=== PATIENT | male | born 1985 | race African-American/Black ===

== ENCOUNTER 2024-10-15 13:48 | Inpatient (IN) | payer SELFPAY ==
--- NOTE | ~2024-10-15 | XR_ITS ---
Clinical Indication: Pneumonia PA and lateral views of the chest: Comparison: 10/15/2024 Findings: Bibasilar airspace disease improved from prior exam. There is linear scarring or atelectasi s left midlung. Cardiomediastinal silhouette is stable. Bones and soft tissues are unremarkable. Impression: Improvement in bibasilar airspace disease. Linear scarring or atelectasis left midlung. Stable cardiomegaly. Reviewed, dictated and finalized at location . ICAL APPLICATION MANAGER Impression: Improvement in bibasilar airspace disease. Linear scarring or atelectasis left midlung. Stable cardiomegaly.
--- NOTE | ~2024-10-15 | CT_ITS ---
CTA chest PE protocol Ordering provider: Fawad Mendez MD History: 39 years Male with . Shortness of breath, elevated troponin . Comparison: None. Technique: CT angiogram chest was performed following timed intravenous injection of contrast. Thin s lice axial images and reformatted coronal images were obtained. Three dimensional reformatted images of the chest were also obtained using a [employer] workstation. . Automated exposure control and iterati ve reconstruction technique were employed. The dose-length product was 321.69 mGy-cm. 100 mL Omnipaqu e 350 was given IV. Findings: PULMONARY ARTERIES: No pulmonary embolus. VISUALIZED THORACIC INLET: Normal. MEDIASTINUM: Aorta/coronary arteries: The thoracic aorta is normal. Heart/other: The heart is moderately enlarged. Lymph nodes: No mediastinal or hilar adenopathy. LUNGS: Focal density in the right lower lobe area measuring 2.1 cm which may be focal pneumonia or a nodule. Follow-up CT is advised in 3 months. Atelectatic changes seen in the left lung base laterally atelec tatic changes in the middle lobe is. Bilateral moderate pleural effusion more on the right side with adjacent atelectasis. No pneumothorax. VISUALIZED UPPER ABDOMEN: the visualized upper abdomen is normal. MUSCULOSKELETAL: Soft tissues: The superficial soft tissues are normal. Bones: Normal spine.. IMPRESSION: 1. No pulmonary embolism. 2. Bilateral pleural effusion larger on the right side with adjacent atelectasis. 3. Density in the right lower lobe laterally which may be focal pneumonia or nodules. 3 months follo w-up CT is advised. Reviewed, dictated and finalized at location A. EDITOR IMPRESSION: 1. No pulmonary embolism. 2. Bilateral pleural effusion larger on the right side with adjacent atelectas is. 3. Density in the right lower lobe laterally which may be focal pneumonia or n odules. 3 months follow-up CT is advised.
--- NOTE | ~2024-10-15 | XR_ITS ---
XR chest 1V Ordering provider: Gray Lockett PA-C History: 39 years Male with . dyspnea, cough x one month . Comparison: None. FINDINGS: MEDIASTINUM: The cardiac silhouette is slightly enlarged. LUNGS: No pneumothorax. Bibasilar opacification more on the left side with possible minimal effusion. OTHER: No free air under the diaphragm. IMPRESSION: Bibasilar pneumonia. Reviewed, dictated and finalized at location A. [employer] IMPRESSION: Bibasilar pneumonia.
[2024-10-15 13:52] VITALS: BP 159/120; PULSE 113; RESP 21; TEMP 36.2; O2SAT 98
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
--- NOTE | 2024-10-15 16:27 | ECG_ITS ---
Test Date: 2024-10-15 21:27:19 Measurements Intervals [place] Rate: 103 P: 51 OR: 164 QRS: 84 QRSD: 93 T: 66 QT: 338 QTc: 444 Interpretive Statements SINUS TACHYCARDIA LEFT ATRIAL ENLARGEMENT [-0.15mV P-WAVE IN V1/V2] LOW QRS VOLTAGE IN EXTREMITY LEADS [QRS DEFLECTION < 0.5 mV IN LIMB LEADS] NONSPECIFIC T-WAVE ABNORMALITY ABNORMAL ECG Electronically Signed On 10-16-2024 08:28:55 GLUE REEL OPERATOR by Dom Lomeli M.D.
[2024-10-15 20:05] LABS: Basophils Percent Auto 0.5 % (0.2-1.2); Eosinophils Percent Auto 0.5 % (0-4.4); Hematocrit 46.3 % (42.0-52.0); Hemoglobin 15.5 g/dL (14.0-18.0); Immature Granulocyte Absolute 0.01 K/mm3 (0.00-0.031); Immature Granulocyte Percent A 0.2 % (0-0.5); Lymphocytes Absolute Auto 1.85 K/mm3 (0.9-3.2); Lymphocytes Percent Auto 32.1 % (18.3-44.2); Mean Corpuscular HGB Conc 33.5 g/dl (32-36); Mean Corpuscular Hemoglobin 26.7 pg (26-34); Mean Corpuscular Volume 79.8 fl (80-100); Mean Platelet Volume 11.2 fl (7.4-10.4); Monocytes Absolute Auto 0.6 K/mm3 (0.1-0.6); Monocytes Percent Auto 9.7 % (2.6-8.5); Neutrophils Absolute Auto 3.3 K/mm3 (1.3-6.7); Platelet Count Result 184 k/mm3 (150-375); Red Cell Distribution Width 13.5 % (11.5-14.5); White Blood Count 5.8 K/mm3 (4.5-10.0)
[2024-10-15 20:16] LABS: Alanine Aminotransferase 29 U/L (6-50); Albumin Level 3.6 g/dL (3.5-5.1); Alkaline Phosphatase 63 U/L (38-126); Anion Gap 4 mmol/L (4-12); Aspartate Amino Transferase 26 U/L (17-59); Bilirubin,Total 0.7 mg/dL (0.2-1.3); Blood Urea Nitrogen 14 mg/dL (9-20); Calcium 8.8 mg/dL (8.4-10.2); Carbon Dioxide 24 mmol/L (22-30); Chloride 101 mmol/L (98-107); Estimated CRCL calculation 78 ml/min; Estimated Glomerular Filt Rate > 60; Glucose 410 mg/dL (65-110); Potassium 4.2 mmol/L (3.4-5.0); Sodium 129 mmol/L (137-145)
[2024-10-15 20:17] LABS: Lactic Acid Reflex 1.6 mmol/L (0.7-2.0)
[2024-10-15 20:28] LABS: NT Pro B Type Natriuretic Pept 4500 pg/mL (19.9-100); Troponin I 0.116 ng/mL (0.000-0.034)
[2024-10-15 20:30] LABS: Strep Group A RT-PCR NOT DETECTED (Negative)
[2024-10-15 20:41] LABS: Influenza A QL RT-PCR Negative (Negative); Influenza B QL RT-PCR Negative (Negative); RSV RNA, RT-PCR Negative (Negative); SARS-CoV-2 RNA PCR Negative (Negative)
--- NOTE | 2024-10-15 21:19 | PC.NURSE ---
this patient placed in room 3 at this time. Patient has been here for 7 hours with no EKG completed.
[2024-10-15] MEDS: FUROSEMIDE INJ 40 MG/4 ML VIAL IV PUSH (21:35)
[2024-10-15] MEDS: ASPIRIN 81 MG CHEWABLE TABLET 324 MG PO (21:35)
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
[2024-10-16] VITALS (15 sets, daily range): BP systolic 89–126; BP diastolic 65–92; PULSE 78–102; RESP 14–20; TEMP 36.6–37.2; O2SAT 99–100; BMI 29.4; BMI 29.9
--- NOTE | 2024-10-16 | ECHO_ITS ---
Patient Info Name: Michael Frank Age: 39 years : 1985 Gender: Male Ht: 67 in Wt: 191 lbs BSA: 2.05 m2 HR: 101 bpm BP: 114 / 92 mmHg Heart Rhythm: Sinus Rhythm Technical Quality: Good Exam Date: 10/16/2024 8:48 AM Exam Location: Echo Lab Patient Status: Inpatient Admit Date: 10/15/2024 Staff Ordering Physician: Shashi Mueller MD Hat Copyist: Mei Hirsch RDCS Attending Provider: Shashi Mueller MD Referring Physician: Ami BOWEN; Exam Type: CA echo doppler color flow Study Info Complete two-dimensional, color flow and Doppler transthoracic echocardiogram is performed. Summary 1. Complete two-dimensional, color flow and Doppler transthoracic echocardiogram is performed. 2. Left ventricular systolic function is severely reduced, estimated at 15-20%. 3. Left ventricular chamber dimension is moderately enlarged. 4. There is no increased left ventricular wall thickness. 5. The left ventricular diastolic function is abnormal. 6. Right ventricular chamber dimension is mildly enlarged. 7. Right ventricular systolic function is reduced. 8. Cannot rule out a left ventricular thrombus with the images obtained. 9. Left atrial chamber dimension is severely enlarged. 10. There is mild aortic valve regurgitation. 11. There is mild to moderate mitral valve regurgitation. 12. There is mild tricuspid valve regurgitation. 13. Mild pulmonary hypertension, estimated pulmonary arterial systolic pressure is 36 mmHg. 14. There is mild pulmonic regurgitation. 15. There is small pericardial effusion. Left Ventricle Left ventricular chamber dimension is moderately enlarged. Left ventricular systolic function is severely reduced, estimated at 15-20%. There is no increased left ventricular wall thickness. The left ventricular diastolic function is abnormal. Cannot rule out a left ventricular thrombus with the images obtained. Right Ventricle Right ventricular chamber dimension is mildly enlarged. Right ventricular systolic function is reduced. Left Atria Left atrial chamber dimension is severely enlarged. Right Atria Right atrial chamber dimension is normal. Atrial Septum Intact interatrial septum visualized by color flow imaging. Aortic Valve The aortic valve is trileaflet. There is mild aortic valve sclerosis. There is no aortic valve stenosis. There is mild aortic valve regurgitation. Pulmonic Valve The pulmonic valve is normal. There is no pulmonic valve stenosis. There is mild pulmonic regurgitation. Mitral Valve The mitral valve has normal leaflets. There is no mitral valve stenosis. There is mild to moderate mitral valve regurgitation. Tricuspid Valve The tricuspid valve leaflets are normal. There is no significant tricuspid valve stenosis. There is mild tricuspid valve regurgitation. Mild pulmonary hypertension, estimated pulmonary arterial systolic pressure is 36 mmHg. Pericardium/Pleural The pericardium appears normal. There is small pericardial effusion. Inferior Vena Cava Dilated inferior vena cava with <50% collapse upon inspiration consistent with elevated right atrial pressure, 15 mmHg. Aorta The aortic root size at the sinus of Valsalva is normal. Left Ventricular Outflow Tract Name Value Normal LVOT 2D LVOT Diameter 2.2 cm LVOT Doppler LVOT Peak Gradient 2 mmHg LVOT Mean Gradient 1 mmHg LVOT VTI 11 cm LVOT VTI/AV VTI Ratio 0.8 LVOT Stroke Volume 43 ml LVOT CO 3.7 l/min LVOT CI 1.8 l/min/m2 Pulmonic Valve Name Value Normal PV Doppler PV Peak Gradient 2 mmHg PV Regurgitation Doppler FL Peak End Diastolic Velocity 181 cm/s Mitral Valve Name Value Normal MV Doppler MV Peak Gradient 3 mmHg MV Mean Gradient 1 mmHg MV Decel Walsh 534 cm/s2 MV PHT 35 ms MV Area (PHT) 6.2 cm2 4.0-5.0 MV Area (Cont Eq VTI) 3.6 cm2 MV Regurgitation Doppler MR Peak Gradient 60 mmHg MV Diastolic Function MV E Peak Velocity 65 cm/s MV A Peak Velocity 30 cm/s MV E/A 2.2 MV Decel Time 122 ms MV Annular TDI MV E/e' (Septal) 9.1 <=8.0 MV E/e' (Lateral) 8.8 <=8.0 MV E/e' (Average) 8.9 Tricuspid Valve Name Value Normal TV Regurgitation Doppler TR Peak Velocity 231 cm/s TR Peak Gradient 21 mmHg Estimated PAP/RSVP RA Pressure 15 mmHg <=5 PA Systolic Pressure 36 mmHg <36 RV Systolic Pressure 36 mmHg <36 Aortic Valve Name Value Normal AV Doppler AV Peak Velocity 91 cm/s AV Peak Gradient 3 mmHg AV Mean Gradient 2 mmHg AV VTI 14 cm AV Area (Cont Eq VTI) 3.0 cm2 >=3.0 AV Area (Cont Eq Derick) 3.1 cm2 AV Regurgitation 2D LVOT Area 3.8 cm2 Ventricles Name Value Normal LV Dimensions 2D/MM IVS Diastolic Thickness (2D) 0.8 cm 0.6-1.0 LVID Diastole (2D) 5.9 cm 4.2-5.8 LVIW Diastolic Thickness (2D) 0.9 cm 0.6-1.0 LVID Systole (2D) 5.8 cm 2.5-4.0 LVOT Diameter 2.2 cm LV Mass (2D Cubed) 204.27 g 88.00-224.00 LV Mass Index (2D Cubed) 100 g/m2 49-115 Relative Wall Thickness (2D) 0.31 LV Fractional Shortening/Ejection Fraction 2D/MM LV Fractional Shortening (2D) 2 % 25-43 LV EF (2D Teicholz) 4 % 52-72 LV Diastolic Volume (4C MOD) 238 ml LV EF (4C MOD) 19 % LV Diastolic Length (4C) 9.2 cm LV Systolic Length (4C) 8.8 cm LV Stroke Volume (4C MOD) 45 ml Atria Name Value Normal LA Dimensions LA Volume (4C A-L) 136 ml RA Dimensions RA Area (4C) 21.4 cm2 <=18.0 Report Signatures
[2024-10-16] MEDS: AZITHROMYCIN 500 MG/NS 250 ML 500 MG/250 ML BAG 250 MG IVPB ×2 (00:15→22:18)
--- NOTE | 2024-10-16 01:50 | PC.NURSE ---
RN called report at this time on patient.
--- NOTE | 2024-10-16 02:27 | ADMGEN ---
This patient, Michael Frakn, was admitted to IMU Room 206-01. Patient/family oriented to hospital policies and general routines including ID bracelet, bed and alarms, visiting hours, pain management, procedures, bathroom and other care routines, personal items, smoking policy, room service/diet, and visiting hours. Information on how to activate the Rapid Response Team has been discussed. Patient/Family are encouraged to report perceived risks to care and to ask questions if they do not understand what they are told or what they should do.
[2024-10-16] MEDS: INSULIN HUMAN REGULAR (*BKC) 100 UNITS/ML 8 UNITS SUB-Q (02:48)
[2024-10-16 04:17] LABS: Phosphorus 4.8 mg/dL (2.5-4.5)
[2024-10-16 04:22] LABS: Glucose Point of Care 484 mg/dl (65-105)
[2024-10-16 04:28] LABS: Hemoglobin A1C 12.7 % (<5.7)
--- NOTE | 2024-10-16 04:52 | PC.NURSE ---
The patient's meds could not be reconciled due to the patient being unable to recall what he is taking and dosage. notified and she acknowledged the information and informed this RN that pharmacy would be calling to confirm meds and that she would be putting in a request for medical records from his recent admission at [facility].
[2024-10-16] MEDS: carvediloL 12.5 MG TABLET PO ×2 (06:19→20:30)
[2024-10-16 08:22] LABS: Glucose Point of Care 397 mg/dl (65-105)
[2024-10-16] MEDS: INSULIN ASPART (*BKC) 100 UNITS/ML SUB-Q ×3 (08:53→18:09)
[2024-10-16] MEDS: FUROSEMIDE INJ 40 MG/4 ML VIAL IV PUSH ×2 (08:54→20:31)
[2024-10-16 12:08] LABS: Glucose Point of Care 321 mg/dl (65-105)
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
[2024-10-16 17:54] LABS: Glucose Point of Care 341 mg/dl (65-105)
[2024-10-16 20:29] LABS: Glucose Point of Care 311 mg/dl (65-105)
[2024-10-16] MEDS: SACUBITRIL/VALSARTAN 12-13 MG TABLET 1 TAB PO (20:31)
[2024-10-17] VITALS (14 sets, daily range): BP systolic 88–133; BP diastolic 64–101; PULSE 74–103; RESP 15–22; TEMP 36.5–36.8; O2SAT 99–100
[2024-10-17 08:46] LABS: Glucose Point of Care 393 mg/dl (65-105)
[2024-10-17] MEDS: SPIRONOLACTONE 25 MG TABLET PO (09:12)
[2024-10-17] MEDS: FOLIC ACID 1 MG TABLET PO (09:12)
[2024-10-17] MEDS: THIAMINE HCL 100 MG TABLET PO (09:12)
[2024-10-17] MEDS: SACUBITRIL/VALSARTAN 12-13 MG TABLET 1 TAB PO ×2 (09:12→21:17)
[2024-10-17] MEDS: carvediloL 12.5 MG TABLET PO ×2 (09:12→21:16)
[2024-10-17] MEDS: FUROSEMIDE INJ 40 MG/4 ML VIAL IV PUSH (09:13)
[2024-10-17] MEDS: INSULIN ASPART (*BKC) 100 UNITS/ML SUB-Q ×2 (09:18→17:54)
--- NOTE | 2024-10-17 11:28 | P.CONCA_ITS ---
Assessment and Plan Assessment and plan (1) Cardiomyopathy: Code(s): I42.9 - Cardiomyopathy, unspecified Status: Acute Assessment and Plan: Severe cardiomyopathy with ejection fraction down to 15 20%. Will order a limited echo with definity to assess for LV thrombus. He was noncompliant with his medical regimen upon discharge. He also continues to drink alcohol, at least a 6 pack per day. At [facility], Stress test showed a fixed defect. In my opinion, he still should have a definitive evaluation of his coronary anatomy via catheterization at some point. I also talked about a LifeVest and left social work talk to him but given lack of insurance, this may be difficult. Hopefully can get him on Medicaid. Regarding medications, continue carvedilol 12.5 mg p.o. b.i.d.. Will reduce his furosemide down to 40 mg IV daily and transition to oral furosemide tomorrow. Agree with Entresto and spironolactone but will need close assessment renal function upon discharge and will need patient assistance to get Entresto. Additionally, given his cardiomyopathy and diabetes and heart failure, Jardiance or Farxiga would also be advisable. Low-salt diet. Stopping use of alcohol as also discussed and advised. (2) Noncompliance: Code(s): Z91.199 - Patient's noncompliance with other medical treatment and regimen due to unspecified reason Status: Acute Assessment and Plan: Encourage compliance (3) Hypertension associated with diabetes: Code(s): E11.59 - Type 2 diabetes mellitus with other circulatory complications; I15.2 - Hypertension secondary to endocrine disorders Status: Acute Assessment and Plan: BP meds as above (4) Acute on chronic systolic heart failure: Code(s): I50.23 - Acute on chronic systolic (congestive) heart failure Status: Acute Assessment and Plan: Diuresing and initiating CHF regimen as above. Check a basic metabolic panel in the a.m. (5) EtOH dependence: Code(s): F10.20 - Alcohol dependence, uncomplicated Status: Acute Assessment and Plan: Ongoing and advised to stop History of Present Illness History of Present Illness Consult date/time: 10/17/24 11:28 Requesting physician: Chris Vleasquez MD Consult reason: congestive heart failure Reason For Visit: Acute exacerbation CHF pneumonia Narrative: Date of service 10/17/2024: Reason for consultation: Acute on chronic systolic congestive heart failure Requesting provider: Dr. Velasquez History: 39-year-old male who was recently at [facility] with a new diagnosis of CHF with reduced ejection fraction. Ejection fraction was found to be 25-30%. He did undergo diuresis but had a bump in creatinine and diuretics were held. Was started on Entresto and other meds. He was discharged home. Stress testing performed at [facility] showed a fixed defect so cardiac catheterization was not performed. There was a discussion about a LifeVest but he has no insurance and life vest was not ordered. He came back to this hospital because of coughing when lying down as well as some chest pain with coughing. Short of breath with lying down and was waking up at night gasping for air. He also has been having worsening edema. No syncope or presyncope. He was not taking his medications several days prior to admission. Also he drinks at least 6 beers per day and had continued to drink alcohol upon discharge and returning to home. Review of Systems 2 Review of Systems: All systems reviewed & are unremarkable except as noted in HPI and below Constitutional: Constitutional: Denies body ache(s) Eyes: Eyes: Denies blurry vision ENT: Denies epistaxis Cardiovascular: Cardiovascular: Denies chest pain Respiratory: Respiratory: Reports dyspnea Gastrointestinal: Gastrointestinal: Denies abdominal pain Musculoskeletal: Musculoskeletal: Denies back pain Integumentary/Breasts: Skin/Breast: Denies rash Neurologic: Denies confusion Psychiatric: Psychiatric: Denies anxiety Endocrine: Endocrine: Denies excessive sweating Hematologic/Lymphatic: Hematologic/Lymphatic: Denies easy bleeding Allergic/Immunologic: Allergic/Immunologic: Denies lip swelling PMFSH Past Medical History Medical History (Updated 10/17/24 @ 11:34 by Dom Lomeli MD) Noncompliance Cardiomyopathy Hypertension associated with diabetes EtOH dependence Family History Family History (Updated 10/16/24 @ 02:29 by Serg Nayak RN) Mother Hypertension Father Hypertension Social History Social History Smoking status: Never smoker Alcohol intake: current Drinks per week: 6 Substance use: never Substance use type: does not use Do You Feel Safe in your Home?: Yes Lack of Transportation: No Lack of Food: Never True Current Housing: I Have Housing Concerned About Future Housing: No Difficulty Paying Gas/Electric Bills: No Difficulty Paying for Meds: No Currently Unemployed: No Education: High School Diploma/GED Difficulty w/ Childcare or Family Care: No Spiritual care concerns: No Meds Home Medications and Allergies Allergies Allergy/AdvReac Type Severity Reaction Status Date / Time No Known Allergies Allergy Verified 10/15/24 21:27 Vital Signs Vital Signs - 24 hr 10/16/24 12:00 10/16/24 12:00 10/16/24 14:00 Temperature 36.6 C Pulse Rate 90 92 89 Respiratory Rate 14 Blood Pressure 112/74 Pulse Oximetry 100 Oxygen Delivery 10/16/24 16:00 10/16/24 16:00 10/16/24 18:00 Temperature 37.2 C Pulse Rate 92 93 94 Respiratory Rate 20 Blood Pressure 116/72 Pulse Oximetry 99 Oxygen Delivery 10/16/24 20:00 10/16/24 20:00 10/16/24 20:00 Temperature 36.6 C Pulse Rate 94 93 Respiratory Rate 18 18 Blood Pressure 123/89 123/89 Pulse Oximetry 100 100 Oxygen Delivery Room Air 10/16/24 20:00 10/16/24 20:30 10/16/24 22:00 Temperature Pulse Rate 93 78 84 Respiratory Rate Blood Pressure Pulse Oximetry Oxygen Delivery 10/16/24 23:55 10/17/24 00:00 10/17/24 00:00 Temperature 36.8 C Pulse Rate 89 88 Respiratory Rate 16 16 Blood Pressure 89/65 L 89/65 L Pulse Oximetry 99 99 Oxygen Delivery Room Air 10/17/24 00:00 10/17/24 01:47 10/17/24 04:00 Temperature 36.6 C Pulse Rate 88 74 103 H Respiratory Rate 15 Blood Pressure 133/101 H Pulse Oximetry 99 Oxygen Delivery 10/17/24 04:00 10/17/24 04:00 10/17/24 04:00 Temperature Pulse Rate 102 H 102 H Respiratory Rate 15 Blood Pressure 133/101 H Pulse Oximetry 99 Oxygen Delivery Room Air 10/17/24 06:00 10/17/24 07:53 10/17/24 08:00 Temperature 36.8 C Pulse Rate 100 101 H 103 H Respiratory Rate 16 Blood Pressure 132/95 H Pulse Oximetry 100 Oxygen Delivery 10/17/24 10:00 Temperature Pulse Rate 101 H Respiratory Rate Blood Pressure Pulse Oximetry Oxygen Delivery Exam 2 Narrative: Awake alert oriented appears stated age Const: General: comfortable and no acute distress HENMT: Face/Nose/Sinus: Normal nares present Mouth: Yes moist mucous membranes Eyes: General: appearance normal, both eyes and all related structures S clera: sclerae normal Neck: Neck: supple and no JVD Chest: Other: No reproducible chest wall pain to palpation Resp: Effort & Inspection: normal respiratory effort Auscultation: clear to auscultation bilaterally Cardio: Rate: regular rate Rhythm: regular rhythm GI: Inspection: non-distended GI Palp: Yes Soft to palpation Skin: General skin exam: normal color Neuro: Motor exam (neuro): 5/5 motor strength present throughout Sensory Exam: normal sensation Extrem: Other: Mild lower extremity edema Psych: Mental Status: mental status grossly normal Results Labs and Meds 10/15/24 19:40 10/15/24 19:40 Lab results: Intake and Output 10/16/24 10/17/24 10/17/24 23:59 07:59 15:59 Intake Total 840 600 500 Output Total 1000 525 Balance -160 75 500 Intake: IV 300 Azithromycin 500 mg/Ns 250 ml 250 500 mg In 250 ml @ 250 mls/hr IVPB Q24H KLEIN Rx#:[id number] 1 GM/NS 50 ML 1 gm 50 In 50 ml @ 100 mls/hr IVPB Q24H KELIN Rx#:[id number] Oral 540 600 500 Output: Urine 1000 525 Other: # Unmeasured Voids 3 Patient Weight 10/17/24 23:59 Weight 86.9 kg echocardiogram personally reviewed and independently interpreted 2. Left ventricular systolic function is severely reduced, estimated at 15-20%. 3. Left ventricular chamber dimension is moderately enlarged. 4. There is no increased left ventricular wall thickness. 5. The left ventricular diastolic function is abnormal. 6. Right ventricular chamber dimension is mildly enlarged. 7. Right ventricular systolic function is reduced. 8. Cannot rule out a left ventricular thrombus with the images obtained. 9. Left atrial chamber dimension is severely enlarged. 10. There is mild aortic valve regurgitation. 11. There is mild to moderate mitral valve regurgitation. 12. There is mild tricuspid valve regurgitation. 13. Mild pulmonary hypertension, estimated pulmonary arterial systolic pressure is 36 mmHg. 14. There is mild pulmonic regurgitation. 15. There is small pericardial effusion.
[2024-10-17 11:57] LABS: Glucose Point of Care > 500 mg/dl (65-105)
[2024-10-17] MEDS: INSULIN ASPART (*BKC) 100 UNITS/ML 10 UNITS SUB-Q (13:00)
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
[2024-10-17] MEDS: ACETAMINOPHEN 500 MG TABLET 1000 MG PO (14:53)
[2024-10-17 18:08] LABS: Glucose Point of Care 167 mg/dl (65-105)
[2024-10-17 19:45] LABS: Glucose Point of Care 144 mg/dl (65-105)
[2024-10-17] MEDS: guaiFENesin 12 HR 600 MG TABCR PO (21:17)
[2024-10-17 21:47] LABS: Glucose Point of Care 130 mg/dl (65-105)
[2024-10-17] MEDS: INSULIN GLARGINE (*BKC) 100 UNITS/ML 10 UNITS SUB-Q (22:02)
[2024-10-17] MEDS: AZITHROMYCIN 500 MG/NS 250 ML 500 MG/250 ML BAG 250 MG IVPB (22:31)
[2024-10-18] VITALS (9 sets, daily range): BP systolic 92–119; BP diastolic 62–84; PULSE 90–100; RESP 16–22; TEMP 36.1–36.4; O2SAT 96–99; BMI 29.9
--- NOTE | 2024-10-18 00:04 | PC.NURSE ---
report called to Margo MONTALVO and sbar faxed for transfer to room 321
[2024-10-18 07:26] LABS: Anion Gap 2 mmol/L (4-12); Blood Urea Nitrogen 18 mg/dL (9-20); Calcium 8.4 mg/dL (8.4-10.2); Carbon Dioxide 28 mmol/L (22-30); Chloride 102 mmol/L (98-107); Estimated CRCL calculation 77 ml/min; Estimated Glomerular Filt Rate > 60; Glucose 137 mg/dL (65-110); Potassium 4.3 mmol/L (3.4-5.0); Sodium 132 mmol/L (137-145)
[2024-10-18 08:20] LABS: Glucose Point of Care 152 mg/dl (65-105)
[2024-10-18 08:21] LABS: Basophils Absolute Auto 0.1 K/mm3 (0.0-0.1); Basophils Percent Auto 0.9 % (0.2-1.2); Eosinophils Absolute Auto 0.1 K/mm3 (0-0.3); Eosinophils Percent Auto 1.6 % (0-4.4); Hematocrit 49.2 % (42.0-52.0); Hemoglobin 16.2 g/dL (14.0-18.0); Immature Granulocyte Absolute 0.01 K/mm3 (0.00-0.031); Immature Granulocyte Percent A 0.2 % (0-0.5); Lymphocytes Absolute Auto 2.26 K/mm3 (0.9-3.2); Lymphocytes Percent Auto 40.1 % (18.3-44.2); Mean Corpuscular HGB Conc 32.9 g/dl (32-36); Mean Corpuscular Hemoglobin 26.7 pg (26-34); Mean Corpuscular Volume 81.1 fl (80-100); Mean Platelet Volume 11.5 fl (7.4-10.4); Monocytes Absolute Auto 0.5 K/mm3 (0.1-0.6); Neutrophils Absolute Auto 2.7 K/mm3 (1.3-6.7); Neutrophils Percent Auto 48.2 % (45.5-73.1); Platelet Count Result 192 k/mm3 (150-375); Red Blood Count 6.07 M/mm3 (4.6-6.20); Red Cell Distribution Width 13.6 % (11.5-14.5); White Blood Count 5.6 K/mm3 (4.5-10.0)
--- NOTE | 2024-10-18 08:39 | P.PNCA_ITS ---
Progress Note: A&P Assessment and Plan (1) Cardiomyopathy: Code(s): I42.9 - Cardiomyopathy, unspecified Status: Acute Assessment and Plan: Severe cardiomyopathy with ejection fraction down to 15 20%. Echocardiogram performed to assess for LV thrombus, LV thrombus cannot be ruled out. Therefore, we will start him on systemic anticoagulation with Xarelto. He was noncompliant with his medical regimen upon discharge. He also continues to drink alcohol, at least a 6 pack per day. At [facility], Stress test showed a fixed defect. In my opinion, he still should have a definitive evaluation of his coronary anatomy via catheterization at some point. I also talked about a LifeVest and left social work talk to him but given lack of insurance, this may be difficult. Hopefully can get him on Medicaid. Applying for patient assistance for Life Vest. Regarding medications, continue carvedilol 12.5 mg p.o. b.i.d.. Transition to oral furosemide today. Agree with Entresto and spironolactone but will need close assessment renal function upon discharge and will need patient assistance to get Entresto. Additionally, given his cardiomyopathy and diabetes and heart failure, Jardiance or Farxiga would also be advisable. Low-salt diet. Stopping use of alcohol as also discussed and advised. He is on a good guideline directed medical therapy regimen for cardiomyopathy. At this point, does not appear to be in decompensated heart failure. LifeVest has been ordered. 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 Cardiology will sign off. Please call with any questions. (2) Noncompliance: Code(s): Z91.199 - Patient's noncompliance with other medical treatment and regimen due to unspecified reason Status: Acute Assessment and Plan: Encourage compliance (3) Hypertension associated with diabetes: Code(s): E11.59 - Type 2 diabetes mellitus with other circulatory complications; I15.2 - Hypertension secondary to endocrine disorders Status: Acute Assessment and Plan: BP meds as above (4) Acute on chronic systolic heart failure: Code(s): I50.23 - Acute on chronic systolic (congestive) heart failure Status: Acute Assessment and Plan: Diuresing and initiating CHF regimen as above. BMP stable this morning. (5) EtOH dependence: Code(s): F10.20 - Alcohol dependence, uncomplicated Status: Acute Assessment and Plan: Ongoing and advised to stop Subjective Date/time seen: 10/18/24 08:39 Interval history: Cardiology follow up visit Feels well today and does not have any complaints aside from being tired and wanting to take a nap. Denies chest pain, shortness of breath, palpitations, swelling. Review of Systems Review of Systems: All systems reviewed & are unremarkable except as noted in HPI and below Constitutional: Constitutional: Denies body ache(s) and Denies excessive sweating Eyes: Eyes: Denies blurry vision ENT: Denies lip swelling and Denies epistaxis Cardiovascular: Cardiovascular: Denies chest pain and Reports dyspnea Respiratory: Respiratory: Reports dyspnea Gastrointestinal: Gastrointestinal: Denies abdominal pain Musculoskeletal: Musculoskeletal: Denies back pain Integumentary/Breasts: Skin/Breast: Denies rash Neurologic: Denies confusion Psychiatric: Psychiatric: Denies anxiety and Denies confusion Endocrine: Endocrine: Denies excessive sweating Hematologic/Lymphatic: Hematologic/Lymphatic: Denies easy bleeding Allergic/Immunologic: Allergic/Immunologic: Denies lip swelling Exam Narrative: Awake alert oriented appears stated age Const: General: comfortable and no acute distress; No confusion Orientation/consciousness: No confusion HENMT: Face/Nose/Sinus: Normal nares present Mouth: Yes moist mucous membranes Eyes: General: appearance normal, both eyes and all related structures Sclera: sclerae normal Neck: Neck: supple and no JVD Chest: Other: No reproducible chest wall pain to palpation Resp: Effort & Inspection: normal respiratory effort Auscultation: clear to auscultation bilaterally Cardio: Rate: regular rate Rhythm: regular rhythm GI: Inspection: non-distended Skin: General skin exam: normal color Neuro: General: No confusion Motor exam (neuro): 5/5 motor strength present throughout Sensory Exam: normal sensation Extrem: Other: no edema Psych: Mental Status: mental status grossly normal Objective Data Vital Signs Vital Signs: Vital Signs - 24 hr 10/17/24 10:00 10/17/24 12:00 10/17/24 12:13 Temperature 36.8 C Pulse Rate 101 H 95 96 Pulse Rate [Bilateral Pedal (Dorsalis Pedis) Palpation] Respiratory Rate 20 Blood Pressure 117/73 Pulse Oximetry 100 10/17/24 16:00 10/17/24 16:00 10/17/24 20:00 Temperature 36.7 C Pulse Rate 95 94 86 Pulse Rate [Bilateral Pedal (Dorsalis Pedis) Palpation] Respiratory Rate 20 Blood Pressure 110/78 Pulse Oximetry 99 10/17/24 21:16 10/17/24 23:15 10/17/24 23:38 Temperature 36.5 C Pulse Rate 88 91 Pulse Rate [Bilateral Pedal (Dorsalis Pedis) Palpation] Respiratory Rate 22 H Blood Pressure 88/64 L Pulse Oximetry 100 10/18/24 00:00 10/18/24 00:00 10/18/24 04:00 Temperature Pulse Rate 92 90 Pulse Rate [Bilateral Pedal (Dorsalis Pedis) Palpation] 92 Respiratory Rate Blood Pressure Pulse Oximetry 10/18/24 06:00 Temperature 36.1 C L Pulse Rate 90 Pulse Rate [Bilateral Pedal (Dorsalis Pedis) Palpation] Respiratory Rate 18 Blood Pressure 119/84 Pulse Oximetry 98 Intake/Output Intake/Output: Intake & Output 10/15/24 10/16/24 10/17/24 10/18/24 23:59 23:59 23:59 23:59 Intake Total 2120 2650 300 Output Total 1600 2275 Balance 520 375 300 Meds/Results Medications: Active Medications Generic Name Dose Route Start Last Admin Trade Name Freq PRN Reason Stop Dose Admin Acetaminophen 1,000 mg 10/16/24 03:14 10/17/24 14:53 Acetaminophen 500 Mg Tablet PO 1,000 mg Q6H PRN Administration Mild Pain (1-3) or Fever Al Hydrox/Mg Hydrox/Simethicone 30 ml 10/16/24 03:13 Mag Hydrox/Al Hydrox/Simeth 30 Ml Udc PO Q6H PRN Indigestion Albuterol 2.5 mg 10/16/24 03:15 Albuterol Sulfate Neb 2.5 Mg/3 Ml Inh INHALATION Q6HRT PRN Shortness Of Breath Benzonatate 100 mg 10/17/24 14:00 10/17/24 17:58 Benzonatate 100 Mg Capsule PO Not Given TID KELIN Carvedilol 12.5 mg 10/16/24 09:00 10/17/24 21:16 Carvedilol 12.5 Mg Tablet PO 12.5 mg Q12HR KELIN Administration Dextrose 12.5 gm 10/17/24 13:50 Dextrose 50% 25 Gm/50 Ml Syringe IV PUSH PRN PRN Hypoglycemia Protocol Enoxaparin Sodium 40 mg 12/30/24 09:00 Enoxaparin 40 Mg/0.4 Ml Syringe SUB-Q DAILY KELIN Folic Acid 1 mg 10/17/24 09:00 10/17/24 09:12 Folic Acid 1 Mg Tablet PO 1 mg DAILY KELIN Administration Furosemide 40 mg 10/18/24 09:00 Furosemide Inj 40 Mg/4 Ml Vial IV PUSH DAILY KELIN Glucagon 1 mg 10/17/24 13:50 Glucagon For Inj 1 Mg Vial IM PRN PRN Hypoglycemia Protocol Glucose 15 gm 10/17/24 13:50 Glucose Oral Gel 15 Gm Of Glucse In 37.5 Gm Tube PO PRN PRN Hypoglycemia Protocol Guaifenesin 600 mg 10/17/24 14:00 10/17/24 21:17 Guaifenesin 12 Hr 600 Mg Tabcr PO 600 mg Q12HR KELIN Administration Guaifenesin/Dextromethorphan 5 ml 10/17/24 13:51 Guaifenesin/Dextromethorphan 10 Ml Udc PO Q4H PRN Cough Ceftriaxone Sodium 1 gm in 50 mls @ 100 mls/hr 10/16/24 22:00 10/17/24 22:04 Rocephin 1 Gm/Ns 50 Ml IVPB 100 mls/hr Q24H KELIN Administration Azithromycin 500 mg in 250 mls @ 250 mls/hr 10/16/24 23:00 10/17/24 22:31 Zithromax IVPB 250 mls/hr Q24H KELIN Administration Dextrose 1,000 mls @ 100 mls/hr 10/17/24 13:50 Dextrose 5% 1,000 Ml IVPB PRN PRN Hypoglycemia Protocol Insulin Aspart 4 units 10/16/24 08:00 10/17/24 17:54 Insulin Aspart (*Bkc) 100 Units/Ml 0.05 units/kg (4 units) 4 units SUB-Q Administration TIDWM KELIN Insulin Glargine 10 units 10/17/24 21:00 10/17/24 22:02 Insulin Glargine (*Bkc) 100 Units/Ml SUB-Q 10 units HS KELIN Administration Ondansetron HCl 4 mg 10/16/24 03:13 Ondansetron Inj 4 Mg/2 Ml Vial IV PUSH Q6H PRN Nausea And Vomiting Perflutren Lipid Microsphere 0 ml 10/16/24 03:17 Perflutren Lipid Microspheres 1.5 Ml Vial Diluted To 10 Ml Total Volume IV PUSH 10/19/24 03:18 ONCE PRN adequate visualization Protocol Perflutren Lipid Microsphere 0 ml 10/17/24 11:41 Perflutren Lipid Microspheres 1.5 Ml Vial Diluted To 10 Ml Total Volume IV P USH 10/20/24 11:41 ONCE PRN adequate visualization Protocol Polyethylene Glycol 17 gm 10/16/24 03:13 Polyethylene Glycol 3350 17 Gm Powd.Pack PO QAM PRN Constipation Sacubitril/Valsartan 1 tab 10/16/24 21:00 10/17/24 21:17 Sacubitril/Valsartan 12-13 Mg Tablet PO 1 tab Q12HR KELIN Administration Spironolactone 25 mg 10/17/24 09:00 10/17/24 09:12 Spironolactone 25 Mg Tablet PO 25 mg QAM KELIN Administration Thiamine HCl 100 mg 10/17/24 09:00 10/17/24 09:12 Thiamine Hcl 100 Mg Tablet PO 100 mg QAM KELIN Administration Radiology Results: ITS Impressions Chest X-Ray 10/15/24 17:04 IMPRESSION: Bibasilar pneumonia. Chest CTA 10/15/24 22:03 IMPRESSION: 1. No pulmonary embolism. 2. Bilateral pleural effusion larger on the right side with adjacent atelectasis. 3. Density in the right lower lobe laterally which may be focal pneumonia or nodules. 3 months follow-up CT is advised. Labs Labs: Laboratory Results - last 24 hr 10/17/24 10/17/24 10/17/24 07:33 11:54 16:24 WBC RBC Hgb Hct MCV MCH MCHC RDW Plt Count MPV Immature Gran % (Auto) Neut % (Auto) Lymph % (Auto) [place] % (Auto) Eos % (Auto) Baso % (Auto) Lymph # (Auto) [place] # (Auto) Eos # (Auto) Baso # (Auto) Abs Immat Gran (auto) Absolute Neuts (auto) Absolute Nucleated RBC Nucleated RBC % Sodium Potassium Chloride Carbon Dioxide Anion Gap BUN Creatinine Estim Creat Clear Calc Estimated GFR Glucose POC Capillary Glucose 393 H > 500 H* 167 H Calcium 10/17/24 10/17/24 10/18/24 19:41 21:45 06:40 WBC 5.6 RBC 6.07 Hgb 16.2 Hct 49.2 MCV 81.1 MCH 26.7 MCHC 32.9 RDW 13.6 Plt Count 192 MPV 11.5 H Immature Gran % (Auto) 0.2 Neut % (Auto) 48.2 Lymph % (Auto) 40.1 [place] % (Auto) 9.0 H Eos % (Auto) 1.6 Baso % (Auto) 0.9 Lymph # (Auto) 2.26 [place] # (Auto) 0.5 Eos # (Auto) 0.1 Baso # (Auto) 0.1 Abs Immat Gran (auto) 0.01 Absolute Neuts (auto) 2.7 Absolute Nucleated RBC 0.000 Nucleated RBC % 0.0 Sodium 132 L Potassium 4.3 Chloride 102 Carbon Dioxide 28 Anion Gap 2 L BUN 18 Creatinine 1.20 Estim Creat Clear Calc 77 Estimated GFR > 60 Glucose 137 H POC Capillary Glucose 144 H 130 H Calcium 8.4 10/18/24 08:03 WBC RBC Hgb Hct MCV MCH MCHC RDW Plt Count MPV Immature Gran % (Auto) Neut % (Auto) Lymph % (Auto) [place] % (Auto) Eos % (Auto) Baso % (Auto) Lymph # (Auto) [place] # (Auto) Eos # (Auto) Baso # (Auto) Abs Immat Gran (auto) Absolute Neuts (auto) Absolute Nucleated RBC Nucleated RBC % Sodium Potassium Chloride Carbon Dioxide Anion Gap BUN Creatinine Estim Creat Clear Calc Estimated GFR Glucose POC Capillary Glucose 152 H Calcium
[2024-10-18] MEDS: THIAMINE HCL 100 MG TABLET PO (09:11)
[2024-10-18] MEDS: FOLIC ACID 1 MG TABLET PO (09:11)
[2024-10-18] MEDS: carvediloL 12.5 MG TABLET PO ×2 (09:11→21:12)
[2024-10-18] MEDS: BENZONATATE 100 MG CAPSULE PO ×3 (09:11→16:22)
[2024-10-18] MEDS: FUROSEMIDE INJ 40 MG/4 ML VIAL IV PUSH (09:11)
[2024-10-18] MEDS: SPIRONOLACTONE 25 MG TABLET PO (09:11)
[2024-10-18] MEDS: INSULIN ASPART (*BKC) 100 UNITS/ML SUB-Q ×4 (09:11→21:11)
[2024-10-18] MEDS: guaiFENesin 12 HR 600 MG TABCR PO ×2 (09:11→21:12)
[2024-10-18] MEDS: ENOXAPARIN 40 MG/0.4 ML SYRINGE SUB-Q (09:14)
[2024-10-18] MEDS: SACUBITRIL/VALSARTAN 12-13 MG TABLET 1 TAB PO ×2 (09:14→21:12)
[2024-10-18 11:39] LABS: Glucose Point of Care 223 mg/dl (65-105)
--- NOTE | 2024-10-18 14:58 | P.PNIM_ITS ---
Progress Note: A&P Assessment and Plan (1) Acute on chronic systolic heart failure: Code(s): I50.23 - Acute on chronic systolic (congestive) heart failure Status: Acute Assessment and Plan: 10/18/24: * Newly diagnosed with echocardiogram showing EF of 15-20%. * Cardiology has signed off as of today with the following recommendations. * Limited echo is unable to rule out left ventricular thrombus. * Patient started on anticoagulation with Xarelto secondary to being unable to rule out left ventricular thrombus. * Reviewed stress test from [facility] shows a fixed defect, however it is recommended per cardiology that he have outpatient follow-up and heart catheterization in the future * Care coordination working with lindsey to help provide patient with life vest * Continue carvedilol 12.5 mg by mouth twice daily * Continue oral furosemide at 40 mg daily and will need at discharge. * Initiate Entresto * Initiate Jardiance or Farxiga. * Low-salt diet * Recommended alcohol cessation * Continue telemetry * Patient will likely be able to discharge once life vest is set up. (2) Hypertension: Code(s): I10 - Essential (primary) hypertension Status: Acute Assessment and Plan: 10/18/24: * New diagnosis for patient * See above plans in problem 1. * Patient will need close follow-up. (3) Diabetes mellitus: Code(s): E11.9 - Type 2 diabetes mellitus without complications Status: Acute Assessment and Plan: 10/18/24: * New diagnosis for patient. * A1c is 12.7 * Patient was evaluated by community liaison * Hypoglycemic protocol is in place * Changing insulin from 4 units with meals to sliding scale moderately dosed. * Continue Lantus * Diabetic diet/heart healthy diet * Patient will also discharged home on Jardiance or Farxiga. * Fasting glucose today is 137. Will continue at current Lantus dose of 10 units. * Will need close follow-up as outpatient. (4) Pneumonia: Code(s): J18.9 - Pneumonia, unspecified organism Status: Acute Assessment and Plan: 10/18/24: * Continue current antibiotics of Rocephin and azithromycin. * Check x-ray in a.m. to assess resolution versus worsening versus stability * Is not meeting sepsis criteria * Continue to monitor and trend labs and vital signs. (5) EtOH dependence: Code(s): F10.20 - Alcohol dependence, uncomplicated Status: Chronic Assessment and Plan: 10/18/24: * Chronic in nature * CIWA scores of zero to very low. * Continue CIWA while here as he is a daily drinker. * Counseled pt on the importance of alcohol cessation * Daily thiamine and folic acid. (6) Noncompliance: Code(s): Z91.199 - Patient's noncompliance with other medical treatment and regimen due to unspecified reason Status: Acute Assessment and Plan: 10/18/24: * Historical noncompliance present. Patient counseled heavily for the need for compliance and given situation. Time Spent With Patient Time with patient: 25 - 35 minutes Subjective Date/time seen: 10/18/24 0900 Interval history: This patient was examined this morning at the bedside after being admitted to the hospital with bilateral lower extremity edema as well as shortness of breath cough past week. In ER patient was found have a bilateral pneumonia and bilateral pleural effusion. Echocardiogram showing ejection fraction 15-20% and the inability to rule out a left ventricular thrombus. In addition patient is noted to be a new diabetic with A1c of 12.7. Patient also admits to daily alcohol use. Patient was consulted on by Cardiology who recommends multiple treatments including a life vest, Xarelto as we cannot rule out left ventricular thrombus, Jardiance or Farxiga and started on Entresto and spironolactone. Patient also needs to stop using alcohol and eat a low-salt diet. The caviat to all of this is patient does not have any medical insurance and states he will not be eligible for Medicaid until November 2024. I have discussed with care coordination could provide some assistance but not all. They will reach out to [facility] to discuss headache can best help. All of this will depend upon patient's compliance that of which she has been non compliant thus far and it is documented in his history that he has medication and regimen noncompliance. Patient currently remains on antibiotics and is being followed by Cardiology. Today patient states he feels as though he is doing somewhat better. He was ambulatory to the shower independently and bathing. He continues to have some shortness of breath. Attempted to children counselor patient regarding the importance of cardiology's findings although he did not seem interested in discussing, stating ?I know, I know they have said everything already he is advised that care coordination will help as much as possible with obtaining what we can to help him and he was encouraged to be compliant with therapy as his life literally depends on at this time. He denies any other acutely new symptoms today. Review of Systems Review of Systems: All systems reviewed & are unremarkable except as noted in HPI and below Exam Const: General: comfortable and no acute distress Other: Lying supine in bed at this time. No respiratory distress. HENMT: Other: Head is atraumatic and normocephalic. HEENT otherwise negative. Neck: Neck: supple and no JVD Resp: Effort & Inspection: normal respiratory effort Auscultation: rhonchi left lower and right lower Cardio: Rate: regular rate Rhythm: regular rhythm Heart sounds: no gallops, Murmur heart sound present systolic holo and no rubs GI: Inspection: non-distended GI Palp: Yes Soft to palpation, No Tenderness to palpation present (GI) and No Guarding due to palpation present (GI) Auscultation: normal bowel sounds Skin: General skin exam: normal color and no rashes or lesions noted Neuro: General: gait normal Speech: normal speech Motor exam (neuro): 5/5 motor strength present throughout and Normal motor muscle tone present throughout Extrem: General: normal to inspection and no edema Psych: Mental Status: mental status grossly normal Affect: normal affect Objective Data Vital Signs Vital Signs: Vital Signs - 24 hr 10/17/24 16:00 10/17/24 16:00 10/17/24 20:00 Temperature 98.1 F Pulse Rate 95 94 86 Pulse Rate [Bilateral Pedal (Dorsalis Pedis) Palpation] Respiratory Rate 20 Blood Pressure 110/78 Pulse Oximetry 99 Oxygen Delivery 10/17/24 21:16 10/17/24 23:15 10/17/24 23:38 Temperature 97.7 F Pulse Rate 88 91 Pulse Rate [Bilateral Pedal (Dorsalis Pedis) Palpation] Respiratory Rate 22 H Blood Pressure 88/64 L Pulse Oximetry 100 Oxygen Delivery 10/18/24 00:00 10/18/24 00:00 10/18/24 04:00 Temperature Pulse Rate 92 90 Pulse Rate [Bilateral Pedal (Dorsalis Pedis) Palpation] 92 Respiratory Rate Blood Pressure Pulse Oximetry Oxygen Delivery 10/18/24 06:00 10/18/24 08:00 10/18/24 08:00 Temperature 97.0 F L Pulse Rate 90 100 Pulse Rate [Bilateral Pedal (Dorsalis Pedis) Palpation] Respiratory Rate 18 Blood Pressure 119/84 Pulse Oximetry 98 Oxygen Delivery Room Air 10/18/24 12:00 Temperature Pulse Rate 100 Pulse Rate [Bilateral Pedal (Dorsalis Pedis) Palpation] Respiratory Rate Blood Pressure Pulse Oximetry Oxygen Delivery Intake/Output Intake/Output: Intake & Output 10/15/24 10/16/24 10/17/24 10/18/24 23:59 23:59 23:59 23:59 Intake Total 2120 2650 418 Output Total 1600 2275 Balance 520 375 418 Meds/Results Medications: Active Medications Generic Name Dose Route Start Last Admin Trade Name Freq PRN Reason Stop Dose Admin Acetaminophen 1,000 mg 10/16/24 03:14 10/17/24 14:53 Acetaminophen 500 Mg Tablet PO 1,000 mg Q6H PRN Administration Mild Pain (1-3) or Fever Al Hydrox/Mg Hydrox/Simethicone 30 ml 10/16/24 03:13 Mag Hydrox/Al Hydrox/Simeth 30 Ml Udc PO Q6H PRN Indigestion Albuterol 2.5 mg 10/16/24 03:15 Albuterol Sulfate Neb 2.5 Mg/3 Ml Inh INHALATION Q6HRT PRN Shortness Of Breath Benzonatate 100 mg 10/17/24 14:00 10/18/24 11:44 Benzonatate 100 Mg Capsule PO 100 mg TID KELIN Administration Carvedilol 12.5 mg 10/16/24 09:00 10/18/24 09:11 Carvedilol 12.5 Mg Tablet PO 12.5 mg Q12HR KELIN Administration Dextrose 12.5 gm 10/17/24 13:50 Dextrose 50% 25 Gm/50 Ml Syringe IV PUSH PRN PRN Hypoglycemia Protocol Folic Acid 1 mg 10/17/24 09:00 10/18/24 09:11 Folic Acid 1 Mg Tablet PO 1 mg DAILY KELIN Administration Furosemide 40 mg 10/19/24 09:00 Furosemide 40 Mg Tablet PO DAILY KELIN Glucagon 1 mg 10/17/24 13:50 Glucagon For Inj 1 Mg Vial IM PRN PRN Hypoglycemia Protocol Glucose 15 gm 10/17/24 13:50 Glucose Oral Gel 15 Gm Of Glucse In 37.5 Gm Tube PO PRN PRN Hypoglycemia Protocol Guaifenesin 600 mg 10/17/24 14:00 10/18/24 09:11 Guaifenesin 12 Hr 600 Mg Tabcr PO 600 mg Q12HR KELIN Administration Guaifenesin/Dextromethorphan 5 ml 10/17/24 13:51 Guaifenesin/Dextromethorphan 10 Ml Udc PO Q4H PRN Cough Ceftriaxone Sodium 1 gm in 50 mls @ 100 mls/hr 10/16/24 22:00 10/17/24 22:04 Rocephin 1 Gm/Ns 50 Ml IVPB 100 mls/hr Q24H KELIN Administration Azithromycin 500 mg in 250 mls @ 250 mls/hr 10/16/24 23:00 10/17/24 22:31 Zithromax IVPB 250 mls/hr Q24H KELIN Administration Dextrose 1,000 mls @ 100 mls/hr 10/17/24 13:50 Dextrose 5% 1,000 Ml IVPB PRN PRN Hypoglycemia Protocol Insulin Aspart 4 units 10/16/24 08:00 10/18/24 11:43 Insulin Aspart (*Bkc) 100 Units/Ml 0.05 units/kg (4 units) 4 units SUB-Q Administration TIDWM KELIN Insulin Glargine 10 units 10/17/24 21:00 10/17/24 22:02 Insulin Glargine (*Bkc) 100 Units/Ml SUB-Q 10 units HS KELIN Administration Ondansetron HCl 4 mg 10/16/24 03:13 Ondansetron Inj 4 Mg/2 Ml Vial IV PUSH Q6H PRN Nausea And Vomiting Perflutren Lipid Microsphere 0 ml 10/17/24 11:41 Perflutren Lipid Microspheres 1.5 Ml Vial Diluted To 10 Ml Total Volume IV PUSH 10/20/24 11:41 ONCE PRN adequate visualization Protocol Polyethylene Glycol 17 gm 10/16/24 03:13 Polyethylene Glycol 3350 17 Gm Powd.Pack PO QAM PRN Constipation Rivaroxaban 20 mg 10/18/24 17:00 Rivaroxaban 20 Mg Tablet PO DAILY@1700 KELIN Sacubitril/Valsartan 1 tab 10/16/24 21:00 10/18/24 09:14 Sacubitril/Valsartan 12-13 Mg Tablet PO 1 tab Q12HR KELIN Administration Spironolactone 25 mg 10/17/24 09:00 10/18/24 09:11 Spironolactone 25 Mg Tablet PO 25 mg QAM KELIN Administration Thiamine HCl 100 mg 10/17/24 09:00 10/18/24 09:11 Thiamine Hcl 100 Mg Tablet PO 100 mg QAM KELIN Administration Radiology Results: ITS Impressions Chest X-Ray 10/15/24 17:04 IMPRESSION: Bibasilar pneumonia. Chest CTA 10/15/24 22:03 IMPRESSION: 1. No pulmonary embolism. 2. Bilateral pleural effusion larger on the right side with adjacent atelectasis. 3. Density in the right lower lobe laterally which may be focal pneumonia or nodules. 3 months follow-up CT is advised. Labs Labs: Laboratory Results - last 24 hr 10/17/24 10/17/24 10/17/24 16:24 19:41 21:45 WBC RBC Hgb Hct MCV MCH MCHC RDW Plt Count MPV Immature Gran % (Auto) Neut % (Auto) Lymph % (Auto) [place] % (Auto) Eos % (Auto) Baso % (Auto) Lymph # (Auto) [place] # (Auto) Eos # (Auto) Baso # (Auto) Abs Immat Gran (auto) Absolute Neuts (auto) Absolute Nucleated RBC Nucleated RBC % Sodium Potassium Chloride Carbon Dioxide Anion Gap BUN Creatinine Estim Creat Clear Calc Estimated GFR Glucose POC Capillary Glucose 167 H 144 H 130 H Calcium 10/18/24 10/18/24 10/18/24 06:40 08:03 11:30 WBC 5.6 RBC 6.07 Hgb 16.2 Hct 49.2 MCV 81.1 MCH 26.7 MCHC 32.9 RDW 13.6 Plt Count 192 MPV 11.5 H Immature Gran % (Auto) 0.2 Neut % (Auto) 48.2 Lymph % (Auto) 40.1 [place] % (Auto) 9.0 H Eos % (Auto) 1.6 Baso % (Auto) 0.9 Lymph # (Auto) 2.26 [place] # (Auto) 0.5 Eos # (Auto) 0.1 Baso # (Auto) 0.1 Abs Immat Gran (auto) 0.01 Absolute Neuts (auto) 2.7 Absolute Nucleated RBC 0.000 Nucleated RBC % 0.0 Sodium 132 L Potassium 4.3 Chloride 102 Carbon Dioxide 28 Anion Gap 2 L BUN 18 Creatinine 1.20 Estim Creat Clear Calc 77 Estimated GFR > 60 Glucose 137 H POC Capillary Glucose 152 H 223 H Calcium 8.4 Quality VTE Prophylaxis VTE prophylaxis: pharmacologic ordered
[2024-10-18] MEDS: RIVAROXABAN 20 MG TABLET PO (16:22)
[2024-10-18 16:48] LABS: Glucose Point of Care 314 mg/dl (65-105)
[2024-10-18] MEDS: INSULIN GLARGINE (*BKC) 100 UNITS/ML 10 UNITS SUB-Q (21:11)
[2024-10-19] VITALS (13 sets, daily range): BP systolic 94–120; BP diastolic 72–90; PULSE 81–93; RESP 16–18; TEMP 36–36.4; O2SAT 99–100
--- NOTE | 2024-10-19 | ECHO_ITS ---
Patient Info Name: Michael Frank Age: 39 years : 1985 Gender: Male Ht: 67 in Wt: 182 lbs BSA: 2.00 m2 HR: 81 bpm BP: 119 / 86 mmHg Heart Rhythm: Sinus Rhythm Technical Quality: Good Exam Date: 10/19/2024 10:14 AM Exam Location: Echo Lab Patient Status: Inpatient Admit Date: 10/17/2024 Staff Ordering Physician: Dom Lomeli MD Correctional Maintenance Technician: Macy Liz RDCS Attending Provider: Angela Abreu APRN Referring Physician: Yani BOYLE; Exam Type: CA echo limited w contrast Study Info Indications - Severe cardiomyopathy, r/o thrombus Limited two-dimensional transthoracic echocardiogram is performed with contrast. Contrast/Agitated Saline Contrast/Ag. Saline: Definity Amount: 3.00 ml Administered By: Macy Liz RDCS Existing IV Access: Yes IV Access Condition: patent with no signs of infiltration Summary 1. Left ventricular systolic function is severely reduced with an estimated ejection fraction of 15-20%. 2. No lV thrombus seen in the images obtained. 3. Limited echo. Left Ventricle Left ventricular systolic function is severely reduced with an estimated ejection fraction of 15-20%. No lV thrombus seen in the images obtained. Ventricles Name Value Normal LV Fractional Shortening/Ejection Fraction 2D/MM LV Diastolic Volume (4C MOD) 168 ml LV EF (4C MOD) 19 % LV Diastolic Volume (2C MOD) 144 ml LV EF (2C MOD) 22 % LV Diastolic Volume (BP MOD) 158 ml 62-150 LV Diastolic Volume Index (BP MOD) 79 ml/m2 34-74 LV Systolic Volume (BP MOD) 124 ml 21-61 LV Systolic Volume Index (BP MOD) 62 ml/m2 11-31 LV EF (BP MOD) 22 % 52-72 LV Diastolic Length (4C) 9.2 cm LV Systolic Length (4C) 7.9 cm LV Stroke Volume (4C MOD) 33 ml Report Signatures
[2024-10-19 07:16] LABS: Glucose Point of Care 495 mg/dl (65-105)
[2024-10-19 07:32] LABS: Basophils Percent Auto 0.9 % (0.2-1.2); Eosinophils Absolute Auto 0.1 K/mm3 (0-0.3); Eosinophils Percent Auto 1.3 % (0-4.4); Hematocrit 45.4 % (42.0-52.0); Lymphocytes Absolute Auto 2.38 K/mm3 (0.9-3.2); Mean Corpuscular Hemoglobin 26.4 pg (26-34); Mean Corpuscular Volume 79.8 fl (80-100); Mean Platelet Volume 11.3 fl (7.4-10.4); Monocytes Absolute Auto 0.5 K/mm3 (0.1-0.6); Monocytes Percent Auto 10.1 % (2.6-8.5); Neutrophils Absolute Auto 1.7 K/mm3 (1.3-6.7); Neutrophils Percent Auto 36.7 % (45.5-73.1); Platelet Count Result 198 k/mm3 (150-375); Red Blood Count 5.69 M/mm3 (4.6-6.20); Red Cell Distribution Width 13.1 % (11.5-14.5); White Blood Count 4.7 K/mm3 (4.5-10.0)
[2024-10-19 07:35] LABS: Glucose Point of Care 193 mg/dl (65-105)
[2024-10-19 07:46] LABS: Alanine Aminotransferase 29 U/L (6-50); Albumin Level 2.8 g/dL (3.5-5.1); Alkaline Phosphatase 38 U/L (38-126); Anion Gap 1 mmol/L (4-12); Aspartate Amino Transferase 25 U/L (17-59); Bilirubin,Total 0.6 mg/dL (0.2-1.3); Blood Urea Nitrogen 18 mg/dL (9-20); Carbon Dioxide 27 mmol/L (22-30); Chloride 104 mmol/L (98-107); Estimated CRCL calculation 74 ml/min; Estimated Glomerular Filt Rate > 60; Glucose 168 mg/dL (65-110); Potassium 3.9 mmol/L (3.4-5.0); Sodium 132 mmol/L (137-145)
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
[2024-10-19] MEDS: carvediloL 12.5 MG TABLET PO ×2 (08:53→20:51)
[2024-10-19] MEDS: FUROSEMIDE 40 MG TABLET PO (08:54)
[2024-10-19] MEDS: FOLIC ACID 1 MG TABLET PO (08:54)
[2024-10-19] MEDS: guaiFENesin 12 HR 600 MG TABCR PO ×2 (08:54→20:50)
[2024-10-19] MEDS: SPIRONOLACTONE 25 MG TABLET PO (08:54)
[2024-10-19] MEDS: THIAMINE HCL 100 MG TABLET PO (08:54)
[2024-10-19] MEDS: BENZONATATE 100 MG CAPSULE PO ×3 (08:54→18:26)
[2024-10-19] MEDS: SACUBITRIL/VALSARTAN 12-13 MG TABLET 1 TAB PO ×2 (08:55→20:50)
[2024-10-19] MEDS: PERFLUTREN LIPID MICROSPHERES 1.5 ML VIAL DILUTED TO 10 ML TOTAL VOLUME IV PUSH (10:15)
--- NOTE | 2024-10-19 10:48 | IVDEFINITY ---
Prior to administration of IV Definity the patient was educated on the risks and benefits of the imaging enhancing agent including potential adverse side effects. The patient verbalized understanding. Allergies were verified. No exclusion criteria were identified and at least one of the following inclusion criteria were met: 1) physician request, 2) patient technically difficult to image (per the [place] [employer] of Echocardi[employer] guidelines of two or more segments not discernable within the apical view), or 3) questionable left ventricular function. ?
[2024-10-19 11:29] LABS: Glucose Point of Care 445 mg/dl (65-105)
[2024-10-19] MEDS: INSULIN ASPART (*BKC) 100 UNITS/ML SUB-Q ×3 (13:00→18:27)
--- NOTE | 2024-10-19 13:27 | PC.NURSE ---
RN spoke with Provider Ivy Abreu to clarify the insulin order and LEACH RUNNER stated that she only wanted the 8 units of sliding along with the Lantus that was scheduled.
[2024-10-19] MEDS: INSULIN GLARGINE (*BKC) 100 UNITS/ML 7 UNITS SUB-Q (13:31)
[2024-10-19 16:34] LABS: Glucose Point of Care 329 mg/dl (65-105)
[2024-10-19] MEDS: RIVAROXABAN 20 MG TABLET PO (18:27)
[2024-10-19] MEDS: AMOXICILLIN/CLAVULANATE K 875-125 MG TAB 1 TABLET PO (20:51)
[2024-10-19] MEDS: DOXYCYCLINE HYCLATE 100 MG TABLET PO (20:51)
[2024-10-19] MEDS: INSULIN GLARGINE (*BKC) 100 UNITS/ML 10 UNITS SUB-Q (20:52)
[2024-10-19 21:17] LABS: Glucose Point of Care 334 mg/dl (65-105)
[2024-10-20] VITALS (10 sets, daily range): BP systolic 114–129; BP diastolic 42–92; PULSE 69–102; RESP 14–18; TEMP 36.3–36.7; O2SAT 98–100
[2024-10-20 08:13] LABS: Glucose Point of Care 388 mg/dl (65-105)
[2024-10-20] MEDS: AMOXICILLIN/CLAVULANATE K 875-125 MG TAB 1 TABLET PO (08:57)
[2024-10-20] MEDS: INSULIN ASPART (*BKC) 100 UNITS/ML SUB-Q ×5 (08:57→17:04)
[2024-10-20] MEDS: THIAMINE HCL 100 MG TABLET PO (08:58)
[2024-10-20] MEDS: FOLIC ACID 1 MG TABLET PO (08:58)
[2024-10-20] MEDS: SACUBITRIL/VALSARTAN 12-13 MG TABLET 1 TAB PO ×2 (08:58→20:36)
[2024-10-20] MEDS: carvediloL 12.5 MG TABLET PO ×2 (08:58→20:36)
[2024-10-20] MEDS: FUROSEMIDE 40 MG TABLET PO (08:58)
[2024-10-20] MEDS: DOXYCYCLINE HYCLATE 100 MG TABLET PO (08:58)
[2024-10-20] MEDS: guaiFENesin 12 HR 600 MG TABCR PO ×2 (08:58→20:36)
[2024-10-20] MEDS: SPIRONOLACTONE 25 MG TABLET PO (08:58)
[2024-10-20] MEDS: BENZONATATE 100 MG CAPSULE PO ×3 (08:58→17:04)
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
[2024-10-20 11:39] LABS: Glucose Point of Care 227 mg/dl (65-105)
[2024-10-20] MEDS: RIVAROXABAN 20 MG TABLET PO (17:04)
[2024-10-20 17:12] LABS: Glucose Point of Care 109 mg/dl (65-105)
[2024-10-20 21:01] LABS: Glucose Point of Care 118 mg/dl (65-105)
[2024-10-20] MEDS: INSULIN GLARGINE (*BKC) 100 UNITS/ML 15 UNITS SUB-Q (21:10)
[2024-10-21] VITALS (7 sets, daily range): BP systolic 112–123; BP diastolic 82–95; PULSE 83–96; RESP 14–16; TEMP 36.4–36.5; O2SAT 99–100; BMI 29.5
[2024-10-21 07:45] LABS: Glucose Point of Care 166 mg/dl (65-105)
[2024-10-21] MEDS: BENZONATATE 100 MG CAPSULE PO ×2 (10:23→12:39)
[2024-10-21] MEDS: FOLIC ACID 1 MG TABLET PO (10:23)
[2024-10-21] MEDS: FUROSEMIDE 40 MG TABLET PO (10:23)
[2024-10-21] MEDS: SPIRONOLACTONE 25 MG TABLET PO (10:23)
[2024-10-21] MEDS: carvediloL 12.5 MG TABLET PO (10:23)
[2024-10-21] MEDS: INSULIN ASPART (*BKC) 100 UNITS/ML SUB-Q ×3 (10:25→12:38)
[2024-10-21] MEDS: THIAMINE HCL 100 MG TABLET PO (10:40)
[2024-10-21] MEDS: SACUBITRIL/VALSARTAN 12-13 MG TABLET 1 TAB PO (10:40)
[2024-10-21] MEDS: guaiFENesin 12 HR 600 MG TABCR PO (10:51)
--- NOTE | 2024-10-21 11:04 | PC.NURSE ---
This RN approached by critical care educator regarding pt and his willingness to work with her. Night RN had communicated that pt seemed interested/motivated. This RN and critical care educator went into pt room. Pt seemed quiet and reserved. I introduced myself to pt; so did critical care educator. As i scanned meds, I could hear the minimal interaction from pt. Pt and DE had an awkward exchange as DE tried to engage/interest pt. At end of convo, pt stated he just wanted to sleep. I assessed pt quickly as he was agitated. I asked pt if he was frustrated as he appeared so. He said very. I let him know I would be happy to listen and or help with anything. He said no thank you and that he's not intending on being rude, but he is very tired. I let him know that I would put a sign on his door to minimize distractions at this time. He said thanks, closed his eyes and said he might take his pills.
[2024-10-21 11:35] LABS: Glucose Point of Care 314 mg/dl (65-105)
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
== END 2024-10-21 16:10 | disposition home or self-care (01) | DRG 194 ==
LOC: ANHED 21:44 → ANHIMU 10-16 00:29 → ANH3MEDSUR 10-18 02:30
PROVIDERS: Internal Medicine Cardiovascular Disease; Nurse Practitioner Acute Care; Nurse Practitioner Adult Health; Physician Assistant; Admitting Provider Internal Medicine; Emergency Provider Emergency Medicine; Visit Provider Nurse Practitioner
DX: I11.0 Hypertensive heart disease with heart failure (principal); I50.23 Acute on chronic systolic (congestive) heart failure; J18.9 Pneumonia, unspecified organism; I42.9 Cardiomyopathy, unspecified; E11.9 Type 2 diabetes mellitus without complications; F10.20 Alcohol dependence, uncomplicated; Z20.822 Contact with and (suspected) exposure to COVID-19; Z91.199 Patient's noncompliance with other medical treatment and regimen due to unspecified reason
CPT/HCPCS: 36415; 71045; 71046; 71275; 80048; 80053; 82948; 83036; 83605; 83735; 83880; 84100; 84484; 85025; 87040; 87637; 87651; 93005; 93306; 93308; 96365; 96368; 96375; 96376; 99285; A9270; C8924; G0378; J0456; J0696; J1650; J1815; J1940; Q9957; Q9967

== ENCOUNTER 2024-11-08 03:39 | Inpatient (IN) | payer SELFPAY ==
[2024-11-08] VITALS (33 sets, daily range): BP systolic 86–152; BP diastolic 53–113; PULSE 92–119; RESP 14–26; TEMP 36.3–37; O2SAT 93–100; BMI 30.6
--- NOTE | ~2024-11-08 | XR_ITS ---
Portable chest x-ray Comparison: 10/19/2024 Clinical History: Chest pain Findings: There is small right pleural effusion. Left lung essentially clear. Cardiomediastinal vicenta hou[place] is stable. Bones and soft tissues are unremarkable. Impression: Small right pleural effusion. Stable cardiomegaly. Reviewed, dictated and finalized at location . UNTS RECEIVABLE BOOKKEEPER Impression: Small right pleural effusion. Stable cardiomegaly.
--- NOTE | ~2024-11-08 | XR_ITS ---
Portable chest x-ray Comparison: 11/13/2024 Clinical History: Shortness of breath Findings: Small right pleural effusion again present. There is mild bibasilar hazy airspace disease. Cardiomediastinal silhouette is stable. Bones and soft tissues are unremarkable. Impression: Small right pleural effusion with mild bibasilar pulmonary edema. Stable cardiomegaly. Reviewed, dictated and finalized at location . PER COUNTERS Impression: Small right pleural effusion with mild bibasilar pulmonary edema. Stable cardiomegaly.
--- NOTE | ~2024-11-08 | XR_ITS ---
EXAMINATION: XR chest 1V portable DATE: 11/13/2024 10:20 INDICATION: Cough TECHNIQUE: AP view of the chest was obtained. COMPARISON: Chest radiograph dated 11/08/2024 FINDINGS: Increasing opacities in the bilateral mid and lower lung zones consistent with small left and small-t o-moderate right pleural effusions with associated basilar atelectasis and/or pneumonia. No pneumotho rax. Cardiomegaly. IMPRESSION: 1. Increasing small left and [id number] right pleural effusions with associated bibasilar atel ectasis and/or pneumonia. 2. Cardiomegaly. Reviewed, dictated and finalized at location A. NER OPERATOR IMPRESSION: 1. Increasing small left and [id number] right pleural effusions with ass ociated bibasilar atelectasis and/or pneumonia. 2. Cardiomegaly.
--- NOTE | ~2024-11-08 | US_ITS ---
EXAMINATION: US venous doppler [facility] DATE: 11/10/2024 16:54 INDICATION: Chest pain TECHNIQUE: Grayscale ultrasound images without and with compression and Doppler ultrasound images of the bilateral lower extremity veins were obtained. COMPARISON: None. FINDINGS: The visualized portions of right common femoral vein, profunda (deep) femoral vein, femoral vein, pop liteal vein, peroneal veins, posterior tibial veins, and greater saphenous vein outflow are patent. The visualized portions of left common femoral vein, profunda femoral vein, femoral vein, popliteal v ein, peroneal veins, posterior tibial veins, and greater saphenous vein outflow are patent. IMPRESSION: 1. No deep venous thrombosis within the bilateral lower extremities, as detailed above. Reviewed, dictated and finalized at location A. ENT ASSISTANCE COUNSELOR IMPRESSION: 1. No deep venous thrombosis within the bilateral lower extremities, as detail ed above.
--- NOTE | 2024-11-08 03:54 | ECG_ITS ---
Test Date: 2024-11-08 03:58:42 Measurements Intervals [place] Rate: 120 P: 41 OR: 153 QRS: -39 QRSD: 93 T: 64 QT: 315 QTc: 446 Interpretive Statements SINUS TACHYCARDIA MODERATE T-WAVE ABNORMALITY, CONSIDER LATERAL ISCHEMIA [-0.1+ mV T WAVE IN I/aVL/V5/V6] Compared to ECG 10/15/2024 21:27:19 Indeterminate axis now present Myocardial infarct finding now present Possible ischemia now present Atrial abnormality no longer present T-wave abnormality still present Electronically Signed On 11-08-2024 18:07:48 INSTRUMENTATION ENGINEERING TECHNICIAN by Honorio Cuevas M.D.
[2024-11-08 04:34] LABS: Basophils Percent Auto 0.5 % (0.2-1.2); Hematocrit 44.7 % (42.0-52.0); Hemoglobin 15.2 g/dL (14.0-18.0); Immature Granulocyte Absolute 0.03 K/mm3 (0.00-0.031); Immature Granulocyte Percent A 0.5 % (0-0.5); Lymphocytes Absolute Auto 1.38 K/mm3 (0.9-3.2); Lymphocytes Percent Auto 20.8 % (18.3-44.2); Mean Corpuscular Hemoglobin 26.7 pg (26-34); Mean Corpuscular Volume 78.4 fl (80-100); Mean Platelet Volume 11.6 fl (7.4-10.4); Monocytes Absolute Auto 0.7 K/mm3 (0.1-0.6); Neutrophils Absolute Auto 4.5 K/mm3 (1.3-6.7); Neutrophils Percent Auto 68.2 % (45.5-73.1); Platelet Count Result 231 k/mm3 (150-375); Red Cell Distribution Width 13.6 % (11.5-14.5); White Blood Count 6.6 K/mm3 (4.5-10.0)
[2024-11-08 05:23] LABS: Alanine Aminotransferase 34 U/L (6-50); Albumin Level 3.2 g/dL (3.5-5.1); Alkaline Phosphatase 65 U/L (38-126); Anion Gap 12 mmol/L (4-12); Aspartate Amino Transferase 22 U/L (17-59); Bilirubin,Total 1.1 mg/dL (0.2-1.3); Blood Urea Nitrogen 11 mg/dL (9-20); Calcium 8.1 mg/dL (8.4-10.2); Carbon Dioxide 23 mmol/L (22-30); Chloride 97 mmol/L (98-107); Estimated CRCL calculation 81 ml/min; Estimated Glomerular Filt Rate > 60; Glucose 390 mg/dL (65-110); Lipase 85 U/L (23-300); Magnesium 1.9 mg/dL (1.6-2.3); Potassium 4.2 mmol/L (3.4-5.0); Sodium 132 mmol/L (137-145)
[2024-11-08 05:24] LABS: Lactic Acid Reflex 1.9 mmol/L (0.7-2.0)
[2024-11-08 05:25] LABS: INR 1.2; Prothrombin Time 15.9 Seconds (11.1-14.7)
[2024-11-08 05:26] LABS: Partial Thromboplastin Time 29.7 Seconds (22.3-36.8)
[2024-11-08 05:29] LABS: Influenza A QL RT-PCR Negative (Negative); Influenza B QL RT-PCR Negative (Negative); RSV RNA, RT-PCR Negative (Negative); SARS-CoV-2 RNA PCR Negative (Negative)
[2024-11-08 05:38] LABS: NT Pro B Type Natriuretic Pept 3430 pg/mL (19.9-100)
--- NOTE | 2024-11-08 05:38 | ECG_ITS ---
Test Date: 2024-11-08 05:45:16 Measurements Intervals [place] Rate: 117 P: 50 DE: 161 QRS: -22 QRSD: 84 T: 75 QT: 316 QTc: 442 Interpretive Statements SINUS TACHYCARDIA POSSIBLE LEFT ATRIAL ENLARGEMENT [-0.1mV P WAVE IN V1/V2] POSSIBLE ANTERIOR MYOCARDIAL INFARCTION , OF INDETERMINATE AGE [30 ms Q WAVE IN V3/V4, OR R < 0.2 mV IN V4] Compared to ECG 11/08/2024 03:58:42 Indeterminate axis no longer present T-wave abnormality no longer present Possible ischemia no longer present Myocardial infarct finding still present Electronically Signed On 11-08-2024 18:06:41 HEATING AND VENTILATING DRAFTER by Honorio Cuevas M.D.
[2024-11-08] MEDS: ASPIRIN 81 MG CHEWABLE TABLET 324 MG PO (05:46)
--- NOTE | 2024-11-08 05:59 | ED.CHESTPAIN ---
HPI - Chest Pain General Chief Complaint: Chest Pain Stated Complaint: chest pain, foot pain Time Seen by Provider: 11/08/24 03:55 History of Present Illness HPI narrative: Patient is a 39-year-old male who presents to the emergency department this morning complaining of chest pain and stating that his Zoll monitor on his LifeVest went off and notified him to seek medical attention. Patient states that at that time he did have some chest pain and was lightheaded and dizzy, stating that he felt as though he was going to pass out. Patient states that he did not pass out, denies any falls or head injury. Patient admits that he has been recovering from a pneumonia and recently a full course of antibiotics. States that he is still coughing. Admits that he takes does are also daily but he is unsure for what. Denies any nausea, vomiting or abdominal pain and denies any fevers or chills. No additional symptoms or concerns at this time. Related Data Allergies Allergy/AdvReac Type Severity Reaction Status Date / Time No Known Allergies Allergy Verified 11/08/24 03:41 Review of Systems Review of Systems: All systems are reviewed and are negative unless stated otherwise in the HPI. FORMERLY [facility], [facility] Past Medical History Medical History Diabetes mellitus Noncompliance Cardiomyopathy Hypertension associated with diabetes EtOH dependence Family History Family History Mother Hypertension Father Hypertension Social History Social History Smoking status: Never smoker Alcohol intake: current Drinks per week: 6 Substance use: never Substance use type: does not use Do You Feel Safe in your Home?: Yes Lack of Transportation: No Lack of Food: Never True Current Housing: I Have Housing Concerned About Future Housing: No Difficulty Paying Gas/Electric Bills: No Difficulty Paying for Meds: No Currently Unemployed: No Education: High School Diploma/GED Difficulty w/ Childcare or Family Care: No Spiritual care concerns: No Exam Narrative: General: Alert, awake, afebrile, in no acute distress. HEENT: PERRL, no rhinorrhea, no post nasal drip, oropharynx clear. Neck: Trachea midline, no JVD, no lymphadenopathy. Cardiovascular: Tachycardic with regular rhythm, no murmurs, rubs or gallops. Respiratory: Clear to auscultation bilaterally, no tachypnea, no wheezing, no rhonchi, no rubs, no respiratory distress. Abdomen: Soft, nontender, nondistended, no rebound, no guarding, no peritoneal signs. Musculoskeletal: No joint swelling or deformity, normal muscle tone. Skin: No rashes or petechia, no signs of infection. Psychiatric: Alert and oriented, normal behavior and judgment for situation. Neurological: Alert and oriented to person, place, and time. Follows all commands. No focal deficits, speech is clear and fluent. Course Vital Signs Vital signs: Vital Signs Pulse Rate 119 H 11/08/24 04:53 Respiratory Rate 14 11/08/24 04:53 Blood Pressure 135/99 H 11/08/24 04:53 Pulse Oximetry 100 11/08/24 04:53 Pulse Rate 117 H 11/08/24 05:47 Respiratory Rate 14 11/08/24 04:53 Blood Pressure 135/99 H 11/08/24 04:53 Pulse Oximetry 99 11/08/24 04:56 Oxygen Delivery Room Air 11/08/24 04:56 MDM - Chest Pain MDM Narrative Medical decision making narrative: The patient was evaluated by myself in the emergency department. History is obtained from patient who is an independent historian and physical exam was performed. External medical records were reviewed at this time. IV was established and pertinent tests were ordered. EKG was obtained which revealed sinus tachycardia at a rate of 120 beats per minute. No evidence of acute ischemia. EKG was independently interpreted by me and is currently pending official cardiology read. Laboratory results obtained revealing an elevated troponin of 0.120 although this is not far off from patient's baseline of 0.116 on October 15, 2024 during patient's last hospital stay. Patient was not started on heparin drip at this time given that his troponin is around his baseline. Patient is currently on Xarelto as well and admits that he has been taking it as prescribed. Imaging studies obtained included CXR which was independently interpreted by me revealing a small right-sided pleural effusion otherwise unremarkable, which is pending final radiology interpretation. Differential diagnosis considerations include acute coronary syndrome, fluid overload/pulmonary edema, infectious process such as pneumonia. Comorbidities impacting this visit include history of CHF with an ejection fraction of 15% currently wearing a LifeVest. I have evaluated and discussed social determinants of health with the patient that could potentially impact subsequent diagnosis and treatment plans. On repeat assessment of the patient, reevaluation revealed that the patient is doing well and is in no acute distress. Patient symptoms have remained stable since he arrived to our emergency department. Repeat vital signs were all reviewed and noted to be stable. Differential diagnosis and treatment plan were discussed with the patient at bedside. Patient agrees with discussion and after shared medical decision making agrees with admission. All questions were answered to the patient's satisfaction. Case was discussed with the on-call hospitalist Dr. Dinero at 0625 who accepted admission, however, she wanted case to be discussed with the on-call aircraft maintenance manager. Case was discussed with the on-call aircraft maintenance manager Dr. Tatum at 0630 who accepted consultation and agreed to evaluate the patient. Lab Data 11/08/24 04:05 11/08/24 05:02 Labs: Lab Results 11/08/24 11/08/24 11/08/24 Range/Units 04:05 04:40 05:02 WBC 6.6 (4.5-10.0) K/mm3 RBC 5.70 (4.6-6.20) M/mm3 Hgb 15.2 (14.0-18.0) g/dL Hct 44.7 (42.0-52.0) % MCV 78.4 L (80-100) fl MCH 26.7 (26-34) pg MCHC 34.0 (32-36) g/dl RDW 13.6 (11.5-14.5) % Plt Count 231 (150-375) k/mm3 MPV 11.6 H (7.4-10.4) fl Immature Gran % (Auto) 0.5 (0-0.5) % Neut % (Auto) 68.2 (45.5-73.1) % Lymph % (Auto) 20.8 (18.3-44.2) % Ogle % (Auto) 10.0 H (2.6-8.5) % Eos % (Auto) 0.0 (0-4.4) % Baso % (Auto) 0.5 (0.2-1.2) % Lymph # (Auto) 1.38 (0.9-3.2) K/mm3 Ogle # (Auto) 0.7 H (0.1-0.6) K/mm3 Eos # (Auto) 0.0 (0-0.3) K/mm3 Baso # (Auto) 0.0 (0.0-0.1) K/mm3 Abs Immat Gran (auto) 0.03 (0.00-0.031) K/mm3 Absolute Neuts (auto) 4.5 (1.3-6.7) K/mm3 Absolute Nucleated RBC 0.000 (0.0-0.012) K/mm3 Nucleated RBC % 0.0 (0.0-0.2) % PT 15.9 H (11.1-14.7) Seconds INR 1.2 APTT 29.7 (22.3-36.8) Seconds Sodium 132 L (137-145) mmol/L Potassium 4.2 (3.4-5.0) mmol/L Chloride 97 L (98-107) mmol/L Carbon Dioxide 23 (22-30) mmol/L Anion Gap 12 (4-12) mmol/L BUN 11 D (9-20) mg/dL Creatinine 1.04 (0.7-1.3) mg/dL Estim Creat Clear Calc 81 ml/min Estimated GFR > 60 (59 - ) Glucose 390 H (65-110) mg/dL Lactic Acid 1.9 (0.7-2.0) mmol/L Calcium 8.1 L (8.4-10.2) mg/dL Magnesium 1.9 (1.6-2.3) mg/dL Total Bilirubin (0.2-1.3) mg/dL AST (17-59) U/L ALT (6-50) U/L Alkaline Phosphatase (38-126) U/L Troponin I (0.000-0.034) ng/mL NT-Pro-B Natriuret Pep (19.9-100) pg/mL Total Protein (6.3-8.2) g/dL Albumin (3.5-5.1) g/dL Lipase (23-300) U/L Influenza A (RT-PCR) Negative (Negative) Influenza B (RT-PCR) Negative (Negative) RSV (RT-PCR) Negative (Negative) SARS-CoV-2 RNA (RT-PCR) Negative (Negative) 01/20/25 01/20/25 Range/Units 05:02 05:02 WBC (4.5-10.0) K/mm3 RBC (4.6-6.20) M/mm3 Hgb (14.0-18.0) g/dL Hct (42.0-52.0) % MCV (80-100) fl MCH (26-34) pg MCHC (32-36) g/dl RDW (11.5-14.5) % Plt Count (150-375) k/mm3 MPV (7.4-10.4) fl Immature Gran % (Auto) (0-0.5) % Neut % (Auto) (45.5-73.1) % Lymph % (Auto) (18.3-44.2) % Ogle % (Auto) (2.6-8.5) % Eos % (Auto) (0-4.4) % Baso % (Auto) (0.2-1.2) % Lymph # (Auto) (0.9-3.2) K/mm3 Ogle # (Auto) (0.1-0.6) K/mm3 Eos # (Auto) (0-0.3) K/mm3 Baso # (Auto) (0.0-0.1) K/mm3 Abs Immat Gran (auto) (0.00-0.031) K/mm3 Absolute Neuts (auto) (1.3-6.7) K/mm3 Absolute Nucleated RBC (0.0-0.012) K/mm3 Nucleated RBC % (0.0-0.2) % PT (11.1-14.7) Seconds INR APTT (22.3-36.8) Seconds Sodium (137-145) mmol/L Potassium (3.4-5.0) mmol/L Chloride (98-107) mmol/L Carbon Dioxide (22-30) mmol/L Anion Gap (4-12) mmol/L BUN (9-20) mg/dL Creatinine (0.7-1.3) mg/dL Estim Creat Clear Calc ml/min Estimated GFR (59 - ) Glucose (65-110) mg/dL Lactic Acid (0.7-2.0) mmol/L Calcium (8.4-10.2) mg/dL Magnesium Cancelled (1.6-2.3) mg/dL Total Bilirubin 1.1 (0.2-1.3) mg/dL AST 22 (17-59) U/L ALT 34 (6-50) U/L Alkaline Phosphatase 65 (38-126) U/L Troponin I 0.120 H* (0.000-0.034) ng/mL NT-Pro-B Natriuret Pep 3430 H Cancelled (19.9-100) pg/mL Total Protein 7.0 (6.3-8.2) g/dL Albumin 3.2 L (3.5-5.1) g/dL Lipase 85 (23-300) U/L Influenza A (RT-PCR) (Negative) Influenza B (RT-PCR) (Negative) RSV (RT-PCR) (Negative) SARS-CoV-2 RNA (RT-PCR) (Negative) Discharge Plan Discharge Clinical Impression: Chest pain, CHF (congestive heart failure), Non-ST elevation NC (NSTEMI) Patient Disposition: Still a Patient Condition: Stable Patient Language: Pashto Prescriptions: No Action furosemide 40 mg Tablet 40 mg PO DAILY Qty: 90 0RF carvedilol [Coreg] 12.5 mg Tablet 12.5 mg PO Q12HR Qty: 90 0RF insulin glargine [Lantus U-100 Insulin] 100 unit/mL Solution 15 unit subcut HS Qty: 150 1RF dextrose [Glutose-15] 40 % Gel 15 g PO PRN PRN (Reason: Hypoglycemia) 15 Days Qty: 15 0RF spironolactone 25 mg Tablet 25 mg PO QAM Qty: 90 0RF insulin aspart U-100 [Novolog U-100 Insulin aspart] 100 unit/mL Solution 5 unit subcut TIDWM Qty: 150 0RF Xarelto 20 mg Tablet 20 mg PO DAILY@1700 Qty: 90 0RF sacubitril-valsartan [Entresto] 24-26 mg Tablet 1 tab PO Q12HR Qty: 90 0RF metformin 500 mg tablet extended release 24 hr 500 mg PO BID Qty: 90 0RF Rx Instructions: start taking 500 mg daily for 1 week, then increase to twice a day Follow-up/Referrals: PHYSICIAN,MANUFACTURING TEAM LEADER [Primary Care Provider] - Time of Disposition: 06:50
--- NOTE | 2024-11-08 06:52 | ECG_ITS ---
Test Date: 2024-11-08 06:59:07 Measurements Intervals [place] Rate: 115 P: 47 CO: 160 QRS: -4 QRSD: 90 T: 58 QT: 438 QTc: 606 Interpretive Statements SINUS TACHYCARDIA POSSIBLE LEFT ATRIAL ENLARGEMENT [-0.1mV P-WAVE IN V1/V2] LOW QRS VOLTAGE IN EXTREMITY LEADS [QRS DEFLECTION < 0.5 mV IN LIMB LEADS] MODERATE T-WAVE ABNORMALITY, CONSIDER LATERAL ISCHEMIA [-0.1+ mV T-WAVE IN I/aVL/V5/V6] Compared to ECG 11/08/2024 05:45:16 Low QRS voltage now present T-wave abnormality now present Possible ischemia now present Myocardial infarct finding no longer present Electronically Signed On 11-08-2024 18:05:33 CONGRESSIONAL DISTRICT AIDE by Honorio Cuevas M.D.
[2024-11-08 07:24] LABS: Troponin I 0.121 ng/mL (0.000-0.034)
--- NOTE | 2024-11-08 10:12 | PM.IMHP ---
H&P: HPI History of Present Illness Date/Time: 11/08/24 10:12 Chief Complaint: Chest pain Narrative: Patient is a 39-year-old male with history of diabetes, cardiomyopathy, hypertension, alcohol dependence, severe systolic heart failure EF 15-20% on echocardiogram 06/08/2024 on LifeVest present ED with a chief complaint of chest pain. Patient has echo dependence, last drink was yesterday, patient drank 2 beers yesterday. Patient has intermittent chest pain associated with cough and deep breath. Patient also care at [facility] that notified patient to come to ED for evaluation treatment. Patient has intermittent lightheadedness, but denied discharge from the Life Vest. Patient felt like passing out but Patient states that he did not pass out, denies any falls or head injury. Patient with recent weight hospital because of pneumonia, patient was discharged from October 21. Patient received full course of antibiotics. States that he is still coughing. Admits that he takes does are also daily but he is unsure for what. Patient denies focal weakness, nausea, vomiting or abdominal pain and denies any fevers or chills. Upon arrival in the ED, patient was afebrile, blood pressure stable, no O2 desaturation, on room air. EKG showed sinus tachycardia, heart rate 115 low voltage in extremity leads, no specific ST T-wave changes. Troponin positive 0.121, close to the baseline troponin 0.116 on October 15. Elevated BNP 3430, lower than baseline 4500 October 15, 2058. CBC unremarkable, CT chest showed hyponatremia 132, uncontrolled diabetes, glucose 390 Review of Systems Review of Systems: ROS negative except above PMFSH Past Medical History Medical History Diabetes mellitus Noncompliance Cardiomyopathy Hypertension associated with diabetes EtOH dependence Family History Family History Mother Hypertension Father Hypertension Social History Social History Smoking status: Never smoker Alcohol intake: current Drinks per week: 42 Substance use: never Substance use type: does not use Do You Feel Safe in your Home?: Yes Lack of Transportation: No Lack of Food: Never True Current Housing: I Have Housing Concerned About Future Housing: No Difficulty Paying Gas/Electric Bills: No Difficulty Paying for Meds: No Currently Unemployed: No Education: High School Diploma/GED Difficulty w/ Childcare or Family Care: No Spiritual care concerns: No Meds Home Medications and Allergies Home Medications ?Medication ?Instructions ?Recorded ?Confirmed ?Type carvedilol 12.5 mg tablet (Coreg) 12.5 mg PO Q12HR #90 tabs 10/21/24 11/08/24 Rx dextrose 40 % oral gel (Glutose-15) 15 g PO PRN PRN Hypoglycemia 15 10/21/24 11/08/24 Rx days #15 grams furosemide 40 mg tablet 40 mg PO DAILY #90 tabs 10/21/24 11/08/24 Rx insulin aspart U-100 100 unit/mL 5 unit (0.05 mL) subcut TIDWM #150 10/21/24 11/08/24 Rx subcutaneous solution (Novolog mL U-100 Insulin aspart) insulin glargine 100 unit/mL 15 unit (0.15 mL) subcut HS #150 mL 10/21/24 11/08/24 Rx subcutaneous solution (Lantus U-100 Insulin) metformin 500 mg tablet,extended 500 mg PO BID #90 tabs 10/21/24 11/08/24 Rx release 24 hr rivaroxaban 20 mg tablet (Xarelto) 20 mg PO DAILY@1700 #90 tabs 10/21/24 11/08/24 Rx sacubitril 24 mg-valsartan 26 mg 1 tab PO Q12HR #90 tabs 10/21/24 11/08/24 Rx tablet (Entresto) spironolactone 25 mg tablet 25 mg PO QAM #90 tabs 10/21/24 11/08/24 Rx Allergies Allergy/AdvReac Type Severity Reaction Status Date / Time No Known Allergies Allergy Verified 11/08/24 03:41 Vital Signs Vital Signs - 24 hr 11/08/24 04:53 11/08/24 04:56 11/08/24 05:47 Pulse Rate 119 H 117 H Respiratory Rate 14 Blood Pressure 135/99 H Pulse Oximetry 100 99 Oxygen Delivery Room Air 11/08/24 06:21 11/08/24 06:31 11/08/24 07:00 Pulse Rate 115 H 115 H 117 H Respiratory Rate 22 H 23 H 16 Blood Pressure 131/101 H 118/82 Pulse Oximetry 98 100 99 Oxygen Delivery 11/08/24 07:08 11/08/24 07:15 11/08/24 07:16 Pulse Rate 114 H 117 H 117 H Respiratory Rate 14 23 H 16 Blood Pressure 118/82 152/113 H Pulse Oximetry 100 98 Oxygen Delivery 11/08/24 07:21 11/08/24 07:21 11/08/24 07:45 Pulse Rate 117 H 117 H 113 H Respiratory Rate 16 23 H 21 H Blood Pressure 145/106 H 145/106 H Pulse Oximetry 100 100 100 Oxygen Delivery 11/08/24 08:00 11/08/24 08:01 11/08/24 08:15 Pulse Rate 115 H 114 H 114 H Respiratory Rate 21 H 21 H 20 Blood Pressure 134/98 H Pulse Oximetry 98 98 95 Oxygen Delivery 11/08/24 08:30 11/08/24 08:45 11/08/24 08:46 Pulse Rate 110 H 110 H 110 H Respiratory Rate 24 H 24 H 26 H Blood Pressure 122/96 H Pulse Oximetry 97 93 97 Oxygen Delivery 11/08/24 09:00 11/08/24 09:15 11/08/24 09:30 Pulse Rate 110 H 111 H 111 H Respiratory Rate 20 22 H 18 Blood Pressure Pulse Oximetry Oxygen Delivery 11/08/24 09:31 Pulse Rate 112 H Respiratory Rate 21 H Blood Pressure 135/76 Pulse Oximetry Oxygen Delivery Exam Narrative: GENERAL: in no acute distress. Well-nourished. - EYES: EOMI. Anicteric. - HENT: Moist mucous membranes. - LUNGS: Clear to auscultation bilaterally, no wheezing, rhonchi, or rales. - CARDIOVASCULAR: Regular rate and rhythm. No murmur. No JVD. - ABDOMEN: Soft, non-tender and non-distended. No palpable masses. - EXTREMITIES: No edema. Peripheral pulses 2+. Non-tender. - NEUROLOGIC: No focal neurological deficits. CN II-XII grossly intact. - PSYCHIATRIC: Awake, Alert and oriented x 3. Appropriate mood and affect. - SKIN: No rashes or lesions. Warm. - LYMPH: No cervical lymphadenopathy. H&P: Results Labs Labs: Short CBC 11/08/24 Range/Units 04:05 WBC 6.6 (4.5-10.0) K/mm3 Hgb 15.2 (14.0-18.0) g/dL Hct 44.7 (42.0-52.0) % Plt Count 231 (150-375) k/mm3 BMP 11/08/24 05:02 Sodium 132 L Potassium 4.2 Chloride 97 L Carbon Dioxide 23 BUN 11 D Creatinine 1.04 Glucose 390 H Calcium 8.1 L Cardiac Enzymes 11/08/24 11/08/24 Range/Units 05:02 06:56 Troponin I 0.120 H* 0.121 H* (0.000-0.034) ng/mL Liver Function 11/08/24 Range/Units 05:02 Total Bilirubin 1.1 (0.2-1.3) mg/dL AST 22 (17-59) U/L ALT 34 (6-50) U/L Alkaline Phosphatase 65 (38-126) U/L Albumin 3.2 L (3.5-5.1) g/dL Assessment and Plan Assessment and plan (1) Chest pain: Code(s): R07.9 - Chest pain, unspecified Status: Acute (2) CHF (congestive heart failure): Code(s): I50.9 - Heart failure, unspecified Status: Acute (3) Uncontrolled type 2 diabetes mellitus: Status: Acute (4) EtOH dependence: Code(s): F10.20 - Alcohol dependence, uncomplicated Status: Chronic (5) Hypertension: Code(s): I10 - Essential (primary) hypertension Status: Acute (6) Cardiomyopathy: Code(s): I42.9 - Cardiomyopathy, unspecified Status: Acute Plan Chest pain Patient has intermittent chest pain, worse with cough. Possible pleural chest pain Elevated troponin, EKG showed sinus rhythm, tachycardia, low-voltage of extremity leads Patient received aspirin 324 mg once in the ED Continue aspirin 81 mg daily p.o. 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 Follow input output Essential hypertension Continue home medication Entresto 1 tab b.i.d. p.o., carvedilol 12.5 mg b.i.d. p.o. Patient is on blood thinner Xarelto 20 mg daily p.o. Uncontrolled type 2 diabetes Possible due to noncompliance with medications Follow-up A1c Continue glargine 15 units q.h.s. aspart 5 unit t.i.d. Start insulin sliding scale a.c. and q.h.s. Hold metformin History of alcohol dependence Monitor sign of alcohol withdrawal per [facility] protocol Start thiamine and folic acid p.o. Follow-up alcohol no drug screening Hospitalist MIPS Advance Care Plan I have confirmed that the patient's Advanced Care Plan is present, code status is documented, or surrogate decision maker is listed in patient medical record.: Yes Medication Reconciliation I have utilized all available resources to obtain, update and review the patients current medications (includes all prescriptions, OTC, herbals, cannabis, and nutritional supplements).: Yes
--- NOTE | 2024-11-08 10:37 | PC.NURSE ---
Arrived to the floor via stretcher from the ER. Placed on athletic monitor. Discussed with patient what brought him to the hospital and he states that is life vest went off alerting him to seek medical attention. States that he hasn't taken his medications 'In about a week, because it is too much . Patient states that at the time the life vest went off he felt dizzy . When asked if he felt dizzy at this time or had chest pain at this time, patient denied both. Alert and oriented at this time. Vital signs obtained. Heart rate 112. Systolic blood pressure in 130s. Patient states that he doesn't feel well . Denies smoking, or using street drugs. States he drinks alcohol daily a six pack a day , and when asked when his last drink was states I had two drinks yesterday . Discussed plan of care including restarting medications and cardiology to see the patient. Verbalizes understanding at this time.
[2024-11-08 11:21] LABS: Troponin I 0.126 ng/mL (0.000-0.034)
[2024-11-08 12:34] LABS: Glucose Point of Care 353 mg/dl (65-105)
[2024-11-08] MEDS: INSULIN ASPART (*BKC) 100 UNITS/ML SUB-Q ×4 (13:02→16:51)
[2024-11-08 16:09] LABS: Glucose Point of Care 298 mg/dl (65-105)
[2024-11-08] MEDS: metFORMIN HCL XR 500 MG TAB.SR.24H PO (16:52)
[2024-11-08] MEDS: RIVAROXABAN 20 MG TABLET PO (16:52)
--- NOTE | 2024-11-08 17:40 | PM.CNCAR ---
Assessment and Plan Assessment and plan (1) Acute on chronic systolic heart failure: Code(s): I50.23 - Acute on chronic systolic (congestive) heart failure Status: Acute (2) Non-ST elevation SC (NSTEMI): Code(s): I21.4 - Non-ST elevation (NSTEMI) myocardial infarction Status: Acute (3) Hypertension: Code(s): I10 - Essential (primary) hypertension Status: Acute (4) EtOH dependence: Code(s): F10.20 - Alcohol dependence, uncomplicated Status: Chronic (5) Noncompliance: Code(s): Z91.199 - Patient's noncompliance with other medical treatment and regimen due to unspecified reason Status: Acute (6) Diabetes mellitus: Code(s): E11.9 - Type 2 diabetes mellitus without complications Status: Acute (7) Pneumonia: Code(s): J18.9 - Pneumonia, unspecified organism Status: Acute Plan Trend troponin to peak Recommend cardiac catheterization to evaluate coronary anatomy as a cause of cardiomyopathy Keep NPO at midnight Add Aspirin 81 mg daily Add atorvastatin 40 mg daily Guideline directed medical therapy as tolerated for systolic heart failure- Coreg, Entresto, spironolactone. Add SGLT2 inhibitor as tolerated Continue rivaroxaban as previous echo in 10/12 could not rule out a thrombus. Repeat limited TTE for evaluation of LV thrombus Counseled about stopping alcohol use Monitor on telemetry LifeVest interrogation. May need amiodarone to suppress any VT/VF Lasix 40 mg IV b.i.d.. Check daily weights and ins and outs Check and replace electrolytes to keep potassium greater than 4 and magnesium greater than 2 He reports pins and needle sensation in his extremities. Check B12 and folate levels History of Present Illness History of Present Illness Consult date/time: 11/08/24 17:40 Reason For Visit: chest pain, foot pain Narrative: 39-year-old male with history of diabetes mellitus, hypertension, alcohol dependence, and systolic heart failure with LV ejection fraction of 20% by echo in 2023 (fixed defect on stress test, patient declined cardiac cath) on Life Vest presented to the ED after his LifeVest discharged a shock. Patient reports that he was shocked by the LifeVest yesterday. Prior to the shock he felt blurry vision, dizziness, and lightheadedness. No anginal chest pain. However he was recently treated for pneumonia and completed a course of antibiotics but continues to have cough. He has intermittent chest pain with cough and taking deep breaths. He reports increased leg swelling over the past few days. He has been having pins and needles sensation in his extremities over the past few weeks. Patient has alcohol dependence and his last drink was yesterday (drank 2 beers yesterday). He has not been taking any of his cardiac medications for about a week. Workup: Troponin: 0.121, 0.126 EKG: Sinus tachycardia with rate of 115, nonspecific ST T wave changes BNP: 3430 (baseline BNP around 4500) TTE 09/2024: LV ejection fraction 15-20%, depressed RV systolic function, mild aortic regurgitation, mild to moderate mitral regurgitation, mild tricuspid regurgitation, mild pulmonary hypertension, mild pulmonary regurgitation, small pericardial effusion, LV thrombus could not be ruled out Review of Systems Review of Systems: A complete review of systems was performed and pertinent positives are reported in the [facility] Past Medical History Medical History Diabetes mellitus Noncompliance Cardiomyopathy Hypertension associated with diabetes EtOH dependence Family History Family History Mother Hypertension Father Hypertension Social History Social History Smoking status: Never smoker Alcohol intake: current Drinks per week: 42 Substance use: never Substance use type: does not use Do You Feel Safe in your Home?: Yes Lack of Transportation: No Lack of Food: Never True Current Housing: I Have Housing Concerned About Future Housing: No Difficulty Paying Gas/Electric Bills: No Difficulty Paying for Meds: No Currently Unemployed: No Education: High School Diploma/GED Difficulty w/ Childcare or Family Care: No Spiritual care concerns: No Meds Home Medications and Allergies Home Medications ?Medication ?Instructions ?Recorded ?Confirmed ?Type carvedilol 12.5 mg tablet (Coreg) 12.5 mg PO Q12HR #90 tabs 10/21/24 11/08/24 Rx dextrose 40 % oral gel (Glutose-15) 15 g PO PRN PRN Hypoglycemia 15 10/21/24 11/08/24 Rx days #15 grams furosemide 40 mg tablet 40 mg PO DAILY #90 tabs 10/21/24 11/08/24 Rx insulin aspart U-100 100 unit/mL 5 unit (0.05 mL) subcut TIDWM #150 10/21/24 11/08/24 Rx subcutaneous solution (Novolog mL U-100 Insulin aspart) insulin glargine 100 unit/mL 15 unit (0.15 mL) subcut HS #150 mL 10/21/24 11/08/24 Rx subcutaneous solution (Lantus U-100 Insulin) metformin 500 mg tablet,extended 500 mg PO BID #90 tabs 10/21/24 11/08/24 Rx release 24 hr rivaroxaban 20 mg tablet (Xarelto) 20 mg PO DAILY@1700 #90 tabs 10/21/24 11/08/24 Rx sacubitril 24 mg-valsartan 26 mg 1 tab PO Q12HR #90 tabs 10/21/24 11/08/24 Rx tablet (Entresto) spironolactone 25 mg tablet 25 mg PO QAM #90 tabs 10/21/24 11/08/24 Rx Allergies Allergy/AdvReac Type Severity Reaction Status Date / Time No Known Allergies Allergy Verified 11/08/24 03:41 Vital Signs Vital Signs - 24 hr 11/08/24 04:53 11/08/24 04:56 11/08/24 05:47 Temperature Pulse Rate 119 H 117 H Respiratory Rate 14 Blood Pressure 135/99 H Pulse Oximetry 100 99 Oxygen Delivery Room Air 11/08/24 06:21 11/08/24 06:31 11/08/24 07:00 Temperature Pulse Rate 115 H 115 H 117 H Respiratory Rate 22 H 23 H 16 Blood Pressure 131/101 H 118/82 Pulse Oximetry 98 100 99 Oxygen Delivery 11/08/24 07:08 11/08/24 07:15 11/08/24 07:16 Temperature Pulse Rate 114 H 117 H 117 H Respiratory Rate 14 23 H 16 Blood Pressure 118/82 152/113 H Pulse Oximetry 100 98 Oxygen Delivery 11/08/24 07:21 11/08/24 07:21 11/08/24 07:45 Temperature Pulse Rate 117 H 117 H 113 H Respiratory Rate 16 23 H 21 H Blood Pressure 145/106 H 145/106 H Pulse Oximetry 100 100 100 Oxygen Delivery 11/08/24 08:00 01/20/25 08:01 11/08/24 08:15 Temperature Pulse Rate 115 H 114 H 114 H Respiratory Rate 21 H 21 H 20 Blood Pressure 134/98 H Pulse Oximetry 98 98 95 Oxygen Delivery 11/08/24 08:30 11/08/24 08:45 11/08/24 08:46 Temperature Pulse Rate 110 H 110 H 110 H Respiratory Rate 24 H 24 H 26 H Blood Pressure 122/96 H Pulse Oximetry 97 93 97 Oxygen Delivery 11/08/24 09:00 11/08/24 09:15 11/08/24 09:30 Temperature Pulse Rate 110 H 111 H 111 H Respiratory Rate 20 22 H 18 Blood Pressure Pulse Oximetry Oxygen Delivery 11/08/24 09:31 11/08/24 10:18 11/08/24 11:38 Temperature 36.6 C 36.3 C L Pulse Rate 112 H 112 H 115 H Respiratory Rate 21 H 18 Blood Pressure 135/76 136/98 H 148/87 H Pulse Oximetry 99 100 Oxygen Delivery 11/08/24 12:00 11/08/24 12:00 11/08/24 14:00 Temperature Pulse Rate 115 H 115 H 113 H Respiratory Rate 18 Blood Pressure Pulse Oximetry 100 Oxygen Delivery Room Air 11/08/24 15:50 11/08/24 15:50 11/08/24 15:57 Temperature 37.0 C Pulse Rate 113 H 113 H 115 H Respiratory Rate 18 18 Blood Pressure 116/84 Pulse Oximetry 100 99 Oxygen Delivery Room Air Exam Narrative: General: Alert oriented x3, no acute distress Neck: Supple, JVD + Chest: Bilaterally clear to auscultation, no rales or rhonchi Cardiac: S1, S2 +, regular rate, regular rhythm, no murmurs or rubs Extremities: Bilateral lower extremity edema 1+, no skin rash Neurologic: Alert and oriented x3, no focal neurological deficits Results Labs and Meds 11/08/24 04:05 11/08/24 05:02 Lab results: Cardiac Enzymes 11/08/24 11/08/24 11/08/24 Range/Units 05:02 06:56 10:46 AST 22 (17-59) U/L Troponin I 0.120 H* 0.121 H* 0.126 H* (0.000-0.034) ng/mL Coagulation 11/08/24 Range/Units 05:02 PT 15.9 H (11.1-14.7) Seconds APTT 29.7 (22.3-36.8) Seconds CBC 11/08/24 Range/Units 04:05 WBC 6.6 (4.5-10.0) K/mm3 RBC 5.70 (4.6-6.20) M/mm3 Hgb 15.2 (14.0-18.0) g/dL Hct 44.7 (42.0-52.0) % Plt Count 231 (150-375) k/mm3 Lymph # (Auto) 1.38 (0.9-3.2) K/mm3 [place] # (Auto) 0.7 H (0.1-0.6) K/mm3 Eos # (Auto) 0.0 (0-0.3) K/mm3 Baso # (Auto) 0.0 (0.0-0.1) K/mm3 Comprehensive Metabolic Panel 11/08/24 Range/Units 05:02 Sodium 132 L (137-145) mmol/L Potassium 4.2 (3.4-5.0) mmol/L Chloride 97 L (98-107) mmol/L Carbon Dioxide 23 (22-30) mmol/L BUN 11 D (9-20) mg/dL Creatinine 1.04 (0.7-1.3) mg/dL Glucose 390 H (65-110) mg/dL Calcium 8.1 L (8.4-10.2) mg/dL AST 22 (17-59) U/L ALT 34 (6-50) U/L Alkaline Phosphatase 65 (38-126) U/L Total Protein 7.0 (6.3-8.2) g/dL Albumin 3.2 L (3.5-5.1) g/dL Intake and Output 11/08/24 11/08/24 11/08/24 07:59 15:59 23:59 Intake Total 240 Output Total 600 Balance -360 Intake: Oral 240 Output: Urine 600 Patient Weight 11/08/24 23:59 Weight 88.7 kg
[2024-11-08 21:04] LABS: Glucose Point of Care 86 mg/dl (65-105)
[2024-11-08] MEDS: SACUBITRIL/VALSARTAN 24-26 MG TABLET 1 TAB PO (21:12)
[2024-11-08] MEDS: INSULIN GLARGINE (*BKC) 100 UNITS/ML 15 UNITS SUB-Q (21:13)
[2024-11-08] MEDS: carvediloL 12.5 MG TABLET PO (21:13)
[2024-11-08 21:18] LABS: Glucose Point of Care 100 mg/dl (65-105)
[2024-11-09] VITALS (20 sets, daily range): BP systolic 87–115; BP diastolic 66–79; PULSE 63–101; RESP 15–20; TEMP 36.6–38.2; O2SAT 98–100
--- NOTE | 2024-11-09 | ECHOL_ITS ---
Patient Info Name: Michael Frank Age: 39 years : 1985 Gender: Male Ht: 67 in Wt: 195 lbs BSA: 2.07 m2 HR: 97 bpm BP: 105 / 72 mmHg Heart Rhythm: Sinus Rhythm Technical Quality: Good Exam Date: 11/09/2024 11:35 AM Exam Location: Echo Lab Exam Room: [facility] Patient Status: Inpatient Admit Date: 11/08/2024 Staff Ordering Physician: Mecca Lu MD (heriberto/mery) Field Laboratory Operator: Mei Hirsch RDCS Attending Provider: Radha Dinero DO Exam Type: CA echo limited Study Info Indications - Eval LVEF and presence of LV thrombus Limited two-dimensional transthoracic echocardiogram is performed. Summary 1. Limited echocardiogram to evaluate left ventricular thrombus. 2. Left ventricular dilation with severe global systolic dysfunction and low ejection fraction of 15%. 3. Moderate left atrial enlargement. 4. Sinus rhythm. 5. Mobile 1.4-1.8 cm clot noted in the left ventricular apex. Left Ventricle Left ventricular chamber dimension is moderately enlarged. Left ventricular systolic function is severely reduced, estimated at 15-20%. There is mobile thrombus visualized in the left ventricle. Right Ventricle Right ventricular chamber dimension is mildly enlarged. Left Atria Left atrial chamber dimension is moderately enlarged. Right Atria Right atrial chamber dimension is normal. Aortic Valve The aortic valve is normal. Pulmonic Valve The pulmonic valve is normal. Mitral Valve The mitral valve has normal leaflets. Tricuspid Valve The tricuspid valve leaflets are normal. Pericardium/Pleural There is trivial pericardial effusion. Aorta The aortic root size at the sinus of Valsalva is normal. Ventricles Name Value Normal LV Fractional Shortening/Ejection Fraction 2D/MM LV Diastolic Volume (4C MOD) 225 ml LV EF (4C MOD) 17 % LV Diastolic Length (4C) 9.7 cm LV Systolic Length (4C) 9.0 cm LV Stroke Volume (4C MOD) 38 ml Report Signatures
[2024-11-09 08:06] LABS: Glucose Point of Care 200 mg/dl (65-105)
--- NOTE | 2024-11-09 08:34 | P.PNCA_ITS ---
Progress Note: A&P Assessment and Plan (1) Acute on chronic systolic heart failure: Code(s): I50.23 - Acute on chronic systolic (congestive) heart failure Status: Acute (2) Hypertension: Code(s): I10 - Essential (primary) hypertension Status: Acute (3) Noncompliance: Code(s): Z91.199 - Patient's noncompliance with other medical treatment and regimen due to unspecified reason Status: Acute (4) EtOH dependence: Code(s): F10.20 - Alcohol dependence, uncomplicated Status: Chronic Plan Plan: Troponin though elevated has remained flat. No chest pain at this time Given VT, no prior workup for new cardiomyopathy, recommend cardiac catheterization to evaluate coronary anatomy as a cause of cardiomyopathy Continue Aspirin 81 mg daily Add atorvastatin 40 mg daily Guideline directed medical therapy as tolerated for systolic heart failure- continue Coreg, Entresto, spironolactone. Add SGLT2 inhibitor as tolerated Continue rivaroxaban as TTE today showed LV thrombus Counseled about stopping alcohol use Monitor on telemetry Lasix 40 mg IV b.i.d.. Check daily weights and ins and outs Check and replace electrolytes to keep potassium greater than 4 and magnesium greater than 2 Counseled about medication compliance Management of other medical issues per primary team Subjective Date/time seen: 11/09/24 08:34 Interval history: Reason For Visit: chest pain HPI: 39-year-old male with history of diabetes mellitus, hypertension, alcohol dependence, and systolic heart failure with LV ejection fraction of 20% by echo in 2023 (fixed defect on stress test, patient declined cardiac cath) on Life Vest presented to the ED after his LifeVest discharged a shock. Interrogation of life vest showed patient had a run of VT prior to the shock which restored sinus rhythm. Patient did not have any anginal chest pain prior to or after the shock. He was recently treated for pneumonia with a course of antibiotics but continues to have some cough without any fevers or chills. He has bilateral lower extremity swelling and increased weight gain over the past few weeks. He has been noncompliant with his medications for about a week. Cardiology was consulted for further management. Workup: Troponin: 0.120, 0.121, 0.126 EKG: Sinus tachycardia with rate of 115, nonspecific ST T wave changes BNP: 3430 (baseline BNP around 4500) TTE 09/2024: LV ejection fraction 15-20%, depressed RV systolic function, mild aortic regurgitation, mild to moderate mitral regurgitation, mild tricuspid regurgitation, mild pulmonary hypertension, mild pulmonary regurgitation, small pericardial effusion, LV thrombus could not be ruled out Interval history: Patient continues to feel short of breath and has not noticed any increased urination with Lasix. No chest pain, dizziness lightheadedness. Review of Systems Review of Systems: A complete review of systems was performed and noted in the HPI Exam Narrative: General: Alert oriented x3, no acute distress Neck: Supple, JVD + Chest: Bilaterally clear to auscultation, no rales or rhonchi Cardiac: S1, S2 +, regular rate, regular rhythm, no murmurs or rubs Extremities: Bilateral lower extremity edema 2+, no skin rash Neurologic: Alert and oriented x3, no focal neurological deficits Objective Data Vital Signs Vital Signs: Vital Signs - 24 hr 11/08/24 08:45 11/08/24 08:46 11/08/24 09:00 Temperature Pulse Rate 110 H 110 H 110 H Respiratory Rate 24 H 26 H 20 Blood Pressure 122/96 H Pulse Oximetry 93 97 Oxygen Delivery 11/08/24 09:15 11/08/24 09:30 11/08/24 09:31 Temperature Pulse Rate 111 H 111 H 112 H Respiratory Rate 22 H 18 21 H Blood Pressure 135/76 Pulse Oximetry Oxygen Delivery 11/08/24 10:18 11/08/24 11:38 11/08/24 12:00 Temperature 36.6 C 36.3 C L Pulse Rate 112 H 115 H 115 H Respiratory Rate 18 18 Blood Pressure 136/98 H 148/87 H Pulse Oximetry 99 100 100 Oxygen Delivery Room Air 11/08/24 12:00 11/08/24 14:00 11/08/24 15:50 Temperature Pulse Rate 115 H 113 H 113 H Respiratory Rate 18 Blood Pressure Pulse Oximetry 100 Oxygen Delivery Room Air 11/08/24 15:50 11/08/24 15:57 11/08/24 18:00 Temperature 37.0 C Pulse Rate 113 H 115 H 111 H Respiratory Rate 18 Blood Pressure 116/84 Pulse Oximetry 99 Oxygen Delivery 11/08/24 20:00 11/08/24 20:00 11/08/24 20:20 Temperature 36.8 C Pulse Rate 114 H 114 H 114 H Respiratory Rate 16 16 Blood Pressure 118/86 Pulse Oximetry 98 98 Oxygen Delivery Room Air 11/08/24 21:13 11/08/24 22:00 11/08/24 23:42 Temperature 36.5 C Pulse Rate 113 H 113 H 92 Respiratory Rate 16 Blood Pressure 86/53 L Pulse Oximetry 98 Oxygen Delivery 11/09/24 00:00 11/09/24 00:25 11/09/24 02:00 Temperature Pulse Rate 89 89 90 Respiratory Rate 16 Blood Pressure Pulse Oximetry 98 Oxygen Delivery Room Air 11/09/24 04:00 11/09/24 04:00 11/09/24 04:45 Temperature 36.9 C Pulse Rate 91 91 91 Respiratory Rate 18 18 Blood Pressure 115/76 Pulse Oximetry 100 100 Oxygen Delivery Room Air 11/09/24 08:05 Temperature 37.1 C Pulse Rate 97 Respiratory Rate 18 Blood Pressure 105/72 Pulse Oximetry 99 Oxygen Delivery Intake/Output Intake/Output: Intake & Output 11/06/24 11/07/24 11/08/24 11/09/24 23:59 23:59 23:59 23:59 Intake Total 980 260 Output Total 1250 Balance -270 260 Meds/Results Medications: Active Medications Generic Name Dose Route Start Last Admin Trade Name Freq PRN Reason Stop Dose Admin Aspirin 81 mg 11/09/24 09:00 Aspirin 81 Mg Enteric Tablet PO QAM [facility] Carvedilol 12.5 mg 11/08/24 21:00 11/08/24 21:13 Carvedilol 12.5 Mg Tablet PO 12.5 mg Q12HR [facility] Administration Dextrose 12.5 gm 11/08/24 10:33 Dextrose 50% 25 Gm/50 Ml Syringe IV PUSH PRN PRN Hypoglycemia Protocol Folic Acid 1 mg 11/09/24 09:00 Folic Acid 1 Mg Tablet PO DAILY KELIN Furosemide 40 mg 11/09/24 09:00 Furosemide 40 Mg Tablet PO DAILY KELIN Glucagon 1 mg 11/08/24 10:33 Glucagon For Inj 1 Mg Vial IM PRN PRN Hypoglycemia Protocol Glucose 15 gm 11/08/24 10:33 Glucose Oral Gel 15 Gm Of Glucse In 37.5 Gm Tube PO PRN PRN Hypoglycemia Protocol Dextrose 1,000 mls @ 100 mls/hr 11/08/24 10:33 Dextrose 5% 1,000 Ml IVPB PRN PRN Hypoglycemia Protocol Insulin Aspart 5 units 11/08/24 12:00 11/08/24 16:51 Insulin Aspart (*Bkc) 100 Units/Ml SUB-Q 5 units TIDWM [facility] Administration Insulin Aspart 3 - 6 units 11/08/24 12:00 11/08/24 16:51 Insulin Aspart (*Bkc) 100 Units/Ml SUB-Q 4 units TIDWM [facility]ELIN Administration Protocol Insulin Aspart 1 - 3 units 11/08/24 21:00 11/08/24 21:10 Insulin Aspart (*Bkc) 100 Units/Ml SUB-Q Not Given HS [facility] Protocol Insulin Glargine 15 units 11/08/24 21:00 11/08/24 21:13 Insulin Glargine (*Bkc) 100 Units/Ml SUB-Q 15 units HS [facility] Administration Metformin HCl 500 mg 11/08/24 17:00 11/08/24 16:52 Metformin Hcl Xr 500 Mg Tab.Sr.24h PO 500 mg BIDWM [facility] Administration Rivaroxaban 20 mg 11/08/24 17:00 11/08/24 16:52 Rivaroxaban 20 Mg Tablet PO 20 mg DAILY@1700 [facility] Administration Sacubitril/Valsartan 1 tab 11/08/24 21:00 11/08/24 21:12 Sacubitril/Valsartan 24-26 Mg Tablet PO 1 tab Q12HR [facility]IN Administration Spironolactone 25 mg 11/09/24 09:00 Spironolactone 25 Mg Tablet PO QAM [facility] Thiamine HCl 100 mg 11/09/24 09:00 Thiamine Hcl 100 Mg [facility] Radiology Results: ITS Impressions Chest X-Ray 11/08/24 06:21 Impression: Small right pleural effusion. Stable cardiomegaly. Labs Labs: Laboratory Results - last 24 hr 11/08/24 11/08/24 11/08/24 10:46 12:14 15:57 POC Capillary Glucose 353 H 298 H Troponin I 0.126 H* 11/08/24 11/08/24 11/09/24 20:14 21:12 07:33 POC Capillary Glucose 86 100 200 H Troponin I
[2024-11-09] MEDS: INSULIN ASPART (*BKC) 100 UNITS/ML SUB-Q ×4 (08:51→16:52)
[2024-11-09] MEDS: FOLIC ACID 1 MG TABLET PO (08:53)
[2024-11-09] MEDS: FUROSEMIDE 40 MG TABLET PO (08:54)
[2024-11-09] MEDS: carvediloL 12.5 MG TABLET PO ×2 (08:54→20:18)
[2024-11-09] MEDS: ASPIRIN 81 MG ENTERIC TABLET PO (08:54)
[2024-11-09] MEDS: metFORMIN HCL XR 500 MG TAB.SR.24H PO ×2 (08:54→16:51)
[2024-11-09] MEDS: SPIRONOLACTONE 25 MG TABLET PO (08:54)
[2024-11-09] MEDS: THIAMINE HCL 100 MG TABLET PO (08:54)
[2024-11-09] MEDS: SACUBITRIL/VALSARTAN 24-26 MG TABLET 1 TAB PO ×2 (08:55→20:18)
--- NOTE | 2024-11-09 10:44 | P.PNIM_ITS ---
Progress Note: A&P Assessment and Plan (1) Chest pain: Code(s): R07.9 - Chest pain, unspecified Status: Acute (2) CHF (congestive heart failure): Code(s): I50.9 - Heart failure, unspecified Status: Acute (3) Uncontrolled type 2 diabetes mellitus: Status: Acute (4) EtOH dependence: Code(s): F10.20 - Alcohol dependence, uncomplicated Status: Chronic (5) Hypertension: Code(s): I10 - Essential (primary) hypertension Status: Acute (6) Cardiomyopathy: Code(s): I42.9 - Cardiomyopathy, unspecified Status: Acute Plan Chest pain Patient has intermittent chest pain, worse with cough. Possible pleural chest pain Elevated troponin, EKG showed sinus rhythm, tachycardia, low-voltage of extremity leads Patient received aspirin 324 mg once in the ED Continue aspirin 81 mg daily p.o. Consult it support technician for evaluation treatment Patient still has intermittent chest pain, appreciate cardiology consultation. Plans cardiac catheterization 11/09 Severe systolic heart failure on life vest, cardiomyopathy Possible resulting from a alcoholic cardiomyopathy EF 15-20% on echocardiogram September 2024 Patient has intermittent lightheadedness No discharge from Life Vest stuffer Elevated BNP lower than baseline, x-ray shows cardiomegaly and small pleural effusion Continue furosemide 40 mg daily p.o., spironolactone 25 mg daily p.o. Follow input output Essential hypertension Continue home medication Entresto 1 tab b.i.d. p.o., carvedilol 12.5 mg b.i.d. p.o. Patient is on blood thinner Xarelto 20 mg daily p.o. Uncontrolled type 2 diabetes Possible due to noncompliance with medications Follow-up A1c Continue glargine 15 units q.h.s. aspart 5 unit t.i.d. Start insulin sliding scale a.c. and q.h.s. Hold metformin History of alcohol dependence Monitor sign of alcohol withdrawal per [facility] protocol Start thiamine and folic acid p.o. Follow-up alcohol no drug screening Subjective Date/time seen: 11/09/24 10:44 Interval history: I saw and exam patient today. Patient still has intermittent chest pain, mild cough, denies nausea vomiting diarrhea. Patient has some shortness of breath with exertion. Patient denies diarrhea. Patient is afebrile blood pressure stable, blood pressure on lower side, no O2 desaturation on room air Objective Data Vital Signs Vital Signs: Vital Signs - 24 hr 11/08/24 11:38 11/08/24 12:00 11/08/24 12:00 Temperature 97.4 F L Pulse Rate 115 H 115 H 115 H Respiratory Rate 18 Blood Pressure 148/87 H Pulse Oximetry 100 100 Oxygen Delivery Room Air 11/08/24 14:00 11/08/24 15:50 11/08/24 15:50 Temperature Pulse Rate 113 H 113 H 113 H Respiratory Rate 18 Blood Pressure Pulse Oximetry 100 Oxygen Delivery Room Air 11/08/24 15:57 11/08/24 18:00 11/08/24 20:00 Temperature 98.6 F 98.2 F Pulse Rate 115 H 111 H 114 H Respiratory Rate 18 16 Blood Pressure 116/84 118/86 Pulse Oximetry 99 98 Oxygen Delivery 11/08/24 20:00 11/08/24 20:20 11/08/24 21:13 Temperature Pulse Rate 114 H 114 H 113 H Respiratory Rate 16 Blood Pressure Pulse Oximetry 98 Oxygen Delivery Room Air 11/08/24 22:00 11/08/24 23:42 11/09/24 00:00 Temperature 97.7 F Pulse Rate 113 H 92 89 Respiratory Rate 16 Blood Pressure 86/53 L Pulse Oximetry 98 Oxygen Delivery 11/09/24 00:25 11/09/24 02:00 11/09/24 04:00 Temperature 98.4 F Pulse Rate 89 90 91 Respiratory Rate 16 18 Blood Pressure 115/76 Pulse Oximetry 98 100 Oxygen Delivery Room Air 11/09/24 04:00 11/09/24 04:45 11/09/24 08:05 Temperature 98.7 F Pulse Rate 91 91 97 Respiratory Rate 18 18 Blood Pressure 105/72 Pulse Oximetry 100 99 Oxygen Delivery Room Air 11/09/24 08:54 Temperature Pulse Rate 98 Respiratory Rate Blood Pressure Pulse Oximetry Oxygen Delivery Intake/Output Intake/Output: Intake & Output 11/06/24 11/07/24 11/08/24 11/09/24 23:59 23:59 23:59 23:59 Intake Total 980 740 Output Total 1250 Balance -270 740 Meds/Results Medications: Active Medications Generic Name Dose Route Start Last Admin Trade Name Freq PRN Reason Stop Dose Admin Aspirin 81 mg 11/09/24 09:00 11/09/24 08:54 Aspirin 81 Mg Enteric Tablet PO 81 mg QAM [facility] Administration Carvedilol 12.5 mg 11/08/24 21:00 11/09/24 08:54 Carvedilol 12.5 Mg Tablet PO 12.5 mg Q12HR [facility] Administration Dextrose 12.5 gm 11/08/24 10:33 Dextrose 50% 25 Gm/50 Ml Syringe IV PUSH PRN PRN Hypoglycemia Protocol Folic Acid 1 mg 11/09/24 09:00 11/09/24 08:53 Folic Acid 1 Mg Tablet PO 1 mg DAILY KELIN Administration Furosemide 40 mg 11/09/24 09:00 11/09/24 08:54 Furosemide 40 Mg Tablet PO 40 mg DAILY KELIN Administration Glucagon 1 mg 11/08/24 10:33 Glucagon For Inj 1 Mg Vial IM PRN PRN Hypoglycemia Protocol Glucose 15 gm 11/08/24 10:33 Glucose Oral Gel 15 Gm Of Glucse In 37.5 Gm Tube PO PRN PRN Hypoglycemia Protocol Dextrose 1,000 mls @ 100 mls/hr 11/08/24 10:33 Dextrose 5% 1,000 Ml IVPB PRN PRN Hypoglycemia Protocol Insulin Aspart 5 units 11/08/24 12:00 11/09/24 08:51 Insulin Aspart (*Bkc) 100 Units/Ml SUB-Q 5 units TIDWM [facility] Administration Insulin Aspart 3 - 6 units 11/08/24 12:00 11/09/24 08:52 Insulin Aspart (*Bkc) 100 Units/Ml SUB-Q Not Given TIDWM [facility] Protocol Insulin Aspart 1 - 3 units 11/08/24 21:00 11/08/24 21:10 Insulin Aspart (*Bkc) 100 Units/Ml SUB-Q Not Given HS [facility] Protocol Insulin Glargine 15 units 11/08/24 21:00 11/08/24 21:13 Insulin Glargine (*Bkc) 100 Units/Ml SUB-Q 15 units HS [facility] Administration Metformin HCl 500 mg 11/08/24 17:00 11/09/24 08:54 Metformin Hcl Xr 500 Mg Tab.Sr.24h PO 500 mg BIDWM [facility] Administration Perflutren Lipid Microsphere 0 ml 11/09/24 08:33 Perflutren Lipid Microspheres 1.5 Ml Vial Diluted To 10 Ml Total Volume IV PUSH 11/12/24 08:33 ONCE PRN adequate visualization Protocol Rivaroxaban 20 mg 11/08/24 17:00 11/08/24 16:52 Rivaroxaban 20 Mg Tablet PO 20 mg DAILY@1700 [facility] Administration Sacubitril/Valsartan 1 tab 11/08/24 21:00 11/09/24 08:55 Sacubitril/Valsartan 24-26 Mg Tablet PO 1 tab Q12HR [facility] Administration Spironolactone 25 mg 11/09/24 09:00 11/09/24 08:54 Spironolactone 25 Mg Tablet PO 25 mg QAM [facility] Administration Thiamine HCl 100 mg 11/09/24 09:00 11/09/24 08:54 Thiamine Hcl 100 Mg Tablet PO 100 mg QAM [facility] Administration Radiology Results: ITS Impressions Chest X-Ray 11/08/24 06:21 Impression: Small right pleural effusion. Stable cardiomegaly. Labs Labs: Laboratory Results - last 24 hr 11/08/24 11/08/24 11/08/24 10:46 12:14 15:57 POC Capillary Glucose 353 H 298 H Troponin I 0.126 H* 11/08/24 11/08/24 11/09/24 20:14 21:12 07:33 POC Capillary Glucose 86 100 200 H Troponin I
[2024-11-09 11:26] LABS: Glucose Point of Care 320 mg/dl (65-105)
[2024-11-09 15:32] LABS: Basophils Percent Auto 0.6 % (0.2-1.2); Eosinophils Percent Auto 0.4 % (0-4.4); Hematocrit 39.2 % (42.0-52.0); Hemoglobin 12.9 g/dL (14.0-18.0); Immature Granulocyte Absolute 0.01 K/mm3 (0.00-0.031); Immature Granulocyte Percent A 0.2 % (0-0.5); Lymphocytes Absolute Auto 1.45 K/mm3 (0.9-3.2); Lymphocytes Percent Auto 27.4 % (18.3-44.2); Mean Corpuscular HGB Conc 32.9 g/dl (32-36); Mean Corpuscular Hemoglobin 25.9 pg (26-34); Mean Corpuscular Volume 78.6 fl (80-100); Mean Platelet Volume 10.7 fl (7.4-10.4); Monocytes Absolute Auto 0.6 K/mm3 (0.1-0.6); Monocytes Percent Auto 10.4 % (2.6-8.5); Neutrophils Absolute Auto 3.2 K/mm3 (1.3-6.7); Platelet Count Result 183 k/mm3 (150-375); Red Blood Count 4.99 M/mm3 (4.6-6.20); Red Cell Distribution Width 13.6 % (11.5-14.5); White Blood Count 5.3 K/mm3 (4.5-10.0)
[2024-11-09 15:46] LABS: Anion Gap 4 mmol/L (4-12); Blood Urea Nitrogen 16 mg/dL (9-20); Calcium 7.9 mg/dL (8.4-10.2); Carbon Dioxide 27 mmol/L (22-30); Chloride 101 mmol/L (98-107); Estimated CRCL calculation 69 ml/min; Estimated Glomerular Filt Rate > 60; Glucose 100 mg/dL (65-110); Magnesium 1.8 mg/dL (1.6-2.3); Potassium 3.7 mmol/L (3.4-5.0); Sodium 132 mmol/L (137-145)
[2024-11-09 15:54] LABS: Glucose Point of Care 108 mg/dl (65-105)
[2024-11-09] MEDS: RIVAROXABAN 20 MG TABLET PO (16:51)
[2024-11-09] MEDS: FUROSEMIDE INJ 40 MG/4 ML VIAL IV PUSH (16:51)
[2024-11-09 19:51] LABS: Glucose Point of Care 116 mg/dl (65-105)
[2024-11-09] MEDS: INSULIN GLARGINE (*BKC) 100 UNITS/ML 15 UNITS SUB-Q (20:17)
[2024-11-10] VITALS (21 sets, daily range): BP systolic 88–117; BP diastolic 56–78; PULSE 64–103; RESP 15–20; TEMP 36.6–37.1; O2SAT 96–100
[2024-11-10] MEDS: BENZOCAINE/MENTHOL (*BKC) 18 EA LOZENGE 1 LOZENGE PO ×4 (02:07→20:37)
[2024-11-10 07:59] LABS: Glucose Point of Care 146 mg/dl (65-105)
--- NOTE | 2024-11-10 08:00 | PM.PNCARD ---
Progress Note: A&P Assessment and Plan (1) Acute on chronic systolic heart failure: Code(s): I50.23 - Acute on chronic systolic (congestive) heart failure Status: Acute (2) Hypertension: Code(s): I10 - Essential (primary) hypertension Status: Acute (3) Noncompliance: Code(s): Z91.199 - Patient's noncompliance with other medical treatment and regimen due to unspecified reason Status: Acute (4) EtOH dependence: Code(s): F10.20 - Alcohol dependence, uncomplicated Status: Chronic (5) LV (left ventricular) mural thrombus: Code(s): I51.3 - Intracardiac thrombosis, not elsewhere classified Status: Acute Plan Plan: -Please obtain BL LE venous doppler US to r/o DVT -Troponin though elevated has remained flat. No chest pain at this time -Given VT, no prior workup for new cardiomyopathy, recommend cardiac catheterization to evaluate coronary anatomy as a cause of cardiomyopathy -Continue Aspirin 81 mg daily -Add atorvastatin 40 mg daily -Guideline directed medical therapy as tolerated for systolic heart failure-continue Coreg, Entresto, spironolactone. Add SGLT2 inhibitor as tolerated -TTE today showed LV thrombus- stop Xarelto and start IV heparin while inpatient -Counseled about stopping alcohol use -Monitor on telemetry -Lasix 40 mg IV b.i.d.. Check daily weights and ins and outs -Check renal function daily -Check and replace electrolytes to keep potassium greater than 4 and magnesium greater than 2 -Counseled about medication compliance -Management of other medical issues per primary team Subjective Date/time seen: 11/10/24 08:00 Interval history: Reason For Visit: chest pain HPI: 39-year-old male with history of diabetes mellitus, hypertension, alcohol dependence, and systolic heart failure with LV ejection fraction of 20% by echo in 2023 (fixed defect on stress test, patient declined cardiac cath) on Life Vest presented to the ED after his LifeVest discharged a shock. Interrogation of life vest showed patient had a run of VT prior to the shock which restored sinus rhythm. Patient did not have any anginal chest pain prior to or after the shock. He was recently treated for pneumonia with a course of antibiotics but continues to have some cough without any fevers or chills. He has bilateral lower extremity swelling and increased weight gain over the past few weeks. He has been non-compliant with his medications for about a week. Cardiology was consulted for further management. Workup: Troponin: 0.120, 0.121, 0.126 EKG: Sinus tachycardia with rate of 115, nonspecific ST T wave changes BNP: 3430 (baseline BNP around 4500) TTE:LV apical thrombus 1.4-1.8 cm TTE 09/2024: LV ejection fraction 15-20%, depressed RV systolic function, mild aortic regurgitation, mild to moderate mitral regurgitation, mild tricuspid regurgitation, mild pulmonary hypertension, mild pulmonary regurgitation, small pericardial effusion, LV thrombus could not be ruled out Interval history: Patient continues to feel short of breath and has not noticed any increased urination with IV Lasix 20 mg last night. He has bilateral leg swelling R>L.. No chest pain, dizziness lightheadedness. TTE completed yesterday showed an LV thrombus. He is on Xarelto. Review of Systems Review of Systems: A complete review of systems was performed and noted in the HPI Exam Narrative: General: Alert oriented x3, no acute distress Neck: Supple, JVD + Chest: Bilaterally clear to auscultation, no rales or rhonchi Cardiac: S1, S2 +, regular rate, regular rhythm, no murmurs or rubs Extremities: Bilateral lower extremity edema 2+ R>L, no skin rash Neurologic: Alert and oriented x3, no focal neurological deficits Objective Data Vital Signs Vital Signs: Vital Signs - 24 hr 11/09/24 08:05 11/09/24 08:54 11/09/24 10:00 Temperature 37.1 C Pulse Rate 97 98 89 Respiratory Rate 18 Blood Pressure 105/72 Pulse Oximetry 99 Oxygen Delivery 11/09/24 12:00 11/09/24 12:30 11/09/24 14:00 Temperature 36.9 C Pulse Rate 97 100 63 Respiratory Rate 20 Blood Pressure 104/79 Pulse Oximetry 99 Oxygen Delivery 11/09/24 15:57 11/09/24 16:00 11/09/24 18:00 Temperature 37.0 C Pulse Rate 69 91 63 Respiratory Rate 18 Blood Pressure 107/77 Pulse Oximetry 98 Oxygen Delivery 11/09/24 19:45 11/09/24 20:00 11/09/24 20:00 Temperature 38.2 C H Pulse Rate 63 97 98 Respiratory Rate 18 18 Blood Pressure 98/74 L Pulse Oximetry 98 98 Oxygen Delivery Room Air 11/09/24 20:18 11/09/24 22:00 11/09/24 23:59 Temperature 36.6 C Pulse Rate 97 93 92 Respiratory Rate 15 Blood Pressure 87/66 L Pulse Oximetry 98 Oxygen Delivery 11/10/24 00:00 11/10/24 00:00 11/10/24 02:00 Temperature Pulse Rate 92 91 95 Respiratory Rate 15 Blood Pressure Pulse Oximetry 98 Oxygen Delivery Room Air 11/10/24 04:00 11/10/24 04:00 11/10/24 04:10 Temperature 36.6 C Pulse Rate 95 95 95 Respiratory Rate 16 16 Blood Pressure 88/56 L Pulse Oximetry 100 98 Oxygen Delivery Room Air 11/10/24 06:00 Temperature Pulse Rate 95 Respiratory Rate Blood Pressure Pulse Oximetry Oxygen Delivery Intake/Output Intake/Output: Intake & Output 11/07/24 11/08/24 11/09/24 11/10/24 23:59 23:59 23:59 23:59 Intake Total 980 1570 800 Output Total 1250 1050 600 Balance -270 520 200 Meds/Results Medications: Active Medications Generic Name Dose Route Start Last Admin Trade Name Freq PRN Reason Stop Dose Admin Aspirin 81 mg 11/09/24 09:00 11/09/24 08:54 Aspirin 81 Mg Enteric Tablet PO 81 mg QAM KELIN Administration Benzocaine 1 lozenge 11/10/24 00:13 11/10/24 02:07 Benzocaine/Menthol (*Bkc) 18 Ea Lozenge PO 1 lozenge PRN PRN Administration Sore Throat Carvedilol 12.5 mg 11/08/24 21:00 11/09/24 20:18 Carvedilol 12.5 Mg Tablet PO 12.5 mg Q12HR KELIN Administration Dextrose 12.5 gm 11/08/24 10:33 Dextrose 50% 25 Gm/50 Ml Syringe IV PUSH PRN PRN Hypoglycemia Protocol Folic Acid 1 mg 11/09/24 09:00 11/09/24 08:53 Folic Acid 1 Mg Tablet PO 1 mg DAILY KELIN Administration Furosemide 40 mg 11/09/24 09:00 11/09/24 08:54 Furosemide 40 Mg Tablet PO 40 mg DAILY KELIN Administration Glucagon 1 mg 11/08/24 10:33 Glucagon For Inj 1 Mg Vial IM PRN PRN Hypoglycemia Protocol Glucose 15 gm 11/08/24 10:33 Glucose Oral Gel 15 Gm Of Glucse In 37.5 Gm Tube PO PRN PRN Hypoglycemia Protocol Dextrose 1,000 mls @ 100 mls/hr 11/08/24 10:33 Dextrose 5% 1,000 Ml IVPB PRN PRN Hypoglycemia Protocol Insulin Aspart 5 units 11/08/24 12:00 11/09/24 16:52 Insulin Aspart (*Bkc) 100 Units/Ml SUB-Q 5 units TIDWM [facility] Administration Insulin Aspart 3 - 6 units 11/08/24 12:00 11/09/24 16:55 Insulin Aspart (*Bkc) 100 Units/Ml SUB-Q Not Given TIDWM [facility] Protocol Insulin Aspart 1 - 3 units 11/08/24 21:00 11/09/24 20:17 Insulin Aspart (*Bkc) 100 Units/Ml SUB-Q Not Given HS KELIN Protocol Insulin Glargine 15 units 11/08/24 21:00 11/09/24 20:17 Insulin Glargine (*Bkc) 100 Units/Ml SUB-Q 15 units HS [facility] Administration Metformin HCl 500 mg 11/08/24 17:00 11/09/24 16:51 Metformin Hcl Xr 500 Mg Tab.Sr.24h PO 500 mg BIDWM [facility] Administration Perflutren Lipid Microsphere 0 ml 11/09/24 08:33 Perflutren Lipid Microspheres 1.5 Ml Vial Diluted To 10 Ml Total Volume IV PUSH 11/12/24 08:33 ONCE PRN adequate visualization Protocol Rivaroxaban 20 mg 11/08/24 17:00 11/09/24 16:51 Rivaroxaban 20 Mg Tablet PO 20 mg DAILY@1700 KELIN Administration Sacubitril/Valsartan 1 tab 11/08/24 21:00 11/09/24 20:18 Sacubitril/Valsartan 24-26 Mg Tablet PO 1 tab Q12HR KELIN Administration Spironolactone 25 mg 11/09/24 09:00 11/09/24 08:54 Spironolactone 25 Mg Tablet PO 25 mg QAM [facility] Administration Thiamine HCl 100 mg 11/09/24 09:00 11/09/24 08:54 Thiamine Hcl 100 Mg Tablet PO 100 mg QAM [facility] Administration Radiology Results: ITS Impressions Chest X-Ray 11/08/24 06:21 Impression: Small right pleural effusion. Stable cardiomegaly. Labs Labs: Laboratory Results - last 24 hr 11/09/24 11/09/24 11/09/24 07:33 11:19 15:27 WBC 5.3 RBC 4.99 Hgb 12.9 L Hct 39.2 L MCV 78.6 L MCH 25.9 L MCHC 32.9 RDW 13.6 Plt Count 183 MPV 10.7 H Immature Gran % (Auto) 0.2 Neut % (Auto) 61.0 Lymph % (Auto) 27.4 [facility] % (Auto) 10.4 H Eos % (Auto) 0.4 Baso % (Auto) 0.6 Lymph # (Auto) 1.45 [facility] # (Auto) 0.6 Eos # (Auto) 0.0 Baso # (Auto) 0.0 Abs Immat Gran (auto) 0.01 Absolute Neuts (auto) 3.2 Absolute Nucleated RBC 0.000 Nucleated RBC % 0.0 Sodium 132 L Potassium 3.7 Chloride 101 Carbon Dioxide 27 Anion Gap 4 BUN 16 Creatinine 1.36 H Estim Creat Clear Calc 69 Estimated GFR > 60 Glucose 100 POC Capillary Glucose 200 H 320 H Calcium 7.9 L Magnesium 1.8 11/09/24 11/09/24 11/10/24 15:48 19:47 07:33 WBC RBC Hgb Hct MCV MCH MCHC RDW Plt Count MPV Immature Gran % (Auto) Neut % (Auto) Lymph % (Auto) [facility] % (Auto) Eos % (Auto) Baso % (Auto) Lymph # (Auto) [facility] # (Auto) Eos # (Auto) Baso # (Auto) Abs Immat Gran (auto) Absolute Neuts (auto) Absolute Nucleated RBC Nucleated RBC % Sodium Potassium Chloride Carbon Dioxide Anion Gap BUN Creatinine Estim Creat Clear Calc Estimated GFR Glucose POC Capillary Glucose 108 H 116 H 146 H Calcium Magnesium
[2024-11-10] MEDS: INSULIN ASPART (*BKC) 100 UNITS/ML SUB-Q ×3 (08:47→17:03)
[2024-11-10] MEDS: ASPIRIN 81 MG ENTERIC TABLET PO (08:47)
[2024-11-10] MEDS: THIAMINE HCL 100 MG TABLET PO (08:47)
[2024-11-10] MEDS: carvediloL 12.5 MG TABLET PO ×2 (08:48→20:38)
[2024-11-10] MEDS: SACUBITRIL/VALSARTAN 24-26 MG TABLET 1 TAB PO ×2 (08:48→20:37)
[2024-11-10] MEDS: SPIRONOLACTONE 25 MG TABLET PO (08:48)
[2024-11-10] MEDS: FOLIC ACID 1 MG TABLET PO (08:48)
[2024-11-10] MEDS: metFORMIN HCL XR 500 MG TAB.SR.24H PO ×2 (08:48→17:04)
[2024-11-10] MEDS: FUROSEMIDE INJ 40 MG/4 ML VIAL IV PUSH ×2 (09:30→17:03)
--- NOTE | 2024-11-10 10:53 | P.PNIM_ITS ---
Progress Note: A&P Assessment and Plan (1) Chest pain: Code(s): R07.9 - Chest pain, unspecified Status: Acute (2) CHF (congestive heart failure): Code(s): I50.9 - Heart failure, unspecified Status: Acute (3) Uncontrolled type 2 diabetes mellitus: Status: Acute (4) EtOH dependence: Code(s): F10.20 - Alcohol dependence, uncomplicated Status: Chronic (5) Hypertension: Code(s): I10 - Essential (primary) hypertension Status: Acute (6) Cardiomyopathy: Code(s): I42.9 - Cardiomyopathy, unspecified Status: Acute Plan Chest pain Patient has intermittent chest pain, worse with cough. Possible pleural chest pain Elevated troponin, EKG showed sinus rhythm, tachycardia, low-voltage of extremity leads Patient received aspirin 324 mg once in the ED Continue aspirin 81 mg daily p.o. Consult legal instruments examiner for evaluation treatment Patient still has intermittent chest pain, appreciate cardiology consultation. Plans cardiac catheterization 11/09 Severe systolic heart failure on life vest, cardiomyopathy Possible resulting from a alcoholic cardiomyopathy EF 15-20% on echocardiogram September 2024 Patient has intermittent lightheadedness No discharge from Life Vest surveillance monitor Elevated BNP lower than baseline, x-ray shows cardiomegaly and small pleural effusion s/w furosemide 40 mg bid ivp. Per legal instruments examiner, spironolactone 25 mg daily p.o. Follow input output Creatinine is trending up slowly upon, follow-up BMP Essential hypertension Continue home medication Entresto 1 tab b.i.d. p.o., carvedilol 12.5 mg b.i.d. p.o. 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 TTE today showed LV thrombus- stop Xarelto and start IV heparin while inpatient Uncontrolled type 2 diabetes Possible due to noncompliance with medications Follow-up A1c Continue glargine 15 units q.h.s. aspart 5 unit t.i.d. Start insulin sliding scale a.c. and q.h.s. Hold metformin History of alcohol dependence Monitor sign of alcohol withdrawal per [facility] protocol Start thiamine and folic acid p.o. Follow-up alcohol no drug screening Subjective Date/time seen: 11/10/24 10:53 Interval history: Echocardiogram shows left ventricle thrombosis, changed to heparin drip. Afebrile blood pressure stable, no O2 desaturation on room air. Patient has no chest pain today, dyspnea is improving. Labs reviewed Exam Narrative: GENERAL: in no acute distress. Well-nourished. - EYES: EOMI. Anicteric. - HENT: Moist mucous membranes. - LUNGS: Clear to auscultation bilateral ly, no wheezing, rhonchi, or rales. - CARDIOVASCULAR: Regular rate and rhyth m. No murmur. No JVD. - ABDOMEN: Soft, non-tender and non-dist ended. No palpable masses. - EXTREMITIES: No edema. Peripheral puls es 2+. Non-tender. - NEUROLOGIC: No focal neurological defi cits. CN II-XII grossly intact. - PSYCHIATRIC: Awake, Alert and oriented x 3. Appropriate mood and affect. - SKIN: No rashes or lesions. Warm. - LYMPH: No cervical lymphadenopathy. Objective Data Vital Signs Vital Signs: Vital Signs - 24 hr 11/09/24 12:00 11/09/24 12:30 11/09/24 14:00 Temperature 98.5 F Pulse Rate 97 100 63 Respiratory Rate 20 Blood Pressure 104/79 Pulse Oximetry 99 Oxygen Delivery 11/09/24 15:57 11/09/24 16:00 11/09/24 18:00 Temperature 98.6 F Pulse Rate 69 91 63 Respiratory Rate 18 Blood Pressure 107/77 Pulse Oximetry 98 Oxygen Delivery 11/09/24 19:45 11/09/24 20:00 11/09/24 20:00 Temperature 100.7 F H Pulse Rate 63 97 98 Respiratory Rate 18 18 Blood Pressure 98/74 L Pulse Oximetry 98 98 Oxygen Delivery Room Air 11/09/24 20:18 11/09/24 22:00 11/09/24 23:59 Temperature 97.9 F Pulse Rate 97 93 92 Respiratory Rate 15 Blood Pressure 87/66 L Pulse Oximetry 98 Oxygen Delivery 11/10/24 00:00 11/10/24 00:00 11/10/24 02:00 Temperature Pulse Rate 92 91 95 Respiratory Rate 15 Blood Pressure Pulse Oximetry 98 Oxygen Delivery Room Air 11/10/24 04:00 11/10/24 04:00 11/10/24 04:10 Temperature 97.9 F Pulse Rate 95 95 95 Respiratory Rate 16 16 Blood Pressure 88/56 L Pulse Oximetry 100 98 Oxygen Delivery Room Air 11/10/24 06:00 11/10/24 08:15 11/10/24 08:48 Temperature 98.7 F Pulse Rate 95 97 98 Respiratory Rate 18 Blood Pressure 117/77 Pulse Oximetry 98 Oxygen Delivery Intake/Output Intake/Output: Intake & Output 11/07/24 11/08/24 11/09/24 11/10/24 23:59 23:59 23:59 23:59 Intake Total 980 1570 1040 Output Total 1250 1050 601 Balance -270 520 439 Meds/Results Medications: Active Medications Generic Name Dose Route Start Last Admin Trade Name Freq PRN Reason Stop Dose Admin Aspirin 81 mg 11/09/24 09:00 11/10/24 08:47 Aspirin 81 Mg Enteric Tablet PO 81 mg QAM KELIN Administration Benzocaine 1 lozenge 11/10/24 00:13 11/10/24 08:50 Benzocaine/Menthol (*Bkc) 18 Ea Lozenge PO 1 lozenge PRN PRN Administration Sore Throat Carvedilol 12.5 mg 11/08/24 21:00 11/10/24 08:48 Carvedilol 12.5 Mg Tablet PO 12.5 mg Q12HR KELIN Administration Dextrose 12.5 gm 11/08/24 10:33 Dextrose 50% 25 Gm/50 Ml Syringe IV PUSH PRN PRN Hypoglycemia Protocol Folic Acid 1 mg 11/09/24 09:00 11/10/24 08:48 Folic Acid 1 Mg Tablet PO 1 mg DAILY KELIN Administration Furosemide 40 mg 11/09/24 09:00 11/10/24 08:53 Furosemide 40 Mg Tablet PO Not Given DAILY KELIN Glucagon 1 mg 11/08/24 10:33 Glucagon For Inj 1 Mg Vial IM PRN PRN Hypoglycemia Protocol Glucose 15 gm 11/08/24 10:33 Glucose Oral Gel 15 Gm Of Glucse In 37.5 Gm Tube PO PRN PRN Hypoglycemia Protocol Dextrose 1,000 mls @ 100 mls/hr 11/08/24 10:33 Dextrose 5% 1,000 Ml IVPB PRN PRN Hypoglycemia Protocol Insulin Aspart 5 units 11/08/24 12:00 11/10/24 08:47 Insulin Aspart (*Bkc) 100 Units/Ml SUB-Q 5 units TIDWM KELIN Administration Insulin Aspart 3 - 6 units 11/08/24 12:00 11/10/24 08:45 Insulin Aspart (*Bkc) 100 Units/Ml SUB-Q Not Given TIDWM KELIN Protocol Insulin Aspart 1 - 3 units 11/08/24 21:00 11/09/24 20:17 Insulin Aspart (*Bkc) 100 Units/Ml SUB-Q Not Given HS KELIN Protocol Insulin Glargine 15 units 11/08/24 21:00 11/09/24 20:17 Insulin Glargine (*Bkc) 100 Units/Ml SUB-Q 15 units HS KELIN Administration Metformin HCl 500 mg 11/08/24 17:00 11/10/24 08:48 Metformin Hcl Xr 500 Mg Tab.Sr.24h PO 500 mg BIDWM KELIN Administration Perflutren Lipid Microsphere 0 ml 11/09/24 08:33 Perflutren Lipid Microspheres 1.5 Ml Vial Diluted To 10 Ml Total Volume IV PUSH 11/12/24 08:33 ONCE PRN adequate visualization Protocol Rivaroxaban 20 mg 11/08/24 17:00 11/09/24 16:51 Rivaroxaban 20 Mg Tablet PO 20 mg DAILY@1700 KELIN Administration Sacubitril/Valsartan 1 tab 11/08/24 21:00 11/10/24 08:48 Sacubitril/Valsartan 24-26 Mg Tablet PO 1 tab Q12HR KELIN Administration Spironolactone 25 mg 11/09/24 09:00 11/10/24 08:48 Spironolactone 25 Mg Tablet PO 25 mg QAM KELIN Administration Thiamine HCl 100 mg 11/09/24 09:00 11/10/24 08:47 Thiamine Hcl 100 Mg Tablet PO 100 mg QAM [facility] Administration Radiology Results: ITS Impressions Chest X-Ray 11/08/24 06:21 Impression: Small right pleural effusion. Stable cardiomegaly. Labs Labs: Laboratory Results - last 24 hr 11/09/24 11/09/24 11/09/24 11:19 15:27 15:48 WBC 5.3 RBC 4.99 Hgb 12.9 L Hct 39.2 L MCV 78.6 L MCH 25.9 L MCHC 32.9 RDW 13.6 Plt Count 183 MPV 10.7 H Immature Gran % (Auto) 0.2 Neut % (Auto) 61.0 Lymph % (Auto) 27.4 [place] % (Auto) 10.4 H Eos % (Auto) 0.4 Baso % (Auto) 0.6 Lymph # (Auto) 1.45 [place] # (Auto) 0.6 Eos # (Auto) 0.0 Baso # (Auto) 0.0 Abs Immat Gran (auto) 0.01 Absolute Neuts (auto) 3.2 Absolute Nucleated RBC 0.000 Nucleated RBC % 0.0 Sodium 132 L Potassium 3.7 Chloride 101 Carbon Dioxide 27 Anion Gap 4 BUN 16 Creatinine 1.36 H Estim Creat Clear Calc 69 Estimated GFR > 60 Glucose 100 POC Capillary Glucose 320 H 108 H Calcium 7.9 L Magnesium 1.8 11/09/24 11/10/24 19:47 07:33 WBC RBC Hgb Hct MCV MCH MCHC RDW Plt Count MPV Immature Gran % (Auto) Neut % (Auto) Lymph % (Auto) [place] % (Auto) Eos % (Auto) Baso % (Auto) Lymph # (Auto) [place] # (Auto) Eos # (Auto) Baso # (Auto) Abs Immat Gran (auto) Absolute Neuts (auto) Absolute Nucleated RBC Nucleated RBC % Sodium Potassium Chloride Carbon Dioxide Anion Gap BUN Creatinine Estim Creat Clear Calc Estimated GFR Glucose POC Capillary Glucose 116 H 146 H Calcium Magnesium
[2024-11-10 11:16] LABS: Basophils Percent Auto 0.8 % (0.2-1.2); Eosinophils Absolute Auto 0.1 K/mm3 (0-0.3); Hematocrit 39.6 % (42.0-52.0); Hemoglobin 13.4 g/dL (14.0-18.0); Immature Granulocyte Absolute 0.01 K/mm3 (0.00-0.031); Immature Granulocyte Percent A 0.2 % (0-0.5); Lymphocytes Absolute Auto 1.78 K/mm3 (0.9-3.2); Lymphocytes Percent Auto 34.2 % (18.3-44.2); Mean Corpuscular HGB Conc 33.8 g/dl (32-36); Mean Corpuscular Hemoglobin 26.4 pg (26-34); Mean Platelet Volume 10.5 fl (7.4-10.4); Monocytes Absolute Auto 0.5 K/mm3 (0.1-0.6); Monocytes Percent Auto 10.4 % (2.6-8.5); Neutrophils Absolute Auto 2.8 K/mm3 (1.3-6.7); Neutrophils Percent Auto 53.4 % (45.5-73.1); Platelet Count Result 192 k/mm3 (150-375); Red Blood Count 5.08 M/mm3 (4.6-6.20); Red Cell Distribution Width 13.2 % (11.5-14.5); White Blood Count 5.2 K/mm3 (4.5-10.0)
[2024-11-10 11:29] LABS: Anion Gap 5 mmol/L (4-12); Blood Urea Nitrogen 16 mg/dL (9-20); Calcium 7.6 mg/dL (8.4-10.2); Carbon Dioxide 26 mmol/L (22-30); Chloride 99 mmol/L (98-107); Estimated CRCL calculation 93 ml/min; Estimated Glomerular Filt Rate > 60; Glucose 171 mg/dL (65-110); Magnesium 1.6 mg/dL (1.6-2.3); Potassium 3.6 mmol/L (3.4-5.0); Sodium 130 mmol/L (137-145)
[2024-11-10 11:51] LABS: Glucose Point of Care 180 mg/dl (65-105)
[2024-11-10 16:03] LABS: Glucose Point of Care 168 mg/dl (65-105)
[2024-11-10] MEDS: RIVAROXABAN 20 MG TABLET PO (17:04)
[2024-11-10 20:08] LABS: Glucose Point of Care 170 mg/dl (65-105)
[2024-11-10] MEDS: INSULIN GLARGINE (*BKC) 100 UNITS/ML 15 UNITS SUB-Q (20:37)
[2024-11-11] VITALS (16 sets, daily range): BP systolic 80–113; BP diastolic 56–84; PULSE 88–103; RESP 14–18; TEMP 36.3–37.2; O2SAT 95–99
[2024-11-11] MEDS: BENZOCAINE/MENTHOL (*BKC) 18 EA LOZENGE 1 LOZENGE PO ×3 (03:56→21:43)
[2024-11-11 04:33] LABS: Basophils Percent Auto 0.6 % (0.2-1.2); Eosinophils Absolute Auto 0.1 K/mm3 (0-0.3); Eosinophils Percent Auto 1.2 % (0-4.4); Hematocrit 38.2 % (42.0-52.0); Hemoglobin 12.9 g/dL (14.0-18.0); Immature Granulocyte Absolute 0.01 K/mm3 (0.00-0.031); Immature Granulocyte Percent A 0.2 % (0-0.5); Lymphocytes Absolute Auto 1.75 K/mm3 (0.9-3.2); Lymphocytes Percent Auto 33.8 % (18.3-44.2); Mean Corpuscular HGB Conc 33.8 g/dl (32-36); Mean Corpuscular Hemoglobin 26.2 pg (26-34); Mean Corpuscular Volume 77.6 fl (80-100); Mean Platelet Volume 10.6 fl (7.4-10.4); Monocytes Absolute Auto 0.6 K/mm3 (0.1-0.6); Monocytes Percent Auto 11.2 % (2.6-8.5); Neutrophils Absolute Auto 2.8 K/mm3 (1.3-6.7); Platelet Count Result 196 k/mm3 (150-375); Red Blood Count 4.92 M/mm3 (4.6-6.20); Red Cell Distribution Width 13.3 % (11.5-14.5); White Blood Count 5.2 K/mm3 (4.5-10.0)
[2024-11-11 04:55] LABS: Anion Gap 2 mmol/L (4-12); Blood Urea Nitrogen 17 mg/dL (9-20); Calcium 7.5 mg/dL (8.4-10.2); Carbon Dioxide 31 mmol/L (22-30); Chloride 98 mmol/L (98-107); Estimated CRCL calculation 80 ml/min; Estimated Glomerular Filt Rate > 60; Glucose 180 mg/dL (65-110); Magnesium 1.5 mg/dL (1.6-2.3); Potassium 3.7 mmol/L (3.4-5.0); Sodium 131 mmol/L (137-145)
[2024-11-11 08:05] LABS: Glucose Point of Care 174 mg/dl (65-105)
[2024-11-11] MEDS: FOLIC ACID 1 MG TABLET PO (09:01)
[2024-11-11] MEDS: ASPIRIN 81 MG ENTERIC TABLET PO (09:01)
[2024-11-11] MEDS: carvediloL 12.5 MG TABLET PO ×2 (09:01→21:02)
[2024-11-11] MEDS: SPIRONOLACTONE 25 MG TABLET PO (09:01)
[2024-11-11] MEDS: FUROSEMIDE INJ 40 MG/4 ML VIAL IV PUSH ×2 (09:01→16:35)
[2024-11-11] MEDS: THIAMINE HCL 100 MG TABLET PO (09:02)
[2024-11-11] MEDS: SACUBITRIL/VALSARTAN 24-26 MG TABLET 1 TAB PO ×2 (09:02→21:03)
[2024-11-11] MEDS: metFORMIN HCL XR 500 MG TAB.SR.24H PO ×2 (09:02→16:35)
[2024-11-11] MEDS: INSULIN ASPART (*BKC) 100 UNITS/ML SUB-Q ×4 (09:02→16:35)
--- NOTE | 2024-11-11 09:03 | PM.IMPN ---
Progress Note: A&P Assessment and Plan (1) Chest pain: Code(s): R07.9 - Chest pain, unspecified Status: Acute (2) CHF (congestive heart failure): Code(s): I50.9 - Heart failure, unspecified Status: Acute (3) Uncontrolled type 2 diabetes mellitus: Status: Acute (4) EtOH dependence: Code(s): F10.20 - Alcohol dependence, uncomplicated Status: Chronic (5) Hypertension: Code(s): I10 - Essential (primary) hypertension Status: Acute (6) Cardiomyopathy: Code(s): I42.9 - Cardiomyopathy, unspecified Status: Acute Plan Chest pain Patient has intermittent chest pain, worse with cough. Possible pleural chest pain Elevated troponin, EKG showed sinus rhythm, tachycardia, low-voltage of extremity leads Patient received aspirin 324 mg once in the ED Continue aspirin 81 mg daily p.o. Consult hospital housekeeper for evaluation treatment Patient had intermittent chest pain, appreciate cardiology consultation. Plans cardiac catheterization 11/09 Per hospital housekeeper, patient declined cardiac catheterization Severe systolic heart failure on life vest, cardiomyopathy Possible resulting from a alcoholic cardiomyopathy EF 15-20% on echocardiogram September 2024 Patient has intermittent lightheadedness No discharge from Life Vest radiation monitor Elevated BNP lower than baseline, x-ray shows cardiomegaly and small pleural effusion s/w furosemide 40 mg bid ivp. Per hospital housekeeper, spironolactone 25 mg daily p.o. Follow input output Creatinine is trending up slowly upon, follow-up BMP Acute bronchitis X-ray shows no consolidation Patient has dry cough No obvious sign of better infection COVID and flu negative Provide cough medication: Benzonate, Robitussin and codeine p.o. p.r.n. Essential hypertension Continue home medication Entresto 1 tab b.i.d. p.o., carvedilol 12.5 mg b.i.d. p.o. 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 TTE today showed LV thrombus- stop Xarelto and started IV heparin Change back to Xarelto p.o. Uncontrolled type 2 diabetes Possible due to noncompliance with medications Follow-up A1c Continue glargine 15 units q.h.s. aspart 5 unit t.i.d. Start insulin sliding scale a.c. and q.h.s. Hold metformin History of alcohol dependence Monitor sign of alcohol withdrawal per [facility] protocol Start thiamine and folic acid p.o. Follow-up alcohol no drug screening Subjective Date/time seen: 11/11/24 09:03 Interval history: I saw examined patient today, patient still has dry cough, chest pain resolves patient is a hemodynamically stable no O2 desaturation on room air. Patient denies dyspnea Labs reviewed Exam Narrative: GENERAL: in no acute distress. Well-nourished. - EYES: EOMI. Anicteric. - HENT: Moist mucous membranes. - LUNGS: Clear to auscultation bilaterally, no wheezing, rhonchi, or rales. - CARDIOVASCULAR: Regular rate and rhythm. No murmur. No JVD. - ABDOMEN: Soft, non-tender and non-distended. No palpable masses. - EXTREMITIES: No edema. Peripheral pulses 2+. Non-tender. - NEUROLOGIC: No focal neurological deficits. CN II-XII grossly intact. - PSYCHIATRIC: Awake, Alert and oriented x 3. Appropriate mood and affect. - SKIN: No rashes or lesions. Warm. - LYMPH: No cervical lymphadenopathy. Objective Data Vital Signs Vital Signs: Vital Signs - 24 hr 11/10/24 10:00 11/10/24 11:53 11/10/24 12:00 Temperature 98.8 F Pulse Rate 102 H 92 Respiratory Rate 20 Blood Pressure 104/69 Pulse Oximetry 97 Oxygen Delivery Room Air Fraction of Inspired Oxygen 11/10/24 12:00 11/10/24 14:00 11/10/24 16:00 Temperature Pulse Rate 92 93 Respiratory Rate Blood Pressure Pulse Oximetry Oxygen Delivery Room Air Fraction of Inspired Oxygen 11/10/24 16:00 11/10/24 16:18 11/10/24 18:00 Temperature 98.8 F Pulse Rate 94 94 98 Respiratory Rate 20 Blood Pressure 96/72 L Pulse Oximetry 96 Oxygen Delivery Fraction of Inspired Oxygen 11/10/24 19:48 11/10/24 19:59 11/10/24 20:00 Temperature 98.6 F Pulse Rate 98 102 H 100 Respiratory Rate 20 18 Blood Pressure 108/78 Pulse Oximetry 96 98 Oxygen Delivery Room Air Fraction of Inspired Oxygen 11/10/24 20:08 11/10/24 20:38 11/10/24 22:00 Temperature Pulse Rate 103 H 64 Respiratory Rate Blood Pressure Pulse Oximetry 97 Oxygen Delivery Room Air Fraction of Inspired Oxygen 11/11/24 00:00 11/11/24 00:00 11/11/24 00:24 Temperature 97.6 F Pulse Rate 99 99 99 Respiratory Rate 18 18 Blood Pressure 87/58 L Pulse Oximetry 99 99 Oxygen Delivery Room Air Fraction of Inspired Oxygen 11/11/24 02:00 11/11/24 03:50 11/11/24 04:00 Temperature 98.9 F Pulse Rate 94 94 95 Respiratory Rate 18 18 Blood Pressure 102/64 Pulse Oximetry 99 97 Oxygen Delivery Room Air Fraction of Inspired Oxygen 11/11/24 04:00 11/11/24 06:00 11/11/24 07:48 Temperature 98.3 F Pulse Rate 95 93 94 Respiratory Rate 18 Blood Pressure 113/84 Pulse Oximetry 96 Oxygen Delivery Fraction of Inspired Oxygen Intake/Output Intake/Output: Intake & Output 11/08/24 11/09/24 11/10/24 11/11/24 23:59 23:59 23:59 23:59 Intake Total 980 1570 1980 Output Total 1250 1050 2751 325 Balance -270 520 -771 -325 Meds/Results Medications: Active Medications Generic Name Dose Route Start Last Admin Trade Name Freq PRN Reason Stop Dose Admin Aspirin 81 mg 11/09/24 09:00 11/10/24 08:47 Aspirin 81 Mg Enteric Tablet PO 81 mg QAM KELIN Administration Benzocaine 1 lozenge 11/10/24 00:13 11/11/24 03:56 Benzocaine/Menthol (*Bkc) 18 Ea Lozenge PO 1 lozenge PRN PRN Administration Sore Throat Carvedilol 12.5 mg 11/08/24 21:00 11/10/24 20:38 Carvedilol 12.5 Mg Tablet PO 12.5 mg Q12HR KELIN Administration Dextrose 12.5 gm 11/08/24 10:33 Dextrose 50% 25 Gm/50 Ml Syringe IV PUSH PRN PRN Hypoglycemia Protocol Folic Acid 1 mg 11/09/24 09:00 11/10/24 08:48 Folic Acid 1 Mg Tablet PO 1 mg DAILY KELIN Administration Furosemide 40 mg 11/10/24 17:00 11/10/24 17:03 Furosemide Inj 40 Mg/4 Ml Vial IV PUSH 40 mg BID KELIN Administration Glucagon 1 mg 11/08/24 10:33 Glucagon For Inj 1 Mg Vial IM PRN PRN Hypoglycemia Protocol Glucose 15 gm 11/08/24 10:33 Glucose Oral Gel 15 Gm Of Glucse In 37.5 Gm Tube PO PRN PRN Hypoglycemia Protocol Dextrose 1,000 mls @ 100 mls/hr 11/08/24 10:33 Dextrose 5% 1,000 Ml IVPB PRN PRN Hypoglycemia Protocol Insulin Aspart 5 units 11/08/24 12:00 11/10/24 17:03 Insulin Aspart (*Bkc) 100 Units/Ml SUB-Q 5 units TIDWM KELIN Administration Insulin Aspart 3 - 6 units 11/08/24 12:00 11/10/24 17:03 Insulin Aspart (*Bkc) 100 Units/Ml SUB-Q Not Given TIDWM KELIN Protocol Insulin Aspart 1 - 3 units 11/08/24 21:00 11/10/24 20:38 Insulin Aspart (*Bkc) 100 Units/Ml SUB-Q Not Given HS KELIN Protocol Insulin Glargine 15 units 11/08/24 21:00 11/10/24 20:37 Insulin Glargine (*Bkc) 100 Units/Ml SUB-Q 15 units HS KELIN Administration Metformin HCl 500 mg 11/08/24 17:00 11/10/24 17:04 Metformin Hcl Xr 500 Mg Tab.Sr.24h PO 500 mg BIDWM KELIN Administration Perflutren Lipid Microsphere 0 ml 11/09/24 08:33 Perflutren Lipid Microspheres 1.5 Ml Vial Diluted To 10 Ml Total Volume IV PUSH 11/12/24 08:33 ONCE PRN adequate visualization Protocol Rivaroxaban 20 mg 11/08/24 17:00 11/10/24 17:04 Rivaroxaban 20 Mg Tablet PO 20 mg DAILY@1700 KELIN Administration Sacubitril/Valsartan 1 tab 11/08/24 21:00 11/10/24 20:37 Sacubitril/Valsartan 24-26 Mg Tablet PO 1 tab Q12HR KELIN Administration Spironolactone 25 mg 11/09/24 09:00 11/10/24 08:48 Spironolactone 25 Mg Tablet PO 25 mg QAM KELIN Administration Thiamine HCl 100 mg 11/09/24 09:00 11/10/24 08:47 Thiamine Hcl 100 Mg Tablet PO 100 mg QAM KELIN Administration Radiology Results: ITS Impressions Chest X-Ray 11/08/24 06:21 Impression: Small right pleural effusion. Stable cardiomegaly. Venous Doppler Study 11/10/24 16:56 IMPRESSION: 1. No deep venous thrombosis within the bilateral lower extremities, as detailed above. Labs Labs: Laboratory Results - last 24 hr 11/10/24 11/10/24 11/10/24 11:09 11:17 15:55 WBC 5.2 RBC 5.08 Hgb 13.4 L Hct 39.6 L MCV 78.0 L MCH 26.4 MCHC 33.8 RDW 13.2 Plt Count 192 MPV 10.5 H Immature Gran % (Auto) 0.2 Neut % (Auto) 53.4 Lymph % (Auto) 34.2 [place] % (Auto) 10.4 H Eos % (Auto) 1.0 Baso % (Auto) 0.8 Lymph # (Auto) 1.78 [place] # (Auto) 0.5 Eos # (Auto) 0.1 Baso # (Auto) 0.0 Abs Immat Gran (auto) 0.01 Absolute Neuts (auto) 2.8 Absolute Nucleated RBC 0.000 Nucleated RBC % 0.0 Sodium 130 L Potassium 3.6 Chloride 99 Carbon Dioxide 26 Anion Gap 5 BUN 16 Creatinine 0.99 Estim Creat Clear Calc 93 Estimated GFR > 60 Glucose 171 H POC Capillary Glucose 180 H 168 H Calcium 7.6 L Magnesium 1.6 11/10/24 11/11/24 11/11/24 20:06 04:26 07:52 WBC 5.2 RBC 4.92 Hgb 12.9 L Hct 38.2 L MCV 77.6 L MCH 26.2 MCHC 33.8 RDW 13.3 Plt Count 196 MPV 10.6 H Immature Gran % (Auto) 0.2 Neut % (Auto) 53.0 Lymph % (Auto) 33.8 [place] % (Auto) 11.2 H Eos % (Auto) 1.2 Baso % (Auto) 0.6 Lymph # (Auto) 1.75 [place] # (Auto) 0.6 Eos # (Auto) 0.1 Baso # (Auto) 0.0 Abs Immat Gran (auto) 0.01 Absolute Neuts (auto) 2.8 Absolute Nucleated RBC 0.000 Nucleated RBC % 0.0 Sodium 131 L Potassium 3.7 Chloride 98 Carbon Dioxide 31 H Anion Gap 2 L BUN 17 Creatinine 1.17 Estim Creat Clear Calc 80 Estimated GFR > 60 Glucose 180 H POC Capillary Glucose 170 H 174 H Calcium 7.5 L Magnesium 1.5 L
--- NOTE | 2024-11-11 10:14 | PM.PNCARD ---
Progress Note: A&P Assessment and Plan (1) Acute on chronic systolic heart failure: Code(s): I50.23 - Acute on chronic systolic (congestive) heart failure Status: Acute (2) Hypertension: Code(s): I10 - Essential (primary) hypertension Status: Acute (3) Noncompliance: Code(s): Z91.199 - Patient's noncompliance with other medical treatment and regimen due to unspecified reason Status: Acute (4) EtOH dependence: Code(s): F10.20 - Alcohol dependence, uncomplicated Status: Chronic (5) LV (left ventricular) mural thrombus: Code(s): I51.3 - Intracardiac thrombosis, not elsewhere classified Status: Acute Plan Acute on chronic systolic heart failure with LV EF 10-15% Elevated troponin-though troponins elevated has remained flat, no chest pain at this time, patient declined cardiac catheterization for evaluation of his cardiomyopathy LV thrombus-on Xarelto Atenolol, dependance Noncompliant with medication Hypertension Lower extremity swelling right greater than left-venous Dopplers negative for DVT Cough, sore throat, hoarseness most likely secondary to upper respiratory infection Plan: -Given VT, no prior workup for new cardiomyopathy, recommended cardiac catheterization to evaluate coronary anatomy as a cause of cardiomyopathy. Patient declined cardiac catheterization -Continue Aspirin 81 mg daily -Add atorvastatin 40 mg daily -Guideline directed medical therapy as tolerated for systolic heart failure-continue Coreg, Entresto, spironolactone. Add SGLT2 inhibitor -Counseled about stopping alcohol use -Monitor on telemetry -Lasix 40 mg IV b.i.d.. Check daily weights and ins and outs; switch to Lasix 40 mg p.o. b.i.d. tomorrow -Check renal function daily -Check and replace electrolytes to keep potassium greater than 4 and magnesium greater than 2 -Counseled about medication compliance -Management of other medical issues per primary team Subjective Date/time seen: 11/11/24 10:14 Interval history: Reason For Visit: chest pain HPI: 39-year-old male with history of diabetes mellitus, hypertension, alcohol dependence, and systolic heart failure with LV ejection fraction of 20% by echo in 2023 (fixed defect on stress test, patient declined cardiac cath) on Life Vest presented to the ED after his LifeVest discharged a shock. Interrogation of life vest showed patient had a run of VT prior to the shock which restored sinus rhythm. Patient did not have any anginal chest pain prior to or after the shock. He was recently treated for pneumonia with a course of antibiotics but continues to have some cough without any fevers or chills. He has bilateral lower extremity swelling and increased weight gain over the past few weeks. He has been non-compliant with his medications for about a week. Cardiology was consulted for further management. Workup: Troponin: 0.120, 0.121, 0.126 EKG: Sinus tachycardia with rate of 115, nonspecific ST T wave changes BNP: 3430 (baseline BNP around 4500) TTE:LV apical thrombus 1.4-1.8 cm TTE 09/2024: LV ejection fraction 15-20%, depressed RV systolic function, mild aortic regurgitation, mild to moderate mitral regurgitation, mild tricuspid regurgitation, mild pulmonary hypertension, mild pulmonary regurgitation, small pericardial effusion, LV thrombus could not be ruled out Interval history: Patient continues to feel short of breath and has not noticed any increased urination with IV Lasix 20 mg last night. He has bilateral leg swelling R>L.. No chest pain, dizziness lightheadedness. TTE completed yesterday showed an LV thrombus. He is on Xarelto. Review of Systems Review of Systems: A complete review of systems was performed and noted in the HPI Exam Narrative: General: Alert oriented x3, no acute distress Neck: Supple, JVD + Chest: Bilaterally clear to auscultation, no rales or rhonchi Cardiac: S1, S2 +, regular rate, regular rhythm, no murmurs or rubs Extremities: Bilateral lower extremity edema 2+ R>L, no skin rash Neurologic: Alert and oriented x3, no focal neurological deficits Objective Data Vital Signs Vital Signs: Vital Signs - 24 hr 11/10/24 11:53 11/10/24 12:00 11/10/24 12:00 Temperature 37.1 C Pulse Rate 92 92 Respiratory Rate 20 Blood Pressure 104/69 Pulse Oximetry 97 Oxygen Delivery Room Air Fraction of Inspired Oxygen 11/10/24 14:00 11/10/24 16:00 11/10/24 16:00 Temperature Pulse Rate 93 94 Respiratory Rate Blood Pressure Pulse Oximetry Oxygen Delivery Room Air Fraction of Inspired Oxygen 11/10/24 16:18 11/10/24 18:00 11/10/24 19:48 Temperature 37.1 C Pulse Rate 94 98 98 Respiratory Rate 20 20 Blood Pressure 96/72 L Pulse Oximetry 96 96 Oxygen Delivery Room Air Fraction of Inspired Oxygen 11/10/24 19:59 11/10/24 20:00 11/10/24 20:08 Temperature 37.0 C Pulse Rate 102 H 100 Respiratory Rate 18 Blood Pressure 108/78 Pulse Oximetry 98 97 Oxygen Delivery Room Air Fraction of Inspired Oxygen 11/10/24 20:38 11/10/24 22:00 11/11/24 00:00 Temperature 36.4 C Pulse Rate 103 H 64 99 Respiratory Rate 18 Blood Pressure 87/58 L Pulse Oximetry 99 Oxygen Delivery Fraction of Inspired Oxygen 11/11/24 00:00 11/11/24 00:24 11/11/24 02:00 Temperature Pulse Rate 99 99 94 Respiratory Rate 18 Blood Pressure Pulse Oximetry 99 Oxygen Delivery Room Air Fraction of Inspired Oxygen 11/11/24 03:50 11/11/24 04:00 11/11/24 04:00 Temperature 37.2 C Pulse Rate 94 95 95 Respiratory Rate 18 18 Blood Pressure 102/64 Pulse Oximetry 99 97 Oxygen Delivery Room Air Fraction of Inspired Oxygen 11/11/24 06:00 11/11/24 07:48 Temperature 36.8 C Pulse Rate 93 94 Respiratory Rate 18 Blood Pressure 113/84 Pulse Oximetry 96 Oxygen Delivery Fraction of Inspired Oxygen Intake/Output Intake/Output: Intake & Output 11/08/24 11/09/24 11/10/24 11/11/24 23:59 23:59 23:59 23:59 Intake Total 980 1570 1980 Output Total 1250 1050 2751 325 Balance -270 520 -771 -325 Meds/Results Medications: Active Medications Generic Name Dose Route Start Last Admin Trade Name Freq PRN Reason Stop Dose Admin Aspirin 81 mg 11/09/24 09:00 11/11/24 09:01 Aspirin 81 Mg Enteric Tablet PO 81 mg QAM KELIN Administration Benzocaine 1 lozenge 11/10/24 00:13 11/11/24 03:56 Benzocaine/Menthol (*Bkc) 18 Ea Lozenge PO 1 lozenge PRN PRN Administration Sore Throat Carvedilol 12.5 mg 11/08/24 21:00 11/11/24 09:01 Carvedilol 12.5 Mg Tablet PO 12.5 mg Q12HR KELIN Administration Dextrose 12.5 gm 11/08/24 10:33 Dextrose 50% 25 Gm/50 Ml Syringe IV PUSH PRN PRN Hypoglycemia Protocol Folic Acid 1 mg 11/09/24 09:00 11/11/24 09:01 Folic Acid 1 Mg Tablet PO 1 mg DAILY KELIN Administration Furosemide 40 mg 11/10/24 17:00 11/11/24 09:01 Furosemide Inj 40 Mg/4 Ml Vial IV PUSH 40 mg BID KELIN Administration Glucagon 1 mg 11/08/24 10:33 Glucagon For Inj 1 Mg Vial IM PRN PRN Hypoglycemia Protocol Glucose 15 gm 11/08/24 10:33 Glucose Oral Gel 15 Gm Of Glucse In 37.5 Gm Tube PO PRN PRN Hypoglycemia Protocol Dextrose 1,000 mls @ 100 mls/hr 11/08/24 10:33 Dextrose 5% 1,000 Ml IVPB PRN PRN Hypoglycemia Protocol Insulin Aspart 5 units 11/08/24 12:00 11/11/24 09:02 Insulin Aspart (*Bkc) 100 Units/Ml SUB-Q 5 units TIDWM KELIN Administration Insulin Aspart 3 - 6 units 11/08/24 12:00 11/11/24 09:03 Insulin Aspart (*Bkc) 100 Units/Ml SUB-Q Not Given TIDWM KELIN Protocol Insulin Aspart 1 - 3 units 11/08/24 21:00 11/10/24 20:38 Insulin Aspart (*Bkc) 100 Units/Ml SUB-Q Not Given HS KELIN Protocol Insulin Glargine 15 units 11/08/24 21:00 11/10/24 20:37 Insulin Glargine (*Bkc) 100 Units/Ml SUB-Q 15 units HS KELIN Administration Metformin HCl 500 mg 11/08/24 17:00 11/11/24 09:02 Metformin Hcl Xr 500 Mg Tab.Sr.24h PO 500 mg BIDWM KELIN Administration Perflutren Lipid Microsphere 0 ml 11/09/24 08:33 Perflutren Lipid Microspheres 1.5 Ml Vial Diluted To 10 Ml Total Volume IV PUSH 11/12/24 08:33 ONCE PRN adequate visualization Protocol Rivaroxaban 20 mg 11/08/24 17:00 11/10/24 17:04 Rivaroxaban 20 Mg Tablet PO 20 mg DAILY@1700 KELIN Administration Sacubitril/Valsartan 1 tab 11/08/24 21:00 11/11/24 09:02 Sacubitril/Valsartan 24-26 Mg Tablet PO 1 tab Q12HR KELIN Administration Spironolactone 25 mg 11/09/24 09:00 11/11/24 09:01 Spironolactone 25 Mg Tablet PO 25 mg QAM KELIN Administration Thiamine HCl 100 mg 11/09/24 09:00 11/11/24 09:02 Thiamine Hcl 100 Mg Tablet PO 100 mg QAM KELIN Administration Radiology Results: ITS Impressions Chest X-Ray 11/08/24 06:21 Impression: Small right pleural effusion. Stable cardiomegaly. Venous Doppler Study 11/10/24 16:56 IMPRESSION: 1. No deep venous thrombosis within the bilateral lower extremities, as detailed above. Labs Labs: Laboratory Results - last 24 hr 11/10/24 11/10/24 11/10/24 11:09 11:17 15:55 WBC 5.2 RBC 5.08 Hgb 13.4 L Hct 39.6 L MCV 78.0 L MCH 26.4 MCHC 33.8 RDW 13.2 Plt Count 192 MPV 10.5 H Immature Gran % (Auto) 0.2 Neut % (Auto) 53.4 Lymph % (Auto) 34.2 Isabella % (Auto) 10.4 H Eos % (Auto) 1.0 Baso % (Auto) 0.8 Lymph # (Auto) 1.78 Isabella # (Auto) 0.5 Eos # (Auto) 0.1 Baso # (Auto) 0.0 Abs Immat Gran (auto) 0.01 Absolute Neuts (auto) 2.8 Absolute Nucleated RBC 0.000 Nucleated RBC % 0.0 Sodium 130 L Potassium 3.6 Chloride 99 Carbon Dioxide 26 Anion Gap 5 BUN 16 Creatinine 0.99 Estim Creat Clear Calc 93 Estimated GFR > 60 Glucose 171 H POC Capillary Glucose 180 H 168 H Calcium 7.6 L Magnesium 1.6 11/10/24 11/11/24 11/11/24 20:06 04:26 07:52 WBC 5.2 RBC 4.92 Hgb 12.9 L Hct 38.2 L MCV 77.6 L MCH 26.2 MCHC 33.8 RDW 13.3 Plt Count 196 MPV 10.6 H Immature Gran % (Auto) 0.2 Neut % (Auto) 53.0 Lymph % (Auto) 33.8 Isabella % (Auto) 11.2 H Eos % (Auto) 1.2 Baso % (Auto) 0.6 Lymph # (Auto) 1.75 Isabella # (Auto) 0.6 Eos # (Auto) 0.1 Baso # (Auto) 0.0 Abs Immat Gran (auto) 0.01 Absolute Neuts (auto) 2.8 Absolute Nucleated RBC 0.000 Nucleated RBC % 0.0 Sodium 131 L Potassium 3.7 Chloride 98 Carbon Dioxide 31 H Anion Gap 2 L BUN 17 Creatinine 1.17 Estim Creat Clear Calc 80 Estimated GFR > 60 Glucose 180 H POC Capillary Glucose 170 H 174 H Calcium 7.5 L Magnesium 1.5 L
--- OUTSIDE RECORDS SUMMARY | 2024-11-11 11:21 | XMS_ITS | Clinical Summary ---
Author Organization [facility] Address [address] [place] [id number] Care Team Providers Care Vet Assistant Name Role Phone Unknown, Notinfile Primary Care Provider Unavail able Allergies No known active allergies Medications carvediloL (COREG) 3.125 mg tablet Take 1 tablet (3.125 mg total) by mouth 2 (two) times a day with meals 60 tablet 4 08/26/20 25 Active cholecalciferol (VITAMIN D-3) 5,000 unit capsule Take 1 capsule (5,000 Units total) by mouth daily 30 tablet 4 Active spironolactone (ALDACTONE) 25 mg tablet Take 0.5 tablets (12.5 mg total) by mouth daily 15 tablet 11 4 08/27/20 25 Active rosuvastatin (CRESTOR) 40 mg tablet Take 1 tablet (40 mg total) by mouth nightly 30 tablet 11 4 08/26/20 25 Active insulin degludec (TRESIBA) 100 unit/mL (3 mL) pen for injectionIndicat ions:type 2 diabetes mellitus,BIN [id number] PCN CNRX [facility] [id number] ID [id number] ONE BOX FREE Inject 0.25 mL (25 Units total) under the skin daily before breakfast 15 mL 4 Active insulin aspart (NovoLOG) 100 unit/mL (3 mL) pen for injectionIndicat ions:Diabetes mellitus, new onset (HCC) Inject 12 Units under the skin 3 (three) times a day with meals 15 mL 4 Active pen needle, diabetic 32 gauge x 5/32 needle Use as directed 3 times a day 100 each 4 Active Active Problems Problem Noted Date Diagnosed Date Lipidemia 09/03/2024 Type 2 diabetes mellitus wit h hyperglycemia, with long-term current use of insulin 09/03/2024 Overweight 09/03/2024 Acute congestive heart failu re, unspecified heart failure type 08/23/2024 Dilated cardiomyopathy (CMS/HCC) 08/22/2024 Encounters Date Type Department Care Team Description 10/29/2024 Telephone [facility] Cardiology [address] [place] [address] Dom Lomeli MD 10/19/2024 Orders Only [facility] [place] [place] Health Information Management [address] [place] [address] Dom Lomeli MD 10/19/2024 Orders Only [facility] Cardiology [address] [place] [phone] Shobha Prasad NP 10/18/2024 Orders Only [facility] Cardiology [address] [place] [address] Dom Lomeli MD 08/25/2024 TCC Subsequent Outreach [facility] [address] [place] [address] Greg Castro RN 08/23/2024 1:56 AM [employer]PH[employer]ERY COVERS INSPECTOR - 08/26/2024 5:04 PM [employer]PH[employer] COVERS INSPECTOR Hospital Encounter [address] [address] George Bass MD Altwal, Shadi Adel, MD Acute congestive heart failure, unspecified heart failure type (HCC) (Primary Dx); Diabetes mellitus, new onset (HCC); Elevated serum creatinine; Cough, unspecified type; Dilated cardiomyopathy (CMS/HCC) (HCC) Discharge Disposition: Left Against Medical Advice from Last 3 Months Social History Tobacco Use Types Packs/Day Years Used Date Smoking Tobacco: Never Smokeless Tobacco: Never Tobacco Cessation:Counseling Given: Not Answered [facility] Utilities Answer Date Recorded In the past 12 months has [employer], gas, oil, or water company threatened to shut off services in your home? No 08/23/2024 Social Connection and Isolat ion Panel [NHANES] Answer Date Recorded In a typical week, how many times do you talk on the phone with family, friends, or neighbors? More than three times a week 08/23/2024 How often do you get togethe r with friends or relatives? More than three times a week 08/23/2024 How often do you attend chur ch or sikhism services? Never 08/23/2024 Do you belong to any clubs o r organizations such as buddhism groups, unions, fraternal or athletic groups, or school groups? No 08/23/2024 How often do you attend meet ings of the clubs or organizations you belong to? Never 08/23/2024 Are you , , di vorced, , never , or living with a partner? Never 08/23/2024 AUDIT-C Answer Date Recorded Q1: How often do you have a drink containing alcohol? 4 or more times a week 08/23/2024 Q2: How many drinks containi ng alcohol do you have on a typical day when you are drinking? 1 or 2 Q3: How often do you have si x or more drinks on one occasion? Never 08/23/2024 Overall Financial Resource Strain (CARDIA) Answe r Date Recorded How hard is it for you to pa y for the very basics like food, housing, medical care, and heating? Not hard at all 08/23/2024 PHQ-2 Answer Date Recorded PHQ-2 Total Score 0 08/25/2024 Hunger Vital Sign Answer Date Recorded Within the past 12 months, y ou worried that your food would run out before you got the money to buy more. Never true 08/23/20 24 Within the past 12 months, t he food you bought just didn't last and you didn't have money to get more. Never true 08/23/2024 PRAPARE - Transportation Answer Date Re corded In the past 12 months, has l ack of transportation kept you from medical appointments or from getting medications? No 01/2024 In the past 12 months, has l ack of transportation kept you from meetings, work, or from getting things needed for daily living? No 08/23/2024 Housing Stability Vital Sign Answer Jason e Recorded In the last 12 months, was t here a time when you were not able to pay the mortgage or rent on time? No 08/23/2024 In the past 12 months, how m any times have you moved where you were living? 1 08/23/2024 At any time in the past 12 m [facility], were you homeless or living in a senior care (including now)? No 08/23/2024 Personal Safety Answer Date Recorded Have you ever been in or are you currently in a harmful physical or emotional relationship or is someone making you feel afraid or unsafe? Denies 08/23/2024 Sex and Gender Information Value Date Recorded Sex Assigned at Not on file Legal Sex Male 8:46 PM UPH[employer] COV[employer] INSPECTOR Gender Identity Not on file Sexual Orientation Not on file Obstetrics History Last Filed Vital Signs Vital Sign Reading Time Taken Comments Blood Pressure 88/63 08/26/2024 3:25 PM UPH[employer] COVERS INSPECTOR Pulse 81 08/26/2024 3:25 PM UPH[employer] COVERS INSPECTOR Temperature 36.8 ??C (98.2 ??F) 08/26/2024 3:25 PM CS T Respiratory Rate 14 08/26/2024 3:25 PM UPHOLSTERY COVERS INSPECTOR Oxygen Saturation 100% 08/26/2024 11: 35 AM UPH[employer]ERY COVERS INSPECTOR Inhaled Oxygen Concentration - - Weight 88.8 kg (195 lb 11.2 oz) 08/26/2024 4:15 AM UPHOLSTERY COVERS INSPECTOR Height 175.3 cm (5' 9 ) 08/23/2024 4:40 AM UPH[employer] COVERS INSPECTOR Body Mass Index 28.9 08/23/2024 4:40 AM UPH[employer]ERY COVERS INSPECTOR Plan of Treatment Health Maintenance Due Date Last Done Comments Albumin Creatinine Ratio, Urine 1984 Hepatitis C Screening 1984 Prostate Cancer Screening-PSA 1984 Dilated Eye Exam 1984 Foot Exam 1984 Pneumococcal vaccine <65 (1 of 2 - PCV) 1990 DTaP/Tdap/Td Vaccine (1 - Tdap) 1995 Varicella Vaccines (1 of 2 - 13+ 2-dose series) 1997 Hepatitis B Screening 2002 Regular Well Visit/Exam 18-64 2002 Influenza Vaccine (#1) 2024 Hemoglobin A1C 02/19/2025 08/22/2024 Depression Screening 08/22/2025 08/22/2024, 08/22/20 24 Lipid Panel 08/25/2025 08/25/2024 eGFR 08/26/2025 08/26/2024, 11/0 03/2024, 08/24/2024, Additional history exists HPV Vaccines Aged Out No longer eligi ble based on patient's age to complete this topic Procedures Procedure Name Priority Date/Time Associated Diagnosis Comments CARDIOLOGY DOCUMENT SCAN 10/19/2024 CARDIOLOGY DOCUMENT SCAN Routine 10/18/2024 12:13 PM [employer]OVERS INSPECTOR CARDIOLOGY DOCUMENT SCAN Routine 10/17/2024 5:00 PM UPHOLSTERY COVERS INSPECTOR POCT GLUCOSE DEVICE Routine 08/26/2024 1 1:34 AM U[employer] COVERS INSPECTOR POCT GLUCOSE DEVICE Routine 08/26/2024 7 :32 AM UPH[employer] COVERS INSPECTOR EGFR Routine 08/26/2024 6:57 AM U[employer]ERY COVERS INSPECTOR BASIC METABOLIC PANEL Routine 08/26/2024 6:57 AM U[employer] COVERS INSPECTOR POCT GLUCOSE DEVICE Routine 08/26/2024 4 :22 AM UPHOL[employer]ERY COVERS INSPECTOR POCT GLUCOSE DEVICE Routine 08/25/2024 7 :49 PM UPHOL[employer]ERY COVERS INSPECTOR POCT GLUCOSE DEVICE Routine 08/25/2024 4 :40 PM UPH[employer]ERY COVERS INSPECTOR POCT GLUCOSE DEVICE Routine 08/25/2024 2 :57 PM UPHOL[employer]ERY COVERS INSPECTOR STRESS TEST FOR DUAL READ IP Routine 08/25/2024 2:53 PM UPHOL[employer] COVERS INSPECTOR NM MPI SPECT (REST AND/OR STRESS) MULTIPLE STUDIES IP Routine 08/25/2024 2:53 PM [employer] COVERS INSPECTOR POCT GLUCOSE DEVICE Routine 08/25/2024 7 :38 AM UPHOLSTERY COVERS INSPECTOR LIPID PANEL Routine 08/25/2024 7:05 AM U[employer] COVERS INSPECTOR EGFR Routine 08/25/2024 7:05 AM UPH[employer]ERY COVERS INSPECTOR BASIC METABOLIC PANEL Routine 08/25/2024 7:05 AM UPHOL[employer] COVERS INSPECTOR MAGNESIUM Routine 08/25/2024 7:05 AM UPHOL[employer]ERY COVERS INSPECTOR POCT GLUCOSE DEVICE Routine 08/24/2024 7 :46 PM UPHOLSTERY COVERS INSPECTOR POCT GLUCOSE DEVICE Routine 08/24/2024 4 :35 PM UPHOLSTERY COVERS INSPECTOR POCT GLUCOSE DEVICE Routine 08/24/2024 1 1:52 AM U[employer] COVERS INSPECTOR POCT GLUCOSE DEVICE Routine 08/24/2024 7 :50 AM U[employer]ERY COVERS INSPECTOR EGFR Routine 08/24/2024 7:47 AM UPH[employer]ERY COVERS INSPECTOR VITAMIN B12 Routine 08/24/2024 7:47 AM UPH[employer] COVERS INSPECTOR VITAMIN D 25 HYDROXY Routine 08/24/2024 7:47 AM UPHOL[employer]ERY COVERS INSPECTOR BASIC METABOLIC PANEL Routine 08/24/2024 7:47 AM UPHOLSTERY COVERS INSPECTOR MAGNESIUM Routine 08/24/2024 7:47 AM UPHOL[employer]ERY COVERS INSPECTOR POCT GLUCOSE DEVICE Routine 08/24/2024 3 :49 AM UPH[employer]STERY COVERS INSPECTOR POCT GLUCOSE DEVICE Routine 08/23/2024 1 1:32 PM UPH[employer] COVERS INSPECTOR POCT GLUCOSE DEVICE Routine 08/23/2024 8 :50 PM UPHOLSTERY COVERS INSPECTOR POCT GLUCOSE DEVICE Routine 08/23/2024 8 :12 PM UPH[employer]ERY COVERS INSPECTOR POCT GLUCOSE DEVICE Routine 08/23/2024 4 :34 PM UPHOL[employer]ERY COVERS INSPECTOR TRANSTHORACIC ECHO (TTE) COMPLETE W DOPPLER/CF W CONTRAST Routine 08/23/2024 4:13 PM UPH[employer]ERY COVERS INSPECTOR POCT GLUCOSE DEVICE Routine 08/23/2024 1 1:58 AM U[employer] COVERS INSPECTOR POCT GLUCOSE DEVICE Routine 08/23/2024 7 :57 AM UPH[employer]ERY COVERS INSPECTOR EGFR Routine 08/23/2024 7:51 AM UPH[employer]ERY COVERS INSPECTOR DIFFERENTIAL AUTO Routine 08/23/2024 7:5 1 AM U[employer] COVERS INSPECTOR CBC WITH AUTO DIFFERENTIAL Routine 08/23/2024 7:51 AM UPHOL[employer] COVERS INSPECTOR MAGNESIUM Routine 08/23/2024 7:51 AM UPHOLSTERY COVERS INSPECTOR COMPREHENSIVE METABOLIC PANEL Routine 08/23/2024 7:51 AM U[employer] COVERS INSPECTOR POCT GLUCOSE DEVICE Routine 08/23/2024 4 :11 AM UPHOL[employer]ERY COVERS INSPECTOR TROPONIN T HIGH-SENSITIVITY 6-HOUR Timed 08/23/2024 4:11 AM U[employer] COVERS INSPECTOR ECG 12-LEAD STAT 08/23/2024 3:39 AM U[employer] COVERS INSPECTOR CT CHEST PE W CONTRAST ED 08/23/2024 3:26 AM U[employer]OL[employer]ERY COVERS INSPECTOR DRUGS OF ABUSE SCREEN, URINE WITHOUT CONFIRMATION STAT 08/23/2024 3:08 AM UPH[employer] COVERS INSPECTOR URINALYSIS AND REFLEX TO MICROSCOPIC AND CULTURE STAT 08/23/2024 3:08 AM UPHOL[employer]ERY COVERS INSPECTOR ERYTHROCYTE SEDIMENTATION RATE STAT 08/23/2024 2:52 AM UPHOL[employer]ERY COVERS INSPECTOR POCT GLUCOSE DEVICE Routine 08/23/2024 2 :47 AM UPH[employer]ERY COVERS INSPECTOR XR CHEST PA LATERAL 2 VIEWS ED 08/22/2024 9:55 PM UPHOLSTERY COVERS INSPECTOR TROPONIN T HIGH-SENSITIVITY SERIES (BASELINE, 2HR, 4HR, 6HR) STAT 08/22/2024 9:43 PM UPHOLSTERY COVERS INSPECTOR CRP (ACUTE PHASE) STAT 08/22/2024 9:4 3 PM UPHOLSTERY COVERS INSPECTOR CREATINE KINASE (CK), TOTAL STAT 08/22/2024 9:43 PM UPHOLSTERY COVERS INSPECTOR HEMOGLOBIN A1C STAT 08/22/2024 9:43 PM UPHOLSTERY COVERS INSPECTOR EGFR STAT 08/22/2024 9:43 PM UPHOLSTERY COVERS INSPECTOR DIFFERENTIAL AUTO STAT 08/22/2024 9:4 3 PM UPHOLSTERY COVERS INSPECTOR PRO B-TYPE NATRIURETIC PEPTIDE STAT 08/22/2024 9:43 PM UPHOLSTERY COVERS INSPECTOR COMPREHENSIVE METABOLIC PANEL STAT 08/22/2024 9:43 PM UPHOLSTERY COVERS INSPECTOR CBC WITH AUTO DIFFERENTIAL STAT 08/22/2024 9:43 PM UPHOL[employer]ERY COVERS INSPECTOR ECG 12-LEAD STAT 08/22/2024 9:36 PM UPHOLSTERY COVERS INSPECTOR RESPIRATORY PATHOGEN PANEL Add-On 08/22/2024 9:36 PM UPHOL[employer]ERY COVERS INSPECTOR INFLUENZA A/B, RSV, AND COVID-19 PCR STAT 08/22/2024 9:36 PM UPH[employer] COVERS INSPECTOR from Last 3 Months Results * Cardiology Document Scan (10/19/2024) Anatomical Region Laterality Modality Other us Dom Lomeli MD CV CARDIAC SERVICES PROCE DURES Final Result * Cardiology Document Scan (10/18/2024 12:13 PM U[employer]OVERS INSPECTOR) Anatomical Region Laterality Modality Other us Shobha Prasad NP CV CARDIAC SERVICES PROCEDUR ES Final Result * Cardiology Document Scan (10/17/2024 5:00 PM UPH[employer] COVERS INSPECTOR) Anatomical Region Laterality Modality Other us Dom Lomeli MD CV CARDIAC SERVICES PROCE DURES Final Result * POCT glucose (08/26/2024 11:34 AM UPH[employer] COVERS INSPECTOR) Glucose, POC 188 70 - 199 mg/dL Glucose comment 1 Use This Result [facility] Blood 08/26/2024 11:3 4 AM U[employer] COVERS INSPECTOR 08/26/2024 11:34 AM UPH[employer] COVERS INSPECTOR us Amandeep Smallwood MD LAB POCT ORDERABLES - DEVIC E Final Result Performing Organization Address [facility] de Phone Number WIN [address] [place] [address] * (ABNORMAL) POCT glucose (08/26/2024 7:32 AM UPH[employer] COVERS INSPECTOR) Pathologist [facility] Glucose, POC 334(H) 70 - 199 mg/dL Glucose comment 1 Use This Result [facility] Blood 08/26/2024 7:32 AM UPH[employer]STERY COVERS INSPECTOR 08/26/2024 7:32 AM UPHOLSTERY COVERS INSPECTOR Amandeep Smallwood MD LAB POCT ORDERABLES - DEVIC E Final Result Performing Organization Address [facility] de Phone Number TI[address] [place] [address] * (ABNORMAL) eGFR (08/26/2024 6:57 AM UPH[employer] COVERS INSPECTOR) [facility] eGFR 51(L) >=60 mL/min/1. 73 m2 Comment: Interpretive Data Reference Interval Normal ?>/= 90 mL/min/1.73m2 Mildly decreased* ? 60 - 89 mL/min/1.73m2 Mildly to moderately decreased ?45 - 59 mL/min/1.73m2 Moderately to severely decreased ??30 - 44 mL/min/1.73m2 Severely decreased ?15 - 29 mL/min/1.73m2 Kidney Failure ?< 15 ??mL/min/1.73m2 *Relative to young adult level Estimated glomerular filtration rate is determined by the 2020 CKD-EPI equation recommended by the National Kidney Foundation (A Unifying Approach to GFR Estimation: Recommendations of the NKF-ASK Task Force on Reassessing the Inclusion of Race in Diagnosing Kidney Disease, JASN 202). The CKD-EPI equation should not be used for patients with unstable renal function and has not been validated in children and those over 70. Current interpretive data was last reviewed 2021. Blood 08/26/2024 6:57 AM UPH[employer]ERY COVERS INSPECTOR 08/26/2024 7:06 AM UPHOLSTERY COVERS INSPECTOR Amandeep Smallwood MD LAB BLOOD ORDERABLES Final Result [facility] [address] [facility] Department [place] [address] * (ABNORMAL) Basic metabolic panel (08/26/2024 6:57 AM UPH[employer] COVERS INSPECTOR) Sodium 133(L) 135 - 145 mmol/L Potassium, pl 4.4 3.3 - 4.9 mmol/L [facility] Chloride 95(L) 97 - 110 mmol/L [facility] CO2 27 22 - 32 mmol/L [facility] Anion gap 11 2 - 15 mmol/L [facility] BUN 26(H) 6 - 25 mg/dL [facility] Creatinine 1.73(H) 0.80 - 1.30 mg/dL [facility] Glucose 366(H) 70 - 199 mg/dL [facility] Comment: Delta - Results Reviewed Interpretive Data Fasting glucose >/= 126 mg/dl is diagnostic for diabetes. ?? Fasting is defined as no caloric intake for at least 8 hours. Fasting glucose between 100 mg/dl to 125 mg/dl is diagnostic of prediabetes. In a patient with classic symptoms of hyperglycemia or hyperglycemic crisis, a random glucose >/= 200 mg/dl is diagnostic for diabetes. In the absence of unequivocal hyperglycemia, results should be confirmed by repeat testing. The classification and Diagnosis of Diabetes Diabetes Care 2021; 46: S19-S40. Current interpretive data was last revised 2022. Calcium 9.3 8.5 - 10.3 mg/dL [facility] Blood 08/26/2024 6:57 AM [employer] COVERS INSPECTOR 08/26/2024 7:06 AM [employer] COVERS INSPECTOR Amandeep Smallwood MD LAB BLOOD ORDERABLES Final Result Performing Organization Address [facility]/ZIP Co de Phone Number WIN [address] [place] [address] * POCT glucose (08/26/2024 4:22 AM UPH[employer] COVERS INSPECTOR) Glucose, POC 98 70 - 199 mg/dL Blood 08/26/2024 4:22 AM U[employer] COVERS INSPECTOR 08/26/2024 4:22 AM UPH[employer] COVERS INSPECTOR Amandeep Smallwood MD LAB POCT ORDERABLES - DEVIC E Final Result Performing Organization Address [facility] de Phone Number WIN [address] [place] [address] * (ABNORMAL) POCT glucose (08/25/2024 7:49 PM UPH[employer] COVERS INSPECTOR) Glucose, POC 205(H) 70 - 199 mg/dL Blood 08/25/2024 7:49 PM UPH[employer] COVERS INSPECTOR 08/25/2024 7:49 PM UPH[employer] COVERS INSPECTOR Amnadeep Smallwood MD LAB POCT ORDERABLES - DEVIC E Final Result Performing Organization Address [facility] Co de Phone Number [address] [place] [address] * (ABNORMAL) POCT glucose (08/25/2024 4:40 PM U[employer] COVERS INSPECTOR) Glucose, POC 357(H) 70 - 199 mg/dL Glucose comment 1 Use This Result [facility] Blood 08/25/2024 4:40 PM UPH[employer] COVERS INSPECTOR 08/25/2024 4:40 PM UPH[employer] COVERS INSPECTOR Amandeep Smallwood MD LAB POCT ORDERABLES - DEVIC E Final Result Performing Organization Address City/[facility] Co de Phone Number [address] [place] [address] * (ABNORMAL) POCT glucose (08/25/2024 2:57 PM U[employer]OVERS INSPECTOR) Glucose, POC 251(H) 70 - 199 mg/dL Glucose comment 1 Use This Result [facility] Blood 08/25/2024 2:57 PM U[employer] COVERS INSPECTOR 08/25/2024 2:57 PM [employer]OVERS INSPECTOR us Amandeep Smallwood MD LAB POCT ORDERABLES - DEVIC E Final Result [facility] [address] [facility] Department [place] [address] * NM MPI SPECT (Rest and/or Stress) Multiple Studies (08/25/2024 2:53 PM [employer] INSPECTOR) Anatomical Region Laterality Modality Body N/A Nuclear Medicine 08/25/2024 3:44 PM [employer] COVERS INSPECTOR Narrative 08/25/2024 3:48 PM [employer]OVERS INSPECTOR EXAM DESCRIPTION: ?? NM MPI SPECT (REST AND/OR STRESS) MULTIPLE STUDIES RADIOPHARMACEUTICAL: Rest: ?? Brandon ??mCi ??Tc-99m tetrofosmin ??via a ??right antecubital ??IV site Pharmacologic Stress: ?? 28 ??mCi ??Tc-99m tetrofosmin ??via a ??right antecubital ?? IV site REASON FOR STUDY: ?? Cardiac device planning, new CMP, r/o ischemia as cause ?? TECHNIQUE: Standard myocardial perfusion SPECT images were obtained after resting tracer injection. ?? Subsequently, an intravenous infusion of ?? regadenoson ??was performed. Standard myocardial perfusion images were obtained after tracer injection at the peak effect of the drug. COMPARISON: ?? None FINDINGS: There is a large area of decreased perfusion in the inferior wall and basal segment of the lateral wall, extending minimally to the apex during stress. ??Images at rest are not significantly changed. ??Findings are consistent with myocardial infarct. No reversible perfusion defect is seen to suggest myocardial ischemia. Gated post-stress images demonstrate ??global hypokinesia, greatest in the inferolateral wall. ?? The left ventricular volume is ??enlarged. ?? The left ventricular ejection fraction is ??23% ??(normal >45%). IMPRESSION: ?? Predominantly fixed perfusion defects in the inferolateral wall extending to the apex consistent with myocardial infarct. ??Reversible perfusion defect is seen to suggest myocardial ischemia. ??Enlarged left ventricular size and systolic dysfunction. THIS IS AN ELECTRONICALLY VERIFIED FINAL REPORT 08/25/2024 3:48 PM - Electronically signed by ??Ayde Mcconnell M.D. FT D: ??08/25/2024 3:48 PM T: Report ID: [id number] Reading Location: ??[id number] Procedure Note Ayde Sparks MD - 08/25/2024 EXAM DESCRIPTION: NM MPI SPECT (REST AND/OR STRESS) MULTIPLE STUDIES RADIOPHARMACEUTICAL: Rest: Brandon mCi Tc-99m tetrofosmin via a right antecubital IV site Pharmacologic Stress: 28 mCi Tc-99m tetrofosmin via a rightantecubital IV site REASON FOR STUDY: Cardiac device planning, new CMP, r/o ischemia ascause TECHNIQUE: Standard myocardial perfusion SPECT images were obtained after resting tracer injection. Subsequently, an intravenous infusion of regadenoson was performed. Standard myocardial perfusion images wereobtained after tracer injection at the peak effect of the drug. COMPARISON: None FINDINGS: There is a large area of decreased perfusion in the inferiorwall and basal segment of the lateral wall, extending minimally to the apexduring stress. Images at rest are not significantly changed. Findings are consistent with myocardial infarct. No reversible perfusion defect is seen to suggest myocardial ischemia. Gated post-stress images demonstrate global hypokinesia, greatest in the inferolateral wall. The left ventricular volume is enlarged. The left ventricular ejection fraction is 23% (normal >45%). IMPRESSION: Predominantly fixed perfusion defects in the inferolateralwall extending to the apex consistent with myocardial infarct. Reversible perfusion defect is seen to suggest myocardial ischemia. Enlarged left ventricular size and systolic dysfunction. THIS IS AN ELECTRONICALLY VERIFIED FINAL REPORT 08/25/2024 3:48 PM - Electronically signed by Ayde Mcconnell M.D. FT T: Report ID: [id number] Reading Location: [id number] Marta Khan NON FOOD RECEIVING CLERK IMG NM PROCEDURES Final Res ult * Stress Test for Myocardial Perfusion (08/25/2024 2:53 PM U[employer]OVERS INSPECTOR) Anatomical Region Laterality Modality Nuclear Medicine Narrative 08/25/2024 2:20 PM UPH[employer] COVERS INSPECTOR Patient Id: Michael Miller is a 38 y.o. male. MR#: [id number] Study date:08/25/2024 Indications: Patient with new onset congestive heart failure Procedure: A pharmacological nuclear stress test was performed using intravenous Lexiscan. Lexiscan was infused intravenously using standard protocol Resting EKG reveals normal sinus rhythm with heart rate of 84 per minute with LVH voltage and repolarization changes. Resting blood pressure was 107/80. Patient tolerated intravenous Lexiscan well without chest pain or any cardiac symptoms. Twelve lead EKG did not show ischemic ST changes or cardiac arrhythmias. Impressions: Resting abnormal EKG with normal sinus rhythm and left ventricular hypertrophy with biatrial enlargement. Symptomatically and electrocardiographically negative Lexiscan stress test. ??Please correlate these findings with Myoview nuclear stress test which will be reported separately by Department of Radiology. I personally supervised and reviewed the stress stress. Mike Novak MD, [facility] This report was transcribed using the Jdguanj[employer] voice recognition system without human plastic tool maker. In an effort to expedite patient care, this report has not been adjusted for typographical, grammatical, and syntax by a trained medical administrative. ?? Despite proof reading there may be errors. ??Please contact me if you have any questions. us Marta Khan NP CV STRESS PROCEDURES Final Result * POCT glucose (08/25/2024 7:38 AM U[employer] COVERS INSPECTOR) Glucose, POC 171 70 - 199 mg/dL Glucose comment 1 Use This Result WIN Blood 08/25/2024 7:38 AM [employer]OVERS INSPECTOR 08/25/2024 7:38 AM U[employer] COVERS INSPECTOR Amandeep Smallwood MD LAB POCT ORDERABLES - DEVIC E Final Result Performing Organization Address City/[facility]/ZIP Co de Phone Number WIN [address] [place] [address] * eGFR (08/25/2024 7:05 AM U[employer] COVERS INSPECTOR) eGFR 63 >=60 mL/min/1. 73 m2 Comment: Interpretive Data Reference Interval Normal ?>/= 90 mL/min/1.73m2 Mildly decreased* ? 60 - 89 mL/min/1.73m2 Mildly to moderately decreased ?45 - 59 mL/min/1.73m2 Moderately to severely decreased ??30 - 44 mL/min/1.73m2 Severely decreased ?15 - 29 mL/min/1.73m2 Kidney Failure ?< 15 ??mL/min/1.73m2 *Relative to young adult level Estimated glomerular filtration rate is determined by the 2020 CKD-EPI equation recommended by the National Kidney Foundation (A Unifying Approach to GFR Estimation: Recommendations of the NKF-ASK Task Force on Reassessing the Inclusion of Race in Diagnosing Kidney Disease, JASN 2020). The CKD-EPI equation should not be used for patients with unstable renal function and has not been validated in children and those over 70. Current interpretive data was last reviewed 2021. Blood 08/25/2024 7:05 AM UPHOLSTERY COVERS INSPECTOR 08/25/2024 7:30 AM UPHOLSTERY COVERS INSPECTOR us Amandeep Smallwood MD LAB BLOOD ORDERABLES Final Result [facility]0 [facility] [place] [address] * Magnesium (08/25/2024 7:05 AM UPHOLSTERY COVERS INSPECTOR) Pathologist [facility] Magnesium 2.1 1.4 - 2.5 mg/dL Blood 08/25/2024 7:05 AM UPHOLSTERY COVERS INSPECTOR 08/25/2024 7:30 AM UPHOLSTERY COVERS INSPECTOR us George Bass MD LAB BLOOD ORDERABLES Fi nal Result WIN [address] [facility] Department [place] [address] * (ABNORMAL) Lipid panel (08/25/2024 7:05 AM UPHOLSTERY COVERS INSPECTOR) Cholesterol 257(H) 30 - 199 mg/dL Comment: Interpretive Data Ages < or = 19 years ??Acceptable: ? <170 mg/dL ??Borderline high: ??170-199 mg/dL ??High: ? >or= 200 mg/dL Ages > or = 20 years ??Desirable: ?<200 mg/dL ??Borderline high: ??200-239 mg/dL ??High: ? >or= 240 mg/dL Literature References: 1. Expert Panel on Integrated Guidelines for Cardiovascular Health and Risk Reduction in Children and Adolescents. Pediatrics 2011;128:S213 2. NCEP Expert Panel. Circulation 2004;110:227 Current Interpretive Data was last revised on 2018. Triglycerides 149 <=149 mg/dL WIN Comment: Interpretive Data Ages < or = 9 years ??Acceptable: ? <75 mg/dL ??Borderline high: ??75-99 mg/dL ??High: ? >or= 100 mg/dL Ages 10 to 20 years ??Acceptable: ? <90 mg/dL ??Borderline high: ??90-129 mg/dL ??High: ? >or= 130 mg/dL Ages > or = 20 years ??Desirable: ?<150 mg/dL ??Borderline high: ??150-199 mg/dL ??High: ? 200-499 mg/dL ?Very high: ?? >or= 499 mg/dL Literature References: 1. Expert Panel on Integrated Guidelines for Cardiovascular Health and Risk Reduction in Children and Adolescents. Pediatrics 2011;128:S213 2. NCEP Expert Panel. Circulation 2004;110:227 Current Interpretive Data was last revised on 2018. HDL 50 >=40 mg/dL [facility] Comment: Interpretive Data Ages < or = 19 years ??Acceptable: ? >45 mg/dL ??Borderline low: ?? 40-45 mg/dL ??Low: ? <40 mg/dL Ages > or = 20 years ??Desirable: ?>or= 60 mg/dL ??Low: ? <40 mg/dL Literature References: 1. Expert Panel on Integrated Guidelines for Cardiovascular Health and Risk Reduction in Children and Adolescents. Pediatrics 2011;128:S213 2. NCEP Expert Panel. Circulation 2004;110:227 Current Interpretive Data was last revised on 2018. LDL, calculated 180(H) <=129 mg/dL WIN Comment: Interpretive Data Ages < or = 19 years ??Acceptable: ? <110 mg/dL ??Borderline high: ??110-129 mg/dL ??High: ?>or= 130 mg/dL Ages > or = 20 years ??Optimal: ? <100 mg/dL ??Near optimal: ?100-129 mg/dL ??Borderline high: ?? 130-159 mg/dL ??High: ?>160 mg/dL Calculated using the Miah LDL-C estimating equation. This equation was implemented on 2024. Prior to this date LDL-C was estimated using the Friedewald equation. Literature References: 1. Expert Panel on Integrated Guidelines for Cardiovascular Health and Risk Reduction in Children and Adolescents. Pediatrics 2011;128:S213 2. NCEP Expert Panel. Circulation 2004;110:227 3. Miah Sweeney et al. LE Cardiol. 2020 February 17;5(5):540-548. doi: 10.1001/jamacardio.2020.0013 Current Interpretive Data was last revised on 2024. Non-HDL Cholesterol 207 mg/dL [facility] Comment: Interpretive Data Ages < or = 19 years ??Acceptable: ?<120 mg/dL ??Borderline high: ??120-144 mg/dL ??High: ?>145 mg/dL Ages > or = 20 years ??When triglycerides are >200 mg/dL, Non-HDL cholesterol is a secondary target of ? therapy with treatment goals that are 30 mg/dL greater than the LDL cholesterol target. ? Literature References: 1. Expert Panel on Integrated Guidelines for Cardiovascular Health and Risk Reduction in Children and Adolescents. Pediatrics 2011;128:S213 2. NCEP Expert Panel. Circulation 2004;110:227 Current Interpretive Data was last revised on 2018. Chol/HDL ratio 5 [facility] Blood 08/25/2024 7:05 AM UPHOLSTERY COVERS INSPECTOR 08/25/2024 7:30 AM UPHOLSTERY COVERS INSPECTOR us Amandeep Smallwood MD LAB BLOOD ORDERABLES Final Result [facility] [address] [facility] Department [place] [address] * (ABNORMAL) Basic metabolic panel (08/25/2024 7:05 AM UPHOLSTERY COVERS INSPECTOR) Sodium 133(L) 135 - 145 mmol/L Potassium, pl 3.9 3.3 - 4.9 mmol/L [facility] Chloride 99 97 - 110 mmol/L [facility] CO2 23 22 - 32 mmol/L [facility] Anion gap 11 2 - 15 mmol/L [facility] BUN 24 6 - 25 mg/dL [facility] Creatinine 1.44(H) 0.80 - 1.30 mg/dL [facility] Glucose 200(H) 70 - 199 mg/dL [facility] Comment: Delta - Results Reviewed Interpretive Data Fasting glucose >/= 126 mg/dl is diagnostic for diabetes. ?? Fasting is defined as no caloric intake for at least 8 hours. Fasting glucose between 100 mg/dl to 125 mg/dl is diagnostic of prediabetes. In a patient with classic symptoms of hyperglycemia or hyperglycemic crisis, a random glucose >/= 200 mg/dl is diagnostic for diabetes. In the absence of unequivocal hyperglycemia, results should be confirmed by repeat testing. The classification and Diagnosis of Diabetes Diabetes Care 2021; 46: S19-S40. Current interpretive data was last revised 2022. Calcium 9.3 8.5 - 10.3 mg/dL [facility] Blood 08/25/2024 7:05 AM UPHOLSTERY COVERS INSPECTOR 08/25/2024 7:30 AM UPHOLSTERY COVERS INSPECTOR Amandeep Smallwood MD LAB BLOOD ORDERABLES Final Result Performing Organization Address [facility] Co de Phone Number [address] [place] [address] * POCT glucose (08/24/2024 7:46 PM UPHOLSTERY COVERS INSPECTOR) Glucose, POC 176 70 - 199 mg/dL Glucose comment 1 Use This Result [facility] Blood 08/24/2024 7:46 PM UPHOLSTERY COVERS INSPECTOR 08/24/2024 7:46 PM UPHOLSTERY COVERS INSPECTOR Result [facility] Amandeep Smallwood MD LAB POCT ORDERABLES - DEVIC E Final Result Performing Organization Address [facility] de Phone Number [address] [place] [address] * POCT glucose (08/24/2024 4:35 PM UPHOLSTERY COVERS INSPECTOR) Glucose, POC 117 70 - 199 mg/dL Glucose comment 1 Use This Result [facility] Blood 08/24/2024 4:35 PM UPHOLSTERY COVERS INSPECTOR 08/24/2024 4:35 PM UPHOLSTERY COVERS INSPECTOR Result [facility] Amandeep Smallwood MD LAB POCT ORDERABLES - DEVIC E Final Result Performing Organization Address [facility] Co de Phone Number [address] [place] [address] * (ABNORMAL) POCT glucose (08/24/2024 11:52 AM UPHOLSTERY COVERS INSPECTOR) Glucose, POC 231(H) 70 - 199 mg/dL Glucose comment 1 Use This Result [facility] Blood 08/24/2024 11:5 2 AM UPHOLSTERY COVERS INSPECTOR 08/24/2024 11:52 AM UPHOLSTERY COVERS INSPECTOR Amandeep Smallwood MD LAB POCT ORDERABLES - DEVIC E Final Result Performing Organization Address [facility] de Phone Number [address] [place] [address] * (ABNORMAL) POCT glucose (08/24/2024 7:50 AM UPHOLSTERY COVERS INSPECTOR) Pathologist [facility] Glucose, POC 293(H) 70 - 199 mg/dL Glucose comment 1 Use This Result [facility] Blood 08/24/2024 7:50 AM UPHOLSTERY COVERS INSPECTOR 08/24/2024 7:50 AM UPHOLSTERY COVERS INSPECTOR Amandeep Smallwood MD LAB POCT ORDERABLES - DEVIC E Final Result Performing Organization Address [facility] Phone Number [address] [place] [address] * eGFR (08/24/2024 7:47 AM UPHOLSTERY COVERS INSPECTOR) Pathologist [facility] eGFR 62 >=60 mL/min/1. 73 m2 Comment: Interpretive Data Reference Interval Normal ?>/= 90 mL/min/1.73m2 Mildly decreased* ? 60 - 89 mL/min/1.73m2 Mildly to moderately decreased ?45 - 59 mL/min/1.73m2 Moderately to severely decreased ??30 - 44 mL/min/1.73m2 Severely decreased ?15 - 29 mL/min/1.73m2 Kidney Failure ?< 15 ??mL/min/1.73m2 *Relative to young adult level Estimated glomerular filtration rate is determined by the 2020 CKD-EPI equation recommended by the National Kidney Foundation (A Unifying Approach to GFR Estimation: Recommendations of the NKF-ASK Task Force on Reassessing the Inclusion of Race in Diagnosing Kidney Disease, JASN 202). The CKD-EPI equation should not be used for patients with unstable renal function and has not been validated in children and those over 70. Current interpretive data was last reviewed 2021. Blood 08/24/2024 7:47 AM UPHOLSTERY COVERS INSPECTOR 08/24/2024 8:12 AM UPHOLSTERY COVERS INSPECTOR Amandeep Smallwood MD LAB BLOOD ORDERABLES Final Result Performing Organization Address [facility] de Phone Number [address] [place] [address] * (ABNORMAL) Vitamin D 25 hydroxy (08/24/2024 7:47 AM UPHOLSTERY COVERS INSPECTOR) Vitamin D 25-OH 8.0(L) 30.0 - 80.0 ng/mL Blood 08/24/2024 7:47 AM UPHOLSTERY COVERS INSPECTOR 08/24/2024 8:12 AM UPHOLSTERY COVERS INSPECTOR Amandeep Smallwood MD LAB BLOOD ORDERABLES Final Result Performing Organization Address [facility] de Phone Number [place] [id number] [facility] [place] [address] * Magnesium (08/24/2024 7:47 AM UPHOLSTERY COVERS INSPECTOR) Magnesium 2.2 1.4 - 2.5 mg/dL Blood 08/24/2024 7:47 AM UPHOLSTERY COVERS INSPECTOR 08/24/2024 8:12 AM UPHOLSTERY COVERS INSPECTOR George Bass MD LAB BLOOD ORDERABLES Fi nal Result Performing Organization Address [facility]/ZIP Co de Phone Number [place] [address] [place] [address] * Vitamin B12 (08/24/2024 7:47 AM UPHOLSTERY COVERS INSPECTOR) [facility] Vitamin B12 398 230 - 1,250 pg/mL Blood 08/24/2024 7:47 AM UPHOLSTERY COVERS INSPECTOR 08/24/2024 8:12 AM UPHOLSTERY COVERS INSPECTOR Amandeep Smallwood MD LAB BLOOD ORDERABLES Final Result [address] [address] * (ABNORMAL) Basic metabolic panel (08/24/2024 7:47 AM UPHOLSTERY COVERS INSPECTOR) [facility] Sodium 133(L) 135 - 145 mmol/L Potassium, pl 3.7 3.3 - 4.9 mmol/L [facility] Chloride 97 97 - 110 mmol/L [facility] CO2 25 22 - 32 mmol/L [facility] Anion gap 11 2 - 15 mmol/L [facility] BUN 23 6 - 25 mg/dL [facility] Creatinine 1.46(H) 0.80 - 1.30 mg/dL [facility] Glucose 321(H) 70 - 199 mg/dL [facility] Comment: Interpretive Data Fasting glucose >/= 126 mg/dl is diagnostic for diabetes. ?? Fasting is defined as no caloric intake for at least 8 hours. Fasting glucose between 100 mg/dl to 125 mg/dl is diagnostic of prediabetes. In a patient with classic symptoms of hyperglycemia or hyperglycemic crisis, a random glucose >/= 200 mg/dl is diagnostic for diabetes. In the absence of unequivocal hyperglycemia, results should be confirmed by repeat testing. The classification and Diagnosis of Diabetes Diabetes Care 202; 46: S19-S40. Current interpretive data was last revised 2022. Calcium 9.3 8.5 - 10.3 mg/dL [facility] Blood 08/24/2024 7:47 AM UPHOLSTERY COVERS INSPECTOR 08/24/2024 8:12 AM UPHOLSTERY COVERS INSPECTOR us Amandeep Smallwood MD LAB BLOOD ORDERABLES Final Result Performing Organization Address [facility] Co de Phone Number WIN [address] [address] * (ABNORMAL) POCT glucose (08/24/2024 3:49 AM UPHOLSTERY COVERS INSPECTOR) Glucose, POC 270(H) 70 - 199 mg/dL Glucose comment 1 Use This Result WIN Blood 08/24/2024 3:49 AM UPHOLSTERY COVERS INSPECTOR 08/24/2024 3:49 AM UPHOLSTERY COVERS INSPECTOR Amandeep Smallwood MD LAB POCT ORDERABLES - DEVIC E Final Result Performing Organization Address [facility] de Phone Number [address] [place] [address] * (ABNORMAL) POCT glucose (08/23/2024 11:32 PM UPHOLSTERY COVERS INSPECTOR) Glucose, POC 262(H) 70 - 199 mg/dL Glucose comment 1 Use This Result WIN Blood 08/23/2024 11:3 2 PM UPHOLSTERY COVERS INSPECTOR 08/23/2024 11:32 PM UPHOLSTERY COVERS INSPECTOR us Amandeep Smallwood MD LAB POCT ORDERABLES - DEVIC E Final Result Performing Organization Address [facility] de Phone Number [address] [place] [address] * (ABNORMAL) POCT glucose (08/23/2024 8:50 PM UPHOLSTERY COVERS INSPECTOR) Glucose, POC 224(H) 70 - 199 mg/dL Glucose comment 1 Use This Result WIN Blood 08/23/2024 8:50 PM UPHOLSTERY COVERS INSPECTOR 08/23/2024 8:50 PM UPHOLSTERY COVERS INSPECTOR Amandeep Smallwood MD LAB POCT ORDERABLES - DEVIC E Final Result Performing Organization Address [facility] Co de Phone Number [facility]NER [facility] [address] [place] [address] * (ABNORMAL) POCT glucose (08/23/2024 8:12 PM UPHOLSTERY COVERS INSPECTOR) Glucose, POC 263(H) 70 - 199 mg/dL Blood 08/23/2024 8:12 PM UPHOLSTERY COVERS INSPECTOR 08/23/2024 8:12 PM UPHOLSTERY COVERS INSPECTOR Amandeep Smallwood MD LAB POCT ORDERABLES - DEVIC E Final Result Performing Organization Address [facility] de Phone Number WIN [address] [address] * (ABNORMAL) POCT glucose (08/23/2024 4:34 PM UPHOLSTERY COVERS INSPECTOR) Glucose, POC 245(H) 70 - 199 mg/dL Glucose comment 1 Use This Result [facility] Blood 08/23/2024 4:34 PM UPHOLSTERY COVERS INSPECTOR 08/23/2024 4:34 PM UPHOLSTERY COVERS INSPECTOR Amandeep Smallwood MD LAB POCT ORDERABLES - DEVIC E Final Result Performing Organization Address [facility] de Phone Number [address] [address] * TRANSTHORACIC ECHO (TTE) COMPLETE W DOPPLER/CF W CONTRAST (08/23/2024 4:13 PM UPHOLSTERY COVERS INSPECTOR) Anatomical Region Laterality Modality Ultrasound 08/23/2024 3:24 PM UPHOLSTERY COVERS INSPECTOR Narrative 08/24/2024 2:46 AM UPHOLSTERY COVERS INSPECTOR ? Adult Echocardiogram + ----- + :Name: MICHAEL MILLER ?Study Date: 08/23/2024 ?Status: MHB ? : : ?Patient Location: [facility]^[id number]^Height: 69 in ? : : ?Weight: 199 lbBP: 151/110 mmHg: :: 1985 ? Gender: Male ?BSA: 2.1 m2 ? : :Reason For Study: New onset CHF ? : :Ordering Physician: ? : :GEORGE BASS ? : : ?: :Performed By: Tereza ?: :KARRIE Flores ?: + ----- + Procedure A two-dimensional transthoracic echocardiogram with color flow and Doppler was performed. A contrast injection of Definity was performed to improve assessment of LV function. Definity lot # is ' [id number] '. Left Ventricle The left ventricle is mildly dilated. Eccentric LVH. Left ventricular systolic function is moderate to severely reduced with left ventricular ejection fraction 25-30%. There is moderate to severe global hypokinesis of the left ventricle. There is no thrombus. Right Ventricle The right ventricle is normal in size and function. There is normal right ventricular wall thickness. The right ventricular systolic function is normal. No regional wall motion abnormalities are noted. Atria The left atrium is mildly dilated. Right atrial size is normal. The interatrial septum is intact with no evidence for an atrial septal defect. Mitral Valve The mitral valve leaflets appear normal. There is no evidence of stenosis, fluttering, or prolapse. There is no mitral valve stenosis. There is trace to mild mitral regurgitation. Tricuspid Valve The tricuspid valve is normal. There is no tricuspid stenosis. There is trace to mild tricuspid regurgitation. Right ventricular systolic pressure is normal. Right ventricular systolic pressure is '28' mm/HG. Aortic Valve Aortic valve structure is normal. No aortic stenosis . Trace aortic regurgitation. Pulmonic Valve The pulmonic valve is not well visualized. There is no pulmonic valvular stenosis. Trace to mild pulmonic valvular regurgitation. Great Vessels The aortic root is not well visualized but is probably normal size. The pulmonary artery is not well visualized, but is probably normal size. IVC appears 'normal' in size. IVC collapses normally with inspiration. Pericardium There is no pericardial effusion. Diastology E/E prime ratio is 8 -15 which is in the indeterminate zone. Interpretation Summary The left ventricle is mildly dilated. Eccentric LVH. Left ventricular systolic function is moderate to severely reduced with left ventricular ejection fraction 25-30%. No prior echo available for comparison. + + :Measurements with Normals ?: :IVSd: ? (0.6-1.2 ?LVIDd: ?(3.5-5.7 ?? Ao root diam: ?(2.0-3.7 ?? : :0.96 cm ? cm) ? 5.8 cm ?cm) ?2.9 cm ? cm) ?: :LVPWd: ?(0.6-1.1 ?LVIDs: ?(3.1-4.6 ?? LA dimension: ?(1.9-4.0 ?? : :1.0 cm ?cm) ? 5.2 cm ?cm) ?4.7 cm ? cm) ?: + + MMode/2D Measurements & Calculations FS: 10.9 % ? Ao root area: 6.6 cm2 ?LVOT diam: 2.2 cm EDV(Teich): 165.9 ml ?LVOT area: 3.8 cm2 ESV(Teich): 127.2 ml Doppler Measurements & Calculations MV E max allyn: ? MV dec time: ? Ao V2 max: ?LV V1 max P.6 cm/sec ? 0.15 sec ? 96.5 cm/sec ? 1.8 mmHg MV A max allyn: ?Ao max PG: ?LV V1 mean P.8 cm/sec ?3.7 mmHg ?1.0 mmHg MV E/A: 2.1 ?Ao V2 mean: ? LV V1 max: ? 63.8 cm/sec ? 67.1 cm/sec ? Ao mean PG: ? LV V1 mean: ? 2.0 mmHg ?42.5 cm/sec ? Ao V2 VTI: 14.6 cmLV V1 VTI: 10.1 cm ? ANTONIA(I,D): 2.6 cm2 ? ANTONIA(V,D): 2.6 cm2 ? SV(LVOT): 38.3 ml ?? TV V2 max: ? PA V2 max: ?PI end-d allyn: ?28.7 cm/sec ?57.0 cm/sec ? 194.0 cm/sec ?TV max PG: ? PA max PG: ?0.33 mmHg ?1.3 mmHg ? PA V2 mean: ? 40.7 cm/sec ? PA mean PG: ? 1.0 mmHg ? PA V2 VTI: 9.7 cm ? RV V1 max: ?TR max allyn: ?RAP systole: 45.0 cm/sec ? 238.0 cm/sec ? 3.0 mmHg ?TR max PG: ?22.7 mmHg ?RVSP(TR): 25.7 mmHg Electronically signed by: Von Mon MD 08/24/2024 02:46 AM Procedure Note Von Mon MD - 08/24/2024 Adult Echocardiogram + ----- + :Name: MICHAEL MILLER Study Date: 08/23/2024Status: MHB : : [facility][id number]^Height: 69 in : : : 199 lbBP: 151/110 mmHg: :: 1985 Gender: MaleBSA: 2.1 m2 : :Reason For Study: New onset CHF: :Ordering Physician:: :GEORGE BASS: :: :Performed By: Tereza: :KARRIE Flores: + ----- + Procedure A two-dimensional transthoracic echocardiogram with color flow and Dopplerwas performed. A contrast injection of Definity was performed to improve assessment of LV function. Definity lot # is ' [id number] '. Left Ventricle The left ventricle is mildly dilated. Eccentric LVH. Left ventricularsystolic function is moderate to severely reduced with left ventricular ejection fraction 25-30%. There is moderate to severe global hypokinesis of theleft ventricle. There is no thrombus. Right Ventricle The right ventricle is normal in size and function. There is normalright ventricular wall thickness. The right ventricular systolic function isnormal. No regional wall motion abnormalities are noted. Atria The left atrium is mildly dilated. Right atrial size is normal. The interatrial septum is intact with no evidence for an atrial septaldefect. Mitral Valve The mitral valve leaflets appear normal. There is no evidence ofstenosis, fluttering, or prolapse. There is no mitral valve stenosis. There is traceto mild mitral regurgitation. Tricuspid Valve The tricuspid valve is normal. There is no tricuspid stenosis. There istrace to mild tricuspid regurgitation. Right ventricular systolic pressure is normal. Right ventricular systolic pressure is '28' mm/HG. Aortic Valve Aortic valve structure is normal. No aortic stenosis . Trace aortic regurgitation. Pulmonic Valve The pulmonic valve is not well visualized. There is no pulmonic valvular stenosis. Trace to mild pulmonic valvular regurgitation. Great Vessels The aortic root is not well visualized but is probably normal size. The pulmonary artery is not well visualized, but is probably normal size.IVC appears 'normal' in size. IVC collapses normally with inspiration. Pericardium There is no pericardial effusion. Diastology E/E prime ratio is 8 -15 which is in the indeterminate zone. Interpretation Summary The left ventricle is mildly dilated. Eccentric LVH. Left ventricular systolic function is moderate to severely reduced withleft ventricular ejection fraction 25-30%. No prior echo available for comparison. + + :Measurements with Normals: :IVSd: (0.6-1.2 LVIDd: (3.5-5.7 Ao root diam:(2.0-3.7 : :0.96 cm cm) 5.8 cm cm) 2.9 cm cm): :LVPWd: (0.6-1.1 LVIDs: (3.1-4.6 LA dimension:(1.9-4.0 : :1.0 cm cm) 5.2 cm cm) 4.7 cm cm): + + MMode/2D Measurements & Calculations FS: 10.9 % Ao root area: 6.6 cm2 LVOT diam: 2.2 cm EDV(Teich): 165.9 ml LVOT area: 3.8 cm2 ESV(Teich): 127.2 ml Doppler Measurements & Calculations MV E max allyn: MV dec time: Ao V2 max: LV V1 max P.6 cm/sec 0.15 sec 96.5 cm/sec 1.8 mmHg MV A max allyn: Ao max PG: LV V1 mean P.8 cm/sec 3.7 mmHg 1.0 mmHg MV E/A: 2.1 Ao V2 mean: LV V1 max: 63.8 cm/sec 67.1 cm/sec Ao mean PG: LV V1 mean: 2.0 mmHg 42.5 cm/sec Ao V2 VTI: 14.6 cmLV V1 VTI: 10.1cm ANTONIA(I,D): 2.6 cm2 ANTONIA(V,D): 2.6 cm2 SV(LVOT): 38.3 ml TV V2 max: PA V2 max: PI end-d allyn: 28.7 cm/sec 57.0 cm/sec 194.0 cm/sec TV max PG: PA max P.33 mmHg 1.3 mmHg PA V2 mean: 40.7 cm/sec PA mean P.0 mmHg PA V2 VTI: 9.7 cm RV V1 max: TR max allyn: RAP systole: 45.0 cm/sec 238.0 cm/sec 3.0 mmHg TR max P.7 mmHg RVSP(TR): 25.7 mmHg Electronically signed by: Von Mon MD 08/24/2024 02:46 AM us George Bass MD CV ECHO PROCEDURES Tawanna l Result * (ABNORMAL) POCT glucose (08/23/2024 11:58 AM UPH[employer]STERY COVERS INSPECTOR) Glucose, POC 226(H) 70 - 199 mg/dL Glucose comment 1 Use This Result [facility] Blood 08/23/2024 11:5 8 AM U[employer]ST[employer] COVERS INSPECTOR 08/23/2024 11:58 AM UPHOLSTERY COVERS INSPECTOR Amandeep Smallwood MD LAB POCT ORDERABLES - DEVIC E Final Result Performing Organization Address [facility] de Phone Number [id number] [address] * (ABNORMAL) POCT glucose (08/23/2024 7:57 AM UPHOLSTERY COVERS INSPECTOR) Pathologist [facility] Glucose, POC 307(H) 70 - 199 mg/dL Glucose comment 1 Use This Result [facility] (Source) Anatomical Location / Laterality Collection Method / Volume Collection Time Received Time Blood 08/23/2024 7:57 AM UPHOLSTERY COVERS INSPECTOR 08/23/2024 7:57 AM UPHOLSTERY COVERS INSPECTOR Amandeep Smallwood MD LAB POCT ORDERABLES - DEVIC E Final Result Performing Organization Address [facility] de Phone Number [address] [place] [address] * eGFR (08/23/2024 7:51 AM UPHOLSTERY COVERS INSPECTOR) [facility] eGFR 72 >=60 mL/min/1. 73 m2 Comment: Interpretive Data Reference Interval Normal ?>/= 90 mL/min/1.73m2 Mildly decreased* ? 60 - 89 mL/min/1.73m2 Mildly to moderately decreased ?45 - 59 mL/min/1.73m2 Moderately to severely decreased ??30 - 44 mL/min/1.73m2 Severely decreased ?15 - 29 mL/min/1.73m2 Kidney Failure ?< 15 ??mL/min/1.73m2 *Relative to young adult level Estimated glomerular filtration rate is determined by the 2020 CKD-EPI equation recommended by the [employer] (A Unifying Approach to GFR Estimation: Recommendations of the NKF-ASK Task Force on Reassessing the Inclusion of Race in Diagnosing Kidney Disease, JASN 202). The CKD-EPI equation should not be used for patients with unstable renal function and has not been validated in children and those over 70. Current interpretive data was last reviewed 2021. Blood 08/23/2024 7:51 AM UPHOLSTERY COVERS INSPECTOR 08/23/2024 8:07 AM UPHOLSTERY COVERS INSPECTOR us George Bass MD LAB BLOOD ORDERABLES Fi nal Result [facility] [address] [facility] Department of Laboratories [place], [place] [id number] * Differential, auto (08/23/2024 7:51 AM UPHOLSTERY COVERS INSPECTOR) Neutrophil abs 2.3 1.5 - 6.5 K/cumm Imm gran abs 0.0 0.0 - 0.1 K/cumm [facility] Lymphocyte abs 1.7 0.8 - 3.3 K/cumm [facility] Monocyte abs 0.7 0.2 - 0.8 K/cumm [facility] Eosinophil abs 0.0 0.0 - 0.5 K/cumm [facility] Basophil abs 0.0 0.0 - 0.1 K/cumm [facility] Neutrophil pct 48.8 % [facility] Comment: Interpretive Data Percent cell count reference ranges are not reported, since discordance with absolute values may lead to misinterpretation of CBC data. Current Interpretive Data was last revised on 2018. Imm gran pct 0.2 % [facility] Comment: Interpretive Data Percent cell count reference ranges are not reported, since discordance with absolute values may lead to misinterpretation of CBC data. Current Interpretive Data was last revised on 2018. Lymphocyte pct 36.3 % [facility] Comment: Interpretive Data Percent cell count reference ranges are not reported, since discordance with absolute values may lead to misinterpretation of CBC data. Current Interpretive Data was last revised on 2018. Monocyte pct 13.5 % [facility] Comment: Interpretive Data Percent cell count reference ranges are not reported, since discordance with absolute values may lead to misinterpretation of CBC data. Current Interpretive Data was last revised on 2018. Eosinophil pct 0.6 % [facility] Comment: Interpretive Data Percent cell count reference ranges are not reported, since discordance with absolute values may lead to misinterpretation of CBC data. Current Interpretive Data was last revised on 2018. Basophil pct 0.6 % [facility] Comment: Interpretive Data Percent cell count reference ranges are not reported, since discordance with absolute values may lead to misinterpretation of CBC data. Current Interpretive Data was last revised on 2018. Blood 08/23/2024 7:51 AM UPHOLSTERY COVERS INSPECTOR 08/23/2024 8:07 AM UPHOLSTERY COVERS INSPECTOR George Bass MD LAB BLOOD ORDERABLES nal Result [facility] [address] [facility] Department of Laboratories [place], [place] [id number] * (ABNORMAL) CBC with auto differential (08/23/2024 7:51 AM UPHOLSTERY COVERS INSPECTOR) Pathologist [facility] WBC 4.8 3.8 - 9.9 K/cumm Hgb 15.1 13.0 - 17.5 g/dL [facility] Hct 44.6 38.9 - 50.3 % [facility] Plt 207 150 - 400 K/cumm [facility] MPV 11.0 9.1 - 12.3 fL [facility] RBC 5.54 4.30 - 5.80 M/cumm [facility] MCV 80.5(L) 81.3 - 96.4 fL [facility] MCH 27.3 27.1 - 33.3 pg [facility] MCHC 33.9 32.3 - 35.7 g/dL [facility] RDW CV 13.5 11.1 - 14.9 % [facility] RDW SD 39.2 35.7 - 48.1 fL [facility] NRBC abs 0.00 0.00 - 0.01 K/cumm [facility] Blood 08/23/2024 7:51 AM UPHOLSTERY COVERS INSPECTOR 08/23/2024 8:07 AM UPHOLSTERY COVERS INSPECTOR George Bass MD LAB BLOOD ORDERABLES Fi nal Result Performing Organization Address City/[facility]/ZIP Co de Phone Number [address] [address] * Magnesium (08/23/2024 7:51 AM UPHOLSTERY COVERS INSPECTOR) [facility] Magnesium 2.1 1.4 - 2.5 mg/dL Blood 08/23/2024 7:51 AM UPHOLSTERY COVERS INSPECTOR 08/23/2024 8:07 AM UPHOLSTERY COVERS INSPECTOR George Bass MD LAB BLOOD ORDERABLES Fi nal Result Performing Organization Address [facility] de Phone Number [address] [address] * (ABNORMAL) Comprehensive metabolic panel (08/23/2024 7:51 AM UPHOLSTERY COVERS INSPECTOR) [facility] Sodium 136 135 - 145 mmol/L Potassium, pl 4.0 3.3 - 4.9 mmol/L [facility] Chloride 100 97 - 110 mmol/L [facility] CO2 25 22 - 32 mmol/L [facility] Anion gap 11 2 - 15 mmol/L [facility] BUN 18 6 - 25 mg/dL [facility] Creatinine 1.29 0.80 - 1.30 mg/dL [facility] Glucose 337(H) 70 - 199 mg/dL [facility] Comment: Interpretive Data Fasting glucose >/= 126 mg/dl is diagnostic for diabetes. ?? Fasting is defined as no caloric intake for at least 8 hours. Fasting glucose between 100 mg/dl to 125 mg/dl is diagnostic of prediabetes. In a patient with classic symptoms of hyperglycemia or hyperglycemic crisis, a random glucose >/= 200 mg/dl is diagnostic for diabetes. In the absence of unequivocal hyperglycemia, results should be confirmed by repeat testing. The classification and Diagnosis of Diabetes Diabetes Care 202; 46: S19-S40. Current interpretive data was last revised 2022. Calcium 9.6 8.5 - 10.3 mg/dL [facility] Bilirubin, total 0.3 0.1 - 1.2 mg/dL [facility] Protein, pl 7.6 6.5 - 8.5 g/dL [facility] Albumin 3.9 3.5 - 5.0 g/dL [facility] Alk phos 55 40 - 130 Units/L [facility] ALT 14 7 - 55 Units/L [facility] AST 17 10 - 50 Units/L [facility] Blood 08/23/2024 7:51 AM UPHOLSTERY COVERS INSPECTOR 08/23/2024 8:07 AM UPHOLSTERY COVERS INSPECTOR George Bass MD LAB BLOOD ORDERABLES Fi nal Result Performing Organization Address [facility] de Phone Number [address] [place] [address] * (ABNORMAL) Troponin T high-sensitivity 6-hour (08/23/2024 4:11 AM UPH[employer] COVERS INSPECTOR) Trop T hs 75(H) <=22 ng/L Comment: Interpretive Data For further hscTnT resources including the diagnostic algorithm and an aid in interpretation, copy and paste this link: https://nrl.testcatalog.org/show/hsTrop Current Interpretive Data last revised 2020. Trop T hs delta -2 ng/L [facility] Trop T hs interp Insignificant [facility] Blood 08/23/2024 4:11 AM UPHOLSTERY COVERS INSPECTOR 08/23/2024 4:16 AM UPHOLSTERY COVERS INSPECTOR George Bass MD LAB BLOOD ORDERABLES Fi nal Result Performing Organization Address City/[facility] Co de Phone Number [address] [place] [address] * (ABNORMAL) POCT glucose (08/23/2024 4:11 AM UPHOLST[employer] COVERS INSPECTOR) Glucose, POC 398(H) 70 - 199 mg/dL Glucose comment 1 Use This Result [facility] Glucose comment 2 RN/MD Notified [facility] Blood 08/23/2024 4:11 AM UPHOLSTERY COVERS INSPECTOR 08/23/2024 4:11 AM UPHOLSTERY COVERS INSPECTOR George Bass MD LAB POCT ORDERABLES - D EVICE Final Result Performing Organization Address [facility] Co de Phone Number [facility] [address] [facility] Department [place] [address] * ECG 12 lead (08/23/2024 3:39 AM UPHOLSTERY COVERS INSPECTOR) Ventricular Rate EKG/Min 102 BPM [facility] Atrial Rate 102 BPM [facility] ND-Interval (MSEC) 162 ms [facility] QRS-Interval (MSEC) 86 ms [facility] QT-Interval (MSEC) 370 ms [facility] QTc 482 ms [facility] P [place] 49 degrees [facility] R [place] -11 degrees [facility] T [place] 66 degrees [facility] Diagnosis Sinus tachycardia Left atrial enlargement Septal infarct (cited on or before 22-AUG-2024) Right atrial abnormality T-wave changes When compared with ECG of 22-AUG-2024 21:36, Premature ventricular complexes are no longer Present Confirmed by SULTAN THOMAS M.D. ([id number]) on 08/23/2024 4:48:28 PM [facility] 08/23/2024 3:39 AM UPHOLSTERY COVERS INSPECTOR 08/23/2024 4:48 PM UPHOLSTERY COVERS INSPECTOR George Bass MD ECG ORDERABLES Final R esult Performing Organization Address [facility] de Phone Number [facility] * CT Chest PE (CTA) W Contrast (08/23/2024 3:26 AM UPHOLSTERY COVERS INSPECTOR) Anatomical Region Laterality Modality Body N/A Computed Tomogra phy 08/23/2024 3:29 AM UPHOLSTERY COVERS INSPECTOR Narrative 08/23/2024 3:42 AM UPHOLSTERY COVERS INSPECTOR EXAM DESCRIPTION: ?? CT CHEST PE (CTA) W CONTRAST REASON FOR STUDY: ?? PE suspected, low pretest prob ?? c/o cough and congestion. ??This all started when the patient was sick with a cold about 3 months ago. ??Cough has since persisted but over the last few days has gotten much worse. ??He is experiencing significant orthopnea and intermittent shortness of ?? breath with coughing. ??Patient denies any swelling to his legs. ??He is coughing up white sputum. ??He denies any current chest pain. ??Patient has not had any persistent fevers or chills. ??Denies any history of heart failure. ??He denies any cardiac ?? history. ??Patient does state that he drinks about 2 beers a day. ? TECHNIQUE: CT angiogram of the chest performed with intravenous contrast using helical scanning technique with dynamic intravenous contrast injection. Reconstructed coronal and sagittal MPR images reviewed. All images stored on PACS. ?? 3D MIP images rendered on scanning unit and reviewed at time of interpretation. ??Automated exposure control was used as a dose optimization technique for this examination. CONTRAST TYPE/DOSE: ?? 80mL of IOVERSOL 350 MG IODINE/ML INTRAVENOUS SYRINGE ?? injected via ?? intravenous COMPARISON: ?? None. REFERENCE: Per ACR white paper recommendations, unless otherwise specified no follow-up imaging is recommended for incidental renal and adrenal lesions per consensus recommendations based on imaging criteria. Further lab evaluation could be pursued based on clinical findings. FINDINGS: NECK BASE: ??Unremarkable. HARDWARE/LINES/TUBES: ?? None. LYMPH NODES: ??No axillary, mediastinal or hilar lymphadenopathy is seen by CT size criteria. ? MEDIASTINUM/TAYLOR: ??No masses seen. ?? The aorta and great vessels appear normal. ?? There is no significant coronary artery calcification. ??The contrast bolus is ??adequate . ??There is streak artifact related to dense contrast in the SVC, somewhat limiting evaluation of the adjacent right upper lobe vasculature. ??The pulmonary arteries are well evaluated to the ??subsegmental ?? level. ??There are no filling defects seen in the pulmonary arteries on the axial or coronal images to suggest acute pulmonary embolism. ?? There is a linear filling defect in the right lower lobar pulmonary artery, suspicious for pulmonary web (series 4, images 82-86; series 6, image 82). ?? There is no evidence of left intraventricular septal bowing. ?? There is ??mild ??reflux of contrast into the IVC. ??The heart is enlarged. ?There is no significant pericardial effusion. ? PLEURA: ??No effusion. No pneumothorax. LUNGS: ??There is minimal dependent atelectasis in the lung bases. ??There is mild platelike atelectasis in the lingula and left lower lobe. ?The central airways are normal. CHEST WALL/BREAST: ??Unremarkable. MUSCULOSKELETAL: ??No acute abnormality. ? UPPER ABDOMEN: ??No significant abnormality. ? OTHER: ??No other significant abnormality. IMPRESSION: Linear filling defect in the right lower lobar pulmonary artery, suspicious for pulmonary web, a late sequelae of chronic pulmonary thromboembolism. ??No acute pulmonary embolism identified. Cardiomegaly. Mild reflux of contrast into the IVC, which can be seen in the setting of right heart dysfunction. THIS IS AN ELECTRONICALLY VERIFIED FINAL REPORT 08/23/2024 3:42 AM - Electronically signed by ??Radha REDMOND D: ??08/23/2024 3:42 AM T: Report ID: [id number] Reading Location: ??[id number] Procedure Note Radha Reynoso MD - 08/23/2024 EXAM DESCRIPTION: CT CHEST PE (CTA) W CONTRAST REASON FOR STUDY: PE suspected, low pretest prob c/o cough and congestion. This all started when the patient was sick witha cold about 3 months ago. Cough has since persisted but over the last fewdays has gotten much worse. He is experiencing significant orthopnea and intermittent shortness of breath with coughing. Patient denies anyswelling to his legs. He is coughing up white sputum. He denies any current chest pain. Patient has not had any persistent fevers or chills. Denies any history of heart failure. He denies any cardiac history. Patient does state that he drinks about 2 beers a day. TECHNIQUE: CT angiogram of the chest performed with intravenous contrastusing helical scanning technique with dynamic intravenous contrast injection. Reconstructed coronal and sagittal MPR images reviewed. All images storedon PACS. 3D MIP images rendered on scanning unit and reviewed at time of interpretation. Automated exposure control was used as a doseoptimization technique for this examination. CONTRAST TYPE/DOSE: 80mL of IOVERSOL 350 MG IODINE/ML INTRAVENOUSSYRINGE injected via intravenous COMPARISON: None. REFERENCE: Per ACR white paper recommendations, unless otherwise specifiedno follow-up imaging is recommended for incidental renal and adrenal lesionsper consensus recommendations based on imaging criteria. Further labevaluation could be pursued based on clinical findings. FINDINGS: NECK BASE: Unremarkable. HARDWARE/LINES/TUBES: None. LYMPH NODES: No axillary, mediastinal or hilar lymphadenopathy is seen byCT size criteria. MEDIASTINUM/TAYLOR: No masses seen. The aorta and great vessels appear normal. There is no significant coronary artery calcification. Thecontrast bolus is adequate . There is streak artifact related to dense contrastin the SVC, somewhat limiting evaluation of the adjacent right upper lobe vasculature. The pulmonary arteries are well evaluated to thesubsegmental level. There are no filling defects seen in the pulmonary arteries on the axial or coronal images to suggest acute pulmonary embolism. There is a linear filling defect in the right lower lobar pulmonary artery,suspicious for pulmonary web (series 4, images 82-86; series 6, image 82). There isno evidence of left intraventricular septal bowing. There is mild refluxof contrast into the IVC. The heart is enlarged. There is no significant pericardial effusion. PLEURA: No effusion. No pneumothorax. LUNGS: There is minimal dependent atelectasis in the lung bases. Thereis mild platelike atelectasis in the lingula and left lower lobe. Thecentral airways are normal. CHEST WALL/BREAST: Unremarkable. MUSCULOSKELETAL: No acute abnormality. UPPER ABDOMEN: No significant abnormality. OTHER: No other significant abnormality. IMPRESSION: Linear filling defect in the right lower lobar pulmonary artery,suspicious for pulmonary web, a late sequelae of chronic pulmonary thromboembolism.No acute pulmonary embolism identified. Cardiomegaly. Mild reflux of contrast into the IVC, which can be seen in the setting of right heart dysfunction. THIS IS AN ELECTRONICALLY VERIFIED FINAL REPORT 08/23/2024 3:42 AM - Electronically signed by Radha Reynoso M.D. SN T: Report ID: [id number] Reading Location: [id number] [facility] IM[facility] CT PROCEDURES Final Result * (ABNORMAL) Urinalysis reflex to microscopic and culture Urine (08/23/2024 3:08 AM UPHOLSTERY COVERS INSPECTOR) Color, ur Straw Yellow Clarity, ur Clear Clear [facility] Specific gravity, ur 1.023 1.003 - 1.030 [facility] pH, urine 5.5 [facility] Comment: Interpretive Data ? Urine pH is affected by diet, medications, systemic acid-base disturbances, and renal tubular function. ??pH may affect urinary stone formation. ??For example, urine pH below 6.0 may help reduce the tendency for calcium phosphate stones and pH greater than 6.0 may reduce the tendency for uric acid stone formation. Source: [facility] Current Interpretive Data was last revised on 2017 Protein, ur ql Negative Negative [facility] Glucose, ur ql 4+(A) Negative [facility] Ketones, ur Trace Negative [facility] Bilirubin, ur Negative Negative [facility] Blood, ur Negative Negative [facility] Urobilinogen, ur <2.0 <2.0 mg/dL [facility] Nitrite, ur Negative Negative [facility] Leukocyte esterase, ur Negative Negative [facility] UA reflex comment Reflex conditions for microscopic UA and culture not met. [facility] Urine 08/23/2024 3:08 AM UPHOLSTERY COVERS INSPECTOR 08/23/2024 3:11 AM UPHOLSTERY COVERS INSPECTOR us [facility] LAB MICROBIOLOGY - GENERAL ORDER MAYRA Final Result [facility] [address] [facility] Department [place] [address] * Drugs of Abuse Screen, Urine without Confirmation (08/23/2024 3:08 AM UPHOLSTERY COVERS INSPECTOR) Amphetamine, ur Not Detected CutOff 500ng/mL Comment: Interpretive Data - Amphetamines: ??Samples containing greater than 500 ng/mL d-methamphetamine ??or other cross-reacting amphetamine compounds are reported as positive. ??Amphetamine immunoassays are subject to significant false positive rates due to cross-reactivity of non-amphetamine drugs. Confirmatory testing required for definitive results. Current Interpretive Data was last reviewed 2023. Barbiturates, ur Not Detected CutOff 200ng/mL [facility] Comment: Interpretive Data - Barbiturates: ??Samples containing greater than 200 ng/mL secobarbital or other cross-reacting barbiturate compounds are reported as positive. ??False positive and false negative results are possible. Confirmatory testing required for definitive results. Current Interpretive Data was last reviewed 2023. Benzodiazepines, ur Not Detected CutOff 100ng/mL [facility] Comment: Interpretive Data - Benzodiazepines: ??Samples containing greater than 100 ng/mL nordiazepam or other cross-reacting compounds are reported as positive. False positive and false negative results are possible. Confirmatory testing required for definitive results. Current Interpretive Data was last reviewed 2023. Cannabinoids, ur Not Detected CutOff 50 ng/mL [facility] Comment: Interpretive Data - Cannabinoids: ??Samples containing greater than 50 ng/mL delta-9 THC -COOH or other cross-reacting compounds are reported as positive. ??False positive and false negative results are possible. ??Confirmatory testing required for definitive results. Current Interpretive Data was last reviewed 2023. Cocaine, ur Not Detected CutOff 150ng/mL [facility] Comment: Interpretive Data - Cocaine: ??Samples containing greater than 150 ng/mL benzoylecgonine or other cross-reacting compounds are reported as positive. False positive and false negative results are possible. Confirmatory testing required for definitive results. Current Interpretive Data was last reviewed 2023. Fentanyl, Ur Not Detected CutOff 5 ng/mL [facility] Comment: Interpretive Data - Fentanyl: ?? Samples containing greater than 5 ng/mL norfentanyl, fentanyl, or other cross-reacting fentanyl compounds are reported as positive. False positive and false negative results are possible. Confirmatory testing required for definitive results. Current Interpretive Data was last reviewed 2023. Methadone, ur Not Detected CutOff 300ng/mL [facility] Comment: Interpretive Data - Methadone: ??Samples containing greater than 300 ng/mL d,l-methadone or other cross-reacting compounds are reported as positive. ??False positive and false negative results are possible. Confirmatory testing required for definitive results. Current Interpretive Data was last reviewed 2023. Opiates, ur Not Detected CutOff 300ng/mL [facility] Comment: Interpretive Data - Opiates: ??Samples containing greater than 300 ng/mL morphine or other cross-reacting compounds are reported as positive. ??False positive and false negative results are possible. Confirmatory testing required for definitive results. Current Interpretive Data was last reviewed 2023. Oxycodone, ur Not Detected CutOff 100ng/mL [facility] Comment: Interpretive Data - Oxycodone: ??Samples containing greater than 100 ng/mL oxycodone or other cross-reacting compounds are reported as ??positive. ??False positive and false negative results are possible. Confirmatory testing required for definitive results. Current Interpretive Data was last reviewed 2023. Phencyclidine, ur Not Detected CutOff 25 ng/mL [facility] Comment: Interpretive Data - Phencyclidine: ??Samples containing greater than 25 ng/mL phencyclidine or other cross-reacting compounds are reported as positive. ??False positive and false negative results are possible. Confirmatory testing required for definitive results. Current Interpretive Data was last reviewed 2023. Urine Creatinine 35 mg/dL [facility] Comment: Interpretive Data Urine Creatinine: < 10 mg/dL is extremely dilute = or > 10 but < 20 mg/dL is dilute = or > 20 mg/dL is normal Current Interpretive Data was last revised on 2018. Urine 08/23/2024 3:08 AM UPHOLSTERY COVERS INSPECTOR 08/23/2024 3:11 AM UPHOLSTERY COVERS INSPECTOR Narrative [facility] - 08/23/2024 3:34 AM UPHOLSTERY COVERS INSPECTOR Drug of Abuse screening is performed by immunoassay for medical purposes only. ??This is not to be used for Pain Management purposes. [employer] LAB URINE ORDERABLES Final Resul t Performing Organization Address [facility] Co de Phone Number [address] [place] [address] * (ABNORMAL) Erythrocyte sedimentation rate (08/23/2024 2:52 AM UPHOLSTERY COVERS INSPECTOR) Erythrocyte sedimentation rate 28(H) 1 - 15 mm/hr Blood 08/23/2024 2:52 AM UPHOLSTERY COVERS INSPECTOR 08/23/2024 2:55 AM UPHOLSTERY COVERS INSPECTOR [employer] LAB BLOOD ORDERABLES Final Resul t Performing Organization Address [facility] Co de Phone Number [place] [phone] [facility] [place] [address] * (ABNORMAL) POCT glucose (08/23/2024 2:47 AM UPHOLSTERY COVERS INSPECTOR) Glucose, POC 432(H) 70 - 199 mg/dL Glucose comment 1 Use This Result [facility] Glucose comment 2 RN/MD Notified [facility] Blood 08/23/2024 2:47 AM UPHOLSTERY COVERS INSPECTOR 08/23/2024 2:47 AM UPHOLSTERY COVERS INSPECTOR us George Bass MD LAB POCT ORDERABLES - D EVICE Final Result [facility] [address] [facility] Department [place] [address] * XR Chest Pa Lateral 2 Views (08/22/2024 9:55 PM UPHOLSTERY COVERS INSPECTOR) Anatomical Region Laterality Modality Body, Chest N/A Computed Radiogr aphy 08/22/2024 10:1 3 PM UPHOLSTERY COVERS INSPECTOR Narrative 08/22/2024 10:24 PM UPHOLSTERY COVERS INSPECTOR EXAM DESCRIPTION: XR CHEST PA LATERAL 2 VIEWS REASON FOR STUDY: cough ?Pt to ED with c/o chest congestion and cough x 3 months. ??Pt states he tried meds for congestion awhile ago, but they didn't work . ? No PMHx ? Pt aox4, ambulatory, nad. ?? TECHNIQUE: 2 ??radiographic view(s) of the chest. COMPARISON: None available FINDINGS: There is at least mild enlargement of the cardiac silhouette. ??There is mild central pulmonary vascular congestion. ??Mild bibasilar atelectasis. ?? Blunting of bilateral costophrenic angles could reflect small pleural effusions. ??No pneumothorax. ??Mildly tortuous thoracic aorta. ??No acute osseous abnormality. IMPRESSION: 1. ??Mild central pulmonary vascular congestion and mild bibasilar atelectasis. 2. ??Blunting of bilateral costophrenic angles could reflect small pleural effusions. ??At least mild enlargement of the cardiac silhouette. THIS IS AN ELECTRONICALLY VERIFIED FINAL REPORT 08/22/2024 10:24 PM - Electronically signed by ??Chiki Centeno M.D. AT D: ??08/22/2024 10:24 PM T: Report ID: [id number] Reading Location: ??[id number] Procedure Note Chiki Centeno MD - 08/22/2024 EXAM DESCRIPTION: XR CHEST PA LATERAL 2 VIEWS REASON FOR STUDY: cough Pt to ED with c/o chest congestion and cough x 3 months. Pt states hetried meds for congestion awhile ago, but they didn't work . No PMHx Pt aox4, ambulatory, nad. TECHNIQUE: 2 radiographic view(s) of the chest. COMPARISON: None available FINDINGS: There is at least mild enlargement of the cardiac silhouette.There is mild central pulmonary vascular congestion. Mild bibasilaratelectasis. Blunting of bilateral costophrenic angles could reflect small pleural effusions. No pneumothorax. Mildly tortuous thoracic aorta. No acute osseous abnormality. IMPRESSION: 1. Mild central pulmonary vascular congestion and mildbibasilar atelectasis. 2. Blunting of bilateral costophrenic angles could reflect small pleural effusions. At least mild enlargement of the cardiac silhouette. THIS IS AN ELECTRONICALLY VERIFIED FINAL REPORT 08/22/2024 10:24 PM - Electronically signed by Chkii Centeno M.D. AT T: Report ID: [id number] Reading Location: [id number] Nahomi BALL IMG XR PROCEDURES Final Result * (ABNORMAL) Troponin T high-sensitivity series (baseline, 2hr, 4hr, 6hr) (08/22/2024 9:43 PM UPHOLSTERY COVERS INSPECTOR) Trop T hs 77(H) <=22 ng/L Comment: Interpretive Data For further hscTnT resources including the diagnostic algorithm and an aid in interpretation, copy and paste this link: https://nrl.testcatalog.org/show/hsTrop Current Interpretive Data last revised 2020. Blood 08/22/2024 9:43 PM UPHOLSTERY COVERS INSPECTOR 08/22/2024 9:45 PM UPHOLSTERY COVERS INSPECTOR us George Bass MD LAB BLOOD ORDERABLES Fi nal Result Performing Organization Address [facility] Co de Phone Number WIN [address] [place] [address] * eGFR (08/22/2024 9:43 PM UPHOLSTERY COVERS INSPECTOR) eGFR 67 >=60 mL/min/1. 73 m2 Comment: Interpretive Data Reference Interval Normal ?>/= 90 mL/min/1.73m2 Mildly decreased* ? 60 - 89 mL/min/1.73m2 Mildly to moderately decreased ?45 - 59 mL/min/1.73m2 Moderately to severely decreased ??30 - 44 mL/min/1.73m2 Severely decreased ?15 - 29 mL/min/1.73m2 Kidney Failure ?< 15 ??mL/min/1.73m2 *Relative to young adult level Estimated glomerular filtration rate is determined by the 2020 CKD-EPI equation recommended by the National Kidney Foundation (A Unifying Approach to GFR Estimation: Recommendations of the NKF-ASK Task Force on Reassessing the Inclusion of Race in Diagnosing Kidney Disease, JASN 2020). The CKD-EPI equation should not be used for patients with unstable renal function and has not been validated in children and those over 70. Current interpretive data was last reviewed 2021. Blood 08/22/2024 9:43 PM UPHOLSTERY COVERS INSPECTOR 08/22/2024 9:45 PM UPHOLSTERY COVERS INSPECTOR us Nahomi BALL LAB BLOOD ORDERABLES Final Resul t Performing Organization Address City/[facility] Co de Phone Number WIN [address] [place] [address] Department [place] [address] * Differential, auto (08/22/2024 9:43 PM UPHOLSTERY COVERS INSPECTOR) Pathologist [facility] Neutrophil abs 2.9 1.5 - 6.5 K/cumm Imm gran abs 0.0 0.0 - 0.1 K/cumm [facility] Lymphocyte abs 1.8 0.8 - 3.3 K/cumm [facility] Monocyte abs 0.6 0.2 - 0.8 K/cumm [facility] Eosinophil abs 0.0 0.0 - 0.5 K/cumm [facility] Basophil abs 0.0 0.0 - 0.1 K/cumm [facility] Neutrophil pct 54.5 % [facility] Comment: Interpretive Data Percent cell count reference ranges are not reported, since discordance with absolute values may lead to misinterpretation of CBC data. Current Interpretive Data was last revised on 2018. Imm gran pct 0.4 % [facility] Comment: Interpretive Data Percent cell count reference ranges are not reported, since discordance with absolute values may lead to misinterpretation of CBC data. Current Interpretive Data was last revised on 2018. Lymphocyte pct 33.4 % [facility] Comment: Interpretive Data Percent cell count reference ranges are not reported, since discordance with absolute values may lead to misinterpretation of CBC data. Current Interpretive Data was last revised on 2018. Monocyte pct 10.7 % [facility] Comment: Interpretive Data Percent cell count reference ranges are not reported, since discordance with absolute values may lead to misinterpretation of CBC data. Current Interpretive Data was last revised on 2018. Eosinophil pct 0.4 % [facility] Comment: Interpretive Data Percent cell count reference ranges are not reported, since discordance with absolute values may lead to misinterpretation of CBC data. Current Interpretive Data was last revised on 2018. Basophil pct 0.6 % [facility] Comment: Interpretive Data Percent cell count reference ranges are not reported, since discordance with absolute values may lead to misinterpretation of CBC data. Current Interpretive Data was last revised on 2018. Blood 08/22/2024 9:43 PM UPHOLSTERY COVERS INSPECTOR 08/22/2024 9:45 PM UPHOLSTERY COVERS INSPECTOR us Nahomi BALL LAB BLOOD ORDERABLES Final Resul t [id number] [facility] Department [place] [address] * (ABNORMAL) Pro B-type natriuretic peptide (08/22/2024 9:43 PM UPHOLSTERY COVERS INSPECTOR) NT-proBNP 1,465(H) <=300 pg/mL Comment: Interpretive Comments: A. Dyspnea in Acute Care Setting All Ages: ?< 300 pg/ml, acute heart failure unlikely. < 50 yrs: ?300 - 450 pg/ml, further investigation warranted. ? > 450 pg/ml, acute heart failure likely. 50 - 74 yrs: ? 300 - 900 pg/ml, further investigation warranted. ? > 900 pg/ml, acute heart failure likely . > or = 75 yrs: ? 450 - 1800 pg/ml, further investigation warranted. ? > 1800 pg/ml, acute heart failure likely. B. Non-acute Setting < 75 yrs ? < 125 pg/ml, rules out heart failure. ? > or = 125 pg/ml, further investigation warranted. > or = 75 yrs ?< 450 pg/ml, rules out heart failure. ? > or = 450 pg/ml, further investigation warranted. - Knowledge of each individual patient's NT-proBNP range may be more useful than using similar cut-points for every patient. Please note that marked elevations in NT-proBNP levels may be observed in state other than Left Ventricular Congestive Failure, including: acute coronary syndromes, right heart strain/failure (including pulmonary embolism and cor pulmonale), critical illness, renal failure, as well as advanced age. - References: 1. Pao PRATT et.al. Eur Heart J. 2006:27:330-337. 2. Balbina RW, Jamey WAGNER. J. AM Noemi Cardiol: Cardiovasc Imag. 2009;2: 216- 225. Interpretive Data Last Revised Date: 2018. Blood 08/22/2024 9:43 PM UPHOLSTERY COVERS INSPECTOR 08/22/2024 9:45 PM UPHOLSTERY COVERS INSPECTOR Nahomipaulie BALL LAB BLOOD ORDERABLES Final Resul t Performing Organization Address [facility] de Phone Number WIN [address] [place], [place] [id number] * CBC with auto differential (08/22/2024 9:43 PM UPHOLSTERY COVERS INSPECTOR) [facility] WBC 5.2 3.8 - 9.9 K/cumm Hgb 14.6 13.0 - 17.5 g/dL [facility] Hct 43.5 38.9 - 50.3 % [facility] Plt 196 150 - 400 K/cumm [facility] MPV 10.9 9.1 - 12.3 fL [facility] RBC 5.35 4.30 - 5.80 M/cumm [facility] MCV 81.3 81.3 - 96.4 fL [facility] MCH 27.3 27.1 - 33.3 pg [facility] MCHC 33.6 32.3 - 35.7 g/dL [facility] RDW CV 13.2 11.1 - 14.9 % [facility] RDW SD 38.6 35.7 - 48.1 fL [facility] NRBC abs 0.00 0.00 - 0.01 K/cumm [facility] Blood 08/22/2024 9:43 PM UPHOLSTERY COVERS INSPECTOR 08/22/2024 9:45 PM UPHOLSTERY COVERS INSPECTOR Nahomi BALL LAB BLOOD ORDERABLES Final Resul t Performing Organization Address [facility] Co de Phone Number WIN [address] [place] [address] * (ABNORMAL) CRP (acute phase) (08/22/2024 9:43 PM UPHOLSTERY COVERS INSPECTOR) CRP 11.1(H) <=10.0 mg/L Blood 08/22/2024 9:43 PM UPHOLSTERY COVERS INSPECTOR 08/22/2024 9:45 PM UPHOLSTERY COVERS INSPECTOR us Nahomi Shalini PA LAB BLOOD ORDERABLES Final Resul t Performing Organization Address [facility] de Phone Number [address] [place] [address] * (ABNORMAL) Hemoglobin A1c (08/22/2024 9:43 PM UPHOLSTERY COVERS INSPECTOR) Hgb A1C 11.9(H) 4.0 - 5.6 % Estimated Average Glucose 295 mg/dL WIN Comment: The ADA recommends reporting an estimated Average Glucose (eAG) with all Hemoglobin A1c results using the equation derived from a study of 507 normal and diabetic adults. ??Minority populations were underrepresented and children were not included. ?? (Diabetes Care 31:5033-2856, 2008). ??The eAG is not equivalent to a fasting glucose. Blood 08/22/2024 9:43 PM UPHOLSTERY COVERS INSPECTOR 08/22/2024 9:45 PM UPHOLSTERY COVERS INSPECTOR us Nahomisyed Dumonte PA LAB BLOOD ORDERABLES Final Resul t Performing Organization Address [facility] de Phone Number [address] [place] [address] * Creatine kinase (CK), total (08/22/2024 9:43 PM UPHOLSTERY COVERS INSPECTOR) CK 152 40 - 300 Units/L Blood 08/22/2024 9:43 PM UPHOLSTERY COVERS INSPECTOR 08/22/2024 9:45 PM UPHOLSTERY COVERS INSPECTOR us Nahomi Shalini PA LAB BLOOD ORDERABLES Final Resul t Performing Organization Address [facility] de Phone Number [address] [place] [address] * (ABNORMAL) Comprehensive metabolic panel (08/22/2024 9:43 PM UPHOLSTERY COVERS INSPECTOR) Sodium 131(L) 135 - 145 mmol/L Potassium, pl 4.1 3.3 - 4.9 mmol/L [facility] Chloride 98 97 - 110 mmol/L [facility] CO2 20(L) 22 - 32 mmol/L [facility] Anion gap 13 2 - 15 mmol/L [facility] BUN 14 6 - 25 mg/dL [facility] Creatinine 1.38(H) 0.80 - 1.30 mg/dL [facility] Glucose 399(H) 70 - 199 mg/dL [facility] Comment: Interpretive Data Fasting glucose >/= 126 mg/dl is diagnostic for diabetes. ?? Fasting is defined as no caloric intake for at least 8 hours. Fasting glucose between 100 mg/dl to 125 mg/dl is diagnostic of prediabetes. In a patient with classic symptoms of hyperglycemia or hyperglycemic crisis, a random glucose >/= 200 mg/dl is diagnostic for diabetes. In the absence of unequivocal hyperglycemia, results should be confirmed by repeat testing. The classification and Diagnosis of Diabetes Diabetes Care 202; 46: S19-S40. Current interpretive data was last revised 2022. Calcium 8.4(L) 8.5 - 10.3 mg/dL [facility] Bilirubin, total 0.3 0.1 - 1.2 mg/dL [facility] Protein, pl 6.9 6.5 - 8.5 g/dL [facility] Albumin 3.7 3.5 - 5.0 g/dL [facility] Alk phos 49 40 - 130 Units/L [facility] ALT 12 7 - 55 Units/L [facility] AST 18 10 - 50 Units/L [facility] Blood 08/22/2024 9:43 PM UPHOLSTERY COVERS INSPECTOR 08/22/2024 9:45 PM UPHOLSTERY COVERS INSPECTOR us Nahomi BALL LAB BLOOD ORDERABLES Final Resul t WIN [address] [facility] Department [place] [address] * ECG 12 lead (08/22/2024 9:36 PM UPHOLSTERY COVERS INSPECTOR) Ventricular Rate EKG/Min 101 BPM [facility] Atrial Rate 101 BPM [facility] ND-Interval (MSEC) 168 ms [facility] QRS-Interval (MSEC) 90 ms [facility] QT-Interval (MSEC) 344 ms [facility] QTc 446 ms [facility] P [place] 48 degrees [facility] R [place] 77 degrees [facility] T [place] 64 degrees [facility] Diagnosis Sinus tachycardia with occasional Premature ventricular complexes Left atrial enlargement Anterior infarct Old Right atrial abnormality Abnormal ECG No previous ECGs available Confirmed by SULTAN THOMAS M.D. ([id number]) on 08/23/2024 4:39:10 PM [facility] 08/22/2024 9:36 PM UPHOLSTERY COVERS INSPECTOR 08/23/2024 4:39 PM UPHOLSTERY COVERS INSPECTOR Nahomi BALL ECG ORDERABLES Final Result [facility] * Influenza A/B, RSV, and COVID-19 PCR Nasopharyngeal (08/22/2024 9:36 PM UPHOLSTERY COVERS INSPECTOR) Pathologist [facility] COVID-19 RNA Negative Negative Influenza A RNA Negative Negative [facility] Influenza B RNA Negative Negative WIN RSV RNA Negative Negative [facility] Comment: Interpretive data: Testing performed by [facility]. This test is performed using the [employer] Xpert Xpress CoV-2/Flu/RSV plus assay. This is a multiplex, real-time reverse transcriptase PCR assay intended for the qualitative detection of nucleic acid from SARS-CoV-2, influenza A, influenza B, and respiratory syncytial virus. This assay has been cleared by the [place] Food and Drug administration. The performance characteristics have been verified by the [facility]. ??Results must be considered in the clinical context, and a negative result does not rule out infection. Interpretive Data last revised 2023 Nasopharyngeal 08/22/2024 9: 36 PM UPHOLSTERY COVERS INSPECTOR 08/22/2024 9:45 PM UPHOLSTERY COVERS INSPECTOR Narrative [facility] - 08/22/2024 10:24 PM UPHOLSTERY COVERS INSPECTOR Is the Patient experiencing symptoms consistent with COVID?->Unknown us Nahomi BALL LAB MICROBIOLOGY - GENERAL ORDER MAYRA Final Result IWN [address] [facility] Department [place] [address] * Respiratory pathogen panel Nasopharyngeal (08/22/2024 9:36 PM UPHOLSTERY COVERS INSPECTOR) Influenza A RNA Not Detected Not Detected Comment:Testing performed by : [facility], [address] [place]., [address] Influenza B RNA Not Detected Not Detected WIN Comment:Testing performed by : [facility], [address] [place] [address] RSV RNA Not Detected Not Detected WIN Comment:Testing performed by : [facility], [address] [place]., [address] COVID-19 RNA Not Detected Not Detected WIN Comment:Testing performed by : [facility], [address] [place]., [address] Coronavirus 229E RNA Not Detected Not Detected WIN Comment:Testing performed by : [facility], [address] [place]., [address] Coronavirus HKU1 RNA Not Detected Not Detected WIN Comment:Testing performed by : [facility], [address] [place]., [address] Coronavirus NL63 RNA Not Detected Not Detected WIN Comment:Testing performed by : [facility], [address] [place]., [address] Coronavirus OC43 RNA Not Detected Not Detected WIN Comment:Testing performed by : [facility], [address] [place]., [address] Adenovirus DNA Not Detected Not Detected WIN Comment:Testing performed by : [facility], [address] [place]., [address] Metapneumovirus RNA Not Detected Not Detected WIN Comment:Testing performed by : [facility], [address] [facility], [address] Rhinovirus/Enterov irus RNA Not Detected Not Detected WIN Comment:Testing performed by : [facility], [address] [facility], [address] Parainfluenza 1 RNA Not Detected Not Detected WIN Comment:Testing performed by : [facility], [address] [facility], [address] Parainfluenza 2 RNA Not Detected Not Detected [facility] Comment:Testing performed by : [facility], [address] [facility], [address] Parainfluenza 3 RNA Not Detected Not Detected [facility] Comment:Testing performed by : [facility], [address] [facility], [address] Parainfluenza 4 RNA Not Detected Not Detected [facility] Comment:Testing performed by : [facility], [address] [facility], [address] B. pertussis DNA Not Detected Not Detected WIN Comment:Testing performed by : [facility], [address] [facility], [address] B. parapertussis DNA Not Detected Not Detected [facility] Comment:Testing performed by : [facility], [address] [place] [address], [address] C. pneumoniae DNA Not Detected Not Detected [facility] Comment:Testing performed by : [facility], [address] [place] [address], [address] M. pneumoniae DNA Not Detected Not Detected [facility] Comment:Testing performed by : [facility], [address] [place] [address], [address] Nasopharyngeal 08/22/2024 9: 36 PM UPHOLSTERY COVERS INSPECTOR 08/23/2024 7:53 AM UPHOLSTERY COVERS INSPECTOR Narrative [facility] - 08/23/2024 9:20 AM UPHOLSTERY COVERS INSPECTOR Is the Patient experiencing symptoms consistent with COVID?->Unknown Surveillance testing for transplant patient?->No ??Interpretive Data The [employer] FilmArray Respiratory Panel (RP2.1) assay is a multiplexed real-time PCR based nucleic acid test capable of simultaneous qualitative detection and identification of multiple respiratory viral and bacterial nucleic acids, including SARS Coronavirus 2 (the causative agent of COVID-19). The following bacteria, viruses and virus subtypes can be identified using the FilmArray RP2.1 assay: Bordetella pertussis, Bordetella parapertussis, Chlamydia pneumoniae, Mycoplasma pneumoniae, Adenovirus, SARS Coronavirus 2, seasonal coronaviruses (Coronavirus HKU1, Coronavirus NL63, Coronavirus 229E, and Coronavirus OC43), Influenza A, Influenza A subtype H1, Influenza A subtype H3, Influenza A subtype 2009 H1, Influenza B, Metapneumovirus, Parainfluenza 1, Parainfluenza 2, Parainfluenza 3, Parainfluenza 4, RSV, Rhinovirus/Enterovirus. Due to the genetic similarity between human Rhinovirus and Enterovirus, the FilmArray RP2.1 assay cannot reliably differentiate them. Coronavirus OC43 may cross-react with some isolates of Coronavirus HKU1. ??A dual positive result may be due to cross-reactivity or may indicate a co-infection. The detection and identification of specific viral and bacterial nucleic acids from individuals exhibiting signs and symptoms of a respiratory infection aids in the diagnosis of respiratory infection if used in conjunction with other clinical and epidemiological information. ??The results of this test should not be used as the sole basis for diagnosis, treatment, or other management decisions. ??Negative results in the setting of a respiratory illness may be due to infection with pathogens that are not detected by this test. ??Positive results do not rule out infection/co-infection with other organisms. ??The agent(s) detected by the FilmArray RP2.1 may not be the definite cause of disease. ??Additional testing (lab, imaging, etc.) may be necessary when evaluating a patient with possible respiratory tract infection. The FilmArray RP2.1 assay has FDA clearance for testing of NON FOOD RECEIVING CLERK swabs. ??The performance of additional specimen types has been assessed by the performing laboratory. ??The performance characteristics of this assay have been determined by [facility]. Current interpretive data was last revised on 22. us Nahomi BALL LAB MICROBIOLOGY - GENERAL ORDER MAYRA Final Result WIN [address] [facility] [place] [address] from Last 3 Months Advance Directives For more information, please contact: [phone] * Full Code (Latest Code Status on File) Date Activated Date Inactivated Comments 08/23/2024 4:55 AM 08/26/2024 9:09 PM Care Teams Vet Assistant Relationship Specialty Start Date End Date Unknown, Notinfile PCP - General 08/23/24
--- OUTSIDE RECORDS SUMMARY | 2024-11-11 11:22 | XMS_ITS | Continuity of Care Document ---
Author Organization [facility] Address [address] [place] [address] Care Team Providers Care Certified Nutritionist Name Role Phone Isa Frankel MD Unavailable Unavailable Procedures Procedure Date Ecg-routine 12 Lead; Intrpt & 2 Advance Directives Directive Yes / No Effective Date File Name No Information Encounters Encounter Description Practice Location Reason(s) For Visit Diagnoses Date Provider Providers Copied on [facility]counter [facility], [address] [place] [address], [facility], [facility] No Information 2 Jostin Moss. [address] [place] [address], [address], [facility], . tel:[phone] Referring Provider: Isa Eugene, [address] [place] [address], [facility]. tel:[phone] Family History Family Member Type Diagnosis Age At Onset No Information Payers Payer name Insurance type Covered republican ID Elisha romero(s) [facility] [id number] Social History Type Description Quantity Date Captured Comments Sex Male Smoking Status No Information Chief Complaint And Reason For Visit No Information Reason For Referral Reason For Referral No Information History Of Present Illness Encounter Date Complaint History Of Prese nt Illness No Information Functional Status Date Functional Assessmen t No Information Instructions Date Instruction Additional Infor mation No Information Assessments Type Assessment Date No Information Patient Care Teams Name Effective Dates (start - stop) Status Members No Information
--- OUTSIDE RECORDS SUMMARY | 2024-11-11 11:22 | XMS_ITS | Continuity of Care Document ---
Author Organization [facility] Address [address] [place] [address] Care Team Providers Care Actuarial Intern Name Role Phone Isa Frankel MD Unavailable Unavailable Procedures Procedure Date Ecg-routine 12 Lead; Intrpt & 2 Advance Directives Directive Yes / No Effective Date File Name No Information Encounters Encounter Description Practice Location Reason(s) For Visit Diagnoses Date Provider Providers Copied on [facility]counter [facility], [address] [place] [address], [facility], [facility] No Information 2 Jostin Moss. [address] [place] [address], [address], [facility], . tel:[phone] Referring Provider: Isa Eugene, [address] [place] [address], [facility] tel:[phone] Family History Family Member Type Diagnosis Age At Onset No Information Payers Payer name Insurance type Covered green party ID Elisha romero(s) [facility] [id number] Social History Type Description Quantity Date Captured [...]
--- OUTSIDE RECORDS SUMMARY | 2024-11-11 11:22 | XMS_ITS | Referral Summary ---
Author Organization [facility] Address [address] [place] [phone] Care Team Providers Care Power Superintendent Name Role Phone Unknown, Notinfile Primary Care Provider Unavail able Encounters Date Type Department Care Team Description 10/29/2024 Telephone [facility] Cardiology [address] [place] [phone] Dom Lomeli MD 10/19/2024 Orders Only [facility] Health Information Management [address] [place] [phone] Dom Lomeli MD 10/19/2024 Orders Only [facility] Cardiology [address] [place] [phone] Shobha Prasad NP 10/18/2024 Orders Only [facility] Cardiology [address] [place] [phone] Dom Lomeli MD 08/23/2024 1:56 AM CUSTOMER ENGINEER - 08/26/2024 5:04 PM CUSTOMER ENGINEER Hospital Encounter [address] [address] George Bass MD Altwal, Shadi Adel, MD Acute congestive heart failure, unspecified heart failure type (HCC) (Primary Dx); Diabetes mellitus, new onset (HCC); Elevated serum creatinine; Cough, unspecified type; Dilated cardiomyopathy (CMS/HCC) (HCC) Discharge Disposition: Left Against Medical Advice 08/25/2024 TCC Subsequent Outreach [facility] [address] [place] [phone] Greg Castro RN from Last 3 Months Allergies No known active allergies Medications carvediloL [...] mg total) by mouth nightly 30 tablet 4 08/26/20 25 Active insulin degludec (TRESIBA) 100 unit/mL (3 mL) pen for injectionIndicat ions:type 2 diabetes mellitus,BIN [id number] PCN CNRX [facility] [id number] ID [id number] ONE BOX FREE Inject 0.25 mL (25 [...] failure type 08/23/2024 Dilated cardiomyopathy (CMS/HCC) 08/22/2024 Social History Tobacco Use Types Packs/Day Years Used Date Smoking Tobacco: Never Smokeless Tobacco: Never Tobacco Cessation:Counseling Given: Not Answered [facility] Utilities Answer Date Recorded In the past 12 months has e [email or web address], gas, oil, or water [employer] threatened to shut off services in your [...] often do you attend chur ch or mormon services? Never 08/23/2024 Do you belong to any clubs o r organizations such as holiness groups, unions, fraternal or athletic groups, or [...] No 08/23/2024 Housing Stability Vital Sign Answer Jsaon e Recorded In the last 12 months, was t here a time when you were not able to pay the mortgage or rent on time? No 08/23/2024 In the past 12 months, how m any times have you moved where you were living? 1 08/23/2024 At any time in the past 12 m [facility], were you homeless or living in a skilled nursing (including now)? No 08/23/2024 Personal Safety Answer Date Recorded Have you ever been in or are you currently in a harmful physical or emotional relationship or is someone making you feel afraid or unsafe? Denies 08/23/2024 Sex and Gender Information Value Date Recorded Sex Assigned at Not on file Legal Sex Male 8:46 PM CUSTOMER ENGINEER Gender Identity Not on file Sexual Orientation Not on file Last Filed Vital Signs Vital Sign Reading Time Taken Comments Blood Pressure 88/63 08/26/2024 3:25 PM CUSTOMER ENGINEER Pulse 81 08/26/2024 3:25 PM CUSTOMER ENGINEER Temperature 36.8 ??C (98.2 ??F) 08/26/2024 3:25 PM CS T Respiratory Rate 14 08/26/2024 3:25 PM CUSTOMER ENGINEER Oxygen Saturation 100% 08/26/2024 11: 35 AM CUSTOMER ENGINEER Inhaled Oxygen Concentration - - Weight 88.8 kg (195 lb 11.2 oz) 08/26/2024 4:15 AM CUSTOMER ENGINEER Height 175.3 cm (5' 9 ) 08/23/2024 4:40 AM CUSTOMER ENGINEER Body Mass Index 28.9 08/23/2024 4:40 AM CUSTOMER ENGINEER Plan of Treatment Not on file Procedures Procedure Name Priority Date/Time Associated Diagnosis Comments CARDIOLOGY DOCUMENT SCAN 10/19/2024 CARDIOLOGY DOCUMENT SCAN Routine 10/18/2024 12:13 PM CUSTOMER ENGINEER CARDIOLOGY DOCUMENT SCAN Routine 10/17/2024 5:00 PM CUSTOMER ENGINEER POCT GLUCOSE DEVICE Routine 08/26/2024 1 1:34 AM CUSTOMER ENGINEER POCT GLUCOSE DEVICE Routine 08/26/2024 7 :32 AM CUSTOMER ENGINEER EGFR Routine 08/26/2024 6:57 AM CUSTOMER ENGINEER BASIC METABOLIC PANEL Routine 08/26/2024 6:57 AM CUSTOMER ENGINEER POCT GLUCOSE DEVICE Routine 08/26/2024 4 :22 AM CUSTOMER ENGINEER POCT GLUCOSE DEVICE Routine 08/25/2024 7 :49 PM CUSTOMER ENGINEER POCT GLUCOSE DEVICE Routine 08/25/2024 4 :40 PM CUSTOMER ENGINEER POCT GLUCOSE DEVICE Routine 08/25/2024 2 :57 PM CUSTOMER ENGINEER STRESS TEST FOR DUAL READ IP Routine 08/25/2024 2:53 PM CUSTOMER ENGINEER NM MPI SPECT (REST AND/OR STRESS) MULTIPLE STUDIES IP Routine 08/25/2024 2:53 PM CUSTOMER ENGINEER POCT GLUCOSE DEVICE Routine 08/25/2024 7 :38 AM CUSTOMER ENGINEER LIPID PANEL Routine 08/25/2024 7:05 AM CUSTOMER ENGINEER EGFR Routine 08/25/2024 7:05 AM CUSTOMER ENGINEER BASIC METABOLIC PANEL Routine 08/25/2024 7:05 AM CUSTOMER ENGINEER MAGNESIUM Routine 08/25/2024 7:05 AM CUSTOMER ENGINEER POCT GLUCOSE DEVICE Routine 08/24/2024 7 :46 PM CUSTOMER ENGINEER POCT GLUCOSE DEVICE Routine 08/24/2024 4 :35 PM CUSTOMER ENGINEER POCT GLUCOSE DEVICE Routine 08/24/2024 1 1:52 AM CUSTOMER ENGINEER POCT GLUCOSE DEVICE Routine 08/24/2024 7 :50 AM CUSTOMER ENGINEER EGFR Routine 08/24/2024 7:47 AM CUSTOMER ENGINEER VITAMIN B12 Routine 08/24/2024 7:47 AM CUSTOMER ENGINEER VITAMIN D 25 HYDROXY Routine 08/24/2024 7:47 AM CUSTOMER ENGINEER BASIC METABOLIC PANEL Routine 08/24/2024 7:47 AM CUSTOMER ENGINEER MAGNESIUM Routine 08/24/2024 7:47 AM CUSTOMER ENGINEER POCT GLUCOSE DEVICE Routine 08/24/2024 3 :49 AM CUSTOMER ENGINEER POCT GLUCOSE DEVICE Routine 08/23/2024 1 1:32 PM CUSTOMER ENGINEER POCT GLUCOSE DEVICE Routine 08/23/2024 8 :50 PM CUSTOMER ENGINEER POCT GLUCOSE DEVICE Routine 08/23/2024 8 :12 PM CUSTOMER ENGINEER POCT GLUCOSE DEVICE Routine 08/23/2024 4 :34 PM CUSTOMER ENGINEER TRANSTHORACIC ECHO (TTE) COMPLETE W DOPPLER/CF W CONTRAST Routine 08/23/2024 4:13 PM CUSTOMER ENGINEER POCT GLUCOSE DEVICE Routine 08/23/2024 1 1:58 AM CUSTOMER ENGINEER POCT GLUCOSE DEVICE Routine 08/23/2024 7 :57 AM CUSTOMER ENGINEER EGFR Routine 08/23/2024 7:51 AM CUSTOMER ENGINEER DIFFERENTIAL AUTO Routine 08/23/2024 7:5 1 AM CUSTOMER ENGINEER CBC WITH AUTO DIFFERENTIAL Routine 08/23/2024 7:51 AM CUSTOMER ENGINEER MAGNESIUM Routine 08/23/2024 7:51 AM CUSTOMER ENGINEER COMPREHENSIVE METABOLIC PANEL Routine 08/23/2024 7:51 AM CUSTOMER ENGINEER POCT GLUCOSE DEVICE Routine 08/23/2024 4 :11 AM CUSTOMER ENGINEER TROPONIN T HIGH-SENSITIVITY 6-HOUR Timed 08/23/2024 4:11 AM CUSTOMER ENGINEER ECG 12-LEAD STAT 08/23/2024 3:[address] CHEST PE W CONTRAST ED 08/23/2024 3:26 AM CUSTOMER ENGINEER DRUGS OF ABUSE SCREEN, URINE WITHOUT CONFIRMATION STAT 08/23/2024 3:08 AM CUSTOMER ENGINEER URINALYSIS AND REFLEX TO MICROSCOPIC AND CULTURE STAT 08/23/2024 3:08 AM CUSTOMER ENGINEER ERYTHROCYTE SEDIMENTATION RATE STAT 08/23/2024 2:52 AM CUSTOMER ENGINEER POCT GLUCOSE DEVICE Routine 08/23/2024 2:47 AM CUSTOMER ENGINEER XR CHEST PA LATERAL 2 VIEWS ED 08/22/2024 9:55 PM CUSTOMER ENGINEER TROPONIN T HIGH-SENSITIVITY SERIES (BASELINE, 2HR, 4HR, 6HR) STAT 08/22/2024 9:43 PM CUSTOMER ENGINEER CRP (ACUTE PHASE) STAT 08/22/2024 9:4 3 PM CUSTOMER ENGINEER CREATINE KINASE (CK), TOTAL STAT 08/22/2024 9:43 PM CUSTOMER ENGINEER HEMOGLOBIN A1C STAT 08/22/2024 9:43 PM CUSTOMER ENGINEER EGFR STAT 08/22/2024 9:43 PM CUSTOMER ENGINEER DIFFERENTIAL AUTO STAT 08/22/2024 9:4 3 PM CUSTOMER ENGINEER PRO B-TYPE NATRIURETIC PEPTIDE STAT 08/22/2024 9:43 PM CUSTOMER ENGINEER COMPREHENSIVE METABOLIC PANEL STAT 08/22/2024 9:43 PM CUSTOMER ENGINEER CBC WITH AUTO DIFFERENTIAL STAT 08/22/2024 9:43 PM CUSTOMER ENGINEER ECG 12-LEAD STAT 08/22/2024 9:36 PM CUSTOMER ENGINEER RESPIRATORY PATHOGEN PANEL Add-On 08/22/2024 9:36 PM CUSTOMER ENGINEER INFLUENZA A/B, RSV, AND COVID-19 PCR STAT 08/22/2024 9:36 PM CUSTOMER ENGINEER from Last 3 Months Results * Cardiology Document Scan (10/19/2024) Anatomical Region Laterality Modality Other us Dom Lomeli MD CV CARDIAC SERVICES PROCE DURES Final Result * Cardiology Document Scan (10/18/2024 12:13 PM CUSTOMER ENGINEER) Anatomical Region Laterality Modality Other us Shobha Prasad NP CV CARDIAC SERVICES PROCEDUR ES Final Result * Cardiology Document Scan (10/17/2024 5:00 PM CUSTOMER ENGINEER) Anatomical Region Laterality Modality Other Dom Lomeli MD CV CARDIAC SERVICES PROCE DURES Final Result * POCT glucose (08/26/2024 11:34 AM CUSTOMER ENGINEER) Glucose, POC 188 70 - 199 mg/dL Glucose comment 1 Use This Result [facility] Blood 08/26/2024 11:3 4 AM CUSTOMER ENGINEER 08/26/2024 11:34 AM CUSTOMER ENGINEER Amandeep Smallwood MD LAB POCT ORDERABLES - DEVIC E Final Result Performing Organization Address [facility] Co de Phone Number [address] [place] [address] * (ABNORMAL) POCT glucose (08/26/2024 7:32 AM CUSTOMER ENGINEER) Glucose, POC 334(H) 70 - 199 mg/dL Glucose comment 1 Use This Result [facility] Blood 08/26/2024 7:32 AM CUSTOMER ENGINEER 08/26/2024 7:32 AM CUSTOMER ENGINEER Amandeep Smallwood MD LAB POCT ORDERABLES - DEVIC E Final Result Performing Organization Address [facility] Co de Phone Number [address] [place] [address] * (ABNORMAL) eGFR (08/26/2024 6:57 AM CUSTOMER ENGINEER) eGFR 51(L) >=60 mL/min/1. 73 m2 Comment: [...] last reviewed 2021. Blood 08/26/2024 6:57 AM CUSTOMER ENGINEER 08/26/2024 7:06 AM CUSTOMER ENGINEER us Amandeep Smallwood MD LAB BLOOD ORDERABLES Final Result [facility] [address] [facility] Department [place] [address] * (ABNORMAL) Basic metabolic panel (08/26/2024 6:57 AM CUSTOMER ENGINEER) Sodium 133(L) 135 - 145 mmol/L Potassium, pl 4.4 3.3 - 4.9 mmol/L [facility] Chloride 95(L) 97 - 110 mmol/L [facility] CO2 27 22 - 32 mmol/L [facility] Anion gap 11 2 - 15 mmol/L [facility] BUN 26(H) 6 - 25 mg/dL [facility] Creatinine 1.73(H) 0.80 - 1.30 mg/dL [facility] Glucose 366(H) 70 - 199 mg/dL [facility] Comment: Delta - Results Reviewed Interpretive Data [...] 2022. Calcium 9.3 8.5 - 10.3 mg/dL [facility] Blood 08/26/2024 6:57 AM CUSTOMER ENGINEER 08/26/2024 7:06 AM CUSTOMER ENGINEER us Amandeep Smallwood MD LAB BLOOD ORDERABLES Final Result Performing Organization Address [facility] Co de Phone Number [address] [place] [address] * POCT glucose (08/26/2024 4:22 AM CUSTOMER ENGINEER) [facility] Signature Glucose, POC 98 70 - 199 mg/dL Blood 08/26/2024 4:22 AM CUSTOMER ENGINEER 08/26/2024 4:22 AM CUSTOMER ENGINEER Amandeep Smallwood MD LAB POCT ORDERABLES - DEVIC E Final Result Performing Organization Address [facility] Co de Phone Number [address] [place] [address] * (ABNORMAL) POCT glucose (08/25/2024 7:49 PM CUSTOMER ENGINEER) Glucose, POC 205(H) 70 - 199 mg/dL Blood 08/25/2024 7:49 PM CUSTOMER ENGINEER 08/25/2024 7:49 PM CUSTOMER ENGINEER Result [facility] Amandeep Smallwood MD LAB POCT ORDERABLES - DEVIC E Final Result Performing Organization Address [facility] Co de Phone Number [address] [address] * (ABNORMAL) POCT glucose (08/25/2024 4:40 PM CUSTOMER ENGINEER) Glucose, POC 357(H) 70 - 199 mg/dL Glucose comment 1 Use This Result [facility] Blood 08/25/2024 4:40 PM CUSTOMER ENGINEER 08/25/2024 4:40 PM CUSTOMER ENGINEER Result [facility] Amandeep Smallwood MD LAB POCT ORDERABLES - DEVIC E Final Result Performing Organization Address [facility] Co de Phone Number [address] [address] * (ABNORMAL) POCT glucose (08/25/2024 2:57 PM CUSTOMER ENGINEER) Pathologist [facility] Glucose, POC 251(H) 70 - 199 mg/dL Glucose comment 1 Use This Result [facility] Blood 08/25/2024 2:57 PM CUSTOMER ENGINEER 08/25/2024 2:57 PM CUSTOMER ENGINEER Result [facility] Amandeep Smallwood MD LAB POCT ORDERABLES - DEVIC E Final Result Performing Organization Address [facility] Co de Phone Number [address] [address] * NM MPI SPECT (Rest and/or Stress) Multiple Studies (08/25/2024 2:53 PM CUSTOMER ENGINEER) Anatomical Region Laterality Modality Body N/A Nuclear Medicine 08/25/2024 3:44 PM CUSTOMER ENGINEER Narrative 08/25/2024 3:48 PM CUSTOMER ENGINEER EXAM DESCRIPTION: ?? NM MPI SPECT (REST [...] D: ??08/25/2024 3:48 PM T: Report ID: [id number] Reading Location: ??[id number] Procedure Note Ayde Sparks MD - 08/25/2024 [...] Ayde Mcconnell M.D. FT T: Report ID: [id number] Reading Location: [id number] Marta Khan NP IMG NM PROCEDURES Final Res ult * Stress Test for Myocardial Perfusion (08/25/2024 2:53 PM CUSTOMER ENGINEER) Anatomical Region Laterality Modality Nuclear Medicine Narrative 08/25/2024 2:20 PM CUSTOMER ENGINEER Patient Id: Michael Miller is a 38 y.o. male. MR#: [id number] Study date:08/25/2024 Indications: Patient with new onset [...] reviewed the stress stress. Mike Novak MD, [facility] Cardiology Group This report was transcribed using the 24/7 Card voice recognition system without human distance education coordinator. In an effort to expedite patient care, this report has not been adjusted for typographical, grammatical, and syntax by a trained medical fee clerk. ?? Despite proof reading there may be errors. ??Please contact me if you have any questions. us Marta Khan NP CV STRESS PROCEDURES Final Result * POCT glucose (08/25/2024 7:38 AM CUSTOMER ENGINEER) Glucose, POC 171 70 - 199 mg/dL Glucose comment 1 Use This Result [facility] Blood 08/25/2024 7:38 AM CUSTOMER ENGINEER 08/25/2024 7:38 AM CUSTOMER ENGINEER us Amandeep Smallwood MD LAB POCT ORDERABLES - DEVIC E Final Result [facility] [address] [facility] Department [place] [address] * eGFR (08/25/2024 7:05 AM CUSTOMER ENGINEER) eGFR 63 >=60 mL/min/1. 73 m2 Comment: [...] last reviewed 2021. Blood 08/25/2024 7:05 AM CUSTOMER ENGINEER 08/25/2024 7:30 AM CUSTOMER ENGINEER us Amandeep Smallwood MD LAB BLOOD ORDERABLES Final Result Performing Organization Address [facility] Co de Phone Number [address] [place] [address] * Magnesium (08/25/2024 7:05 AM CUSTOMER ENGINEER) Magnesium 2.1 1.4 - 2.5 mg/dL Blood 08/25/2024 7:05 AM CUSTOMER ENGINEER 08/25/2024 7:30 AM CUSTOMER ENGINEER us Geroge Bass MD LAB BLOOD ORDERABLES Fi nal Result Performing Organization Address [facility] Co de Phone Number [address] [address] * (ABNORMAL) Lipid panel (08/25/2024 7:05 AM CUSTOMER ENGINEER) Cholesterol 257(H) 30 - 199 mg/dL Comment: [...] revised on 2024. Non-HDL Cholesterol 207 mg/dL WIN Comment: Interpretive Data Ages < [...] last revised on 2018. Chol/HDL ratio 5 [facility] Blood 08/25/2024 7:05 AM CUSTOMER ENGINEER 08/25/2024 7:30 AM CUSTOMER ENGINEER Amandeep Smallwood MD LAB BLOOD ORDERABLES Final Result Performing Organization Address [facility] Co de Phone Number [facility] [address] [place] [phone] * (ABNORMAL) Basic metabolic panel (08/25/2024 7:05 AM CUSTOMER ENGINEER) Pathologist [facility] Sodium 133(L) 135 - 145 mmol/L Potassium, pl 3.9 3.3 - 4.9 mmol/L [facility] Chloride 99 97 - 110 mmol/L [facility] CO2 23 22 - 32 mmol/L [facility] Anion gap 11 2 - 15 mmol/L [facility] BUN 24 6 - 25 mg/dL [facility] Creatinine 1.44(H) 0.80 - 1.30 mg/dL [facility] Glucose 200(H) 70 - 199 mg/dL [facility] Comment: Delta - Results Reviewed Interpretive Data [...] 2022. Calcium 9.3 8.5 - 10.3 mg/dL [facility] Blood 08/25/2024 7:05 AM CUSTOMER ENGINEER 08/25/2024 7:30 AM CUSTOMER ENGINEER Amandeep Smallwood MD LAB BLOOD ORDERABLES Final Result Performing Organization Address [facility] Co de Phone Number WIN [address] [place] [address] * POCT glucose (08/24/2024 7:46 PM CUSTOMER ENGINEER) Pathologist [facility] Glucose, POC 176 70 - 199 mg/dL Glucose comment 1 Use This Result [facility] Blood 08/24/2024 7:46 PM CUSTOMER ENGINEER 08/24/2024 7:46 PM CUSTOMER ENGINEER Amandeep Smallwood MD LAB POCT ORDERABLES - DEVIC E Final Result Performing Organization Address [facility] Co de Phone Number WIN [address] [place] [address] * POCT glucose (08/24/2024 4:35 PM CUSTOMER ENGINEER) Glucose, POC 117 70 - 199 mg/dL Glucose comment 1 Use This Result [facility] Blood 08/24/2024 4:35 PM CUSTOMER ENGINEER 08/24/2024 4:35 PM CUSTOMER ENGINEER Result [facility] Amandeep Smallwood MD LAB POCT ORDERABLES - DEVIC E Final Result Performing Organization Address [facility] de Phone Number [address] [place] [address] * (ABNORMAL) POCT glucose (08/24/2024 11:52 AM CUSTOMER ENGINEER) Glucose, POC 231(H) 70 - 199 mg/dL Glucose comment 1 Use This Result [facility] Blood 08/24/2024 11:5 2 AM CUSTOMER ENGINEER 08/24/2024 11:52 AM CUSTOMER ENGINEER Amandeep Smallwood MD LAB POCT ORDERABLES - DEVIC E Final Result Performing Organization Address [facility] de Phone Number [facility]FFANY[address] [place] [address] * (ABNORMAL) POCT glucose (08/24/2024 7:50 AM CUSTOMER ENGINEER) Glucose, POC 293(H) 70 - 199 mg/dL Glucose comment 1 Use This Result [facility] Blood 08/24/2024 7:50 AM CUSTOMER ENGINEER 08/24/2024 7:50 AM CUSTOMER ENGINEER us Amandeep Smallwood MD LAB POCT ORDERABLES - DEVIC E Final Result Performing Organization Address [facility]/ZIP Co de Phone Number WIN [address] [place] [address] * eGFR (08/24/2024 7:47 AM CUSTOMER ENGINEER) eGFR 62 >=60 mL/min/1. 73 m2 Comment: [...] last reviewed 2021. Blood 08/24/2024 7:47 AM CUSTOMER ENGINEER 08/24/2024 8:12 AM CUSTOMER ENGINEER us Amandeep Smallwood MD LAB BLOOD ORDERABLES Final Result Performing Organization Address [facility]/ZIP Co de Phone Number WIN [address] [place] [address] * (ABNORMAL) Vitamin D 25 hydroxy (08/24/2024 7:47 AM CUSTOMER ENGINEER) [facility] Vitamin D 25-OH 8.0(L) 30.0 - 80.0 ng/mL Blood 08/24/2024 7:47 AM CUSTOMER ENGINEER 08/24/2024 8:12 AM CUSTOMER ENGINEER Amandeep Smallwood MD LAB BLOOD ORDERABLES Final Result Performing Organization Address [facility]/ZIP Co de Phone Number [address] [place] [address] * Magnesium (08/24/2024 7:47 AM CUSTOMER ENGINEER) [facility] Magnesium 2.2 1.4 - 2.5 mg/dL Blood 08/24/2024 7:47 AM CUSTOMER ENGINEER 08/24/2024 8:12 AM CUSTOMER ENGINEER George Bass MD LAB BLOOD ORDERABLES Fi nal Result Performing Organization Address [facility] Co de Phone Number [address] [place] [address] * Vitamin B12 (08/24/2024 7:47 AM CUSTOMER ENGINEER) [facility] Vitamin B12 398 230 - 1,250 pg/mL Blood 08/24/2024 7:47 AM CUSTOMER ENGINEER 08/24/2024 8:12 AM CUSTOMER ENGINEER Amandeep Smallwood MD LAB BLOOD ORDERABLES Final Result Performing Organization Address [facility] Co de Phone Number [address] [place] [address] * (ABNORMAL) Basic metabolic panel (08/24/2024 7:47 AM CUSTOMER ENGINEER) [facility] Sodium 133(L) 135 - 145 mmol/L Potassium, pl 3.7 3.3 - 4.9 mmol/L [facility] Chloride 97 97 - 110 mmol/L [facility] CO2 25 22 - 32 mmol/L [facility] Anion gap 11 2 - 15 mmol/L [facility] BUN 23 6 - 25 mg/dL [facility] Creatinine 1.46(H) 0.80 - 1.30 mg/dL [facility] Glucose 321(H) 70 - 199 mg/dL [facility] Comment: Interpretive Data Fasting glucose >/= 126 [...] 2022. Calcium 9.3 8.5 - 10.3 mg/dL [facility] Blood 08/24/2024 7:47 AM CUSTOMER ENGINEER 08/24/2024 8:12 AM CUSTOMER ENGINEER us Amandeep Smallwood MD LAB BLOOD ORDERABLES Final Result Performing Organization Address [facility] Co de Phone Number [address] [place] [address] * (ABNORMAL) POCT glucose (08/24/2024 3:49 AM CUSTOMER ENGINEER) Glucose, POC 270(H) 70 - 199 mg/dL Glucose comment 1 Use This Result [facility] Blood 08/24/2024 3:49 AM CUSTOMER ENGINEER 08/24/2024 3:49 AM CUSTOMER ENGINEER Amandeep Smallwood MD LAB POCT ORDERABLES - DEVIC E Final Result Performing Organization Address [facility]/ZIP Co de Phone Number [address] [place] [address] * (ABNORMAL) POCT glucose (08/23/2024 11:32 PM CUSTOMER ENGINEER) Glucose, POC 262(H) 70 - 199 mg/dL Glucose comment 1 Use This Result [facility] Blood 08/23/2024 11:3 2 PM CUSTOMER ENGINEER 08/23/2024 11:32 PM CUSTOMER ENGINEER Amandeep Smallwood MD LAB POCT ORDERABLES - DEVIC E Final Result Performing Organization Address [facility] Co de Phone Number [address] [address] * (ABNORMAL) POCT glucose (08/23/2024 8:50 PM CUSTOMER ENGINEER) Glucose, POC 224(H) 70 - 199 mg/dL Glucose comment 1 Use This Result [facility] Blood 08/23/2024 8:50 PM CUSTOMER ENGINEER 08/23/2024 8:50 PM CUSTOMER ENGINEER Amandeep Smallwood MD LAB POCT ORDERABLES - DEVIC E Final Result Performing Organization Address [facility] Co de Phone Number [address] [address] * (ABNORMAL) POCT glucose (08/23/2024 8:12 PM CUSTOMER ENGINEER) Glucose, POC 263(H) 70 - 199 mg/dL Blood 08/23/2024 8:1 2 PM CUSTOMER ENGINEER 08/23/2024 8:12 PM CUSTOMER ENGINEER Amandeep Smallwood MD LAB POCT ORDERABLES - DEVIC E Final Result Performing Organization Address [facility] Co de Phone Number [address] [address] * (ABNORMAL) POCT glucose (08/23/2024 4:34 PM CUSTOMER ENGINEER) Glucose, POC 245(H) 70 - 199 mg/dL Glucose comment 1 Use This Result [facility] Blood 08/23/2024 4:34 PM CUSTOMER ENGINEER 08/23/2024 4:34 PM CUSTOMER ENGINEER us Amandeep Smallwood MD LAB POCT ORDERABLES - DEVIC E Final Result [facility] [address] [facility] Department [place] [address] * TRANSTHORACIC ECHO (TTE) COMPLETE W DOPPLER/CF W CONTRAST (08/23/2024 4:13 PM CUSTOMER ENGINEER) Anatomical Region Laterality Modality Ultrasound 08/23/2024 3:24 PM CUSTOMER ENGINEER Narrative 08/24/2024 2:46 AM CUSTOMER ENGINEER ? Adult Echocardiogram + ----- + :Name: TODDCLAIREMICHAEL ?Study Date: 08/23/2024 ?Status: MHB ? : : ?Patient Location: [facility]^[id number]^Height: 69 in ? : : ?Weight: 199 lbBP: 151/110 mmHg: :: 1985 ? Gender: Male ?BSA: 2.1 m2 ? : :Reason For Study: New onset CHF ? : :Ordering Physician: ? : :PETTERS, EKANGA ? : : ?: :Performed By: Tereza ?: :KARRIE Flores ?: + ----- + Procedure A two-dimensional transthoracic echocardiogram with color flow and Doppler was performed. A contrast injection of Definity was performed to improve assessment of LV function. Definity lot # is ' [id number] '. Left Ventricle The left ventricle is [...] Date: 08/23/2024Status: MHB : : Patient Location: [address]^[id number]^Height: 69 in : : : 199 lbBP: [...] LV function. Definity lot # is ' [id number] '. Left Ventricle The left ventricle is [...] by: Von Mon MD 08/24/2024 02:46 AM George Bass MD CV ECHO PROCEDURES Tawanna l Result * (ABNORMAL) POCT glucose (08/23/2024 11:58 AM CUSTOMER ENGINEER) Glucose, POC 226(H) 70 - 199 mg/dL Glucose comment 1 Use This Result [facility] Blood 08/23/2024 11:5 8 AM CUSTOMER ENGINEER 08/23/2024 11:58 AM CUSTOMER ENGINEER Amandeep Smallwood MD LAB POCT ORDERABLES - DEVIC E Final Result Performing Organization Address [facility] Co de Phone Number [address] [place] [address] * (ABNORMAL) POCT glucose (08/23/2024 7:57 AM CUSTOMER ENGINEER) Glucose, POC 307(H) 70 - 199 mg/dL Glucose comment 1 Use This Result [facility] Blood 08/23/2024 7:57 AM CUSTOMER ENGINEER 08/23/2024 7:57 AM CUSTOMER ENGINEER Amandeep Smallwood MD LAB POCT ORDERABLES - DEVIC E Final Result [address] [place] [address] * eGFR (08/23/2024 7:51 AM CUSTOMER ENGINEER) Pathologist [facility] eGFR 72 >=60 mL/min/1. 73 m2 Comment: [...] last reviewed 2021. Blood 08/23/2024 7:51 AM CUSTOMER ENGINEER 08/23/2024 8:07 AM CUSTOMER ENGINEER us George Bass MD LAB BLOOD ORDERABLES Fi nal Result WIN [address] [place] [address] * Differential, auto (08/23/2024 7:51 AM CUSTOMER ENGINEER) [facility] Neutrophil abs 2.3 1.5 - 6.5 K/cumm Imm gran abs 0.0 0.0 - 0.1 K/cumm [facility] Lymphocyte abs 1.7 0.8 - 3.3 K/cumm [facility] Monocyte abs 0.7 0.2 - 0.8 K/cumm [facility] Eosinophil abs 0.0 0.0 - 0.5 K/cumm [facility] Basophil abs 0.0 0.0 - 0.1 K/cumm [facility] Neutrophil pct 48.8 % [facility] Comment: Interpretive Data Percent cell count reference ranges are not reported, since discordance with absolute values may lead to misinterpretation of CBC data. Current Interpretive Data was last revised on 2018. Imm gran pct 0.2 % [facility] Comment: Interpretive Data Percent cell count reference ranges are not reported, since discordance with absolute values may lead to misinterpretation of CBC data. Current Interpretive Data was last revised on 2018. Lymphocyte pct 36.3 % [facility] Comment: Interpretive Data Percent cell count reference ranges are not reported, since discordance with absolute values may lead to misinterpretation of CBC data. Current Interpretive Data was last revised on 2018. Monocyte pct 13.5 % [facility] Comment: Interpretive Data Percent cell count reference ranges are not reported, since discordance with absolute values may lead to misinterpretation of CBC data. Current Interpretive Data was last revised on 2018. Eosinophil pct 0.6 % [facility] Comment: Interpretive Data Percent cell count reference ranges are not reported, since discordance with absolute values may lead to misinterpretation of CBC data. Current Interpretive Data was last revised on 2018. Basophil pct 0.6 % [facility] Comment: Interpretive Data Percent cell count reference ranges are not reported, since discordance with absolute values may lead to misinterpretation of CBC data. Current Interpretive Data was last revised on 2018. Blood 08/23/2024 7:51 AM CUSTOMER ENGINEER 08/23/2024 8:07 AM CUSTOMER ENGINEER us George Bass MD LAB BLOOD ORDERABLES Fi nal Result WIN [address] [facility] Department [place] [address] * (ABNORMAL) CBC with auto differential (08/23/2024 7:51 AM CUSTOMER ENGINEER) [facility] WBC 4.8 3.8 - 9.9 K/cumm Hgb 15.1 13.0 - 17.5 g/dL [facility] Hct 44.6 38.9 - 50.3 % [facility] Plt 207 150 - 400 K/cumm [facility] MPV 11.0 9.1 - 12.3 fL [facility] RBC 5.54 4.30 - 5.80 M/cumm [facility] MCV 80.5(L) 81.3 - 96.4 fL [facility] MCH 27.3 27.1 - 33.3 pg [facility] MCHC 33.9 32.3 - 35.7 g/dL [facility] RDW CV 13.5 11.1 - 14.9 % [facility] RDW SD 39.2 35.7 - 48.1 fL [facility] NRBC abs 0.00 0.00 - 0.01 K/cumm [facility] Blood 08/23/2024 7:51 AM CUSTOMER ENGINEER 08/23/2024 8:07 AM CUSTOMER ENGINEER George Bass MD LAB BLOOD ORDERABLES Fi nal Result Performing Organization Address [facility] Co de Phone Number [address] [place] [address] * Magnesium (08/23/2024 7:51 AM CUSTOMER ENGINEER) [facility] Magnesium 2.1 1.4 - 2.5 mg/dL Blood 08/23/2024 7:51 AM CUSTOMER ENGINEER 08/23/2024 8:07 AM CUSTOMER ENGINEER George Bass MD LAB BLOOD ORDERABLES Fi nal Result Performing Organization Address [facility] Co de Phone Number [address] [place] [address] * (ABNORMAL) Comprehensive metabolic panel (08/23/2024 7:51 AM CUSTOMER ENGINEER) Sodium 136 135 - 145 mmol/L Potassium, pl 4.0 3.3 - 4.9 mmol/L [facility] Chloride 100 97 - 110 mmol/L [facility] CO2 25 22 - 32 mmol/L [facility] Anion gap 11 2 - 15 mmol/L [facility] BUN 18 6 - 25 mg/dL [facility] Creatinine 1.29 0.80 - 1.30 mg/dL [facility] Glucose 337(H) 70 - 199 mg/dL [facility] Comment: Interpretive Data Fasting glucose >/= 126 [...] 2022. Calcium 9.6 8.5 - 10.3 mg/dL [facility] Bilirubin, total 0.3 0.1 - 1.2 mg/dL [facility] Protein, pl 7.6 6.5 - 8.5 g/dL [facility] Albumin 3.9 3.5 - 5.0 g/dL [facility] Alk phos 55 40 - 130 Units/L [facility] ALT 14 7 - 55 Units/L [facility] AST 17 10 - 50 Units/L [facility] Blood 08/23/2024 7:51 AM CUSTOMER ENGINEER 08/23/2024 8:07 AM CUSTOMER ENGINEER us George Bass MD LAB BLOOD ORDERABLES Fi nal Result [facility] [address] [facility] Department [place] [address] * (ABNORMAL) Troponin T high-sensitivity 6-hour (08/23/2024 4:11 AM CUSTOMER ENGINEER) Trop T hs 75(H) <=22 ng/L Comment: Interpretive Data For further hscTnT resources including the diagnostic algorithm and an aid in interpretation, copy and paste this link: https://nrl.testcatalog.org/show/hsTrop Current Interpretive Data last revised 2020. Trop T hs delta -2 ng/L WIN Trop T hs interp Insignificant WIN Blood 08/23/2024 4:11 AM CUSTOMER ENGINEER 08/23/2024 4:16 AM CUSTOMER ENGINEER us George Bass MD LAB BLOOD ORDERABLES Fi nal Result Performing Organization Address [facility] Co de Phone Number WIN [address] [address] * (ABNORMAL) POCT glucose (08/23/2024 4:11 AM CUSTOMER ENGINEER) Pathologist [facility] Glucose, POC 398(H) 70 - 199 mg/dL Glucose comment 1 Use This Result [facility] Glucose comment 2 RN/MD Notified WIN Blood 08/23/2024 4:11 AM CUSTOMER ENGINEER 08/23/2024 4:11 AM CUSTOMER ENGINEER George Bass MD LAB POCT ORDERABLES - D EVICE Final Result Performing Organization Address [facility] de Phone Number [address] [address] * ECG 12 lead (08/23/2024 3:39 AM CUSTOMER ENGINEER) Ventricular Rate EKG/Min 102 BPM [facility] Atrial Rate 102 BPM [facility] UT-Interval (MSEC) 162 ms [facility] QRS-Interval (MSEC) 86 ms [facility] QT-Interval (MSEC) 370 ms [facility] QTc 482 ms [facility] P [place] 49 degrees [facility] R [place] -11 degrees [facility] T [place] 66 degrees [facility] Diagnosis Sinus tachycardia Left atrial enlargement Septal infarct (cited on or before 22-AUG-2024) Right atrial abnormality T-wave changes When compared with ECG of 22-AUG-2024 21:36, Premature ventricular complexes are no longer Present Confirmed by SULTAN THOMAS M.D. ([id number]) on 08/23/2024 4:48:28 PM [facility] [employer] 08/23/2024 3:39 AM CUSTOMER ENGINEER 08/23/2024 4:48 PM CUSTOMER ENGINEER us Kevinkristen Ike Bass MD ECG ORDERABLES Final R esult [facility] [employer] [facility] * CT Chest PE (CTA) W Contrast (08/23/2024 3:26 AM CUSTOMER ENGINEER) Anatomical Region Laterality Modality Body N/A Computed Tomogra phy 08/23/2024 3:29 AM CUSTOMER ENGINEER Narrative 08/23/2024 3:42 AM CUSTOMER ENGINEER EXAM DESCRIPTION: ?? CT CHEST PE (CTA) [...] 3:42 AM - Electronically signed by ??Radha Reynoso M.D. SN D: ??08/23/2024 3:42 AM T: Report ID: [id number] Reading Location: ??[id number] Procedure Note Radha Reynoso MD - 08/23/2024 [...] Radha Reynoso M.D. SN T: Report ID: [id number] Reading Location: [place] [address] [address] IM[address] PROCEDURES Final Result * (ABNORMAL) Urinalysis reflex to microscopic and culture Urine (08/23/2024 3:08 AM CUSTOMER ENGINEER) Color, ur Straw Yellow Clarity, ur Clear Clear [facility] Specific gravity, ur 1.023 1.003 - 1.030 WIN pH, urine 5.5 [facility] Comment: Interpretive Data ? Urine pH is affected by diet, medications, systemic acid-base disturbances, and renal tubular function. ??pH may affect urinary stone formation. ??For example, urine pH below 6.0 may help reduce the tendency for calcium phosphate stones and pH greater than 6.0 may reduce the tendency for uric acid stone formation. Source: [employer] [place] Current Interpretive Data was last revised on 2017 Protein, ur ql Negative Negative [facility] Glucose, ur ql 4+(A) Negative [facility] Ketones, ur Trace Negative [facility] Bilirubin, ur Negative Negative [facility] Blood, ur Negative Negative [facility] Urobilinogen, ur <2.0 <2.0 mg/dL [facility] Nitrite, ur Negative Negative [facility] Leukocyte esterase, ur Negative Negative [facility] UA reflex comment Reflex conditions for microscopic UA and culture not met. [facility] Urine 08/23/2024 3:08 AM CUSTOMER ENGINEER 08/23/2024 3:11 AM CUSTOMER ENGINEER us Nahomi BALL LAB MICROBIOLOGY - GENERAL ORDER MAYRA Final Result WIN [address] [facility] Department [place] [address] * Drugs of Abuse Screen, Urine without Confirmation (08/23/2024 3:08 AM CUSTOMER ENGINEER) [facility] Amphetamine, ur Not Detected CutOff 500ng/mL Comment: Interpretive Data - Amphetamines: ??Samples containing greater than 500 ng/mL d-methamphetamine ??or other cross-reacting amphetamine compounds are reported as positive. ??Amphetamine immunoassays are subject to significant false positive rates due to cross-reactivity of non-amphetamine drugs. Confirmatory testing required for definitive results. Current Interpretive Data was last reviewed 2023. Barbiturates, ur Not Detected CutOff 200ng/mL WIN Comment: Interpretive Data - Barbiturates: ??Samples containing greater than 200 ng/mL secobarbital or other cross-reacting barbiturate compounds are reported as positive. ??False positive and false negative results are possible. Confirmatory testing required for definitive results. Current Interpretive Data was last reviewed 2023. Benzodiazepines, ur Not Detected CutOff 100ng/mL WIN Comment: Interpretive Data - Benzodiazepines: ??Samples containing greater than 100 ng/mL nordiazepam or other cross-reacting compounds are reported as positive. False positive and false negative results are possible. Confirmatory testing required for definitive results. Current Interpretive Data was last reviewed 2023. Cannabinoids, ur Not Detected CutOff 50 ng/mL WIN Comment: Interpretive Data - Cannabinoids: ??Samples containing greater than 50 ng/mL delta-9 THC -COOH or other cross-reacting compounds are reported as positive. ??False positive and false negative results are possible. ??Confirmatory testing required for definitive results. Current Interpretive Data was last reviewed 2023. Cocaine, ur Not Detected CutOff 150ng/mL [facility] Comment: Interpretive Data - Cocaine: ??Samples containing greater than 150 ng/mL benzoylecgonine or other cross-reacting compounds are reported as positive. False positive and false negative results are possible. Confirmatory testing required for definitive results. Current Interpretive Data was last reviewed 2023. Fentanyl, Ur Not Detected CutOff 5 ng/mL WIN Comment: Interpretive Data - Fentanyl: ?? Samples containing greater than 5 ng/mL norfentanyl, fentanyl, or other cross-reacting fentanyl compounds are reported as positive. False positive and false negative results are possible. Confirmatory testing required for definitive results. Current Interpretive Data was last reviewed 2023. Methadone, ur Not Detected CutOff 300ng/mL [facility] Comment: Interpretive Data - Methadone: ??Samples containing greater than 300 ng/mL d,l-methadone or other cross-reacting compounds are reported as positive. ??False positive and false negative results are possible. Confirmatory testing required for definitive results. Current Interpretive Data was last reviewed 2023. Opiates, ur Not Detected CutOff 300ng/mL [facility] Comment: Interpretive Data - Opiates: ??Samples containing greater than 300 ng/mL morphine or other cross-reacting compounds are reported as positive. ??False positive and false negative results are possible. Confirmatory testing required for definitive results. Current Interpretive Data was last reviewed 2023. Oxycodone, ur Not Detected CutOff 100ng/mL [facility] Comment: Interpretive Data - Oxycodone: ??Samples containing greater than 100 ng/mL oxycodone or other cross-reacting compounds are reported as ??positive. ??False positive and false negative results are possible. Confirmatory testing required for definitive results. Current Interpretive Data was last reviewed 2023. Phencyclidine, ur Not Detected CutOff 25 ng/mL [facility] Comment: Interpretive Data - Phencyclidine: ??Samples containing [...] revised on 2018. Urine 08/23/2024 3:08 AM CUSTOMER ENGINEER 08/23/2024 3:11 AM CUSTOMER ENGINEER Narrative WIN - 08/23/2024 3:34 AM CUSTOMER ENGINEER Drug of Abuse screening is performed by immunoassay for medical purposes only. ??This is not to be used for Pain Management purposes. Nahomi BALL LAB URINE ORDERABLES Final Resul t Performing Organization Address [facility] Co de Phone Number WIN [address] [place] [address] * (ABNORMAL) Erythrocyte sedimentation rate (08/23/2024 2:52 AM CUSTOMER ENGINEER) Erythrocyte sedimentation rate 28(H) 1 - 15 mm/hr Blood 08/23/2024 2:52 AM CUSTOMER ENGINEER 08/23/2024 2:55 AM CUSTOMER ENGINEER Nahomi BALL LAB BLOOD ORDERABLES Final Resul t Performing Organization Address [facility] de Phone Number [address] [place] [address] * (ABNORMAL) POCT glucose (08/23/2024 2:47 AM CUSTOMER ENGINEER) Glucose, POC 432(H) 70 - 199 mg/dL Glucose comment 1 Use This Result [facility] Glucose comment 2 RN/MD Notified [facility] Blood 08/23/2024 2:47 AM CUSTOMER ENGINEER 08/23/2024 2:47 AM CUSTOMER ENGINEER George Bass MD LAB POCT ORDERABLES - D EVICE Final Result Performing Organization Address [facility] Co de Phone Number [address] [place] [address] * XR Chest Pa Lateral 2 Views (08/22/2024 9:55 PM CUSTOMER ENGINEER) Anatomical Region Laterality Modality Body, Chest N/A Computed Radiogr aphy 08/22/2024 10:1 3 PM CUSTOMER ENGINEER Narrative 08/22/2024 10:24 PM CUSTOMER ENGINEER EXAM DESCRIPTION: XR CHEST PA LATERAL 2 [...] D: ??08/22/2024 10:24 PM T: Report ID: [id number] Reading Location: ??[id number] Procedure Note Chiki Centeno MD - 08/22/2024 [...] 08/22/2024 10:24 PM - Electronically signed by Chiki Centeno M.D. AT T: Report ID: [id number] Reading Location: [id number] us Nahomi BALL IMG XR PROCEDURES Final Result * (ABNORMAL) Troponin T high-sensitivity series (baseline, 2hr, 4hr, 6hr) (08/22/2024 9:43 PM CUSTOMER ENGINEER) Trop T hs 77(H) <=22 ng/L Comment: Interpretive Data For further hscTnT resources including the diagnostic algorithm and an aid in interpretation, copy and paste this link: https://nrl.testcatalog.org/show/hsTrop Current Interpretive Data last revised 2020. Blood 08/22/2024 9:43 PM CUSTOMER ENGINEER 08/22/2024 9:45 PM CUSTOMER ENGINEER us George Bass MD LAB BLOOD ORDERABLES Fi nal Result [facility] [address] [facility] Department [place] [address] * eGFR (08/22/2024 9:43 PM CUSTOMER ENGINEER) eGFR 67 >=60 mL/min/1. 73 m2 Comment: [...] last reviewed 2021. Blood 08/22/2024 9:43 PM CUSTOMER ENGINEER 08/22/2024 9:45 PM CUSTOMER ENGINEER us Nahomi BALL LAB BLOOD ORDERABLES Final Resul t [facility] [address] [facility] Department [place] [address] * Differential, auto (08/22/2024 9:43 PM CUSTOMER ENGINEER) Pathologist [facility] Neutrophil abs 2.9 1.5 - 6.5 K/cumm Imm gran abs 0.0 0.0 - 0.1 K/cumm [facility] Lymphocyte abs 1.8 0.8 - 3.3 K/cumm [facility] Monocyte abs 0.6 0.2 - 0.8 K/cumm [facility] Eosinophil abs 0.0 0.0 - 0.5 K/cumm [facility] Basophil abs 0.0 0.0 - 0.1 K/cumm [facility] Neutrophil pct 54.5 % WIN Comment: Interpretive Data Percent cell count reference ranges are not reported, since discordance with absolute values may lead to misinterpretation of CBC data. Current Interpretive Data was last revised on 2018. Imm gran pct 0.4 % [facility] Comment: Interpretive Data Percent cell count reference ranges are not reported, since discordance with absolute values may lead to misinterpretation of CBC data. Current Interpretive Data was last revised on 2018. Lymphocyte pct 33.4 % [facility] Comment: Interpretive Data Percent cell count reference ranges are not reported, since discordance with absolute values may lead to misinterpretation of CBC data. Current Interpretive Data was last revised on 2018. Monocyte pct 10.7 % [facility] Comment: Interpretive Data Percent cell count reference ranges are not reported, since discordance with absolute values may lead to misinterpretation of CBC data. Current Interpretive Data was last revised on 2018. Eosinophil pct 0.4 % [facility] Comment: Interpretive Data Percent cell count reference ranges are not reported, since discordance with absolute values may lead to misinterpretation of CBC data. Current Interpretive Data was last revised on 2018. Basophil pct 0.6 % [facility] Comment: Interpretive Data Percent cell count reference ranges are not reported, since discordance with absolute values may lead to misinterpretation of CBC data. Current Interpretive Data was last revised on 2018. Blood 08/22/2024 9:43 PM CUSTOMER ENGINEER 08/22/2024 9:45 PM CUSTOMER ENGINEER us Nahomi BALL LAB BLOOD ORDERABLES Final Resul t WIN [address] [facility] Department [place] [address] * (ABNORMAL) Pro B-type natriuretic peptide (08/22/2024 9:43 PM CUSTOMER ENGINEER) NT-proBNP 1,465(H) <=300 pg/mL Comment: Interpretive Comments: [...] as advanced age. - References: 1. Pao JL et.al. Eur Heart J. 2006:27:330-337. 2. Balbina RW, Jamey WAGNER. J. AM Noemi Cardiol: Cardiovasc Imag. 2009;2: 216- 225. Interpretive Data Last Revised Date: 2018. Blood 08/22/2024 9:43 PM CUSTOMER ENGINEER 08/22/2024 9:45 PM CUSTOMER ENGINEER us Nahomi BALL LAB BLOOD ORDERABLES Final Resul t WIN [address] [facility] Department [place] [address] * CBC with auto differential (08/22/2024 9:43 PM CUSTOMER ENGINEER) Pathologist [facility] WBC 5.2 3.8 - 9.9 K/cumm Hgb 14.6 13.0 - 17.5 g/dL WIN Hct 43.5 38.9 - 50.3 % [facility] Plt 196 150 - 400 K/cumm [facility] MPV 10.9 9.1 - 12.3 fL [facility] RBC 5.35 4.30 - 5.80 M/cumm [facility] MCV 81.3 81.3 - 96.4 fL [facility] MCH 27.3 27.1 - 33.3 pg [facility] MCHC 33.6 32.3 - 35.7 g/dL [facility] RDW CV 13.2 11.1 - 14.9 % [facility] RDW SD 38.6 35.7 - 48.1 fL [facility] NRBC abs 0.00 0.00 - 0.01 K/cumm [facility] Blood 08/22/2024 9:43 PM CUSTOMER ENGINEER 08/22/2024 9:45 PM CUSTOMER ENGINEER Nahomi BALL LAB BLOOD ORDERABLES Final Resul t Performing Organization Address [facility] Co de Phone Number [address] [place] [address] * (ABNORMAL) CRP (acute phase) (08/22/2024 9:43 PM CUSTOMER ENGINEER) [facility] CRP 11.1(H) <=10.0 mg/L Blood 08/22/2024 9:43 PM CUSTOMER ENGINEER 08/22/2024 9:45 PM CUSTOMER ENGINEER [employer] [place] LAB BLOOD ORDERABLES Final Resul t Performing Organization Address [facility] de Phone Number [address] [place] [address] * (ABNORMAL) Hemoglobin A1c (08/22/2024 9:43 PM CUSTOMER ENGINEER) [facility] Hgb A1C 11.9(H) 4.0 - 5.6 % Estimated Average Glucose 295 mg/dL [facility] Comment: The ADA recommends reporting an estimated Average Glucose (eAG) with all Hemoglobin A1c results using the equation derived from a study of 507 normal and diabetic adults. ??Minority populations were underrepresented and children were not included. ?? (Diabetes Care 31:2505-8928, 2008). ??The eAG is not equivalent to a fasting glucose. Blood 08/22/2024 9:43 PM CUSTOMER ENGINEER 08/22/2024 9:45 PM CUSTOMER ENGINEER [facility] LAB BLOOD ORDERABLES Final Resul t Performing Organization Address [facility] de Phone Number [address] [place] [address] * Creatine kinase (CK), total (08/22/2024 9:43 PM CUSTOMER ENGINEER) Pathologist [facility] CK 152 40 - 300 Units/L Blood 08/22/2024 9:43 PM CUSTOMER ENGINEER 08/22/2024 9:45 PM CUSTOMER ENGINEER [facility] BLOOD ORDERABLES Final Resul t Performing Organization Address [facility] de Phone Number [address] [address] * (ABNORMAL) Comprehensive metabolic panel (08/22/2024 9:43 PM CUSTOMER ENGINEER) [facility] Sodium 131(L) 135 - 145 mmol/L Potassium, pl 4.1 3.3 - 4.9 mmol/L [facility] Chloride 98 97 - 110 mmol/L [facility] CO2 20(L) 22 - 32 mmol/L [facility] Anion gap 13 2 - 15 mmol/L [facility] BUN 14 6 - 25 mg/dL [facility] Creatinine 1.38(H) 0.80 - 1.30 mg/dL [facility] Glucose 399(H) 70 - 199 mg/dL [facility] Comment: Interpretive Data Fasting glucose >/= 126 [...] 2022. Calcium 8.4(L) 8.5 - 10.3 mg/dL [facility] Bilirubin, total 0.3 0.1 - 1.2 mg/dL [facility] Protein, pl 6.9 6.5 - 8.5 g/dL [facility] Albumin 3.7 3.5 - 5.0 g/dL [facility] Alk phos 49 40 - 130 Units/L [facility] ALT 12 7 - 55 Units/L [facility] AST 18 10 - 50 Units/L [facility] Blood 08/22/2024 9:43 PM CUSTOMER ENGINEER 08/22/2024 9:45 PM CUSTOMER ENGINEER Nahomi BALL LAB BLOOD ORDERABLES Final Resul t Performing Organization Address City/[facility] Co de Phone Number [facility] [address] Department [place] [address] * ECG 12 lead (08/22/2024 9:36 PM CUSTOMER ENGINEER) Pathologist [facility] Ventricular Rate EKG/Min 101 BPM [facility] Atrial Rate 101 BPM [facility] UT-Interval (MSEC) 168 ms [facility] QRS-Interval (MSEC) 90 ms [facility] QT-Interval (MSEC) 344 ms [facility] QTc 446 ms [facility] P [place] 48 degrees [facility] R [place] 77 degrees [facility] T [place] 64 degrees [facility] Diagnosis Sinus tachycardia with occasional Premature ventricular complexes Left atrial enlargement Anterior infarct Old Right atrial abnormality Abnormal ECG No previous ECGs available Confirmed by SULTAN THOMAS M.D. ([id number]) on 08/23/2024 4:39:10 PM [facility] 08/22/2024 9:36 PM CUSTOMER ENGINEER 08/23/2024 4:39 PM CUSTOMER ENGINEER Nahomi BALL ECG ORDERABLES Final Result Performing Organization Address City/[facility] Co de Phone Number [facility] * Influenza A/B, RSV, and COVID-19 PCR Nasopharyngeal (08/22/2024 9:36 PM CUSTOMER ENGINEER) [facility] COVID-19 RNA Negative Negative Influenza A RNA Negative Negative WIN Influenza B RNA Negative Negative WIN RSV RNA Negative Negative WIN Comment: Interpretive data: Testing performed by [facility]. This test is performed using the [employer] Xpert Xpress CoV-2/Flu/RSV plus assay. This is a multiplex, real-time reverse transcriptase PCR assay intended for the qualitative detection of nucleic acid from SARS-CoV-2, influenza A, influenza B, and respiratory syncytial virus. This assay has been cleared by the [place] Food and Drug administration. The performance characteristics have been verified by the [facility]. ??Results must be considered in the clinical context, and a negative result does not rule out infection. Interpretive Data last revised 2023 Nasopharyngeal 08/22/2024 9: 36 PM CUSTOMER ENGINEER 08/22/2024 9:45 PM CUSTOMER ENGINEER Narrative [facility] - 08/22/2024 10:24 PM CUSTOMER ENGINEER Is the Patient experiencing symptoms consistent with COVID?->Unknown us Nahomi BALL LAB MICROBIOLOGY - GENERAL ORDER MAYRA Final Result WIN [address] Department [place] [address] * Respiratory pathogen panel Nasopharyngeal (08/22/2024 9:36 PM CUSTOMER ENGINEER) [facility] Influenza A RNA Not Detected Not Detected Comment:Testing performed by : [facility], [address] [place] [address] Influenza B RNA Not Detected Not Detected WIN Comment:Testing performed by : [facility], [address] [place] [address] RSV RNA Not Detected Not Detected WIN Comment:Testing performed by : [facility], [address] [place] [address] COVID-19 RNA Not Detected Not Detected WIN Comment:Testing performed by : [facility], [address] [place]., [address] Coronavirus 229E RNA Not Detected Not Detected CERNER Comment:Testing performed by : [facility], [address] [place]., [address] Coronavirus HKU1 RNA Not Detected Not Detected CERNER Comment:Testing performed by : [facility], [address] [place]., [address] Coronavirus NL63 RNA Not Detected Not Detected CERNER Comment:Testing performed by : [facility], [address] [facility], [address] Coronavirus OC43 RNA Not Detected Not Detected CERNER Comment:Testing performed by : [facility], [address] [facility], [address] Adenovirus DNA Not Detected Not Detected CERNER Comment:Testing performed by : [facility], [address] [place]., [address] Metapneumovirus RNA Not Detected Not Detected CERNER Comment:Testing performed by : [facility], [address] [place]., [address] Rhinovirus/Enterov irus RNA Not Detected Not Detected CERBOBBY Comment:Testing performed by : [facility], [address] [place]., [address] Parainfluenza 1 RNA Not Detected Not Detected CERNER Comment:Testing performed by : [facility], [address] [place]., [address] Parainfluenza 2 RNA Not Detected Not Detected CERNER Comment:Testing performed by : [facility], [address] [place]., [address] Parainfluenza 3 RNA Not Detected Not Detected CERNER Comment:Testing performed by : [facility], [address] [place]., [address] Parainfluenza 4 RNA Not Detected Not Detected CERNER Comment:Testing performed by : [facility], [address] [place]., [address] B. pertussis DNA Not Detected Not Detected WIN Comment:Testing performed by : [facility], [address] [place]., [address] B. parapertussis DNA Not Detected Not Detected WIN Comment:Testing performed by : [facility], [address] [place]., [address] C. pneumoniae DNA Not Detected Not Detected WIN Comment:Testing performed by : [facility], [address] [place]., [address] M. pneumoniae DNA Not Detected Not Detected WIN Comment:Testing performed by : [facility], [address] [facility], [address] Nasopharyngeal 08/22/2024 9: 36 PM CUSTOMER ENGINEER 08/23/2024 7:53 AM CUSTOMER ENGINEER Narrative WIN - 08/23/2024 9:20 AM CUSTOMER ENGINEER Is the Patient experiencing symptoms consistent with COVID?->Unknown Surveillance testing for transplant patient?->No ??Interpretive Data The [employer] FilmArray Respiratory Panel (RP2.1) assay is a [...] assay has FDA clearance for testing of [employer] swabs. ??The performance of additional specimen types has been assessed by the performing laboratory. ??The performance characteristics of this assay have been determined by [facility]. Current interpretive data was last revised on 22. us Nahomi BALL LAB MICROBIOLOGY - GENERAL ORDER MAYRA Final Result [id number] [address] Department [place] [address] from Last 3 Months Advance Directives For more information, please contact: [phone] * Full Code (Latest Code Status on File) Date Activated Date Inactivated Comments 08/23/2024 4:55 AM 08/26/2024 9:09 PM Care Teams Power Superintendent Relationship Specialty Start Date End Date Unknown, Notinfile PCP - General 08/23/24
[2024-11-11 15:17] LABS: Glucose Point of Care 271 mg/dl (65-105)
[2024-11-11 15:57] LABS: Glucose Point of Care 171 mg/dl (65-105)
[2024-11-11] MEDS: RIVAROXABAN 20 MG TABLET PO (16:35)
[2024-11-11 21:05] LABS: Glucose Point of Care 116 mg/dl (65-105)
[2024-11-12] VITALS (9 sets, daily range): BP systolic 103–120; BP diastolic 76–98; PULSE 93–109; RESP 12–18; TEMP 36–37.1; O2SAT 97–100
--- NOTE | 2024-11-12 00:16 | P.PNCROSS_ITS ---
Event Note Event Note Event Note: Received a call from RN with BP 80/58. Reviewed patient's records and medicati on list. I decreased dose of Coreg and Entresto and gave one time dose of 50 grams IV albumin 25 % solution. Recent Echo shows EF less than 15% so I did not want to give IV fluids.
[2024-11-12] MEDS: ALBUMIN HUMAN 25% 25 GM/100 ML 200 ML IVPB (00:28)
--- NOTE | 2024-11-12 01:43 | PC.NURSE ---
At 2346 pts BP was taken manually and was 80/58. Pt was not symptomatic. The construction management assistant provider Brady Horner was called. Evens reviewed the chart and ordered 50gm of albumin IV. pt is currently receiving the albumin.
[2024-11-12] MEDS: BENZOCAINE/MENTHOL (*BKC) 18 EA LOZENGE 1 LOZENGE PO (05:27)
[2024-11-12 07:48] LABS: Basophils Percent Auto 0.5 % (0.2-1.2); Eosinophils Absolute Auto 0.1 K/mm3 (0-0.3); Eosinophils Percent Auto 1.2 % (0-4.4); Hematocrit 36.5 % (42.0-52.0); Immature Granulocyte Absolute 0.01 K/mm3 (0.00-0.031); Immature Granulocyte Percent A 0.2 % (0-0.5); Lymphocytes Percent Auto 35.2 % (18.3-44.2); Mean Corpuscular HGB Conc 32.9 g/dl (32-36); Mean Corpuscular Hemoglobin 25.8 pg (26-34); Mean Corpuscular Volume 78.3 fl (80-100); Mean Platelet Volume 10.9 fl (7.4-10.4); Monocytes Absolute Auto 0.5 K/mm3 (0.1-0.6); Neutrophils Absolute Auto 2.2 K/mm3 (1.3-6.7); Neutrophils Percent Auto 51.9 % (45.5-73.1); Platelet Count Result 206 k/mm3 (150-375); Red Blood Count 4.66 M/mm3 (4.6-6.20); Red Cell Distribution Width 13.2 % (11.5-14.5); White Blood Count 4.3 K/mm3 (4.5-10.0)
[2024-11-12 08:02] LABS: Anion Gap 8 mmol/L (4-12); Blood Urea Nitrogen 15 mg/dL (9-20); Calcium 7.7 mg/dL (8.4-10.2); Carbon Dioxide 29 mmol/L (22-30); Chloride 97 mmol/L (98-107); Estimated CRCL calculation 99 ml/min; Estimated Glomerular Filt Rate > 60; Glucose 166 mg/dL (65-110); Magnesium 1.4 mg/dL (1.6-2.3); Potassium 3.5 mmol/L (3.4-5.0); Sodium 134 mmol/L (137-145)
[2024-11-12 08:18] LABS: Glucose Point of Care 165 mg/dl (65-105)
[2024-11-12] MEDS: INSULIN ASPART (*BKC) 100 UNITS/ML SUB-Q ×4 (10:25→17:53)
[2024-11-12] MEDS: EMPAGLIFLOZIN 10 MG TABLET PO (10:26)
[2024-11-12] MEDS: ASPIRIN 81 MG ENTERIC TABLET PO (10:27)
[2024-11-12] MEDS: THIAMINE HCL 100 MG TABLET PO (10:27)
[2024-11-12] MEDS: metFORMIN HCL XR 500 MG TAB.SR.24H PO ×2 (10:27→17:53)
[2024-11-12] MEDS: FOLIC ACID 1 MG TABLET PO (10:27)
[2024-11-12] MEDS: carvediloL 6.25 MG TABLET PO ×2 (11:13→20:28)
[2024-11-12] MEDS: SACUBITRIL/VALSARTAN 24-26 MG TABLET 0.5 TAB PO ×2 (11:13→20:31)
[2024-11-12 11:53] LABS: Glucose Point of Care 265 mg/dl (65-105)
--- NOTE | 2024-11-12 14:34 | PM.IMPN ---
Progress Note: A&P Assessment and Plan (1) Chest pain: Code(s): R07.9 - Chest pain, unspecified Status: Acute (2) CHF (congestive heart failure): Code(s): I50.9 - Heart failure, unspecified Status: Acute (3) Uncontrolled type 2 diabetes mellitus: Status: Acute (4) EtOH dependence: Code(s): F10.20 - Alcohol dependence, uncomplicated Status: Chronic (5) Hypertension: Code(s): I10 - Essential (primary) hypertension Status: Acute (6) Cardiomyopathy: Code(s): I42.9 - Cardiomyopathy, unspecified Status: Acute Plan # Chest pain Patient has intermittent chest pain, worse with cough. Possible pleural chest pain Elevated troponin, EKG showed sinus rhythm, tachycardia, low-voltage of extremity leads Patient received aspirin 324 mg once in the ED Continue aspirin 81 mg daily p.o. Consult skidder lever operator for evaluation treatment Patient had intermittent chest pain, appreciate cardiology consultation. Plans cardiac catheterization 11/09 Per skidder lever operator, patient declined cardiac catheterization. Discussed with the patient again regarding cardiac catheterization for further evaluation. Fixed defect on stress test. # Severe systolic heart failure on life vest, cardiomyopathy Possible resulting from a alcoholic cardiomyopathy EF 15-20% on echocardiogram September 2024 Patient has intermittent lightheadedness No discharge from Life Vest monitoring manager Elevated BNP lower than baseline, x-ray shows cardiomegaly and small pleural effusion s/w furosemide 40 mg bid ivp. Per skidder lever operator, spironolactone 25 mg daily p.o. Follow input output Will hold Lasix due to hypotension # Acute bronchitis X-ray shows no consolidation Patient has dry cough No obvious sign of better infection COVID and flu negative Provide cough medication: Benzonate, Robitussin and codeine p.o. p.r.n. # Essential hypertension Continue home medication Entresto 1 tab b.i.d. p.o., carvedilol 12.5 mg b.i.d. p.o. # Left ventricle thrombus Patient is on blood thinner Xarelto 20 mg daily p.o. TTE showed LV thrombus- stop Xarelto and started IV heparin Change back to Xarelto p.o. # Uncontrolled type 2 diabetes Possible due to noncompliance with medications Follow-up A1c Continue glargine 15 units q.h.s. aspart 5 unit t.i.d. Start insulin sliding scale a.c. and q.h.s. Hold metformin # History of alcohol dependence Monitor sign of alcohol withdrawal per [facility] protocol Start thiamine and folic acid p.o. Follow-up alcohol no drug screening Subjective Date/time seen: 11/12/24 14:34 Interval history: Events noted. Hypotensive requiring albumin IV. Medication dose adjusted. Feels weak. Review of Systems Review of Systems: All systems reviewed & are unremarkable except as noted in HPI and below Exam Narrative: GENERAL: in no acute distress. Well-nourished. - EYES: EOMI. Anicteric. - HENT: Moist mucous membranes. - LUNGS: Clear to auscultation bilaterally, no wheezing, rhonchi, or rales. - CARDIOVASCULAR: Regular rate and rhythm. No murmur. No JVD. - ABDOMEN: Soft, non-tender and non-distended. No palpable masses. - EXTREMITIES: 1+ edema in feet. Peripheral pulses 2+. Non-tender. - NEUROLOGIC: No focal neurological deficits. CN II-XII grossly intact. - PSYCHIATRIC: Awake, Alert and oriented x 3. Appropriate mood and affect. - SKIN: No rashes or lesions. Warm. - LYMPH: No cervical lymphadenopathy. Objective Data Vital Signs Vital Signs: Vital Signs - 24 hr 11/11/24 15:42 11/11/24 16:00 11/11/24 16:00 Temperature 98.0 F Pulse Rate 95 95 96 Respiratory Rate 18 18 Blood Pressure 102/73 Pulse Oximetry 98 98 Oxygen Delivery Room Air Fraction of Inspired Oxygen 21 11/11/24 20:00 11/11/24 20:00 11/11/24 21:02 Temperature 97.4 F L Pulse Rate 103 H 100 Respiratory Rate 14 Blood Pressure 107/82 Pulse Oximetry 99 Oxygen Delivery Fraction of Inspired Oxygen 11/11/24 23:46 11/12/24 00:00 11/12/24 04:00 Temperature 97.4 F L 96.8 F L Pulse Rate 92 93 98 Respiratory Rate 14 12 Blood Pressure 80/58 L 103/76 Pulse Oximetry 95 98 Oxygen Delivery Fraction of Inspired Oxygen 11/12/24 04:00 11/12/24 08:00 11/12/24 08:00 Temperature 98.5 F Pulse Rate 97 96 97 Respiratory Rate 16 Blood Pressure 109/86 Pulse Oximetry 97 Oxygen Delivery Fraction of Inspired Oxygen 11/12/24 10:35 11/12/24 11:13 11/12/24 11:51 Temperature Pulse Rate 98 Respiratory Rate Blood Pressure Pulse Oximetry Oxygen Delivery Room Air Room Air Fraction of Inspired Oxygen 11/12/24 12:00 11/12/24 12:00 Temperature 97.9 F Pulse Rate 97 103 H Respiratory Rate 18 Blood Pressure 110/86 Pulse Oximetry 98 Oxygen Delivery Fraction of Inspired Oxygen Intake/Output Intake/Output: Intake & Output 11/09/24 11/10/24 11/11/24 11/12/24 23:59 23:59 23:59 23:59 Intake Total 1570 5155 480 762 Output Total 1056 9770 9302 Balance 412 -112 -5059 761 Meds/Results Medications: Active Medications Generic Name Dose Route Start Last Admin Trade Name Freq PRN Reason Stop Dose Admin Aspirin 81 mg 11/09/24 09:00 11/12/24 10:27 Aspirin 81 Mg Enteric Tablet PO 81 mg QAM KELIN Administration Benzocaine 1 lozenge 11/10/24 00:13 11/12/24 05:27 Benzocaine/Menthol (*Bkc) 18 Ea Lozenge PO 1 lozenge PRN PRN Administration Sore Throat Carvedilol 6.25 mg 11/12/24 09:00 11/12/24 11:13 Carvedilol 6.25 Mg Tablet PO 6.25 mg Q12HR KELIN Administration Codeine Sulfate 30 mg 11/11/24 15:29 Codeine Sulfate (*Crx) 30 Mg Tablet PO Q6H PRN Severe Cough Dextrose 12.5 gm 11/08/24 10:33 Dextrose 50% 25 Gm/50 Ml Syringe IV PUSH PRN PRN Hypoglycemia Protocol Empagliflozin 10 mg 11/12/24 09:00 11/12/24 10:26 Empagliflozin 10 Mg Tablet PO 10 mg DAILY KELIN Administration Folic Acid 1 mg 11/09/24 09:00 11/12/24 10:27 Folic Acid 1 Mg Tablet PO 1 mg DAILY KELIN Administration Furosemide 40 mg 11/10/24 17:00 11/12/24 11:11 Furosemide Inj 40 Mg/4 Ml Vial IV PUSH Not Given BID KELIN Glucagon 1 mg 11/08/24 10:33 Glucagon For Inj 1 Mg Vial IM PRN PRN Hypoglycemia Protocol Glucose 15 gm 11/08/24 10:33 Glucose Oral Gel 15 Gm Of Glucse In 37.5 Gm Tube PO PRN PRN Hypoglycemia Protocol Guaifenesin/Dextromethorphan 10 ml 11/11/24 15:29 Guaifenesin/Dextromethorphan 10 Ml Udc PO Q4H PRN Cough Dextrose 1,000 mls @ 100 mls/hr 11/08/24 10:33 Dextrose 5% 1,000 Ml IVPB PRN PRN Hypoglycemia Protocol Insulin Aspart 5 units 11/08/24 12:00 11/12/24 13:02 Insulin Aspart (*Bkc) 100 Units/Ml SUB-Q 5 units TIDWM KELIN Administration Insulin Aspart 3 - 6 units 11/08/24 12:00 11/12/24 13:02 Insulin Aspart (*Bkc) 100 Units/Ml SUB-Q 4 units TIDWM KELIN Administration Protocol Insulin Aspart 1 - 3 units 11/08/24 21:00 11/11/24 22:50 Insulin Aspart (*Bkc) 100 Units/Ml SUB-Q Not Given HS [facility] Protocol Insulin Glargine 15 units 11/08/24 21:00 11/11/24 22:54 Insulin Glargine (*Bkc) 100 Units/Ml SUB-Q Not Given HS [facility] Metformin HCl 500 mg 11/08/24 17:00 11/12/24 10:27 Metformin Hcl Xr 500 Mg Tab.Sr.24h PO 500 mg BIDWM KELIN Administration Rivaroxaban 20 mg 11/08/24 17:00 11/11/24 16:35 Rivaroxaban 20 Mg Tablet PO 20 mg DAILY@1700 [facility] Administration Sacubitril/Valsartan 0.5 tab 11/12/24 09:00 11/12/24 11:13 Sacubitril/Valsartan 24-26 Mg Tablet PO 0.5 tab Q12HR KELIN Administration Spironolactone 25 mg 11/09/24 09:00 11/12/24 11:11 Spironolactone 25 Mg Tablet PO Not Given QAM KELIN Thiamine HCl 100 mg 11/09/24 09:00 11/12/24 10:27 Thiamine Hcl 100 Mg Tablet PO 100 mg QAM KELIN Administration Radiology Results: ITS Impressions Chest X-Ray 11/08/24 06:21 Impression: Small right pleural effusion. Stable cardiomegaly. Venous Doppler Study 11/10/24 16:56 IMPRESSION: 1. No deep venous thrombosis within the bilateral lower extremities, as detailed above. Labs Labs: Laboratory Results - last 24 hr 11/11/24 11/11/24 11/11/24 11:48 15:52 20:48 WBC RBC Hgb Hct MCV MCH MCHC RDW Plt Count MPV Immature Gran % (Auto) Neut % (Auto) Lymph % (Auto) Mcminn % (Auto) Eos % (Auto) Baso % (Auto) Lymph # (Auto) Mcminn # (Auto) Eos # (Auto) Baso # (Auto) Abs Immat Gran (auto) Absolute Neuts (auto) Absolute Nucleated RBC Nucleated RBC % Sodium Potassium Chloride Carbon Dioxide Anion Gap BUN Creatinine Estim Creat Clear Calc Estimated GFR Glucose POC Capillary Glucose 271 H 171 H 116 H Calcium Magnesium 11/12/24 11/12/24 11/12/24 07:23 08:14 11:36 WBC 4.3 L RBC 4.66 Hgb 12.0 L Hct 36.5 L MCV 78.3 L MCH 25.8 L MCHC 32.9 RDW 13.2 Plt Count 206 MPV 10.9 H Immature Gran % (Auto) 0.2 Neut % (Auto) 51.9 Lymph % (Auto) 35.2 Mcminn % (Auto) 11.0 H Eos % (Auto) 1.2 Baso % (Auto) 0.5 Lymph # (Auto) 1.50 Mcminn # (Auto) 0.5 Eos # (Auto) 0.1 Baso # (Auto) 0.0 Abs Immat Gran (auto) 0.01 Absolute Neuts (auto) 2.2 Absolute Nucleated RBC 0.000 Nucleated RBC % 0.0 Sodium 134 L Potassium 3.5 Chloride 97 L Carbon Dioxide 29 Anion Gap 8 BUN 15 Creatinine 0.93 Estim Creat Clear Calc 99 Estimated GFR > 60 Glucose 166 H POC Capillary Glucose 165 H 265 H Calcium 7.7 L Magnesium 1.4 L
[2024-11-12 16:29] LABS: Glucose Point of Care 168 mg/dl (65-105)
[2024-11-12] MEDS: POTASSIUM CHLORIDE 20 MEQ ER TABLET 40 MEQ PO (17:52)
[2024-11-12] MEDS: guaiFENesin/DEXTROMETHORPHAN 10 ML UDC PO (17:52)
[2024-11-12] MEDS: RIVAROXABAN 20 MG TABLET PO (17:52)
[2024-11-12] MEDS: MAGNESIUM SULF 2 GM/WATER 50ML 2 GM/50 ML BAG IVPB (17:52)
[2024-11-12] MEDS: INSULIN GLARGINE (*BKC) 100 UNITS/ML 15 UNITS SUB-Q (20:31)
[2024-11-12 21:15] LABS: Glucose Point of Care 137 mg/dl (65-105)
[2024-11-12] MEDS: ACETAMINOPHEN 325 MG TABLET 650 MG PO (22:49)
[2024-11-13] VITALS (11 sets, daily range): BP systolic 114–125; BP diastolic 81–103; PULSE 88–110; RESP 16–20; TEMP 36.6–36.8; O2SAT 96–98
[2024-11-13] MEDS: BENZOCAINE/MENTHOL (*BKC) 18 EA LOZENGE 1 LOZENGE PO ×2 (05:15→08:47)
[2024-11-13 08:05] LABS: Glucose Point of Care 135 mg/dl (65-105)
[2024-11-13] MEDS: FOLIC ACID 1 MG TABLET PO (08:44)
[2024-11-13] MEDS: THIAMINE HCL 100 MG TABLET PO (08:44)
[2024-11-13] MEDS: EMPAGLIFLOZIN 10 MG TABLET PO (08:44)
[2024-11-13] MEDS: carvediloL 6.25 MG TABLET PO (08:44)
[2024-11-13] MEDS: SACUBITRIL/VALSARTAN 24-26 MG TABLET 0.5 TAB PO ×2 (08:44→20:29)
[2024-11-13] MEDS: SPIRONOLACTONE 25 MG TABLET PO (08:44)
[2024-11-13] MEDS: FUROSEMIDE INJ 40 MG/4 ML VIAL IV PUSH ×3 (08:45→17:49)
[2024-11-13] MEDS: metFORMIN HCL XR 500 MG TAB.SR.24H PO ×2 (08:45→17:48)
[2024-11-13] MEDS: ASPIRIN 81 MG ENTERIC TABLET PO (08:45)
[2024-11-13] MEDS: INSULIN ASPART (*BKC) 100 UNITS/ML SUB-Q ×3 (08:49→17:53)
--- NOTE | 2024-11-13 10:00 | PM.IMPN ---
Progress Note: A&P Assessment and Plan (1) Chest pain: Code(s): R07.9 - Chest pain, unspecified Status: Acute (2) CHF (congestive heart failure): Code(s): I50.9 - Heart failure, unspecified Status: Acute (3) Uncontrolled type 2 diabetes mellitus: Status: Acute (4) EtOH dependence: Code(s): F10.20 - Alcohol dependence, uncomplicated Status: Chronic (5) Hypertension: Code(s): I10 - Essential (primary) hypertension Status: Acute (6) Cardiomyopathy: Code(s): I42.9 - Cardiomyopathy, unspecified Status: Acute Plan # Chest pain Patient has intermittent chest pain, worse with cough. Possible pleural chest pain Elevated troponin, EKG showed sinus rhythm, tachycardia, low-voltage of extremity leads Patient received aspirin 324 mg once in the ED Continue aspirin 81 mg daily p.o. Consult literacy education professor for evaluation treatment Patient had intermittent chest pain, appreciate cardiology consultation. Plans cardiac catheterization 11/09 Per literacy education professor, patient declined cardiac catheterization. Discussed with the patient again regarding cardiac catheterization for further evaluation. Fixed defect on stress test done at [facility]. # Severe systolic heart failure on life vest, cardiomyopathy Possible resulting from a alcoholic cardiomyopathy EF 15-20% on echocardiogram September 2024 Patient has intermittent lightheadedness No discharge from Life Vest monitor car operator Elevated BNP lower than baseline, x-ray shows cardiomegaly and small pleural effusion s/w furosemide 40 mg bid ivp. Per literacy education professor, spironolactone 25 mg daily p.o. Follow input output Held Lasix due to hypotension however will resume Lasix oral. Up titrate carvedilol. # Acute bronchitis X-ray shows no consolidation Patient has dry cough No obvious sign of better infection COVID and flu negative Provide cough medication: Benzonate, Robitussin and codeine p.o. p.r.n. Recheck chest x-ray today. Add benzonatate # Essential hypertension Continue home medication Entresto 1 tab b.i.d. p.o., carvedilol 12.5 mg b.i.d. p.o. # Left ventricle thrombus Patient is on blood thinner Xarelto 20 mg daily p.o. TTE showed LV thrombus- stop Xarelto and started IV heparin Change back to Xarelto p.o. # Uncontrolled type 2 diabetes Possible due to noncompliance with medications Follow-up A1c Continue glargine 15 units q.h.s. aspart 5 unit t.i.d. Start insulin sliding scale a.c. and q.h.s. Hold metformin # History of alcohol dependence Monitor sign of alcohol withdrawal per [facility] protocol Start thiamine and folic acid p.o. Follow-up alcohol no drug screening Subjective Date/time seen: 11/13/24 10:00 Interval history: Complains of cough still persistent. Weakness. Review of Systems Review of Systems: All systems reviewed & are unremarkable except as noted in HPI and below Exam Narrative: GENERAL: in no acute distress. Well-nourished. - EYES: EOMI. Anicteric. - HENT: Moist mucous membranes. - LUNGS: Clear to auscultation bilaterally, no wheezing, rhonchi, or rales. - CARDIOVASCULAR: Regular rate and rhythm. No murmur. No JVD. - ABDOMEN: Soft, non-tender and non-distended. No palpable masses. - EXTREMITIES: 1+ edema in feet. Peripheral pulses 2+. Non-tender. - NEUROLOGIC: No focal neurological deficits. CN II-XII grossly intact. - PSYCHIATRIC: Awake, Alert and oriented x 3. Appropriate mood and affect. - SKIN: No rashes or lesions. Warm. - LYMPH: No cervical lymphadenopathy. Objective Data Vital Signs Vital Signs: Vital Signs - 24 hr 11/12/24 10:35 11/12/24 11:13 11/12/24 11:51 Temperature Pulse Rate 98 Respiratory Rate Blood Pressure Pulse Oximetry Oxygen Delivery Room Air Room Air 11/12/24 12:00 11/12/24 12:00 11/12/24 16:00 Temperature 97.9 F Pulse Rate 97 103 H 96 Respiratory Rate 18 Blood Pressure 110/86 Pulse Oximetry 98 Oxygen Delivery 11/12/24 16:00 11/12/24 20:00 11/12/24 20:00 Temperature 98.7 F Pulse Rate 99 102 H Respiratory Rate 16 Blood Pressure 113/80 Pulse Oximetry 98 Oxygen Delivery Room Air 11/12/24 20:28 11/12/24 21:24 11/13/24 00:00 Temperature 98.5 F Pulse Rate 109 H 108 H 100 Respiratory Rate 14 Blood Pressure 120/98 H Pulse Oximetry 100 Oxygen Delivery 11/13/24 04:00 11/13/24 05:55 11/13/24 08:00 Temperature 97.8 F Pulse Rate 97 95 Respiratory Rate 20 Blood Pressure 125/103 H Pulse Oximetry 98 Oxygen Delivery Room Air 11/13/24 08:44 Temperature Pulse Rate 88 Respiratory Rate Blood Pressure Pulse Oximetry Oxygen Delivery Intake/Output Intake/Output: Intake & Output 11/10/24 11/11/24 11/12/24 11/13/24 23:59 23:59 23:59 23:59 Intake Total 8400 736 8315 550 Output Total 275 1726 800 Balance -771 -1242 1202 550 Meds/Results Medications: Active Medications Generic Name Dose Route Start Last Admin Trade Name Freq PRN Reason Stop Dose Admin Acetaminophen 650 mg 11/12/24 22:39 11/12/24 22:49 Acetaminophen 325 Mg Tablet PO 650 mg Q6H PRN Administration Mild Pain (1-3) or Fever Aspirin 81 mg 11/09/24 09:00 11/13/24 08:45 Aspirin 81 Mg Enteric Tablet PO 81 mg QAM KELIN Administration Benzocaine 1 lozenge 11/10/24 00:13 11/13/24 08:47 Benzocaine/Menthol (*Bkc) 18 Ea Lozenge PO 1 lozenge PRN PRN Administration Sore Throat Carvedilol 6.25 mg 11/12/24 09:00 11/13/24 08:44 Carvedilol 6.25 Mg Tablet PO 6.25 mg Q12HR KELIN Administration Codeine Sulfate 30 mg 11/11/24 15:29 Codeine Sulfate (*Crx) 30 Mg Tablet PO Q6H PRN Severe Cough Dextrose 12.5 gm 11/08/24 10:33 Dextrose 50% 25 Gm/50 Ml Syringe IV PUSH PRN PRN Hypoglycemia Protocol Empagliflozin 10 mg 11/12/24 09:00 11/13/24 08:44 Empagliflozin 10 Mg Tablet PO 10 mg DAILY KELIN Administration Folic Acid 1 mg 11/09/24 09:00 11/13/24 08:44 Folic Acid 1 Mg Tablet PO 1 mg DAILY KELIN Administration Furosemide 40 mg 11/10/24 17:00 11/13/24 08:45 Furosemide Inj 40 Mg/4 Ml Vial IV PUSH 40 mg BID KELIN Administration Glucagon 1 mg 11/08/24 10:33 Glucagon For Inj 1 Mg Vial IM PRN PRN Hypoglycemia Protocol Glucose 15 gm 11/08/24 10:33 Glucose Oral Gel 15 Gm Of Glucse In 37.5 Gm Tube PO PRN PRN Hypoglycemia Protocol Guaifenesin/Dextromethorphan 10 ml 11/11/24 15:29 11/12/24 17:52 Guaifenesin/Dextromethorphan 10 Ml Udc PO 10 ml Q4H PRN Administration Cough Dextrose 1,000 mls @ 100 mls/hr 11/08/24 10:33 Dextrose 5% 1,000 Ml IVPB PRN PRN Hypoglycemia Protocol Insulin Aspart 5 units 11/08/24 12:00 11/13/24 08:49 Insulin Aspart (*Bkc) 100 Units/Ml SUB-Q 5 units TIDWM KELIN Administration Insulin Aspart 3 - 6 units 11/08/24 12:00 11/13/24 08:38 Insulin Aspart (*Bkc) 100 Units/Ml SUB-Q Not Given TIDWM [facility] Protocol Insulin Aspart 1 - 3 units 11/08/24 21:00 11/12/24 20:33 Insulin Aspart (*Bkc) 100 Units/Ml SUB-Q Not Given HS [facility] Protocol Insulin Glargine 15 units 11/08/24 21:00 11/12/24 20:31 Insulin Glargine (*Bkc) 100 Units/Ml SUB-Q 15 units HS KELIN Administration Metformin HCl 500 mg 11/08/24 17:00 11/13/24 08:45 Metformin Hcl Xr 500 Mg Tab.Sr.24h PO 500 mg BIDWM KELIN Administration Rivaroxaban 20 mg 11/08/24 17:00 11/12/24 17:52 Rivaroxaban 20 Mg Tablet PO 20 mg DAILY@1700 KELIN Administration Sacubitril/Valsartan 0.5 tab 11/12/24 09:00 11/13/24 08:44 Sacubitril/Valsartan 24-26 Mg Tablet PO 0.5 tab Q12HR KELIN Administration Spironolactone 25 mg 11/09/24 09:00 11/13/24 08:44 Spironolactone 25 Mg Tablet PO 25 mg QAM KELIN Administration Thiamine HCl 100 mg 11/09/24 09:00 11/13/24 08:44 Thiamine Hcl 100 Mg Tablet PO 100 mg QAM KELIN Administration Radiology Results: ITS Impressions Chest X-Ray 11/08/24 06:21 Impression: Small right pleural effusion. Stable cardiomegaly. Venous Doppler Study 11/10/24 16:56 IMPRESSION: 1. No deep venous thrombosis within the bilateral lower extremities, as detailed above. Labs Labs: Laboratory Results - last 24 hr 11/12/24 11/12/24 11/12/24 11:36 16:12 20:31 POC Capillary Glucose 265 H 168 H 137 H 11/13/24 07:49 POC Capillary Glucose 135 H
[2024-11-13 10:51] LABS: Basophils Percent Auto 0.9 % (0.2-1.2); Eosinophils Absolute Auto 0.1 K/mm3 (0-0.3); Eosinophils Percent Auto 1.7 % (0-4.4); Hematocrit 40.1 % (42.0-52.0); Hemoglobin 13.5 g/dL (14.0-18.0); Immature Granulocyte Absolute 0.01 K/mm3 (0.00-0.031); Immature Granulocyte Percent A 0.2 % (0-0.5); Lymphocytes Absolute Auto 1.62 K/mm3 (0.9-3.2); Lymphocytes Percent Auto 34.7 % (18.3-44.2); Mean Corpuscular HGB Conc 33.7 g/dl (32-36); Mean Corpuscular Hemoglobin 26.3 pg (26-34); Mean Corpuscular Volume 78.2 fl (80-100); Mean Platelet Volume 10.4 fl (7.4-10.4); Monocytes Absolute Auto 0.6 K/mm3 (0.1-0.6); Neutrophils Absolute Auto 2.4 K/mm3 (1.3-6.7); Neutrophils Percent Auto 50.5 % (45.5-73.1); Platelet Count Result 263 k/mm3 (150-375); Red Blood Count 5.13 M/mm3 (4.6-6.20); Red Cell Distribution Width 13.5 % (11.5-14.5); White Blood Count 4.7 K/mm3 (4.5-10.0)
[2024-11-13 11:02] LABS: Alanine Aminotransferase 31 U/L (6-50); Albumin Level 3.3 g/dL (3.5-5.1); Alkaline Phosphatase 53 U/L (38-126); Anion Gap 5 mmol/L (4-12); Aspartate Amino Transferase 40 U/L (17-59); Bilirubin,Total 0.9 mg/dL (0.2-1.3); Blood Urea Nitrogen 13 mg/dL (9-20); Calcium 8.1 mg/dL (8.4-10.2); Carbon Dioxide 30 mmol/L (22-30); Chloride 99 mmol/L (98-107); Estimated CRCL calculation 103 ml/min; Estimated Glomerular Filt Rate > 60; Glucose 161 mg/dL (65-110); Sodium 134 mmol/L (137-145)
[2024-11-13 12:22] LABS: Glucose Point of Care 138 mg/dl (65-105)
[2024-11-13] MEDS: BENZONATATE 100 MG CAPSULE 200 MG PO ×2 (13:07→17:48)
[2024-11-13 16:15] LABS: Glucose Point of Care 168 mg/dl (65-105)
[2024-11-13] MEDS: RIVAROXABAN 20 MG TABLET PO (17:48)
[2024-11-13] MEDS: INSULIN GLARGINE (*BKC) 100 UNITS/ML 15 UNITS SUB-Q (20:31)
[2024-11-13] MEDS: carvediloL 12.5 MG TABLET PO (20:32)
--- NOTE | 2024-11-13 20:43 | PC.NURSE ---
Bedside glucose checked showing a reading of 226. Pt. scheduled to take 15 units of Lantus and 1 unit of Novalog (sliding scale). Pt. stated that he did not want to take that much insulin as he was concerned all night last night when he took the 15 units of Lantus. I asked Pt. how much insulin he would take at home for which he stated that he does not take more than 10 units of Lantus at a time. He states that he adjusts his Lantus on what his blood sugar is. Pt. was willing to take 8 units of Lantus but did NOT want to take any Novalog. Pt. was given 8 units of Lantus instead of 15 units per his request.
[2024-11-13 22:09] LABS: Glucose Point of Care 226 mg/dl (65-105)
[2024-11-14] VITALS (12 sets, daily range): BP systolic 99–117; BP diastolic 69–99; PULSE 90–112; RESP 14–18; TEMP 36.2–36.6; O2SAT 96–99
--- NOTE | 2024-11-14 02:55 | PCRCNOTE ---
Patient refused apnea link
[2024-11-14 07:27] LABS: Basophils Percent Auto 0.6 % (0.2-1.2); Eosinophils Absolute Auto 0.1 K/mm3 (0-0.3); Eosinophils Percent Auto 2.6 % (0-4.4); Hematocrit 39.7 % (42.0-52.0); Hemoglobin 13.1 g/dL (14.0-18.0); Immature Granulocyte Absolute 0.01 K/mm3 (0.00-0.031); Immature Granulocyte Percent A 0.2 % (0-0.5); Mean Corpuscular Hemoglobin 25.5 pg (26-34); Mean Corpuscular Volume 77.2 fl (80-100); Mean Platelet Volume 10.4 fl (7.4-10.4); Monocytes Absolute Auto 0.7 K/mm3 (0.1-0.6); Monocytes Percent Auto 13.8 % (2.6-8.5); Neutrophils Absolute Auto 2.3 K/mm3 (1.3-6.7); Neutrophils Percent Auto 46.8 % (45.5-73.1); Platelet Count Result 270 k/mm3 (150-375); Red Blood Count 5.14 M/mm3 (4.6-6.20); Red Cell Distribution Width 13.2 % (11.5-14.5)
[2024-11-14 07:41] LABS: Alanine Aminotransferase 36 U/L (6-50); Albumin Level 3.2 g/dL (3.5-5.1); Alkaline Phosphatase 54 U/L (38-126); Anion Gap 5 mmol/L (4-12); Aspartate Amino Transferase 40 U/L (17-59); Bilirubin,Total 0.7 mg/dL (0.2-1.3); Blood Urea Nitrogen 15 mg/dL (9-20); Carbon Dioxide 33 mmol/L (22-30); Chloride 96 mmol/L (98-107); Estimated CRCL calculation 80 ml/min; Estimated Glomerular Filt Rate > 60; Glucose 191 mg/dL (65-110); Magnesium 1.9 mg/dL (1.6-2.3); Potassium 4.1 mmol/L (3.4-5.0); Sodium 134 mmol/L (137-145)
[2024-11-14] MEDS: metFORMIN HCL XR 500 MG TAB.SR.24H PO ×2 (08:27→17:46)
[2024-11-14] MEDS: THIAMINE HCL 100 MG TABLET PO (08:27)
[2024-11-14] MEDS: ASPIRIN 81 MG ENTERIC TABLET PO (08:27)
[2024-11-14] MEDS: FOLIC ACID 1 MG TABLET PO (08:27)
[2024-11-14] MEDS: SPIRONOLACTONE 25 MG TABLET PO (08:27)
[2024-11-14] MEDS: SACUBITRIL/VALSARTAN 24-26 MG TABLET 0.5 TAB PO ×2 (08:27→21:37)
[2024-11-14] MEDS: EMPAGLIFLOZIN 10 MG TABLET PO (08:27)
[2024-11-14] MEDS: BENZONATATE 100 MG CAPSULE 200 MG PO ×3 (08:27→17:46)
[2024-11-14] MEDS: FUROSEMIDE INJ 40 MG/4 ML VIAL IV PUSH ×2 (08:27→17:46)
[2024-11-14] MEDS: carvediloL 12.5 MG TABLET PO (08:28)
[2024-11-14] MEDS: INSULIN ASPART (*BKC) 100 UNITS/ML SUB-Q ×4 (08:29→17:48)
[2024-11-14 08:34] LABS: Glucose Point of Care 242 mg/dl (65-105)
[2024-11-14 12:34] LABS: Glucose Point of Care 224 mg/dl (65-105)
--- NOTE | 2024-11-14 13:19 | P.PNIM_ITS ---
Progress Note: A&P Assessment and Plan (1) Chest pain: Code(s): R07.9 - Chest pain, unspecified Status: Acute (2) CHF (congestive heart failure): Code(s): I50.9 - Heart failure, unspecified Status: Acute (3) Uncontrolled type 2 diabetes mellitus: Status: Acute (4) EtOH dependence: Code(s): F10.20 - Alcohol dependence, uncomplicated Status: Chronic (5) Hypertension: Code(s): I10 - Essential (primary) hypertension Status: Acute (6) Cardiomyopathy: Code(s): I42.9 - Cardiomyopathy, unspecified Status: Acute Plan # Chest pain Patient has intermittent chest pain, worse with cough. Possible pleural chest pain Elevated troponin, EKG showed sinus rhythm, tachycardia, low-voltage of extremity leads Patient received aspirin 324 mg once in the ED Continue aspirin 81 mg daily p.o. Consult senior administrative associate for evaluation treatment Patient had intermittent chest pain, appreciate cardiology consultation. Plans cardiac catheterization 11/09 Per senior administrative associate, patient declined cardiac catheterization. Discussed with the patient again regarding cardiac catheterization for further evaluation. Fixed defect on stress test done at [facility]. # Severe systolic heart failure on life vest, cardiomyopathy Possible resulting from a alcoholic cardiomyopathy EF 15-20% on echocardiogram September 2024 Patient has intermittent lightheadedness No discharge from Life Vest court recording monitor Elevated BNP lower than baseline, x-ray shows cardiomegaly and small pleural effusion s/w furosemide 40 mg bid ivp. Per senior administrative associate, spironolactone 25 mg daily p.o. Follow input output Held Lasix due to hypotension however will resume Lasix oral. Up titrate carvedilol. iv lasix as cxr wtih wrosening bilateral effusion right more than left # Acute bronchitis X-ray shows no consolidation Patient has dry cough No obvious sign of better infection COVID and flu negative Provide cough medication: Benzonate, Robitussin and codeine p.o. p.r.n. Recheck chest x-ray reviewed with worsening bilateral effusion right morethan left 11/13/24. Add benzonatate # Essential hypertension Continue home medication Entresto 1 tab b.i.d. p.o., carvedilol 12.5 mg b.i.d. p.o. # Left ventricle thrombus Patient is on blood thinner Xarelto 20 mg daily p.o. TTE showed LV thrombus- stop Xarelto and started IV heparin Change back to Xarelto p.o. # Uncontrolled type 2 diabetes Possible due to noncompliance with medications Follow-up A1c Continue glargine 15 units q.h.s. aspart 5 unit t.i.d. Start insulin sliding scale a.c. and q.h.s. Hold metformin # History of alcohol dependence Monitor sign of alcohol withdrawal per [facility] protocol Start thiamine and folic acid p.o. Follow-up alcohol no drug screening Subjective Date/time seen: 11/14/24 13:19 Interval history: feeels better. swelling has gone down. cough still persists but better. no chest pain. tele with intermittent nsvt noted Review of Systems Review of Systems: All systems reviewed & are unremarkable except as noted in HPI and below Exam Narrative: GENERAL: in no acute distress. Well-nourished. - EYES: EOMI. Anicteric. - HENT: Moist mucous membranes. - LUNGS: Clear to auscultation bilateral ly, no wheezing, rhonchi, or rales. - CARDIOVASCULAR: Regular rate and rhyth m. No murmur. No JVD. - ABDOMEN: Soft, non-tender and non-dist ended. No palpable masses. - EXTREMITIES: 1+ edema in feet. Periph eral pulses 2+. Non-tender. - NEUROLOGIC: No focal neurological defi cits. CN II-XII grossly intact. - PSYCHIATRIC: Awake, Alert and oriented x 3. Appropriate mood and affect. - SKIN: No rashes or lesions. Warm. - LYMPH: No cervical lymphadenopathy. Objective Data Vital Signs Vital Signs: Vital Signs - 24 hr 11/13/24 14:00 11/13/24 16:00 11/13/24 20:00 Temperature 98.2 F Pulse Rate 98 97 Respiratory Rate 18 Blood Pressure 114/81 Pulse Oximetry 96 Oxygen Delivery Room Air 11/13/24 20:00 11/13/24 20:32 11/13/24 21:33 Temperature 97.8 F Pulse Rate 110 H 108 H 108 H Respiratory Rate 16 Blood Pressure 118/85 Pulse Oximetry 96 Oxygen Delivery 11/14/24 00:00 11/14/24 04:00 11/14/24 05:46 Temperature 97.2 F L Pulse Rate 112 H 106 H 103 H Respiratory Rate 14 Blood Pressure 117/99 H Pulse Oximetry 99 Oxygen Delivery 11/14/24 08:00 11/14/24 08:28 Temperature Pulse Rate 108 H Respiratory Rate Blood Pressure Pulse Oximetry Oxygen Delivery Room Air Intake/Output Intake/Output: Intake & Output 11/11/24 11/12/24 11/13/24 11/14/24 23:59 23:59 23:59 23:59 Intake Total 480 2001 1150 1220 Output Total 4227 157 5774 Balance -1245 1202 1150 -130 Meds/Results Medications: Active Medications Generic Name Dose Route Start Last Admin Trade Name Freq PRN Reason Stop Dose Admin Acetaminophen 650 mg 11/12/24 22:39 11/12/24 22:49 Acetaminophen 325 Mg Tablet PO 650 mg Q6H PRN Administration Mild Pain (1-3) or Fever Aspirin 81 mg 11/09/24 09:00 11/14/24 08:27 Aspirin 81 Mg Enteric Tablet PO 81 mg QAM KELIN Administration Benzocaine 1 lozenge 11/10/24 00:13 11/13/24 08:47 Benzocaine/Menthol (*Bkc) 18 Ea Lozenge PO 1 lozenge PRN PRN Administration Sore Throat Benzonatate 200 mg 11/13/24 10:00 11/14/24 08:27 Benzonatate 100 Mg Capsule PO 200 mg TID KELIN Administration Carvedilol 12.5 mg 11/13/24 21:00 11/14/24 08:28 Carvedilol 12.5 Mg Tablet PO 12.5 mg Q12HR KELIN Administration Codeine Sulfate 30 mg 11/11/24 15:29 Codeine Sulfate (*Crx) 30 Mg Tablet PO Q6H PRN Severe Cough Dextrose 12.5 gm 11/08/24 10:33 Dextrose 50% 25 Gm/50 Ml Syringe IV PUSH PRN PRN Hypoglycemia Protocol Empagliflozin 10 mg 11/12/24 09:00 11/14/24 08:27 Empagliflozin 10 Mg Tablet PO 10 mg DAILY KELIN Administration Folic Acid 1 mg 11/09/24 09:00 11/14/24 08:27 Folic Acid 1 Mg Tablet PO 1 mg DAILY KELIN Administration Furosemide 40 mg 11/13/24 17:00 11/14/24 08:27 Furosemide Inj 40 Mg/4 Ml Vial IV PUSH 40 mg BID KELIN Administration Glucagon 1 mg 11/08/24 10:33 Glucagon For Inj 1 Mg Vial IM PRN PRN Hypoglycemia Protocol Glucose 15 gm 11/08/24 10:33 Glucose Oral Gel 15 Gm Of Glucse In 37.5 Gm Tube PO PRN PRN Hypoglycemia Protocol Guaifenesin/Dextromethorphan 10 ml 11/11/24 15:29 11/12/24 17:52 Guaifenesin/Dextromethorphan 10 Ml Udc PO 10 ml Q4H PRN Administration Cough Dextrose 1,000 mls @ 100 mls/hr 11/08/24 10:33 Dextrose 5% 1,000 Ml IVPB PRN PRN Hypoglycemia Protocol Insulin Aspart 5 units 11/08/24 12:00 11/14/24 08:30 Insulin Aspart (*Bkc) 100 Units/Ml SUB-Q 5 units TIDWM KELIN Administration Insulin Aspart 3 - 6 units 11/08/24 12:00 11/14/24 08:29 Insulin Aspart (*Bkc) 100 Units/Ml SUB-Q 3 units TIDWM KELIN Administration Protocol Insulin Aspart 1 - 3 units 11/08/24 21:00 11/13/24 20:36 Insulin Aspart (*Bkc) 100 Units/Ml SUB-Q Not Given HS KELIN Protocol Insulin Glargine 15 units 11/08/24 21:00 11/13/24 20:31 Insulin Glargine (*Bkc) 100 Units/Ml SUB-Q 8 units HS KELIN Administration Metformin HCl 500 mg 11/08/24 17:00 11/14/24 08:27 Metformin Hcl Xr 500 Mg Tab.Sr.24h PO 500 mg BIDWM KELIN Administration Rivaroxaban 20 mg 11/08/24 17:00 11/13/24 17:48 Rivaroxaban 20 Mg Tablet PO 20 mg DAILY@1700 KELIN Administration Sacubitril/Valsartan 0.5 tab 11/12/24 09:00 11/14/24 08:27 Sacubitril/Valsartan 24-26 Mg Tablet PO 0.5 tab Q12HR KELIN Administration Spironolactone 25 mg 11/09/24 09:00 11/14/24 08:27 Spironolactone 25 Mg Tablet PO 25 mg QAM KELIN Administration Thiamine HCl 100 mg 11/09/24 09:00 11/14/24 08:27 Thiamine Hcl 100 Mg Tablet PO 100 mg QAM KELIN Administration Radiology Results: ITS Impressions Venous Doppler Study 11/10/24 16:56 IMPRESSION: 1. No deep venous thrombosis within the bilateral lower extremities, as detailed above. Chest X-Ray 11/13/24 10:22 IMPRESSION: 1. Increasing small left and [id number] right pleural effusions with associated bibasilar atelectasis and/or pneumonia. 2. Cardiomegaly. Labs Labs: Laboratory Results - last 24 hr 11/13/24 11/13/24 11/14/24 15:44 20:29 06:59 WBC 5.0 RBC 5.14 Hgb 13.1 L Hct 39.7 L MCV 77.2 L MCH 25.5 L MCHC 33.0 RDW 13.2 Plt Count 270 MPV 10.4 Immature Gran % (Auto) 0.2 Neut % (Auto) 46.8 Lymph % (Auto) 36.0 [place] % (Auto) 13.8 H Eos % (Auto) 2.6 Baso % (Auto) 0.6 Lymph # (Auto) 1.80 [place] # (Auto) 0.7 H Eos # (Auto) 0.1 Baso # (Auto) 0.0 Abs Immat Gran (auto) 0.01 Absolute Neuts (auto) 2.3 Absolute Nucleated RBC 0.000 Nucleated RBC % 0.0 Sodium 134 L Potassium 4.1 Chloride 96 L Carbon Dioxide 33 H Anion Gap 5 BUN 15 Creatinine 1.17 Estim Creat Clear Calc 80 Estimated GFR > 60 Glucose 191 H POC Capillary Glucose 168 H 226 H Calcium 8.0 L Magnesium 1.9 Total Bilirubin 0.7 AST 40 ALT 36 Alkaline Phosphatase 54 Total Protein 7.0 Albumin 3.2 L 11/14/24 11/14/24 08:07 12:02 WBC RBC Hgb Hct MCV MCH MCHC RDW Plt Count MPV Immature Gran % (Auto) Neut % (Auto) Lymph % (Auto) [place] % (Auto) Eos % (Auto) Baso % (Auto) Lymph # (Auto) [place] # (Auto) Eos # (Auto) Baso # (Auto) Abs Immat Gran (auto) Absolute Neuts (auto) Absolute Nucleated RBC Nucleated RBC % Sodium Potassium Chloride Carbon Dioxide Anion Gap BUN Creatinine Estim Creat Clear Calc Estimated GFR Glucose POC Capillary Glucose 242 H 224 H Calcium Magnesium Total Bilirubin AST ALT Alkaline Phosphatase Total Protein Albumin
[2024-11-14 16:54] LABS: Glucose Point of Care 154 mg/dl (65-105)
[2024-11-14] MEDS: RIVAROXABAN 20 MG TABLET PO (17:46)
[2024-11-14 21:27] LABS: Glucose Point of Care 160 mg/dl (65-105)
[2024-11-14] MEDS: carvediloL 25 MG TABLET PO (21:38)
[2024-11-14] MEDS: INSULIN GLARGINE (*BKC) 100 UNITS/ML 15 UNITS SUB-Q (21:40)
[2024-11-15] VITALS (11 sets, daily range): BP systolic 92–104; BP diastolic 68–87; PULSE 77–105; RESP 16–18; TEMP 36.4–36.7; O2SAT 95–99
--- NOTE | 2024-11-15 02:44 | PC.NURSE ---
Pt heart rate non-sustained 150's x3 times. VS obtained, 97.5 93HR 18RR 95% 90/71 BP. Pt denies any chest pain, SOB or other symptoms. Instructed to call if any chest pain or abnormal symptoms.
[2024-11-15 07:46] LABS: Basophils Percent Auto 0.6 % (0.2-1.2); Eosinophils Absolute Auto 0.1 K/mm3 (0-0.3); Eosinophils Percent Auto 1.9 % (0-4.4); Hematocrit 41.5 % (42.0-52.0); Hemoglobin 13.8 g/dL (14.0-18.0); Immature Granulocyte Absolute 0.01 K/mm3 (0.00-0.031); Immature Granulocyte Percent A 0.2 % (0-0.5); Lymphocytes Absolute Auto 1.92 K/mm3 (0.9-3.2); Lymphocytes Percent Auto 36.1 % (18.3-44.2); Mean Corpuscular HGB Conc 33.3 g/dl (32-36); Mean Corpuscular Hemoglobin 25.7 pg (26-34); Mean Corpuscular Volume 77.4 fl (80-100); Mean Platelet Volume 10.2 fl (7.4-10.4); Monocytes Absolute Auto 0.7 K/mm3 (0.1-0.6); Monocytes Percent Auto 12.6 % (2.6-8.5); Neutrophils Absolute Auto 2.6 K/mm3 (1.3-6.7); Neutrophils Percent Auto 48.6 % (45.5-73.1); Platelet Count Result 294 k/mm3 (150-375); Red Blood Count 5.36 M/mm3 (4.6-6.20); Red Cell Distribution Width 13.3 % (11.5-14.5); White Blood Count 5.3 K/mm3 (4.5-10.0)
[2024-11-15 08:03] LABS: Glucose Point of Care 220 mg/dl (65-105)
[2024-11-15 08:19] LABS: Alanine Aminotransferase 37 U/L (6-50); Alkaline Phosphatase 55 U/L (38-126); Anion Gap 4 mmol/L (4-12); Aspartate Amino Transferase 29 U/L (17-59); Bilirubin,Total 0.5 mg/dL (0.2-1.3); Blood Urea Nitrogen 20 mg/dL (9-20); Calcium 8.2 mg/dL (8.4-10.2); Carbon Dioxide 33 mmol/L (22-30); Chloride 96 mmol/L (98-107); Estimated CRCL calculation 69 ml/min; Estimated Glomerular Filt Rate > 60; Glucose 217 mg/dL (65-110); Potassium 4.2 mmol/L (3.4-5.0); Sodium 133 mmol/L (137-145)
[2024-11-15] MEDS: BENZONATATE 100 MG CAPSULE 200 MG PO ×3 (09:12→17:07)
[2024-11-15] MEDS: metFORMIN HCL XR 500 MG TAB.SR.24H PO ×2 (09:12→17:07)
[2024-11-15] MEDS: THIAMINE HCL 100 MG TABLET PO (09:12)
[2024-11-15] MEDS: FOLIC ACID 1 MG TABLET PO (09:12)
[2024-11-15] MEDS: SPIRONOLACTONE 25 MG TABLET PO (09:12)
[2024-11-15] MEDS: carvediloL 25 MG TABLET PO ×2 (09:13→21:37)
[2024-11-15] MEDS: ASPIRIN 81 MG ENTERIC TABLET PO (09:13)
[2024-11-15] MEDS: FUROSEMIDE INJ 40 MG/4 ML VIAL IV PUSH (09:13)
[2024-11-15] MEDS: SACUBITRIL/VALSARTAN 24-26 MG TABLET 0.5 TAB PO ×2 (09:14→21:39)
[2024-11-15] MEDS: INSULIN ASPART (*BKC) 100 UNITS/ML SUB-Q ×3 (09:18→12:58)
[2024-11-15] MEDS: EMPAGLIFLOZIN 10 MG TABLET PO (09:26)
--- NOTE | 2024-11-15 09:35 | PCNWS ---
Weekly nutritional screen. Patient is tolerating current heart healthy diet with adequate intake 75-100%. No weight loss reported. No nutritional recommendations at this time.
--- NOTE | 2024-11-15 12:01 | P.PNIM_ITS ---
Progress Note: A&P Assessment and Plan (1) Chest pain: Code(s): R07.9 - Chest pain, unspecified Status: Acute (2) CHF (congestive heart failure): Code(s): I50.9 - Heart failure, unspecified Status: Acute (3) Uncontrolled type 2 diabetes mellitus: Status: Acute (4) EtOH dependence: Code(s): F10.20 - Alcohol dependence, uncomplicated Status: Chronic (5) Hypertension: Code(s): I10 - Essential (primary) hypertension Status: Acute (6) Cardiomyopathy: Code(s): I42.9 - Cardiomyopathy, unspecified Status: Acute Plan # Chest pain Patient has intermittent chest pain, worse with cough. Possible pleural chest pain Elevated troponin, EKG showed sinus rhythm, tachycardia, low-voltage of extremity leads Patient received aspirin 324 mg once in the ED Continue aspirin 81 mg daily p.o. Consult hat stock laminating machine operator for evaluation treatment Patient had intermittent chest pain, appreciate cardiology consultation. Plans cardiac catheterization 11/09 Per hat stock laminating machine operator, patient declined cardiac catheterization. Discussed with the patient again regarding cardiac catheterization for further evaluation. Fixed defect on stress test done at [facility]. # Severe systolic heart failure on life vest, cardiomyopathy Possible resulting from a alcoholic cardiomyopathy EF 15-20% on echocardiogram September 2024 Patient has intermittent lightheadedness No discharge from Life Vest ekg monitor Elevated BNP lower than baseline, x-ray shows cardiomegaly and small pleural effusion s/w furosemide 40 mg bid ivp. Per hat stock laminating machine operator, spironolactone 25 mg daily p.o. Follow input output Held Lasix due to hypotension however will resume Lasix oral. Up titrate carvedilol. iv lasix as cxr wtih wrosening bilateral effusion right more than left Repeat chest x-ray since improved. Will place on Lasix 40 mg daily # Acute bronchitis X-ray shows no consolidation Patient has dry cough No obvious sign of better infection COVID and flu negative Provide cough medication: Benzonate, Robitussin and codeine p.o. p.r.n. Recheck chest x-ray reviewed with worsening bilateral effusion right morethan left 11/13/24. Add benzonatate # Essential hypertension Continue home medication Entresto 1 tab b.i.d. p.o., carvedilol 12.5 mg b.i.d. p.o. # Left ventricle thrombus Patient is on blood thinner Xarelto 20 mg daily p.o. TTE showed LV thrombus- stop Xarelto and started IV heparin Change back to Xarelto p.o. # Uncontrolled type 2 diabetes Possible due to noncompliance with medications Follow-up A1c Continue glargine 15 units q.h.s. aspart 5 unit t.i.d. Start insulin sliding scale a.c. and q.h.s. Hold metformin # History of alcohol dependence Monitor sign of alcohol withdrawal per [facility] protocol Start thiamine and folic acid p.o. Follow-up alcohol no drug screening Subjective Date/time seen: 11/15/24 12:01 Interval history: Feels better. Still has elevated a cough. Leg swelling has improved. Review of Systems Review of Systems: All systems reviewed & are unremarkable except as noted in HPI and below Exam Narrative: GENERAL: in no acute distress. Well-nourished. - EYES: EOMI. Anicteric. - HENT: Moist mucous membranes. - LUNGS: Clear to auscultation bilateral ly, no wheezing, rhonchi, or rales. - CARDIOVASCULAR: Regular rate and rhyth m. No murmur. No JVD. - ABDOMEN: Soft, non-tender and non-dist ended. No palpable masses. - EXTREMITIES: 1+ edema in feet. Periph eral pulses 2+. Non-tender. - NEUROLOGIC: No focal neurological defi cits. CN II-XII grossly intact. - PSYCHIATRIC: Awake, Alert and oriented x 3. Appropriate mood and affect. - SKIN: No rashes or lesions. Warm. - LYMPH: No cervical lymphadenopathy. Objective Data Vital Signs Vital Signs: Vital Signs - 24 hr 11/14/24 14:00 11/14/24 16:00 11/14/24 20:00 Temperature 97.6 F Pulse Rate 92 99 99 Respiratory Rate 18 Blood Pressure 99/69 L Pulse Oximetry 96 Oxygen Delivery Fraction of Inspired Oxygen 11/14/24 21:38 11/14/24 22:00 11/14/24 22:14 Temperature 97.9 F Pulse Rate 102 H 102 H Respiratory Rate 18 Blood Pressure 111/88 Pulse Oximetry 98 99 Oxygen Delivery Room Air Fraction of Inspired Oxygen 11/15/24 00:00 11/15/24 04:00 11/15/24 05:45 Temperature 98.0 F Pulse Rate 100 94 99 Respiratory Rate 16 Blood Pressure 92/68 L Pulse Oximetry 95 Oxygen Delivery Fraction of Inspired Oxygen 11/15/24 08:00 11/15/24 08:00 11/15/24 09:13 Temperature Pulse Rate 100 92 Respiratory Rate Blood Pressure Pulse Oximetry Oxygen Delivery Room Air Fraction of Inspired Oxygen Intake/Output Intake/Output: Intake & Output 11/12/24 11/13/24 11/14/24 11/15/24 23:59 23:59 23:59 23:59 Intake Total 2001 1150 1340 787 Output Total 800 1650 950 Balance 1202 1158 -310 -163 Meds/Results Medications: Active Medications Generic Name Dose Route Start Last Admin Trade Name Freq PRN Reason Stop Dose Admin Acetaminophen 650 mg 11/12/24 22:39 11/12/24 22:49 Acetaminophen 325 Mg Tablet PO 650 mg Q6H PRN Administration Mild Pain (1-3) or Fever Aspirin 81 mg 11/09/24 09:00 11/15/24 09:13 Aspirin 81 Mg Enteric Tablet PO 81 mg QAM KELIN Administration Benzocaine 1 lozenge 11/10/24 00:13 11/13/24 08:47 Benzocaine/Menthol (*Bkc) 18 Ea Lozenge PO 1 lozenge PRN PRN Administration Sore Throat Benzonatate 200 mg 11/13/24 10:00 11/15/24 09:12 Benzonatate 100 Mg Capsule PO 200 mg TID KELIN Administration Carvedilol 25 mg 11/14/24 21:00 11/15/24 09:13 Carvedilol 25 Mg Tablet PO 25 mg Q12HR KELIN Administration Codeine Sulfate 30 mg 11/11/24 15:29 Codeine Sulfate (*Crx) 30 Mg Tablet PO Q6H PRN Severe Cough Dextrose 12.5 gm 11/08/24 10:33 Dextrose 50% 25 Gm/50 Ml Syringe IV PUSH PRN PRN Hypoglycemia Protocol Empagliflozin 10 mg 11/12/24 09:00 11/15/24 09:26 Empagliflozin 10 Mg Tablet PO 10 mg DAILY KELIN Administration Folic Acid 1 mg 11/09/24 09:00 11/15/24 09:12 Folic Acid 1 Mg Tablet PO 1 mg DAILY KELIN Administration Furosemide 40 mg 11/13/24 17:00 11/15/24 09:13 Furosemide Inj 40 Mg/4 Ml Vial IV PUSH 40 mg BID KELIN Administration Glucagon 1 mg 11/08/24 10:33 Glucagon For Inj 1 Mg Vial IM PRN PRN Hypoglycemia Protocol Glucose 15 gm 11/08/24 10:33 Glucose Oral Gel 15 Gm Of Glucse In 37.5 Gm Tube PO PRN PRN Hypoglycemia Protocol Guaifenesin/Dextromethorphan 10 ml 11/11/24 15:29 11/12/24 17:52 Guaifenesin/Dextromethorphan 10 Ml Udc PO 10 ml Q4H PRN Administration Cough Dextrose 1,000 mls @ 100 mls/hr 11/08/24 10:33 Dextrose 5% 1,000 Ml IVPB PRN PRN Hypoglycemia Protocol Insulin Aspart 5 units 11/08/24 12:00 11/15/24 09:18 Insulin Aspart (*Bkc) 100 Units/Ml SUB-Q 5 units TIDWM KELIN Administration Insulin Aspart 3 - 6 units 11/08/24 12:00 11/15/24 09:27 Insulin Aspart (*Bkc) 100 Units/Ml SUB-Q Not Given TIDWM KELIN Protocol Insulin Aspart 1 - 3 units 11/08/24 21:00 11/14/24 21:40 Insulin Aspart (*Bkc) 100 Units/Ml SUB-Q Not Given HS KELIN Protocol Insulin Glargine 15 units 11/08/24 21:00 11/14/24 21:40 Insulin Glargine (*Bkc) 100 Units/Ml SUB-Q 5 units HS KELIN Administration Metformin HCl 500 mg 11/08/24 17:00 11/15/24 09:12 Metformin Hcl Xr 500 Mg Tab.Sr.24h PO 500 mg BIDWM KELIN Administration Rivaroxaban 20 mg 11/08/24 17:00 11/14/24 17:46 Rivaroxaban 20 Mg Tablet PO 20 mg DAILY@1700 KELIN Administration Sacubitril/Valsartan 0.5 tab 11/12/24 09:00 11/15/24 09:14 Sacubitril/Valsartan 24-26 Mg Tablet PO 0.5 tab Q12HR KELIN Administration Spironolactone 25 mg 11/09/24 09:00 11/15/24 09:12 Spironolactone 25 Mg Tablet PO 25 mg QAM KELIN Administration Thiamine HCl 100 mg 11/09/24 09:00 11/15/24 09:12 Thiamine Hcl 100 Mg Tablet PO 100 mg QAM KELIN Administration Radiology Results: ITS Impressions Venous Doppler Study 11/10/24 16:56 IMPRESSION: 1. No deep venous thrombosis within the bilateral lower extremities, as detailed above. Chest X-Ray 11/15/24 06:44 Impression: Small right pleural effusion with mild bibasilar pulmonary edema. Stable cardiomegaly. Labs Labs: Laboratory Results - last 24 hr 11/14/24 11/14/24 11/14/24 12:02 16:44 21:23 WBC RBC Hgb Hct MCV MCH MCHC RDW Plt Count MPV Immature Gran % (Auto) Neut % (Auto) Lymph % (Auto) [place] % (Auto) Eos % (Auto) Baso % (Auto) Lymph # (Auto) [place] # (Auto) Eos # (Auto) Baso # (Auto) Abs Immat Gran (auto) Absolute Neuts (auto) Absolute Nucleated RBC Nucleated RBC % Sodium Potassium Chloride Carbon Dioxide Anion Gap BUN Creatinine Estim Creat Clear Calc Estimated GFR Glucose POC Capillary Glucose 224 H 154 H 160 H Calcium Magnesium Total Bilirubin AST ALT Alkaline Phosphatase Total Protein Albumin 11/15/24 11/15/24 07:32 07:52 WBC 5.3 RBC 5.36 Hgb 13.8 L Hct 41.5 L MCV 77.4 L MCH 25.7 L MCHC 33.3 RDW 13.3 Plt Count 294 MPV 10.2 Immature Gran % (Auto) 0.2 Neut % (Auto) 48.6 Lymph % (Auto) 36.1 [place] % (Auto) 12.6 H Eos % (Auto) 1.9 Baso % (Auto) 0.6 Lymph # (Auto) 1.92 [place] # (Auto) 0.7 H Eos # (Auto) 0.1 Baso # (Auto) 0.0 Abs Immat Gran (auto) 0.01 Absolute Neuts (auto) 2.6 Absolute Nucleated RBC 0.000 Nucleated RBC % 0.0 Sodium 133 L Potassium 4.2 Chloride 96 L Carbon Dioxide 33 H Anion Gap 4 BUN 20 Creatinine 1.37 H Estim Creat Clear Calc 69 Estimated GFR > 60 Glucose 217 H POC Capillary Glucose 220 H Calcium 8.2 L Magnesium 2.0 Total Bilirubin 0.5 AST 29 ALT 37 Alkaline Phosphatase 55 Total Protein 6.0 L Albumin 3.0 L
[2024-11-15 12:07] LABS: Glucose Point of Care 290 mg/dl (65-105)
--- NOTE | 2024-11-15 12:20 | P.PNCA_ITS ---
Progress Note: A&P Assessment and Plan (1) Acute on chronic systolic heart failure: Code(s): I50.23 - Acute on chronic systolic (congestive) heart failure Status: Acute (2) Hypertension: Code(s): I10 - Essential (primary) hypertension Status: Acute (3) Noncompliance: Code(s): Z91.199 - Patient's noncompliance with other medical treatment and regimen due to unspecified reason Status: Acute (4) EtOH dependence: Code(s): F10.20 - Alcohol dependence, uncomplicated Status: Chronic (5) LV (left ventricular) mural thrombus: Code(s): I51.3 - Intracardiac thrombosis, not elsewhere classified Status: Acute Plan Acute on chronic systolic heart failure with LV EF 10-15% Elevated troponin-though troponins elevated has remained flat, no chest pain at this time, patient declined cardiac catheterization for evaluation of his cardiomyopathy LV thrombus-on Xarelto Atenolol, dependance Noncompliant with medication Hypertension Lower extremity swelling right greater than left-venous Dopplers negative for DVT Cough, sore throat, hoarseness most likely secondary to upper respiratory infection Plan: -Given VT, no prior workup for new cardiomyopathy, recommended cardiac catheterization to evaluate coronary anatomy as a cause of cardiomyopathy. Patient declined cardiac catheterization. I discussed this with him again today and he would like to wait to undergo any ischemic evaluation as an outpatient. -Continue Aspirin 81 mg daily -Add atorvastatin 40 mg daily -Guideline directed medical therapy as tolerated for systolic heart failure- continue Coreg, Entresto, spironolactone. Will add jardiance -Counseled about stopping alcohol use -Monitor on telemetry -Continue Lasix 40 mg p.o. daily -Check renal function daily - SCr bumped today to 1.37. Diuretics decreased today. -Check and replace electrolytes to keep potassium greater than 4 and magnesium greater than 2 -Counseled about medication compliance -Management of other medical issues per primary team -He is okay for discharge from a cardiac standpoint will arrange for follow up in our office. Subjective Date/time seen: 11/15/24 12:20 Interval history: Reason For Visit: chest pain HPI: 39-year-old male with history of diabetes mellitus, hypertension, alcohol dependence, and systolic heart failure with LV ejection fraction of 20% by echo in 2023 (fixed defect on stress test, patient declined cardiac cath) on Life Vest presented to the ED after his LifeVest discharged a shock. Interrogation of life vest showed patient had a run of VT prior to the shock which restored sinus rhythm. Patient did not have any anginal chest pain prior to or after the shock. He was recently treated for pneumonia with a course of antibiotics but continues to have some cough without any fevers or chills. He has bilateral lower extremity swelling and increased weight gain over the past few weeks. He has been non-compliant with his medications for about a week. Cardiology was consulted for further management. Workup: Troponin: 0.120, 0.121, 0.126 EKG: Sinus tachycardia with rate of 115, nonspecific ST T wave changes BNP: 3430 (baseline BNP around 4500) TTE:LV apical thrombus 1.4-1.8 cm TTE 09/2024: LV ejection fraction 15-20%, depressed RV systolic function, mild aortic regurgitation, mild to moderate mitral regurgitation, mild tricuspid regurgitation, mild pulmonary hypertension, mild pulmonary regurgitation, small pericardial effusion, LV thrombus could not be ruled out Interval history: Patient continues to feel short of breath and has not noticed any increased urination with IV Lasix 20 mg last night. He has bilateral leg swelling R>L.. No chest pain, dizziness lightheadedness. TTE completed yesterday showed an LV thrombus. He is on Xarelto. 11/15/2024: He feels well today. No specific complaints. Denies shortness of breath, orthopnea, palpitations, chest pain. Review of Systems Review of Systems: All systems reviewed & are unremarkable except as noted in HPI and below Exam Const: General: comfortable, no acute distress, alert and awake Orientation/consciousness: patient oriented x3 HENMT: Head: normal to inspection Eyes: General: appearance normal, both eyes and all related structures Pupils: Equal, round and reactive pupils present Neck: Neck: normal visual inspection, supple and no JVD Carotids: normal carotid upstroke Resp: Effort & Inspection: normal respiratory effort Auscultation: clear to auscultation bilaterally Cardio: Rate: regular rate Rhythm: regular rhythm Heart sounds: S1 normal heart sound present, S2 normal heart sound present and no murmurs GI: Auscultation: normal bowel sounds Skin: General skin exam: normal color Neuro: General: patient oriented x3 Cranial nerves: Yes Equal, round and reactive pupils present Extrem: General: normal to inspection Other: No edema Psych: Appearance: grossly normal Mental Status: mental status grossly normal Objective Data Vital Signs Vital Signs: Vital Signs - 24 hr 11/14/24 14:00 11/14/24 16:00 11/14/24 20:00 Temperature 36.4 C Pulse Rate 92 99 99 Respiratory Rate 18 Blood Pressure 99/69 L Pulse Oximetry 96 Oxygen Delivery Fraction of Inspired Oxygen 11/14/24 21:38 11/14/24 22:00 11/14/24 22:14 Temperature 36.6 C Pulse Rate 102 H 102 H Respiratory Rate 18 Blood Pressure 111/88 Pulse Oximetry 98 99 Oxygen Delivery Room Air Fraction of Inspired Oxygen 11/15/24 00:00 11/15/24 04:00 11/15/24 05:45 Temperature 36.7 C Pulse Rate 100 94 99 Respiratory Rate 16 Blood Pressure 92/68 L Pulse Oximetry 95 Oxygen Delivery Fraction of Inspired Oxygen 11/15/24 08:00 11/15/24 08:00 11/15/24 09:13 Temperature Pulse Rate 100 92 Respiratory Rate Blood Pressure Pulse Oximetry Oxygen Delivery Room Air Fraction of Inspired Oxygen Intake/Output Intake/Output: Intake & Output 11/12/24 11/13/24 11/14/24 11/15/24 23:59 23:59 23:59 23:59 Intake Total 2001 1150 1340 787 Output Total 800 1650 950 Balance 1202 1150 -310 -163 Meds/Results Medications: Active Medications Generic Name Dose Route Start Last Admin Trade Name Freq PRN Reason Stop Dose Admin Acetaminophen 650 mg 11/12/24 22:39 11/12/24 22:49 Acetaminophen 325 Mg Tablet PO 650 mg Q6H PRN Administration Mild Pain (1-3) or Fever Aspirin 81 mg 11/09/24 09:00 11/15/24 09:13 Aspirin 81 Mg Enteric Tablet PO 81 mg QAM KELIN Administration Benzocaine 1 lozenge 11/10/24 00:13 11/13/24 08:47 Benzocaine/Menthol (*Bkc) 18 Ea Lozenge PO 1 lozenge PRN PRN Administration Sore Throat Benzonatate 200 mg 11/13/24 10:00 11/15/24 09:12 Benzonatate 100 Mg Capsule PO 200 mg TID KELIN Administration Carvedilol 25 mg 11/14/24 21:00 11/15/24 09:13 Carvedilol 25 Mg Tablet PO 25 mg Q12HR KELIN Administration Codeine Sulfate 30 mg 11/11/24 15:29 Codeine Sulfate (*Crx) 30 Mg Tablet PO Q6H PRN Severe Cough Dextrose 12.5 gm 11/08/24 10:33 Dextrose 50% 25 Gm/50 Ml Syringe IV PUSH PRN PRN Hypoglycemia Protocol Empagliflozin 10 mg 11/12/24 09:00 11/15/24 09:26 Empagliflozin 10 Mg Tablet PO 10 mg DAILY KELIN Administration Folic Acid 1 mg 11/09/24 09:00 11/15/24 09:12 Folic Acid 1 Mg Tablet PO 1 mg DAILY KELIN Administration Furosemide 40 mg 11/16/24 09:00 Furosemide 40 Mg Tablet PO DAILY KELIN Glucagon 1 mg 11/08/24 10:33 Glucagon For Inj 1 Mg Vial IM PRN PRN Hypoglycemia Protocol Glucose 15 gm 11/08/24 10:33 Glucose Oral Gel 15 Gm Of Glucse In 37.5 Gm Tube PO PRN PRN Hypoglycemia Protocol Guaifenesin/Dextromethorphan 10 ml 11/11/24 15:29 11/12/24 17:52 Guaifenesin/Dextromethorphan 10 Ml Udc PO 10 ml Q4H PRN Administration Cough Dextrose 1,000 mls @ 100 mls/hr 11/08/24 10:33 Dextrose 5% 1,000 Ml IVPB PRN PRN Hypoglycemia Protocol Insulin Aspart 5 units 11/08/24 12:00 11/15/24 09:18 Insulin Aspart (*Bkc) 100 Units/Ml SUB-Q 5 units TIDWM KELIN Administration Insulin Aspart 3 - 6 units 11/08/24 12:00 11/15/24 09:27 Insulin Aspart (*Bkc) 100 Units/Ml SUB-Q Not Given TIDWM KELIN Protocol Insulin Aspart 1 - 3 units 11/08/24 21:00 11/14/24 21:40 Insulin Aspart (*Bkc) 100 Units/Ml SUB-Q Not Given HS KELIN Protocol Insulin Glargine 15 units 11/08/24 21:00 11/14/24 21:40 Insulin Glargine (*Bkc) 100 Units/Ml SUB-Q 5 units HS KELIN Administration Metformin HCl 500 mg 11/08/24 17:00 11/15/24 09:12 Metformin Hcl Xr 500 Mg Tab.Sr.24h PO 500 mg BIDWM KELIN Administration Rivaroxaban 20 mg 11/08/24 17:00 11/14/24 17:46 Rivaroxaban 20 Mg Tablet PO 20 mg DAILY@1700 KELIN Administration Sacubitril/Valsartan 0.5 tab 11/12/24 09:00 11/15/24 09:14 Sacubitril/Valsartan 24-26 Mg Tablet PO 0.5 tab Q12HR KELIN Administration Spironolactone 25 mg 11/09/24 09:00 11/15/24 09:12 Spironolactone 25 Mg Tablet PO 25 mg QAM KELIN Administration Thiamine HCl 100 mg 11/09/24 09:00 11/15/24 09:12 Thiamine Hcl 100 Mg Tablet PO 100 mg QAM KELIN Administration Radiology Results: ITS Impressions Venous Doppler Study 11/10/24 16:56 IMPRESSION: 1. No deep venous thrombosis within the bilateral lower extremities, as detailed above. Chest X-Ray 11/15/24 06:44 Impression: Small right pleural effusion with mild bibasilar pulmonary edema. Stable cardiomegaly. Labs Labs: Laboratory Results - last 24 hr 11/14/24 11/14/24 11/14/24 12:02 16:44 21:23 WBC RBC Hgb Hct MCV MCH MCHC RDW Plt Count MPV Immature Gran % (Auto) Neut % (Auto) Lymph % (Auto) [place] % (Auto) Eos % (Auto) Baso % (Auto) Lymph # (Auto) [place] # (Auto) Eos # (Auto) Baso # (Auto) Abs Immat Gran (auto) Absolute Neuts (auto) Absolute Nucleated RBC Nucleated RBC % Sodium Potassium Chloride Carbon Dioxide Anion Gap BUN Creatinine Estim Creat Clear Calc Estimated GFR Glucose POC Capillary Glucose 224 H 154 H 160 H Calcium Magnesium Total Bilirubin AST ALT Alkaline Phosphatase Total Protein Albumin 11/15/24 11/15/24 11/15/24 07:32 07:52 11:44 WBC 5.3 RBC 5.36 Hgb 13.8 L Hct 41.5 L MCV 77.4 L MCH 25.7 L MCHC 33.3 RDW 13.3 Plt Count 294 MPV 10.2 Immature Gran % (Auto) 0.2 Neut % (Auto) 48.6 Lymph % (Auto) 36.1 [place] % (Auto) 12.6 H Eos % (Auto) 1.9 Baso % (Auto) 0.6 Lymph # (Auto) 1.92 [place] # (Auto) 0.7 H Eos # (Auto) 0.1 Baso # (Auto) 0.0 Abs Immat Gran (auto) 0.01 Absolute Neuts (auto) 2.6 Absolute Nucleated RBC 0.000 Nucleated RBC % 0.0 Sodium 133 L Potassium 4.2 Chloride 96 L Carbon Dioxide 33 H Anion Gap 4 BUN 20 Creatinine 1.37 H Estim Creat Clear Calc 69 Estimated GFR > 60 Glucose 217 H POC Capillary Glucose 220 H 290 H Calcium 8.2 L Magnesium 2.0 Total Bilirubin 0.5 AST 29 ALT 37 Alkaline Phosphatase 55 Total Protein 6.0 L Albumin 3.0 L
--- NOTE | 2024-11-15 16:11 | PCPTNOTE ---
On 11/15/24, the student, TWAN Duarte, provided care and completed [facility] documentation on this patient. I have reviewed the student's documentation and agree with the findings.
[2024-11-15 16:40] LABS: Glucose Point of Care 104 mg/dl (65-105)
[2024-11-15] MEDS: RIVAROXABAN 20 MG TABLET PO (17:07)
[2024-11-15] MEDS: INSULIN GLARGINE (*BKC) 100 UNITS/ML 15 UNITS SUB-Q (21:38)
[2024-11-15 23:04] LABS: Glucose Point of Care 275 mg/dl (65-105)
[2024-11-16] VITALS: PULSE 97
[2024-11-16 04:00] VITALS: PULSE 96
[2024-11-16 06:00] VITALS: BP 119/94; PULSE 99; RESP 16; TEMP 36.3; O2SAT 99
[2024-11-16 06:29] LABS: Basophils Percent Auto 0.4 % (0.2-1.2); Eosinophils Absolute Auto 0.1 K/mm3 (0-0.3); Eosinophils Percent Auto 2.5 % (0-4.4); Hematocrit 41.9 % (42.0-52.0); Immature Granulocyte Absolute 0.02 K/mm3 (0.00-0.031); Immature Granulocyte Percent A 0.4 % (0-0.5); Lymphocytes Absolute Auto 1.92 K/mm3 (0.9-3.2); Lymphocytes Percent Auto 40.6 % (18.3-44.2); Mean Corpuscular HGB Conc 33.4 g/dl (32-36); Mean Corpuscular Hemoglobin 25.5 pg (26-34); Mean Corpuscular Volume 76.5 fl (80-100); Mean Platelet Volume 10.4 fl (7.4-10.4); Monocytes Absolute Auto 0.6 K/mm3 (0.1-0.6); Monocytes Percent Auto 13.5 % (2.6-8.5); Neutrophils Percent Auto 42.6 % (45.5-73.1); Platelet Count Result 314 k/mm3 (150-375); Red Blood Count 5.48 M/mm3 (4.6-6.20); Red Cell Distribution Width 13.1 % (11.5-14.5); White Blood Count 4.7 K/mm3 (4.5-10.0)
[2024-11-16 06:54] LABS: Alanine Aminotransferase 28 U/L (6-50); Albumin Level 3.1 g/dL (3.5-5.1); Alkaline Phosphatase 53 U/L (38-126); Anion Gap 8 mmol/L (4-12); Aspartate Amino Transferase 24 U/L (17-59); Bilirubin,Total 0.7 mg/dL (0.2-1.3); Blood Urea Nitrogen 19 mg/dL (9-20); Calcium 8.4 mg/dL (8.4-10.2); Carbon Dioxide 29 mmol/L (22-30); Chloride 96 mmol/L (98-107); Estimated CRCL calculation 84 ml/min; Estimated Glomerular Filt Rate > 60; Glucose 190 mg/dL (65-110); Magnesium 2.1 mg/dL (1.6-2.3); Potassium 3.5 mmol/L (3.4-5.0); Sodium 133 mmol/L (137-145)
[2024-11-16 08:00] VITALS: PULSE 91
[2024-11-16 08:24] LABS: Glucose Point of Care 179 mg/dl (65-105)
[2024-11-16] MEDS: SACUBITRIL/VALSARTAN 24-26 MG TABLET 0.5 TAB PO (09:07)
[2024-11-16 09:08] VITALS: PULSE 99
[2024-11-16] MEDS: BENZONATATE 100 MG CAPSULE 200 MG PO ×2 (09:08→12:34)
[2024-11-16] MEDS: carvediloL 25 MG TABLET PO (09:08)
[2024-11-16] MEDS: ASPIRIN 81 MG ENTERIC TABLET PO (09:08)
[2024-11-16] MEDS: FOLIC ACID 1 MG TABLET PO (09:08)
[2024-11-16] MEDS: SPIRONOLACTONE 25 MG TABLET PO (09:08)
[2024-11-16] MEDS: THIAMINE HCL 100 MG TABLET PO (09:08)
[2024-11-16] MEDS: EMPAGLIFLOZIN 10 MG TABLET PO (09:08)
[2024-11-16] MEDS: metFORMIN HCL XR 500 MG TAB.SR.24H PO (09:08)
[2024-11-16] MEDS: FUROSEMIDE 40 MG TABLET PO (10:21)
[2024-11-16 12:00] VITALS: PULSE 92
[2024-11-16 12:00] LABS: Glucose Point of Care 362 mg/dl (65-105)
--- NOTE | 2024-11-16 12:11 | PCPTNOTE ---
On 11/16/24, the student, TWAN Duarte, provided care and completed [facility] documentation on this patient. I have reviewed the student's documentation and agree with the findings.
[2024-11-16] MEDS: INSULIN ASPART (*BKC) 100 UNITS/ML SUB-Q ×2 (12:32→12:33)
--- NOTE | 2024-11-16 13:18 | PM.DS ---
DS: Admitting Diagnosis Discharge Date 11/16/2024 Admitting Diagnosis shortness of breath DS: Discharge Diagnosis Discharge Diagnosis (1) Chest pain: Code(s): R07.9 - Chest pain, unspecified Status: Acute (2) CHF (congestive heart failure): Code(s): I50.9 - Heart failure, unspecified Status: Acute (3) Uncontrolled type 2 diabetes mellitus: Status: Acute (4) EtOH dependence: Code(s): F10.20 - Alcohol dependence, uncomplicated Status: Chronic (5) Hypertension: Code(s): I10 - Essential (primary) hypertension Status: Acute (6) Cardiomyopathy: Code(s): I42.9 - Cardiomyopathy, unspecified Status: Acute DS: Summary Hospital Course Hospital Course: # Chest pain Patient has intermittent chest pain, worse with cough. Possible pleural chest pain Elevated troponin, EKG showed sinus rhythm, tachycardia, low-voltage of extremity leads Patient received aspirin 324 mg once in the ED Continue aspirin 81 mg daily p.o. Consult supervising editor trailer for evaluation treatment Patient had intermittent chest pain, appreciate cardiology consultation. Plans cardiac catheterization 11/09 Per supervising editor trailer, patient declined cardiac catheterization. Discussed with the patient again regarding cardiac catheterization for further evaluation. Fixed defect on stress test done at [facility]. # Severe systolic heart failure on life vest, cardiomyopathy Possible resulting from a alcoholic cardiomyopathy EF 15-20% on echocardiogram September 2024 Patient has intermittent lightheadedness No discharge from Life Vest electronic device monitor Elevated BNP lower than baseline, x-ray shows cardiomegaly and small pleural effusion s/w furosemide 40 mg bid ivp. Per supervising editor trailer, spironolactone 25 mg daily p.o. Follow input output Held Lasix due to hypotension however will resume Lasix oral. Up titrate carvedilol. iv lasix as cxr wtih wrosening bilateral effusion right more than left Repeat chest x-ray since improved. Will continue on Lasix 40 mg daily # Acute bronchitis X-ray shows no consolidation Patient has dry cough No obvious sign of better infection COVID and flu negative Provide cough medication: Benzonate, Robitussin and codeine p.o. p.r.n. Recheck chest x-ray reviewed with worsening bilateral effusion right morethan left 11/13/24. Add benzonatate # Essential hypertension Continue home medication Entresto 1 tab b.i.d. p.o., carvedilol 12.5 mg b.i.d. p.o. # Left ventricle thrombus Patient is on blood thinner Xarelto 20 mg daily p.o. TTE showed LV thrombus- stop Xarelto and started IV heparin Change back to Xarelto p.o. # Uncontrolled type 2 diabetes Possible due to noncompliance with medications Follow-up A1c Continue glargine 15 units q.h.s. aspart 5 unit t.i.d. Start insulin sliding scale a.c. and q.h.s. Hold metformin # History of alcohol dependence Monitor sign of alcohol withdrawal per [facility] protocol Start thiamine and folic acid p.o. Follow-up alcohol no drug screening Time Spent with Patient Time attestation: Total time spent providing and/or coordinating discharge services: 45 mins Exam Narrative: GENERAL: in no acute distress. Well-nourished. - EYES: EOMI. Anicteric. - HENT: Moist mucous membranes. - LUNGS: Clear to auscultation bilaterally, no wheezing, rhonchi, or rales. - CARDIOVASCULAR: Regular rate and rhythm. No murmur. No JVD. - ABDOMEN: Soft, non-tender and non-distended. No palpable masses. - EXTREMITIES: 1+ edema in feet. Peripheral pulses 2+. Non-tender. - NEUROLOGIC: No focal neurological deficits. CN II-XII grossly intact. - PSYCHIATRIC: Awake, Alert and oriented x 3. Appropriate mood and affect. - SKIN: No rashes or lesions. Warm. - LYMPH: No cervical lymphadenopathy. DS: Data Data Completed and Pending Labs on day of discharge: Labs from last 24 hours 11/16/24 11/16/24 11/16/24 11:26 07:49 05:45 WBC 4.7 RBC 5.48 Hgb 14.0 Hct 41.9 L MCV 76.5 L MCH 25.5 L MCHC 33.4 RDW 13.1 Plt Count 314 MPV 10.4 Immature Gran % (Auto) 0.4 Neut % (Auto) 42.6 L Lymph % (Auto) 40.6 [place] % (Auto) 13.5 H Eos % (Auto) 2.5 Baso % (Auto) 0.4 Lymph # (Auto) 1.92 [place] # (Auto) 0.6 Eos # (Auto) 0.1 Baso # (Auto) 0.0 Abs Immat Gran (auto) 0.02 Absolute Neuts (auto) 2.0 Absolute Nucleated RBC 0.000 Nucleated RBC % 0.0 Sodium 133 L Potassium 3.5 Chloride 96 L Carbon Dioxide 29 Anion Gap 8 BUN 19 Creatinine 1.10 Estim Creat Clear Calc 84 Estimated GFR > 60 Glucose 190 H POC Capillary Glucose 362 H 179 H Calcium 8.4 Magnesium 2.1 Total Bilirubin 0.7 AST 24 ALT 28 Alkaline Phosphatase 53 Total Protein 7.0 Albumin 3.1 L 11/15/24 11/15/24 21:29 16:13 WBC RBC Hgb Hct MCV MCH MCHC RDW Plt Count MPV Immature Gran % (Auto) Neut % (Auto) Lymph % (Auto) [place] % (Auto) Eos % (Auto) Baso % (Auto) Lymph # (Auto) [place] # (Auto) Eos # (Auto) Baso # (Auto) Abs Immat Gran (auto) Absolute Neuts (auto) Absolute Nucleated RBC Nucleated RBC % Sodium Potassium Chloride Carbon Dioxide Anion Gap BUN Creatinine Estim Creat Clear Calc Estimated GFR Glucose POC Capillary Glucose 275 H 104 Calcium Magnesium Total Bilirubin AST ALT Alkaline Phosphatase Total Protein Albumin Imaging Radiologist's impression: ITS Impressions Chest X-Ray 11/08/24 06:21 Impression: Small right pleural effusion. Stable cardiomegaly. Venous Doppler Study 11/10/24 16:56 IMPRESSION: 1. No deep venous thrombosis within the bilateral lower extremities, as detailed above. Chest X-Ray 11/13/24 10:22 IMPRESSION: 1. Increasing small left and [id number]-[id number] right pleural effusions with associated bibasilar atelectasis and/or pneumonia. 2. Cardiomegaly. Chest X-Ray 11/15/24 06:44 Impression: Small right pleural effusion with mild bibasilar pulmonary edema. Stable cardiomegaly. Discharge Plan Discharge Attending physician on discharge: Milan Catherine Consulting providers: Arthur Tatum Discharging Clinician: Milan Catherine Anticipated Discharge Date/Time: 11/16/24 13:21 Patient Disposition: Home, Self-Care Activity: as tolerated Diet: heart healthy Patient Instructions: Antibiotic Form Patient Language: Upper Sorbian Stand Alone Forms: General Discharge Information Follow-up/Referrals: Arthur Tatum MD [Physician] - 2 Weeks PHYSICIAN,EXPERT MEDICAL WRITER [Primary Care Provider] - 1 Week Discharge Medications: New folic acid 1 mg Tablet 1 mg PO DAILY Qty: 30 0RF Jardiance 10 mg Tablet 10 mg PO DAILY Qty: 30 0RF carvedilol [Coreg] 25 mg Tablet 25 mg PO Q12HR Qty: 60 0RF aspirin 81 mg Tablet,Delayed Release (Dr/Ec) 81 mg PO QAM Qty: 30 0RF thiamine HCl (vitamin B1) [Vitamin B-1] 100 mg Tablet 100 mg PO QAM Qty: 30 0RF Continued furosemide 40 mg Tablet 40 mg PO DAILY Qty: 90 0RF insulin glargine [Lantus U-100 Insulin] 100 unit/mL Solution 15 unit subcut HS Qty: 150 1RF dextrose [Glutose-15] 40 % Gel 15 g PO PRN PRN (Reason: Hypoglycemia) 15 Days Qty: 15 0RF spironolactone 25 mg Tablet 25 mg PO QAM Qty: 90 0RF insulin aspart U-100 [Novolog U-100 Insulin aspart] 100 unit/mL Solution 5 unit subcut TIDWM Qty: 150 0RF Xarelto 20 mg Tablet 20 mg PO DAILY@1700 Qty: 90 0RF sacubitril-valsartan [Entresto] 24-26 mg Tablet 1 tab PO Q12HR Qty: 90 0RF metformin 500 mg tablet extended release 24 hr 500 mg PO BID Qty: 90 0RF Rx Instructions: start taking 500 mg daily for 1 week, then increase to twice a day Discontinued carvedilol [Coreg] 12.5 mg Tablet 12.5 mg PO Q12HR Qty: 90 0RF Date of admission: 11/08/24 06:27 Primary Care Provider: PHYSICIAN,EXPERT MEDICAL WRITER Admitting Provider: Radha Dinero Attending physician on admission: Radha Dinero Condition: Stable Hospitalist MIPS Heart Failure (Exclusion) Patient has history of Heart Transplant or Left Ventricular Assistive Device?: No IF YES, STOP HERE Heart Failure (Qualifier) Patient has current or prior documentation of LVEF less than or equal to 40%, or mod/servere depressed LVSF?: Yes IF NO, STOP HERE If Yes, Heart Failure (Qualifier) Patient was prescribed or already taking an Angiotensin-Converting Enzyme (MARTHA) Inhibitor, or Antiotensin Receptor Leila (ARB): Yes Patient was prescribed or already taking bisoprolol, carvedilol, or sustained release metoprolol succinate: Yes
[2024-11-16 16:52] LABS: Glucose Point of Care 189 mg/dl (65-105)
--- NOTE | 2024-11-16 23:27 | PC.NURSE ---
Receive in shift change report that Pt. was being discharged. Discharge instructions had been given to Pt., IV removed and Tele monitor removed. I introduced myself to Pt. and explained that I would be his nurse tonight until his ride arrived and asked if I could do an assessment as he was here waiting for his ride. Pt. refused assessment, vitals, blood sugar, medications and care as he stated that he was being discharged. We did check on Pt. to see if there was anything he needed for which he only requested some water. Pt. stated that his ride would be here around 10 PM and would call us when they arrived. Pt. discharged with belongings via wheelchair.
== END 2024-11-16 23:20 | disposition home or self-care (01) | DRG 207 ==
LOC: ANHED 06:51 → ANHIMU 10:04 → ANH3MEDSUR 11-11 18:55
PROVIDERS: Hospitalist; Admitting Provider Internal Medicine; Emergency Provider Emergency Medicine; Visit Provider Internal Medicine
DX: I51.3 Intracardiac thrombosis, not elsewhere classified (principal); E11.65 Type 2 diabetes mellitus with hyperglycemia; F10.20 Alcohol dependence, uncomplicated; I11.0 Hypertensive heart disease with heart failure; I50.23 Acute on chronic systolic (congestive) heart failure; I43 Cardiomyopathy in diseases classified elsewhere; J20.9 Acute bronchitis, unspecified; M79.89 Other specified soft tissue disorders; Z79.01 Long term (current) use of anticoagulants; Z79.84 Long term (current) use of oral hypoglycemic drugs; Z79.4 Long term (current) use of insulin; Z20.822 Contact with and (suspected) exposure to COVID-19; Z91.148 Patient's other noncompliance with medication regimen for other reason
CPT/HCPCS: 36415; 71045; 80048; 80053; 82948; 83605; 83690; 83735; 83880; 84484; 85025; 85610; 85730; 87637; 93005; 93308; 93970; 94762; 97110; 97116; 97162; 97166; 97530; 97535; 99285; A9270; J1815; J1940; J3475; P9047

== ENCOUNTER 2024-12-24 08:19 | Inpatient (IN) | payer MEDICAID, SELFPAY ==
[2024-12-24] VITALS (19 sets, daily range): BP systolic 121–146; BP diastolic 80–116; PULSE 82–96; RESP 0–25; TEMP 36.3–36.8; O2SAT 96–100; BMI 32.1
--- NOTE | ~2024-12-24 | XR_ITS ---
CHEST RADIOGRAPH, PA AND LATERAL CLINICAL HISTORY: leg swelling, hx of chf . COMPARISON: 11/15/2024 TECHNIQUE: PA and lateral views of the chest. FINDINGS The cardiomediastinal silhouette is enlarged, unchanged. Large right-sided pleural effusion with adjacent compressive atelectasis. Increased interstitial markings are identified bilaterally, findings suggesting mild pulmonary vascul ar congestion. IMPRESSION: Mild pulmonary vascular congestion with a large right-sided pleural effusion. Reviewed, dictated and finalized at location A. L [employer]
--- NOTE | ~2024-12-24 | XR_ITS ---
Portable chest x-ray Comparison: 12/24/2024 Clinical History: Shortness of breath Findings: Moderate right pleural effusion present. Probable small left pleural effusion. Probable mi ld bibasilar pulmonary edema/atelectasis. Cardiomediastinal silhouette is stable. Bones and soft tis sues are unremarkable. Impression: Mild bibasilar pulmonary edema/atelectasis with moderate right pleural effusion and small left pleura l effusion. Reviewed, dictated and finalized at location . Impression: Mild bibasilar pulmonary edema/atelectasis with moderate right pleural effusion and small left pleural effusion.
--- NOTE | ~2024-12-24 | XR_ITS ---
Portable chest x-ray Comparison: 12/26/2024 Clinical History: Effusion Findings: Moderate right pleural effusion present. There is bibasilar pulmonary edema/atelectatic ch shane. Cardiomediastinal silhouette is stable. Bones and soft tissues are unremarkable. Impression: Moderate right pleural effusion with bibasilar pulmonary edema/atelectasis. Reviewed, dictated and finalized at location . Impression: Moderate right pleural effusion with bibasilar pulmonary edema/atelectasis.
--- OUTSIDE RECORDS SUMMARY | 2024-12-24 08:27 | XMS_ITS | Encounter Summary ---
Author Organization [facility] Address [address] [place] [address] Care Team Providers Care Remarketing Rep Name Role Phone Unknown, Notinfile Primary Care Provider Unavail able Encounter Details Date Type Department Care Team (Late st Contact Info) Description 11/10/2024 Orders Only [facility] [place] [facility] [place] [facility] [address] [place] [address] Mecca Lu MD [address] [address] Social History Tobacco Use Types Packs/Day Years Used Date Smoking Tobacco: Never Smokeless Tobacco: Never [facility] Utilities Answer Date Recorded In the past 12 months has [employer] electric, gas, oil, or water company threatened to [...] often do you attend chur ch or zoroastrianism services? Never 08/23/2024 Do you belong to any clubs o r organizations such as sabianism groups, unions, fraternal or athletic groups, or [...] things needed for daily living? No 08/23/2024 PHQ-9 Answer Date Recorded PHQ-9 Total Score 2 08/25/2024 Housing Stability Vital Sign Answer Jason e Recorded In the last 12 months, was t here a time when you were not able to pay the mortgage or rent on time? No 08/23/2024 In the past 12 months, how m any times have you moved where you were living? 1 08/23/2024 At any time in the past 12 m [facility], were you homeless or living in a detention (including now)? No 08/23/2024 Personal Safety Answer Date Recorded Have you ever been in or are you currently in a harmful physical or emotional relationship or is someone making you feel afraid or unsafe? 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 Gender Identity Not on file Sexual Orientation Not on file documented as of this encounter Plan of Treatment Not on file documented as of this encounter Procedures Procedure Name Priority Date/Time Associated Diagnosis Comments SCAN - RADIOLOGY/IMAGING 11/10/2024 documented in this encounter Results * SCAN - RADIOLOGY/IMAGING (11/10/2024) Anatomical Region Laterality Modality Other us Mecca Lu MD Final Resul t documented in this encounter Visit Diagnoses Not on filedocumented in this encounter Care Teams Remarketing Rep Relationship Specialty Start Date End Date Unknown, Notinfile PCP - General 08/23/24 documented as of this encounter
--- OUTSIDE RECORDS SUMMARY | 2024-12-24 08:27 | XMS_ITS | Clinical Summary ---
Author Organization [facility] Address [address] [place] [phone] Care Team Providers Care Hot Tar Roofer Name Role Phone Unknown, Notinfile Primary Care [...] pen for injectionIndicat ions:type 2 diabetes mellitus,BIN [id number] PCN CNRX [facility] [id number] ID [id number] ONE BOX FREE Inject 0.25 mL (25 [...] unspecified heart failure type 08/23/2024 Dilated cardiomyopathy 08/22/2024 Encounters Date Type Department Care Team Description 11/29/2024 Orders Only [facility] Medical [facility] Cardiology [address] [facility] [address] [place] [phone] Shobha Prasad, LULU 11/15/2024 Orders Only [facility] Cardiology [address] [place] [phone] Mecca Lu MD 11/10/2024 Orders Only [facility] [place] [address] [place] [id number] Mecca Lu MD 11/09/2024 Orders Only [facility] [place] [facility] [place] [address] [place] [phone] Mecca Lu MD 10/29/2024 Telephone [facility] Medical [facility] Cardiology [address] [place] [phone] Dom Lomeli MD 10/19/2024 Orders Only [facility] [place] [facility] Information [facility] [address] [place] [id number] Dom Lomeli MD 10/19/2024 Orders Only [facility] Medical [facility] Cardiology [address] [place] [phone] Shobha Prasad NP 10/18/2024 Orders Only [facility] Medical Group Cardiology [address] [facility] [address] [place] [phone] Dom Lomeli MD from Last 3 Months Social History Tobacco Use Types Packs/Day Years Used Date Smoking Tobacco: Never Smokeless Tobacco: Never Tobacco Cessation:Counseling Given: Not Answered [facility] Utilities Answer Date Recorded In the past 12 months has [employer] electric, gas, oil, or water company threatened [...] often do you attend chur ch or anglican services? Never 08/23/2024 Do you belong to any clubs o r organizations such as restorationism groups, unions, fraternal or athletic groups, or [...] any time in the past 12 m [facility], were you homeless or living in a assisted (including now)? No 08/23/2024 Personal Safety Answer Date Recorded Have you ever been in or are you currently in a harmful physical or emotional relationship or is someone making you feel afraid or unsafe? Denies 08/23/2024 Sex and Gender Information Value Date Recorded Sex Assigned at Not on file Legal Sex Male 8:46 PM TIME CYCLE OPERATOR Gender Identity Not on file Sexual Orientation Not on file Obstetrics History Last Filed Vital Signs Vital Sign Reading Time Taken Comments Blood Pressure 88/63 08/26/2024 3:25 PM TIME CYCLE OPERATOR Pulse 81 08/26/2024 3:25 PM TIME CYCLE OPERATOR Temperature 36.8 C (98.2 F) 08/26/2024 3:25 PM TIME CYCLE OPERATOR Respiratory Rate 14 08/26/2024 3:25 PM TIME CYCLE OPERATOR Oxygen Saturation 100% 08/26/2024 11: 35 AM TIME CYCLE OPERATOR Inhaled Oxygen Concentration - - Weight 88.8 kg (195 lb 11.2 oz) 08/26/2024 4:15 AM TIME CYCLE OPERATOR Height 175.3 cm (5' 9 ) 08/23/2024 4:40 AM TIME CYCLE OPERATOR Body Mass Index 28.9 08/23/2024 4:40 AM TIME CYCLE OPERATOR Plan of Treatment Health Maintenance Due Date Last Done Comments Albumin Creatinine Ratio, Urine 1984 Hepatitis C Screening 1984 Prostate Cancer Screening-PSA 1984 Dilated Eye Exam 1984 Foot Exam 1984 DTaP/Tdap/Td Vaccine (1 - Tdap) 1995 Varicella Vaccines (1 of 2 - 13+ 2-dose series) 1997 Hepatitis B Screening 2002 Regular Well Visit/Exam 18-64 2002 Pneumococcal vaccine <65 (1 of 2 - PCV) 2003 Influenza Vaccine (#1) 2024 Hemoglobin A1C 02/19/2025 08/22/2024 Depression Screening 08/22/2025 08/22/2024, 08/22/20 Lipid Panel 08/25/2025 08/25/2024 eGFR 08/26/2025 08/26/2024, 110 03/2024, 08/24/2024, Additional history exists HPV Vaccines Aged Out No longer eligi ble based on patient's age to complete this topic Procedures Procedure Name Priority Date/Time Associated Diagnosis Comments CARDIOLOGY DOCUMENT SCAN Routine 11/15/2024 5:24 PM TIME CYCLE OPERATOR CARDIOLOGY DOCUMENT SCAN Routine 11/11/2024 8:36 AM TIME CYCLE OPERATOR SCAN - RADIOLOGY/IMAGING 11/10/2024 CARDIOLOGY DOCUMENT SCAN Routine 11/09/2024 8:11 AM TIME CYCLE OPERATOR CARDIOLOGY DOCUMENT SCAN 11/09/2024 CARDIOLOGY DOCUMENT SCAN Routine 11/08/2024 8:26 AM TIME CYCLE OPERATOR CARDIOLOGY DOCUMENT SCAN Routine 11/08/2024 7:54 AM TIME CYCLE OPERATOR CARDIOLOGY DOCUMENT SCAN 10/19/2024 CARDIOLOGY DOCUMENT SCAN Routine 10/18/2024 12:13 PM TIME CYCLE OPERATOR CARDIOLOGY DOCUMENT SCAN Routine 10/17/2024 5:00 PM TIME CYCLE OPERATOR EGFR Routine 08/26/2024 6:57 AM TIME CYCLE OPERATOR LIPID PANEL Routine 08/25/2024 7:05 AM TIME CYCLE OPERATOR HEMOGLOBIN A1C STAT 08/22/2024 9:43 PM TIME CYCLE OPERATOR from Last 3 Months or Most Recently Relevant to Health Maintenance Results * Cardiology Document Scan (11/15/2024 5:24 PM TIME CYCLE OPERATOR) Anatomical Region Laterality Modality Other Shobha Prasad NP CV CARDIAC SERVICES PROCEDUR ES Final Result * Cardiology Document Scan (11/11/2024 8:36 AM TIME CYCLE OPERATOR) Anatomical Region Laterality Modality Other us Mecca Lu MD CV CARDIAC SERVICES PROCEDU RES Final Result * SCAN - RADIOLOGY/IMAGING (11/10/2024) Anatomical Region Laterality Modality Other us Mecca Lu MD Final Resul t * Cardiology Document Scan (11/09/2024 8:11 AM TIME CYCLE OPERATOR) Anatomical Region Laterality Modality Other Result [facility] Mecca Lu MD CV CARDIAC SERVICES PROCEDU RES Final Result * Cardiology Document Scan (11/09/2024) Anatomical Region Laterality Modality Other Result [facility] Mecca Lu MD CV CARDIAC SERVICES PROCEDU RES Edited Result - Final * Cardiology Document Scan (11/08/2024 8:26 AM TIME CYCLE OPERATOR) Anatomical Region Laterality Modality Other Result [facility] Mecca Lu MD CV CARDIAC SERVICES PROCEDU RES Final Result * Cardiology Document Scan (11/08/2024 7:54 AM TIME CYCLE OPERATOR) Anatomical Region Laterality Modality Other Result [facility] Mecca Lu MD CV CARDIAC SERVICES PROCEDU RES Final Result * Cardiology Document Scan (10/19/2024) Anatomical Region Laterality Modality Other Dom Lomeli MD CV CARDIAC SERVICES PROCE DURES Final Result * Cardiology Document Scan (10/18/2024 12:13 PM TIME CYCLE OPERATOR) Anatomical Region Laterality Modality Other Shobha Prasad NP CV CARDIAC SERVICES PROCEDUR ES Final Result * Cardiology Document Scan (10/17/2024 5:00 PM TIME CYCLE OPERATOR) Anatomical Region Laterality Modality Other Dom Lomeli MD CV CARDIAC SERVICES PROCE DURES Final Result * (ABNORMAL) eGFR (08/26/2024 6:57 AM TIME CYCLE OPERATOR) eGFR 51(L) >=60 mL/min/1. 73 m2 Comment: Interpretive Data Reference Interval Normal >/= 90 mL/min/1.73m2 Mildly decreased* 60 - 89 mL/min/1.73m2 Mildly to moderately decreased 45 - 59 mL/min/1.73m2 Moderately to severely decreased 30 - 44 mL/min/1.73m2 Severely decreased 15 - 29 mL/min/1.73m2 Kidney Failure < 15 mL/min/1.73m2 *Relative to young adult level Estimated glomerular [...] last reviewed 2021. Blood 08/26/2024 6:57 AM TIME CYCLE OPERATOR 08/26/2024 7:06 AM TIME CYCLE OPERATOR us Amandeep Smallwood MD LAB BLOOD ORDERABLES Final Result [facility] [address] [facility] [place] [address] * (ABNORMAL) Lipid panel (08/25/2024 7:05 AM TIME CYCLE OPERATOR) Cholesterol 257(H) 30 - 199 mg/dL Comment: Interpretive Data Ages < or = 19 years Acceptable: <170 mg/dL Borderline high: 170-199 mg/dL High: >or= 200 mg/dL Ages > or = 20 years Desirable: <200 mg/dL Borderline high: 200-239 mg/dL High: >or= 240 mg/dL Literature References: 1. Expert Panel on Integrated Guidelines for Cardiovascular Health and Risk Reduction in Children and Adolescents. Pediatrics 2011;128:S213 2. NCEP Expert Panel. Circulation 2004;110:227 Current Interpretive Data was last revised on 2018. Triglycerides 149 <=149 mg/dL WIN [facility]G Comment: Interpretive Data Ages < or = 9 years Acceptable: <75 mg/dL Borderline high: 75-99 mg/dL High: >or= 100 mg/dL Ages 10 to 20 years Acceptable: <90 mg/dL Borderline high: 90-129 mg/dL High: >or= 130 mg/dL Ages > or = 20 years Desirable: <150 mg/dL Borderline high: 150-199 mg/dL High: 200-499 mg/dL Very high: >or= 499 mg/dL Literature References: 1. Expert Panel on Integrated Guidelines for Cardiovascular Health and Risk Reduction in Children and Adolescents. Pediatrics 2011;128:S213 2. NCEP Expert Panel. Circulation 2004;110:227 Current Interpretive Data was last revised on 2018. HDL 50 >=40 mg/dL WIN OG Comment: Interpretive Data Ages < or = 19 years Acceptable: >45 mg/dL Borderline low: 40-45 mg/dL Low: <40 mg/dL Ages > or = 20 years Desirable: >or= 60 mg/dL Low: <40 mg/dL Literature References: 1. Expert Panel on Integrated Guidelines for Cardiovascular Health and Risk Reduction in Children and Adolescents. Pediatrics 2011;128:S213 2. NCEP Expert Panel. Circulation 2004;110:227 Current Interpretive Data was last revised on 2018. LDL, calculated 180(H) <=129 mg/dL WIN OG Comment: Interpretive Data Ages < or = 19 years Acceptable: <110 mg/dL Borderline high: 110-129 mg/dL High: >or= 130 mg/dL Ages > or = 20 years Optimal: <100 mg/dL Near optimal: 100-129 mg/dL Borderline high: 130-159 mg/dL High: >160 mg/dL Calculated using the Miah LDL-C estimating equation. This equation was implemented on 2024. Prior to this date LDL-C was estimated using the Friedewald equation. Literature References: 1. Expert Panel on Integrated Guidelines for Cardiovascular Health and Risk Reduction in Children and Adolescents. Pediatrics 2011;128:S213 2. NCEP Expert Panel. Circulation 2004;110:227 3. Miah Sweeney et al. LE Cardiol. 2019February 17;5(5):540-548. doi: 10.1001/[email or web address] Current Interpretive Data was last revised on 2024. Non-HDL Cholesterol 207 mg/dL I[facility] OG Comment: Interpretive Data Ages < or = 19 years Acceptable: <120 mg/dL Borderline high: 120-144 mg/dL High: >145 mg/dL Ages > or = 20 years When triglycerides are >200 mg/dL, Non-HDL cholesterol is a secondary target of therapy with treatment goals that are 30 mg/dL greater than the LDL cholesterol target. Literature References: 1. Expert Panel on Integrated Guidelines for Cardiovascular Health and Risk Reduction in Children and Adolescents. Pediatrics 2011;128:S213 2. NCEP Expert Panel. Circulation 2004;110:227 Current Interpretive Data was last revised on 2018. Chol/HDL ratio 5 WIN Blood 08/25/2024 7:05 AM TIME CYCLE OPERATOR 08/25/2024 7:30 AM TIME CYCLE OPERATOR Amandeep Smallwood MD LAB BLOOD ORDERABLES Final Result Performing Organization Address [facility] de Phone Number WIN [address] [address] * (ABNORMAL) Hemoglobin A1c (08/22/2024 9:43 PM TIME CYCLE OPERATOR) Hgb A1C 11.9(H) 4.0 - 5.6 % Estimated Average Glucose 295 mg/dL WIN Comment: The ADA recommends reporting an estimated Average Glucose (eAG) with all Hemoglobin A1c results using the equation derived from a study of 507 normal and diabetic adults. Minority populations were underrepresented and children were not included. (Diabetes Care 31:3914-4581, 2008). The eAG is not equivalent to a fasting glucose. Blood 08/22/2024 9:43 PM TIME CYCLE OPERATOR 08/22/2024 9:45 PM TIME CYCLE OPERATOR us Nahomi BALL LAB BLOOD ORDERABLES Final Resul t Performing Organization Address [facility] de Phone Number [id number] [address] from Last 3 Months or Most Recently Relevant to Health Maintenance Insurance IDPA Advance Directives For more information, please contact: [phone] * Full Code (Latest Code Status on File) Date Activated Date Inactivated Comments 08/23/2024 4:55 AM 08/26/2024 9:09 PM Care Teams Hot Tar Roofer Relationship Specialty Start Date End Date Unknown, Notinfile PCP - General 08/23/24
--- OUTSIDE RECORDS SUMMARY | 2024-12-24 08:27 | XMS_ITS | Continuity of Care Document ---
Author Organization [facility] Address [address] [place] [address] Care Team Providers Care Conductor Yard Name Role Phone Isa Frankel MD Unavailable Unavailable Procedures Procedure Date Ecg-routine 12 Lead; Intrpt & 2 Advance Directives Directive Yes / No Effective Date File Name No Information Encounters Encounter Description Practice Location Reason(s) For Visit Diagnoses Date Provider Providers Copied on Encounter [facility], [address] [place] [address], [facility], [facility] No Information 2 Jostin Moss. [address] [place] [address], [address], [facility], . tel:[phone] Referring Provider: Isa Eugene, [address] [place] [address], [facility]. tel:[phone] Family History Family Member Type Diagnosis Age At Onset No Information Payers Payer name Insurance type Covered green party ID Elisha romero(s) [facility] [id number] Social History Type Description Quantity Date Captured [...]
--- OUTSIDE RECORDS SUMMARY | 2024-12-24 08:27 | XMS_ITS | Referral Summary ---
Author Organization [facility] Address [address] [place] [address] Care Team Providers Care Fancy Wire Drawer Name Role Phone Unknown, Notinfile Primary Care Provider Unavail able Encounters Date Type Department Care Team Description 11/29/2024 Orders Only [facility] Cardiology [address] [facility] [address] [place] [address] [phone] Shobha Prasad, LULU 11/15/2024 Orders Only [facility] [address] [facility] [address] [place] [address] [phone] Mecca Lu MD 11/10/2024 Orders Only [facility] [address] [place] [phone] Mecca Lu MD 11/09/2024 Orders Only [facility] [address] [place] [phone] Mecca Lu MD 10/29/2024 Telephone [facility] [address] [facility] [address] [place] [phone] Dom Lomeli MD 10/19/2024 Orders Only [facility] [address] [place] [phone] Dom Lomeli MD 10/19/2024 Orders Only [facility] [address] [facility] [address] [place] [phone] Shobha Prasad NP 10/18/2024 Orders Only [facility] [address] [facility] [address] [place] [phone] Dom Lomeli MD from Last 3 Months Allergies No known [...] pen for injectionIndicat ions:type 2 diabetes mellitus,BIN [id number] PCN CNRX GRP [id number] ID [id number] ONE BOX FREE Inject 0.25 mL (25 [...] heart failure type 08/23/2024 Dilated cardiomyopathy 08/22/2024 Social History Tobacco Use Types Packs/Day Years Used Date Smoking Tobacco: Never Smokeless Tobacco: Never Tobacco Cessation:Counseling Given: Not Answered [facility] Utilities Answer Date Recorded In the past 12 months has [employer], [employer], oil, or water [employer] threatened to shut off services in your [...] often do you attend chur ch or hindu services? Never 08/23/2024 Do you belong to any clubs o r organizations such as samaritan groups, unions, fraternal or athletic groups, or [...] were you homeless or living in a long-term (including now)? No 08/23/2024 Personal Safety Answer Date Recorded Have you ever been in or are you currently in a harmful physical or emotional relationship or is someone making you feel afraid or unsafe? Denies 08/23/2024 Sex and Gender Information Value Date Recorded Sex Assigned at Not on file Legal Sex Male 8:46 PM DATA LIBRARIAN Gender Identity Not on file Sexual Orientation Not on file Last Filed Vital Signs Vital Sign Reading Time Taken Comments Blood Pressure 88/63 08/26/2024 3:25 PM DATA LIBRARIAN Pulse 81 08/26/2024 3:25 PM DATA LIBRARIAN Temperature 36.8 C (98.2 F) 08/26/2024 3:25 PM DATA LIBRARIAN Respiratory Rate 14 08/26/2024 3:25 PM DATA LIBRARIAN Oxygen Saturation 100% 08/26/2024 11: 35 AM DATA LIBRARIAN Inhaled Oxygen Concentration - - Weight 88.8 kg (195 lb 11.2 oz) 08/26/2024 4:15 AM DATA LIBRARIAN Height 175.3 cm (5' 9 ) 08/23/2024 4:40 AM DATA LIBRARIAN Body Mass Index 28.9 08/23/2024 4:40 AM DATA LIBRARIAN Plan of Treatment Not on file Procedures Procedure Name Priority Date/Time Associated Diagnosis Comments CARDIOLOGY DOCUMENT SCAN Routine 11/15/2024 5:24 PM DATA LIBRARIAN CARDIOLOGY DOCUMENT SCAN Routine 11/11/2024 8:36 AM DATA LIBRARIAN SCAN - RADIOLOGY/IMAGING 11/10/2024 CARDIOLOGY DOCUMENT SCAN Routine 11/09/2024 8:11 AM DATA LIBRARIAN CARDIOLOGY DOCUMENT SCAN 11/09/2024 CARDIOLOGY DOCUMENT SCAN Routine 11/08/2024 8:26 AM DATA LIBRARIAN CARDIOLOGY DOCUMENT SCAN Routine 11/08/2024 7:54 AM DATA LIBRARIAN CARDIOLOGY DOCUMENT SCAN 10/19/2024 CARDIOLOGY DOCUMENT SCAN Routine 10/18/2024 12:13 PM DATA LIBRARIAN CARDIOLOGY DOCUMENT SCAN Routine 10/17/2024 5:00 PM DATA LIBRARIAN EGFR Routine 08/26/2024 6:57 AM DATA LIBRARIAN LIPID PANEL Routine 08/25/2024 7:05 AM DATA LIBRARIAN HEMOGLOBIN A1C STAT 08/22/2024 9:43 PM DATA LIBRARIAN from Last 3 Months or Most Recently Relevant to Health Maintenance Results * Cardiology Document Scan (11/15/2024 5:24 PM DATA LIBRARIAN) Anatomical Region Laterality Modality Other us Shobha Prasad NP CV CARDIAC SERVICES PROCEDUR ES Final Result * Cardiology Document Scan (11/11/2024 8:36 AM DATA LIBRARIAN) Anatomical Region Laterality Modality Other us Mecca Lu MD CV CARDIAC SERVICES PROCEDU RES Final Result * SCAN - RADIOLOGY/IMAGING (11/10/2024) Anatomical Region Laterality Modality Other us Mecca Lu MD Final Resul t * Cardiology Document Scan (11/09/2024 8:11 AM DATA LIBRARIAN) Anatomical Region Laterality Modality Other Result Kuldip Lu MD CV CARDIAC SERVICES PROCEDU RES Final Result * Cardiology Document Scan (11/09/2024) Anatomical Region Laterality Modality Other Result Kuldip Lu MD CV CARDIAC SERVICES PROCEDU RES Edited Result - Final * Cardiology Document Scan (11/08/2024 8:26 AM DATA LIBRARIAN) Anatomical Region Laterality Modality Other us Mecca Lu MD CV CARDIAC SERVICES PROCEDU RES Final Result * Cardiology Document Scan (11/08/2024 7:54 AM DATA LIBRARIAN) Anatomical Region Laterality Modality Other Result Kuldip Lu MD CV CARDIAC SERVICES PROCEDU RES Final Result * Cardiology Document Scan (10/19/2024) Anatomical Region Laterality Modality Other us Dom Lomeli MD CV CARDIAC SERVICES PROCE DURES Final Result * Cardiology Document Scan (10/18/2024 12:13 PM DATA LIBRARIAN) Anatomical Region Laterality Modality Other Shobha Prasad NP CV CARDIAC SERVICES PROCEDUR ES Final Result * Cardiology Document Scan (10/17/2024 5:00 PM DATA LIBRARIAN) Anatomical Region Laterality Modality Other Dom Lomeli MD CV CARDIAC SERVICES PROCE DURES Final Result * (ABNORMAL) eGFR (08/26/2024 6:57 AM DATA LIBRARIAN) eGFR 51(L) >=60 mL/min/1. 73 m2 Comment: [...] last reviewed 2021. Blood 08/26/2024 6:57 AM DATA LIBRARIAN 08/26/2024 7:06 AM DATA LIBRARIAN Amandeep Smallwood MD LAB BLOOD ORDERABLES Final Result [facility] [address] [facility] Department [place] [address] * (ABNORMAL) Lipid panel (08/25/2024 7:05 AM DATA LIBRARIAN) Cholesterol 257(H) 30 - 199 mg/dL Comment: [...] mg/dL High: >160 mg/dL Calculated using the Miha LDL-C estimating equation. This equation was implemented [...] on 2024. Non-HDL Cholesterol 207 mg/dL [facility] Comment: Interpretive Data Ages [...] revised on 2018. Chol/HDL ratio 5 [facility] Blood 08/25/2024 7:05 AM DATA LIBRARIAN 08/25/2024 7:30 AM DATA LIBRARIAN Amandeep Smallwood MD LAB BLOOD ORDERABLES Final Result [facility] [address] [facility] Department [place] [address] * (ABNORMAL) Hemoglobin A1c (08/22/2024 9:43 PM DATA LIBRARIAN) Hgb A1C 11.9(H) 4.0 - 5.6 % Estimated Average Glucose 295 mg/dL [facility] Comment: The ADA recommends reporting an estimated Average Glucose (eAG) with all Hemoglobin A1c results using the equation derived from a study of 507 normal and diabetic adults. Minority populations were underrepresented and children were not included. (Diabetes Care 31:5045-3488, 2008). The eAG is not equivalent to a fasting glucose. Blood 08/22/2024 9:43 PM DATA LIBRARIAN 08/22/2024 9:45 PM DATA LIBRARIAN us Nahomi BALL LAB BLOOD ORDERABLES Final Resul t [facility] [address] [facility] Department [place] [address] from Last 3 Months or Most Recently Relevant to Health Maintenance Insurance IDPA Advance Directives For more information, please contact: [phone] * Full Code (Latest Code Status on File) Date Activated Date Inactivated Comments 08/23/2024 4:55 AM 08/26/2024 9:09 PM Care Teams Fancy Wire Drawer Relationship Specialty Start Date End Date Unknown, Notinfile PCP - General 08/23/24
--- NOTE | 2024-12-24 08:36 | ECG_ITS ---
Test Date: 2024-12-24 09:31:25 Measurements Intervals [place] Rate: 80 P: 50 RI: 172 QRS: 101 QRSD: 86 T: 34 QT: 372 QTc: 432 Interpretive Statements SINUS RHYTHM POSSIBLE LEFT ATRIAL ENLARGEMENT [-0.1mV P WAVE IN V1/V2] LOW QRS VOLTAGE IN EXTREMITY LEADS [QRS DEFLECTION < 0.5 mV IN LIMB LEADS] POSSIBLE ANTERIOR MYOCARDIAL INFARCTION , OF INDETERMINATE AGE [30 ms Q WAVE IN V3/V4, OR R < 0.2 mV IN V4] Compared to ECG 11/08/2024 06:59:07 NO SIGNIFICANT CHANGES Electronically Signed On 12-24-2024 16:32:50 PIPELINE TECHNICIAN by Riana Tran M.D.
--- NOTE | 2024-12-24 08:56 | ED_ITS ---
HPI - Extremity Problem General Chief complaint: Extremity Problem,Nontraumatic Stated complaint: the medicine they gave me isn't working Time Seen by Provider: 12/24/24 08:34 History of Present Illness HPI Narrative: 39-year-old male presents emergency department for evaluation of lower extremity swelling. Patient was recently admitted and discharged on 11/16 with diagnosis CHF, type 2 diabetes, alcohol dependence hypertension, cardiomegaly and cardiomyopathy. It appears patient was discharged with a Life Vest, upon arrival to the emergency department patient does not have a life vest. Patient states he has not had follow-up with a primary care physician or with cardiology as outpatient due to insurance issues. Patient did check his insurance status today and it is active. Patient states he has not been drinking alcohol since he was discharged. Patient states he has been taking his Xarelto on spironolactone. Patient does have an EF of 15-20 as of September of 2024 Related Data Allergies Allergy/AdvReac Type Severity Reaction Status Date / Time No Known Allergies Allergy Verified 12/24/24 08:20 Review of Systems 2 Review of Systems: All systems reviewed & are unremarkable except as noted in HPI and below PMFSH Past Medical History Medical History Diabetes mellitus Noncompliance Cardiomyopathy Hypertension associated with diabetes EtOH dependence Family History Family History Mother Hypertension Father Hypertension Social History Social History Smoking status: Never smoker Alcohol intake: former Drinks per week: 42 Substance use: never Substance use type: does not use Last use: States he hasn't drank alcohol since last admission in October . Do You Feel Safe in your Home?: Yes Lack of Transportation: No Lack of Food: Never True Current Housing: I Have Housing Concerned About Future Housing: No Difficulty Paying Gas/Electric Bills: No Difficulty Paying for Meds: YES Currently Unemployed: No Education: High School Diploma/GED Difficulty w/ Childcare or Family Care: No Spiritual care concerns: No Exam 2 Narrative: APPEARANCE: Well appearing, no pain, no distress, well-nourished. HEAD: normocephalic, atraumatic. EYES: PERRLA/EOMI, conjunctivae clear. NOSE: Normal no drainage EARS:TMS clear with good light reflex. THROAT: Pharynx clear, no exudate. NECK: Supple. No adenopathy, no masses. RESPIRATORY: Airway patent, respirations nonlabored. Clear to auscultation bilaterally, no rales, rhonchi, wheezing. CARDIOVASCULAR: Regular rate and rhythm without murmurs rubs or gallops. ABDOMINAL: Lower abdominal wall edema MUSCULOSKELETAL: Lower extremity edema NEURO: Alert. Cranial nerves II through XII intact. Grossly intact SKIN: Warm, dry. Normal Color Course Vital Signs Vital signs: Vital Signs Temperature 97.5 F L 12/24/24 08:30 Pulse Rate 89 12/24/24 08:30 Respiratory Rate 10 L 12/24/24 08:30 Blood Pressure 144/113 H 12/24/24 08:30 Pulse Oximetry 99 12/24/24 08:30 Oxygen Delivery Room Air 12/24/24 08:30 Temperature 97.7 F 12/24/24 16:08 Pulse Rate 96 12/24/24 18:00 Respiratory Rate 16 12/24/24 16:08 Blood Pressure 121/94 H 12/24/24 16:08 Pulse Oximetry 99 12/24/24 16:08 Oxygen Delivery Room Air 12/24/24 08:30 MDM - Extremity (Nontraumatic) MDM Narrative Medical decision making narrative: 39-year-old male presents emergency department for evaluation worsening lower extremity edema that has since worsened since being discharged from hospital. Patient is currently afebrile with no leukocytosis hemoglobin of 16.2. INR is 1.2. Patient states he is still taking his Xarelto. Patient's blood sugar was elevated at 471 and patient was treated with IV insulin. Patient does have an elevated troponin 0.054 this is better than his previous baseline at discharge. Patient does report some exertional shortness of breath but denies any chest pain. Patient has an elevated proBNP of 9430. Patient was treated with IV Lasix emergency department does feel improved. Due to the patient's significant cardiac history and worsening anasarca and lack of follow-up case will be discussed with hospitalist for admission. Differential Diagnosis Differential diagnosis: Likely lower extremity edema and other (Anasarca, ACS, fluid overload, cardiomyopathy, CHF) Lab Data 12/24/24 08:50 12/24/24 08:50 Labs: Lab Results 12/24/24 Range/Units 08:50 WBC 5.3 (4.5-10.0) K/mm3 RBC 6.28 H (4.6-6.20) M/mm3 Hgb 16.2 (14.0-18.0) g/dL Hct 49.2 (42.0-52.0) % MCV 78.3 L (80-100) fl MCH 25.8 L (26-34) pg MCHC 32.9 (32-36) g/dl RDW 19.4 H (11.5-14.5) % Plt Count 216 (150-375) k/mm3 MPV 11.2 H (7.4-10.4) fl Immature Gran % (Auto) 0.4 (0-0.5) % Neut % (Auto) 55.2 (45.5-73.1) % Lymph % (Auto) 35.3 (18.3-44.2) % [place] % (Auto) 8.1 (2.6-8.5) % Eos % (Auto) 0.4 (0-4.4) % Baso % (Auto) 0.6 (0.2-1.2) % Lymph # (Auto) 1.87 (0.9-3.2) K/mm3 [place] # (Auto) 0.4 (0.1-0.6) K/mm3 Eos # (Auto) 0.0 (0-0.3) K/mm3 Baso # (Auto) 0.0 (0.0-0.1) K/mm3 Abs Immat Gran (auto) 0.02 (0.00-0.031) K/mm3 Absolute Neuts (auto) 2.9 (1.3-6.7) K/mm3 Absolute Nucleated RBC 0.000 (0.0-0.012) K/mm3 Nucleated RBC % 0.0 (0.0-0.2) % PT 15.3 H (11.1-14.7) Seconds INR 1.2 APTT 25.0 (22.3-36.8) Seconds Sodium 131 L (137-145) mmol/L Potassium 4.3 (3.4-5.0) mmol/L Chloride 97 L (98-107) mmol/L Carbon Dioxide 25 (22-30) mmol/L Anion Gap 9 (4-12) mmol/L BUN 15 (9-20) mg/dL Creatinine 1.02 (0.7-1.3) mg/dL Estim Creat Clear Calc Not Reportable Estimated GFR > 60 (59 - ) Glucose 471 H (65-110) mg/dL Calcium 8.8 (8.4-10.2) mg/dL Total Bilirubin 1.2 (0.2-1.3) mg/dL AST 28 (17-59) U/L ALT 57 H (6-50) U/L Alkaline Phosphatase 64 (38-126) U/L Troponin I 0.054 H* (0.000-0.034) ng/mL NT-Pro-B Natriuret Pep 9430 H (19.9-100) pg/mL Total Protein 7.0 (6.3-8.2) g/dL Albumin 3.7 (3.5-5.1) g/dL Ethyl Alcohol < 10 (<10) mg/dL Discharge Plan Discharge Clinical Impression: Pleural effusion, Anasarca, Cardiomyopathy, CHF (congestive heart failure), NYHA class II Patient Disposition: Still a Patient Condition: Serious
[2024-12-24 08:58] LABS: Basophils Percent Auto 0.6 % (0.2-1.2); Eosinophils Percent Auto 0.4 % (0-4.4); Hematocrit 49.2 % (42.0-52.0); Hemoglobin 16.2 g/dL (14.0-18.0); Immature Granulocyte Absolute 0.02 K/mm3 (0.00-0.031); Immature Granulocyte Percent A 0.4 % (0-0.5); Lymphocytes Absolute Auto 1.87 K/mm3 (0.9-3.2); Lymphocytes Percent Auto 35.3 % (18.3-44.2); Mean Corpuscular HGB Conc 32.9 g/dl (32-36); Mean Corpuscular Hemoglobin 25.8 pg (26-34); Mean Corpuscular Volume 78.3 fl (80-100); Mean Platelet Volume 11.2 fl (7.4-10.4); Monocytes Absolute Auto 0.4 K/mm3 (0.1-0.6); Monocytes Percent Auto 8.1 % (2.6-8.5); Neutrophils Absolute Auto 2.9 K/mm3 (1.3-6.7); Neutrophils Percent Auto 55.2 % (45.5-73.1); Platelet Count Result 216 k/mm3 (150-375); Red Blood Count 6.28 M/mm3 (4.6-6.20); Red Cell Distribution Width 19.4 % (11.5-14.5); White Blood Count 5.3 K/mm3 (4.5-10.0)
--- OUTSIDE RECORDS SUMMARY | 2024-12-24 09:06 | XMS_ITS | Encounter Summary ---
Author Organization [facility] Address [address] [place] [address] Care Team Providers Care Woodworking Shop Laborer Name Role Phone Unknown, Notinfile Primary Care Provider Unavail able Encounter Details Date Type Department Care Team (Late st Contact Info) Description 11/10/2024 Orders Only [facility] Health Information Management [address] [place] [address] Mecca Lu MD [address] [address] Social History Tobacco Use Types Packs/Day Years Used Date Smoking Tobacco: Never Smokeless Tobacco: Never [facility] Utilities Answer Date Recorded In the past 12 months has [employer], gas, oil, or water company threatened [...] often do you attend chur ch or episcopal services? Never 08/23/2024 Do you belong to any clubs o r organizations such as congregation groups, unions, fraternal or athletic groups, or [...] any time in the past 12 m [facility], were you homeless or living in a jail (including now)? No 08/23/2024 Personal Safety Answer Date Recorded Have you ever been in or are you currently in a harmful physical or emotional relationship or is someone making you feel afraid or unsafe? 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
--- OUTSIDE RECORDS SUMMARY | 2024-12-24 09:08 | XMS_ITS | Referral Summary ---
Author Organization [facility] Address [address] [place] [address] Care Team Providers Care Fireboat Operator Name Role Phone Unknown, Notinfile Primary Care Provider Unavail able Encounters Date Type Department Care Team Description 11/29/2024 Orders Only [facility] Cardiology [address] [facility] [address] [place] [address] [phone] Shobha Prasad, LULU 11/15/2024 Orders Only [facility] Cardiology [address] [facility] [address] [place] [address] [phone] Mecca Lu MD 11/10/2024 Orders Only [facility] [address] [place] [phone] Mecca Lu MD 11/09/2024 Orders Only [facility] [address] [place] [phone] Mecca Lu MD 10/29/2024 Telephone [facility] Cardiology [address] [facility] [address] [place] [phone] Dom Lomeli MD 10/19/2024 Orders Only [facility] [address] [place] [phone] Dom Lomeli MD 10/19/2024 Orders Only [facility] Cardiology [address] [facility] [address] [place] [phone] Shobha Prasad NP 10/18/2024 Orders Only [facility] Cardiology [address] [facility] [address] [place] [phone] Dom Lomeli MD from Last 3 Months [...] pen for injectionIndicat ions:type 2 diabetes mellitus,BIN 681200 PCN CNRX GRP [id number] ID [id number] ONE BOX FREE Inject 0.25 mL (25 [...] Tobacco: Never Tobacco Cessation:Counseling Given: Not Answered [facility] Utilities Answer Date Recorded In the past 12 months has [employer], [email or web address], oil, or water [employer] threatened to shut off services in your [...] often do you attend chur ch or taoism services? Never 08/23/2024 Do you belong to any clubs o r organizations such as pentecostalism groups, unions, fraternal or athletic groups, or [...] any time in the past 12 m [facility], were you homeless or living in a retirement (including now)? No 08/23/2024 Personal Safety Answer Date Recorded Have you ever been in or are you currently in a harmful physical or emotional relationship or is someone making you feel afraid or unsafe? Denies 08/23/2024 Sex and Gender Information Value Date Recorded Sex Assigned at Not on file Legal Sex Male 8:46 PM SOIL CHECKER Gender Identity Not on file Sexual Orientation Not on file Last Filed Vital Signs Vital Sign Reading Time Taken Comments Blood Pressure 88/63 08/26/2024 3:25 PM SOIL CHECKER Pulse 81 08/26/2024 3:25 PM SOIL CHECKER Temperature 36.8 C (98.2 F) 08/26/2024 3:25 PM SOIL CHECKER Respiratory Rate 14 08/26/2024 3:25 PM SOIL CHECKER Oxygen Saturation 100% 08/26/2024 11: 35 AM SOIL CHECKER Inhaled Oxygen Concentration - - Weight 88.8 kg (195 lb 11.2 oz) 08/26/2024 4:15 AM SOIL CHECKER Height 175.3 cm (5' 9 ) 08/23/2024 4:40 AM SOIL CHECKER Body Mass Index 28.9 08/23/2024 4:40 AM SOIL CHECKER Plan of Treatment Not on file Procedures Procedure Name Priority Date/Time Associated Diagnosis Comments CARDIOLOGY DOCUMENT SCAN Routine 11/15/2024 5:24 PM SOIL CHECKER CARDIOLOGY DOCUMENT SCAN Routine 11/11/2024 8:36 AM SOIL CHECKER SCAN - RADIOLOGY/IMAGING 11/10/2024 CARDIOLOGY DOCUMENT SCAN Routine 11/09/2024 8:11 AM SOIL CHECKER CARDIOLOGY DOCUMENT SCAN 11/09/2024 CARDIOLOGY DOCUMENT SCAN Routine 11/08/2024 8:26 AM SOIL CHECKER CARDIOLOGY DOCUMENT SCAN Routine 11/08/2024 7:54 AM SOIL CHECKER CARDIOLOGY DOCUMENT SCAN 10/19/2024 CARDIOLOGY DOCUMENT SCAN Routine 10/18/2024 12:13 PM SOIL CHECKER CARDIOLOGY DOCUMENT SCAN Routine 10/17/2024 5:00 PM SOIL CHECKER EGFR Routine 08/26/2024 6:57 AM SOIL CHECKER LIPID PANEL Routine 08/25/2024 7:05 AM SOIL CHECKER HEMOGLOBIN A1C STAT 08/22/2024 9:43 PM SOIL CHECKER from Last 3 Months or Most Recently Relevant to Health Maintenance Results * Cardiology Document Scan (11/15/2024 5:24 PM SOIL CHECKER) Anatomical Region Laterality Modality Other us Shobha Prasad NP CV CARDIAC SERVICES PROCEDUR ES Final Result * Cardiology Document Scan (11/11/2024 8:36 AM SOIL CHECKER) Anatomical Region Laterality Modality Other us Mecca Lu MD CV CARDIAC SERVICES PROCEDU RES Final Result * SCAN - RADIOLOGY/IMAGING (11/10/2024) Anatomical Region Laterality Modality Other us Mecca Lu MD Final Resul t * Cardiology Document Scan (11/09/2024 8:11 AM SOIL CHECKER) Anatomical Region Laterality Modality Other Result Kuldip Lu MD CV CARDIAC SERVICES PROCEDU RES Final Result * Cardiology Document Scan (11/09/2024) Anatomical Region Laterality Modality Other Result Kuldip Lu MD CV CARDIAC SERVICES PROCEDU RES Edited Result - Final * Cardiology Document Scan (11/08/2024 8:26 AM SOIL CHECKER) Anatomical Region Laterality Modality Other us Mecca Lu MD CV CARDIAC SERVICES PROCEDU RES Final Result * Cardiology Document Scan (11/08/2024 7:54 AM SOIL CHECKER) Anatomical Region Laterality Modality Other Result Kuldip Lu MD CV CARDIAC SERVICES PROCEDU RES Final Result * Cardiology Document Scan (10/19/2024) Anatomical Region Laterality Modality Other us Dom Lomeli MD CV CARDIAC SERVICES PROCE DURES Final Result * Cardiology Document Scan (10/18/2024 12:13 PM SOIL CHECKER) Anatomical Region Laterality Modality Other Shobha Prasad NP CV CARDIAC SERVICES PROCEDUR ES Final Result * Cardiology Document Scan (10/17/2024 5:00 PM SOIL CHECKER) Anatomical Region Laterality Modality Other Dom Lomeli MD CV CARDIAC SERVICES PROCE DURES Final Result * (ABNORMAL) eGFR (08/26/2024 6:57 AM SOIL CHECKER) eGFR 51(L) >=60 mL/min/1. 73 m2 Comment: [...] last reviewed 2021. Blood 08/26/2024 6:57 AM SOIL CHECKER 08/26/2024 7:06 AM SOIL CHECKER Amandeep Smallwood MD LAB BLOOD ORDERABLES Final Result WIN [address] [facility] Department [place] [address] * (ABNORMAL) Lipid panel (08/25/2024 7:05 AM SOIL CHECKER) Cholesterol 257(H) 30 - 199 mg/dL Comment: [...] 5 WIN OG Blood 08/25/2024 7:05 AM SOIL CHECKER 08/25/2024 7:30 AM SOIL CHECKER Amandeep Smallwood MD LAB BLOOD ORDERABLES Final Result WIN OG [address] [facility] Department [place] [address] * (ABNORMAL) Hemoglobin A1c (08/22/2024 9:43 PM SOIL CHECKER) Hgb A1C 11.9(H) 4.0 - 5.6 % Estimated Average Glucose 295 mg/dL WIN OG Comment: The ADA recommends reporting an estimated Average Glucose (eAG) with all Hemoglobin A1c results using the equation derived from a study of 507 normal and diabetic adults. Minority populations were underrepresented and children were not included. (Diabetes Care 31:4017-1881, 2008). The eAG is not equivalent to a fasting glucose. Blood 08/22/2024 9:43 PM SOIL CHECKER 08/22/2024 9:45 PM SOIL CHECKER us Nahomi BALL LAB BLOOD ORDERABLES Final Resul t WIN [address] [facility] Department [place] [address] from Last 3 Months or Most Recently Relevant to Health Maintenance Insurance IDPA Advance Directives For more information, please contact: [phone] * Full Code (Latest Code Status on File) Date Activated Date Inactivated Comments 08/23/2024 4:55 AM 08/26/2024 9:09 PM Care Teams Fireboat Operator Relationship Specialty Start Date End Date Unknown, Notinfile PCP - General 08/23/24
--- OUTSIDE RECORDS SUMMARY | 2024-12-24 09:08 | XMS_ITS | Clinical Summary ---
Author Organization [facility] Address [address] [place] [phone] Care Team Providers Care Fashion Director Party Plan Sales Name Role Phone Unknown, Notinfile Primary Care [...] pen for injectionIndicat ions:type 2 diabetes mellitus,BIN 320573 PCN CNRX [facility] [id number] ID [id number] ONE BOX FREE Inject 0.25 mL (25 [...] Department Care Team Description 11/29/2024 Orders Only [facility] Medical [facility] Cardiology [address] [facility] [address] [place] [phone] Shobha Prasad, LULU 11/15/2024 Orders Only [facility] Medical [facility] Cardiology [address] [place] [phone] Mecca Lu MD 11/10/2024 Orders Only [facility] Information Management [address] [place] [phone] Mecca Lu MD 11/09/2024 Orders Only [facility] Information Management [address] [place] [phone] Mecca Lu MD 10/29/2024 Telephone [facility] Medical Group Cardiology [address] [place] [phone] Dom Lomeli MD 10/19/2024 Orders Only [facility] Health Information Management [address] [place] [phone] Dom Lomeli MD 10/19/2024 Orders Only [facility] Medical Group Cardiology [address] [place] [phone] Shobha Prasad NP 10/18/2024 Orders Only [facility] Medical [facility] Cardiology [address] [facility] [address] [place] [phone] Dom Lomeli MD from Last 3 Months Social History Tobacco Use Types Packs/Day Years Used Date Smoking Tobacco: Never Smokeless Tobacco: Never Tobacco Cessation:Counseling Given: Not Answered [facility] Utilities Answer Date Recorded In the past 12 months has [employer], gas, oil, or water company threatened [...] often do you attend chur ch or jew services? Never 08/23/2024 Do you belong to any clubs o r organizations such as jain groups, unions, fraternal or athletic groups, or [...] in the past 12 m [facility], were you homeless or living in a fpc (including now)? No 08/23/2024 Personal Safety Answer Date Recorded Have you ever been in or are you currently in a harmful physical or emotional relationship or is someone making you feel afraid or unsafe? Denies 08/23/2024 Sex and Gender Information Value Date Recorded Sex Assigned at Not on file Legal Sex Male 8:46 PM AWNING CRAFTSPERSON Gender Identity Not on file Sexual Orientation Not on file Obstetrics History Last Filed Vital Signs Vital Sign Reading Time Taken Comments Blood Pressure 88/63 08/26/2024 3:25 PM AWNING CRAFTSPERSON Pulse 81 08/26/2024 3:25 PM AWNING CRAFTSPERSON Temperature 36.8 C (98.2 F) 08/26/2024 3:25 PM AWNING CRAFTSPERSON Respiratory Rate 14 08/26/2024 3:25 PM AWNING CRAFTSPERSON Oxygen Saturation 100% 08/26/2024 11: 35 AM AWNING CRAFTSPERSON Inhaled Oxygen Concentration - - Weight 88.8 kg (195 lb 11.2 oz) 08/26/2024 4:15 AM AWNING CRAFTSPERSON Height 175.3 cm (5' 9 ) 08/23/2024 4:40 AM AWNING CRAFTSPERSON Body Mass Index 28.9 08/23/2024 4:40 AM AWNING CRAFTSPERSON Plan of Treatment Health Maintenance Due Date [...] CARDIOLOGY DOCUMENT SCAN Routine 11/15/2024 5:24 PM AWNING CRAFTSPERSON CARDIOLOGY DOCUMENT SCAN Routine 11/11/2024 8:36 AM AWNING CRAFTSPERSON SCAN - RADIOLOGY/IMAGING 11/10/2024 CARDIOLOGY DOCUMENT SCAN Routine 11/09/2024 8:11 AM AWNING CRAFTSPERSON CARDIOLOGY DOCUMENT SCAN 11/09/2024 CARDIOLOGY DOCUMENT SCAN Routine 11/08/2024 8:26 AM AWNING CRAFTSPERSON CARDIOLOGY DOCUMENT SCAN Routine 11/08/2024 7:54 AM AWNING CRAFTSPERSON CARDIOLOGY DOCUMENT SCAN 10/19/2024 CARDIOLOGY DOCUMENT SCAN Routine 10/18/2024 12:13 PM AWNING CRAFTSPERSON CARDIOLOGY DOCUMENT SCAN Routine 10/17/2024 5:00 PM AWNING CRAFTSPERSON EGFR Routine 08/26/2024 6:57 AM AWNING CRAFTSPERSON LIPID PANEL Routine 08/25/2024 7:05 AM AWNING CRAFTSPERSON HEMOGLOBIN A1C STAT 08/22/2024 9:43 PM AWNING CRAFTSPERSON from Last 3 Months or Most Recently Relevant to Health Maintenance Results * Cardiology Document Scan (11/15/2024 5:24 PM AWNING CRAFTSPERSON) Anatomical Region Laterality Modality Other Shobha Prasad NP CV CARDIAC SERVICES PROCEDUR ES Final Result * Cardiology Document Scan (11/11/2024 8:36 AM AWNING CRAFTSPERSON) Anatomical Region Laterality Modality Other us Mecca Lu MD CV CARDIAC SERVICES PROCEDU RES Final Result * SCAN - RADIOLOGY/IMAGING (11/10/2024) Anatomical Region Laterality Modality Other us Mecca Lu MD Final Resul t * Cardiology Document Scan (11/09/2024 8:11 AM AWNING CRAFTSPERSON) Anatomical Region Laterality Modality Other Result [facility] Mecca Lu MD CV CARDIAC SERVICES PROCEDU RES Final Result * Cardiology Document Scan (11/09/2024) Anatomical Region Laterality Modality Other Result [facility] Mecca Lu MD CV CARDIAC SERVICES PROCEDU RES Edited Result - Final * Cardiology Document Scan (11/08/2024 8:26 AM AWNING CRAFTSPERSON) Anatomical Region Laterality Modality Other Result [facility] Mecca Lu MD CV CARDIAC SERVICES PROCEDU RES Final Result * Cardiology Document Scan (11/08/2024 7:54 AM AWNING CRAFTSPERSON) Anatomical Region Laterality Modality Other Result [facility] Mecca Lu MD CV CARDIAC SERVICES PROCEDU RES Final Result * Cardiology Document Scan (10/19/2024) Anatomical Region Laterality Modality Other Dom Lomeli MD CV CARDIAC SERVICES PROCE DURES Final Result * Cardiology Document Scan (10/18/2024 12:13 PM AWNING CRAFTSPERSON) Anatomical Region Laterality Modality Other Shobha Prasad NP CV CARDIAC SERVICES PROCEDUR ES Final Result * Cardiology Document Scan (10/17/2024 5:00 PM AWNING CRAFTSPERSON) Anatomical Region Laterality Modality Other Dom Lomeli MD CV CARDIAC SERVICES PROCE DURES Final Result * (ABNORMAL) eGFR (08/26/2024 6:57 AM AWNING CRAFTSPERSON) eGFR 51(L) >=60 mL/min/1. 73 m2 Comment: [...] last reviewed 2021. Blood 08/26/2024 6:57 AM AWNING CRAFTSPERSON 08/26/2024 7:06 AM AWNING CRAFTSPERSON us Amandeep Smallwood MD LAB BLOOD ORDERABLES Final Result WIN OG [address] [facility] [place] [address] * (ABNORMAL) Lipid panel (08/25/2024 7:05 AM AWNING CRAFTSPERSON) Cholesterol 257(H) 30 - 199 mg/dL Comment: [...] ratio 5 WIN Blood 08/25/2024 7:05 AM AWNING CRAFTSPERSON 08/25/2024 7:30 AM AWNING CRAFTSPERSON Amandeep Smallwood MD LAB BLOOD ORDERABLES Final Result Performing Organization Address [facility] de Phone Number WIN [address] [address] * (ABNORMAL) Hemoglobin A1c (08/22/2024 9:43 PM AWNING CRAFTSPERSON) Hgb A1C 11.9(H) 4.0 - 5.6 % Estimated Average Glucose 295 mg/dL WIN Comment: The ADA recommends reporting an estimated Average Glucose (eAG) with all Hemoglobin A1c results using the equation derived from a study of 507 normal and diabetic adults. Minority populations were underrepresented and children were not included. (Diabetes Care 31:9365-2604, 2008). The eAG is not equivalent to a fasting glucose. Blood 08/22/2024 9:43 PM AWNING CRAFTSPERSON 08/22/2024 9:45 PM AWNING CRAFTSPERSON us Nahomi BALL LAB BLOOD ORDERABLES Final Resul t Performing Organization Address [facility] de Phone Number [id number] [address] from Last 3 Months or Most Recently Relevant to Health Maintenance Insurance IDPA Advance Directives For more information, please contact: [phone] * Full Code (Latest Code Status on File) Date Activated Date Inactivated Comments 08/23/2024 4:55 AM 08/26/2024 9:09 PM Care Teams Fashion Director Party Plan Sales Relationship Specialty Start Date End Date Unknown, Notinfile PCP - General 08/23/24
[2024-12-24 09:17] LABS: Alanine Aminotransferase 57 U/L (6-50); Albumin Level 3.7 g/dL (3.5-5.1); Alkaline Phosphatase 64 U/L (38-126); Anion Gap 9 mmol/L (4-12); Aspartate Amino Transferase 28 U/L (17-59); Bilirubin,Total 1.2 mg/dL (0.2-1.3); Blood Urea Nitrogen 15 mg/dL (9-20); Calcium 8.8 mg/dL (8.4-10.2); Carbon Dioxide 25 mmol/L (22-30); Chloride 97 mmol/L (98-107); Estimated Glomerular Filt Rate > 60; Glucose 471 mg/dL (65-110); Potassium 4.3 mmol/L (3.4-5.0); Sodium 131 mmol/L (137-145)
[2024-12-24 09:21] LABS: INR 1.2; Prothrombin Time 15.3 Seconds (11.1-14.7)
[2024-12-24 09:28] LABS: NT Pro B Type Natriuretic Pept 9430 pg/mL (19.9-100); Troponin I 0.054 ng/mL (0.000-0.034)
[2024-12-24] MEDS: FUROSEMIDE INJ 40 MG/4 ML VIAL IV PUSH ×2 (09:39→22:15)
[2024-12-24 11:02] LABS: Ethanol < 10 mg/dL (<10)
[2024-12-24] MEDS: INSULIN HUMAN REGULAR (*BKC) 100 UNITS/ML IV PUSH (11:13)
[2024-12-24 12:21] LABS: Glucose Point of Care 361 mg/dl (65-105)
--- NOTE | 2024-12-24 15:01 | PC.NURSE ---
Patient arrived to the floor via wheelchair from the ER. Patient is alert and oriented. States when asked when his last drink of alcohol was that I haven't drank alcohol since my last admission in the hospital in October . When asked if he has used any street drugs the patient states No . When asked if he is having trouble getting any of his medications, he states that He can't afford the Jardiance and the Enestro . States that he is currently only taking Coreg, Spirnolactone (a newer prescription), and his insulin. When asked if he is still taking 15 units of Lantus the patient states I only take 5 units of each of them . Patient states that I am only here for the swelling in my legs and when that is fixed, I will be out of here .
--- NOTE | 2024-12-24 15:01 | PM.IMHP ---
H&P: HPI History of Present Illness Date/Time: 12/24/24 15:01 Chief Complaint: Lower extremity swelling Narrative: This is a 39-year-old male presents emergency department for evaluation of lower extremity swelling. Patient was recently admitted and discharged on 11/16 with diagnosis CHF, type 2 diabetes, alcohol dependence hypertension, cardiomegaly and cardiomyopathy. It appears patient was discharged with a Life Vest, upon arrival to the emergency department patient does not have a life vest. Patient has not followed up with PCP or middle card tender on outpatient basis due to insurance issues. Patient has not been drinking. However present with worsening lower extremity edema along with some shortness of breath. His EF was 15-20% as of September 2024. In the ED is vitals were stable except for hypertension. Laboratory evaluation showed WBC of 5.3 hemoglobin of 16.2 platelet of 216 sodium 131 creatinine 1.02 blood sugar 471. Troponin was mildly elevated at 0.054 BNP was 9430. Alcohol level was less than 10. EKG showed sinus rhythm with right axis deviation nonspecific ST-T changes. Chest x-ray showed mild pulmonary vascular congestion with large right-sided pleural effusion He Is admitted in this setting for further treatment. Review of Systems Review of Systems: - CONSTITUTIONAL: Denies weight loss, fever and chills. - HEENT: Denies changes in vision and hearing - RESPIRATORY: Reports SOB and cough. - CV: Denies palpitations and CP. - GI: Denies abdominal pain, nausea, vomiting and diarrhea. - : Denies dysuria and urinary frequency. - MSK: Denies myalgia and joint pain. - SKIN: Denies rash and pruritus. - NEUROLOGICAL: Denies headache and syncope. - PSYCHIATRIC: Denies recent changes in mood. Denies anxiety and depression. PMFSH Past Medical History Medical History Diabetes mellitus Noncompliance Cardiomyopathy Hypertension associated with diabetes EtOH dependence Family History Family History Mother Hypertension Father Hypertension Social History Social History Smoking status: Never smoker Alcohol intake: former Drinks per week: 42 Substance use: never Substance use type: does not use Last use: States he hasn't drank alcohol since last admission in October . Do You Feel Safe in your Home?: Yes Lack of Transportation: No Lack of Food: Never True Current Housing: I Have Housing Concerned About Future Housing: No Difficulty Paying Gas/Electric Bills: No Difficulty Paying for Meds: YES Currently Unemployed: No Education: High School Diploma/GED Difficulty w/ Childcare or Family Care: No Spiritual care concerns: No Meds Home Medications and Allergies Home Medications ?Medication ?Instructions ?Recorded ?Confirmed ?Type dextrose 40 % oral gel (Glutose-15) 15 g PO PRN PRN Hypoglycemia 15 10/21/24 12/24/24 Rx days #15 grams furosemide 40 mg tablet 40 mg PO DAILY #90 tabs 10/21/24 12/24/24 Rx insulin aspart U-100 100 unit/mL 5 unit (0.05 mL) subcut TIDWM #150 10/21/24 12/24/24 Rx subcutaneous solution (Novolog mL U-100 Insulin aspart) insulin glargine 100 unit/mL 15 unit (0.15 mL) subcut HS #150 mL 10/21/24 12/24/24 Rx subcutaneous solution (Lantus U-100 Insulin) metformin 500 mg tablet,extended 500 mg PO BID #90 tabs 10/21/24 12/24/24 Rx release 24 hr rivaroxaban 20 mg tablet (Xarelto) 20 mg PO DAILY@1700 #90 tabs 10/21/24 12/24/24 Rx sacubitril 24 mg-valsartan 26 mg 1 tab PO Q12HR #90 tabs 10/21/24 12/24/24 Rx tablet (Entresto) spironolactone 25 mg tablet 25 mg PO QAM #90 tabs 10/21/24 12/24/24 Rx aspirin 81 mg tablet,delayed 81 mg PO QAM #30 tabs 11/16/24 12/24/24 Rx release carvedilol 25 mg tablet (Coreg) 25 mg PO Q12HR #60 tabs 11/16/24 12/24/24 Rx empagliflozin 10 mg tablet 10 mg PO DAILY #30 tabs 11/16/24 12/24/24 Rx (Jardiance) folic acid 1 mg tablet 1 mg PO DAILY #30 tabs 11/16/24 12/24/24 Rx thiamine HCl (vitamin B1) 100 mg 100 mg PO QAM #30 tabs 11/16/24 12/24/24 Rx tablet (Vitamin B-1) Allergies Allergy/AdvReac Type Severity Reaction Status Date / Time No Known Allergies Allergy Verified 12/24/24 08:20 Vital Signs Vital Signs - 24 hr 12/24/24 08:30 12/24/24 08:30 12/24/24 08:45 Temperature 97.5 F L Pulse Rate 89 Respiratory Rate 10 L 16 Blood Pressure 144/113 H 146/116 H Pulse Oximetry 99 98 Oxygen Delivery Room Air Room Air 12/24/24 11:29 12/24/24 11:31 12/24/24 11:45 Temperature Pulse Rate 82 83 84 Respiratory Rate 0 L 22 H 22 H Blood Pressure 130/103 H 135/104 H 137/109 H Pulse Oximetry 97 98 97 Oxygen Delivery 12/24/24 12:01 12/24/24 12:02 12/24/24 13:22 Temperature Pulse Rate 86 86 92 Respiratory Rate 25 H 23 H 20 Blood Pressure 134/106 H 134/100 H 140/102 H Pulse Oximetry 98 98 96 Oxygen Delivery 12/24/24 13:32 Temperature Pulse Rate 90 Respiratory Rate 20 Blood Pressure 140/110 H Pulse Oximetry 97 Oxygen Delivery Exam Narrative: APPEARANCE: Well appearing, no pain, no distress, well-nourished. HEAD: normocephalic, atraumatic. EYES: PERRLA/EOMI, conjunctivae clear. NOSE: Normal no drainage THROAT: Pharynx clear, no exudate. NECK: Supple. No adenopathy, no masses. RESPIRATORY: Airway patent, respirations nonlabored. Clear to auscultation bilaterally, no rales, rhonchi, wheezing. CARDIOVASCULAR: Regular rate and rhythm without murmurs rubs or gallops. ABDOMINAL: Soft, nontender, nondistended, normal bowel sounds MUSCULOSKELETAL: Moves all extremities. Strength/ROM intact, bilateral lower extremity pitting edema, No calf tenderness. NEURO: Alert. Cranial nerves II through XII intact. Grossly intact SKIN: Warm, dry. Normal Color H&P: Results Labs Labs: Short CBC 12/24/24 Range/Units 08:50 WBC 5.3 (4.5-10.0) K/mm3 Hgb 16.2 (14.0-18.0) g/dL Hct 49.2 (42.0-52.0) % Plt Count 216 (150-375) k/mm3 BMP 12/24/24 08:50 Sodium 131 L Potassium 4.3 Chloride 97 L Carbon Dioxide 25 BUN 15 Creatinine 1.02 Glucose 471 H Calcium 8.8 Cardiac Enzymes 12/24/24 Range/Units 08:50 Troponin I 0.054 H* (0.000-0.034) ng/mL Liver Function 12/24/24 Range/Units 08:50 Total Bilirubin 1.2 (0.2-1.3) mg/dL AST 28 (17-59) U/L ALT 57 H (6-50) U/L Alkaline Phosphatase 64 (38-126) U/L Albumin 3.7 (3.5-5.1) g/dL Assessment and Plan Assessment and plan (1) Noncompliance: Code(s): Z91.199 - Patient's noncompliance with other medical treatment and regimen due to unspecified reason Status: Acute (2) EtOH dependence: Code(s): F10.20 - Alcohol dependence, uncomplicated Status: Chronic (3) Hypertension: Code(s): I10 - Essential (primary) hypertension Status: Acute (4) CHF (congestive heart failure), NYHA class II: Code(s): I50.9 - Heart failure, unspecified Status: Acute (5) Acute on chronic systolic heart failure: Code(s): I50.23 - Acute on chronic systolic (congestive) heart failure Status: Acute (6) Cardiomyopathy: Code(s): I42.9 - Cardiomyopathy, unspecified Status: Acute (7) LV (left ventricular) mural thrombus: Code(s): I51.3 - Intracardiac thrombosis, not elsewhere classified Status: Acute (8) Diabetes mellitus: Code(s): E11.9 - Type 2 diabetes mellitus without complications Status: Acute Plan This is a 39-year-old male presents emergency department for evaluation of lower extremity swelling. Patient was recently admitted and discharged on 11/16 with diagnosis CHF, type 2 diabetes, alcohol dependence hypertension, cardiomegaly and cardiomyopathy. It appears patient was discharged with a Life Vest, upon arrival to the emergency department patient does not have a life vest. Patient has not followed up with PCP or middle card tender on outpatient basis due to insurance issues. Patient has not been drinking. However present with worsening lower extremity edema. His EF was 15-20% as of September 2024. In the ED is vitals were stable except for hypertension. Laboratory evaluation showed WBC of 5.3 hemoglobin of 16.2 platelet of 216 sodium 131 creatinine 1.02 blood sugar 471. Troponin was mildly elevated at 0.054 BNP was 9430. Alcohol level was less than 10. EKG showed sinus rhythm with right axis deviation nonspecific ST-T changes. Chest x-ray showed mild pulmonary vascular congestion with large right-sided pleural effusion He is admitted in this setting for further treatment. Acute on chronic severe systolic heart failure continue diuresis fluid restriction. Possibly alcoholic cardiomyopathy EF 15-20% on echocardiogram September 2024 He had declined cardiac catheterization in the past. He had stress test done at [facility] which showed fixed defect. Hypertension on Entresto carvedilol Left ventricular thrombus on Xarelto Type 2 diabetes uncontrolled glargine 15 with aspart 5 units t.i.d. hold metformin. Add SSI History of alcohol dependence DVT prophylaxis Xarelto Code status full code Hospitalist [facility] Advance Care Plan I have confirmed that the patient's Advanced Care Plan is present, code status is documented, or surrogate decision maker is listed in patient medical record.: Yes Medication Reconciliation I have utilized all available resources to obtain, update and review the patients current medications (includes all prescriptions, OTC, herbals, cannabis, and nutritional supplements).: Yes
[2024-12-24 15:53] LABS: Glucose Point of Care 458 mg/dl (65-105)
--- NOTE | 2024-12-24 15:53 | PC.NURSE ---
Blood glucose 458. Dr Catherine on the floor. This blood sugar reported. putting in orders for insulin at this time.
[2024-12-24] MEDS: INSULIN ASPART (*BKC) 100 UNITS/ML SUB-Q (16:14)
[2024-12-24] MEDS: RIVAROXABAN 20 MG TABLET PO (16:15)
[2024-12-24 16:39] LABS: Troponin I 0.048 ng/mL (0.000-0.034)
--- NOTE | 2024-12-24 18:45 | PC.NURSE ---
Lab called this RN to inform her that the patient is refusing to allow labs to be drawn at this time. He was scheduled for a Troponin and continues to refuse at this time.
[2024-12-24 20:26] LABS: Glucose Point of Care 485 mg/dl (65-105)
[2024-12-24] MEDS: INSULIN GLARGINE (*BKC) 100 UNITS/ML 15 UNITS SUB-Q (21:03)
[2024-12-24] MEDS: carvediloL 25 MG TABLET PO (21:14)
[2024-12-25] VITALS (15 sets, daily range): BP systolic 115–139; BP diastolic 83–98; PULSE 76–92; RESP 14–18; TEMP 36.4–37.1; O2SAT 98–100
--- NOTE | 2024-12-25 06:31 | PC.NURSE ---
During rounding for medication administration, the patient made it clear he did not agree with his treatment and did not want to take medications. I convinced him to take 5u of his 15u ordered lantus, but he adamently refused anymore than that. Additionally, he did not want his second dose of lasix as he felt this was too much. These issues were discussed with Angie BALL and he eventually allowed us to give him 20mg Lasix as documented in the MAR. During administration the patient repeatedly insisted to see the doses he was receiving as the medications were prepared. He appears to be deeply distrustful of medical and nursing staff. I spent a considerable amount of time attempting to gain his trust and educate him on the need for continued compliance with his medical regimen. The patient verbalized understanding, but wishes to be more engaged in decisions being made about how much medication he is getting and how aggressively he is being treated. He did mention that he obtained insurance recently which may help with compliance.
[2024-12-25 07:56] LABS: Glucose Point of Care 446 mg/dl (65-105)
[2024-12-25] MEDS: FOLIC ACID 1 MG TABLET PO (09:28)
[2024-12-25] MEDS: carvediloL 25 MG TABLET PO ×2 (09:28→21:21)
[2024-12-25] MEDS: SPIRONOLACTONE 25 MG TABLET PO (09:28)
[2024-12-25] MEDS: THIAMINE HCL 100 MG TABLET PO (09:28)
[2024-12-25] MEDS: INSULIN ASPART (*BKC) 100 UNITS/ML SUB-Q (09:29)
[2024-12-25] MEDS: SACUBITRIL/VALSARTAN 24-26 MG TABLET 1 TAB PO (09:29)
[2024-12-25] MEDS: FUROSEMIDE INJ 40 MG/4 ML VIAL IV PUSH ×2 (09:30→21:22)
[2024-12-25 09:59] LABS: Basophils Percent Auto 0.9 % (0.2-1.2); Eosinophils Absolute Auto 0.1 K/mm3 (0-0.3); Eosinophils Percent Auto 1.1 % (0-4.4); Hematocrit 44.8 % (42.0-52.0); Hemoglobin 14.9 g/dL (14.0-18.0); Immature Granulocyte Absolute 0.01 K/mm3 (0.00-0.031); Immature Granulocyte Percent A 0.2 % (0-0.5); Lymphocytes Absolute Auto 1.34 K/mm3 (0.9-3.2); Lymphocytes Percent Auto 30.8 % (18.3-44.2); Mean Corpuscular HGB Conc 33.3 g/dl (32-36); Mean Corpuscular Hemoglobin 25.6 pg (26-34); Mean Corpuscular Volume 77.1 fl (80-100); Mean Platelet Volume 10.5 fl (7.4-10.4); Monocytes Absolute Auto 0.4 K/mm3 (0.1-0.6); Monocytes Percent Auto 8.5 % (2.6-8.5); Neutrophils Absolute Auto 2.5 K/mm3 (1.3-6.7); Neutrophils Percent Auto 58.5 % (45.5-73.1); Platelet Count Result 165 k/mm3 (150-375); Red Blood Count 5.81 M/mm3 (4.6-6.20); Red Cell Distribution Width 18.8 % (11.5-14.5); White Blood Count 4.4 K/mm3 (4.5-10.0)
[2024-12-25 10:48] LABS: Alanine Aminotransferase 42 U/L (6-50); Albumin Level 2.9 g/dL (3.5-5.1); Alkaline Phosphatase 57 U/L (38-126); Anion Gap 8 mmol/L (4-12); Aspartate Amino Transferase 26 U/L (17-59); Bilirubin,Total 0.9 mg/dL (0.2-1.3); Blood Urea Nitrogen 18 mg/dL (9-20); Calcium 7.9 mg/dL (8.4-10.2); Carbon Dioxide 26 mmol/L (22-30); Chloride 97 mmol/L (98-107); Estimated CRCL calculation 105 ml/min; Estimated Glomerular Filt Rate > 60; Glucose 546 mg/dL (65-110); Magnesium 1.7 mg/dL (1.6-2.3); Potassium 4.2 mmol/L (3.4-5.0); Sodium 131 mmol/L (137-145)
--- NOTE | 2024-12-25 11:31 | PM.CNCAR ---
Assessment and Plan Assessment and plan (1) CHF (congestive heart failure), NYHA class II: Code(s): I50.9 - Heart failure, unspecified Status: Acute (2) Cardiomyopathy: Code(s): I42.9 - Cardiomyopathy, unspecified Status: Acute Plan 39-year-old man who appears to have nonischemic/alcoholic cardiomyopathy. Stress testing done at [facility] when he initially presented over there recently was negative for ischemic heart disease. Patient has a series of admissions to the hospital in are primarily related to medication noncompliance as detailed above. On 1 occasion he did have an appropriate shock from his LifeVest device. At this time his appropriate GDMT has already been resumed by the hospitalist. The staff tell me that he does have insurance in forced now and so hopefully he will be able to afford and stay on his medication. Spent some time trying to explain the patient the seriousness of his condition in the a importance of adherence to the medical program but he frankly does not seem to be too interested in his own health as he asked me to leave the room so he can eat lunch rather than finish my consultation. 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 The patient is unknown to me prior to this consultation when seen my partners on at least 2 previous admissions to the hospital. He has a previous history of ethanol abuse recently diagnosed cardiomyopathy with a low ejection fraction in the range of 10-15% and evidence of a left ventricular apical thrombus. He was recently discharged on appropriate guideline directed medical therapy for this. As has been unfortunately the situation is he does not take his medication reliably either because he did not have insurance and could not afford the medication or he thought the medication was making him lightheaded and he elected not to take it. Upon arrival here in the hospital apparently he is taking his Xarelto and spironolactone but I do not believe he was taking any of the other medication. In the course of taking the patient's history his lunch tray arrived and he directed me to leave the room so that he could eat lunch. Review of Systems Review of Systems: Review of systems not completed since I was asked to leave for by the patient [facility] Past Medical History Medical History Diabetes mellitus Noncompliance Cardiomyopathy Hypertension associated with diabetes EtOH dependence Family History Family History Mother Hypertension Father Hypertension Social History Social History Smoking status: Never smoker Alcohol intake: former Drinks per week: 42 Substance use: never Substance use type: does not use Last use: States he hasn't drank alcohol since last admission in October . Do You Feel Safe in your Home?: Yes Lack of Transportation: No Lack of Food: Never True Current Housing: I Have Housing Concerned About Future Housing: No Difficulty Paying Gas/Electric Bills: No Difficulty Paying for Meds: YES Currently Unemployed: No Education: High School Diploma/GED Difficulty w/ Childcare or Family Care: No Spiritual care concerns: No Meds Home Medications and Allergies Home Medications ?Medication ?Instructions ?Recorded ?Confirmed ?Type dextrose 40 % oral gel (Glutose-15) 15 g PO PRN PRN Hypoglycemia 15 10/21/24 12/24/24 Rx days #15 grams furosemide 40 mg tablet 40 mg PO DAILY #90 tabs 10/21/24 12/24/24 Rx insulin aspart U-100 100 unit/mL 5 unit (0.05 mL) subcut TIDWM #150 10/21/24 12/24/24 Rx subcutaneous solution (Novolog mL U-100 Insulin aspart) insulin glargine 100 unit/mL 15 unit (0.15 mL) subcut HS #150 mL 10/21/24 12/24/24 Rx subcutaneous solution (Lantus U-100 Insulin) metformin 500 mg tablet,extended 500 mg PO BID #90 tabs 10/21/24 12/24/24 Rx release 24 hr rivaroxaban 20 mg tablet (Xarelto) 20 mg PO DAILY@1700 #90 tabs 10/21/24 12/24/24 Rx sacubitril 24 mg-valsartan 26 mg 1 tab PO Q12HR #90 tabs 10/21/24 12/24/24 Rx tablet (Entresto) spironolactone 25 mg tablet 25 mg PO QAM #90 tabs 10/21/24 12/24/24 Rx aspirin 81 mg tablet,delayed 81 mg PO QAM #30 tabs 11/16/24 12/24/24 Rx release carvedilol 25 mg tablet (Coreg) 25 mg PO Q12HR #60 tabs 11/16/24 12/24/24 Rx empagliflozin 10 mg tablet 10 mg PO DAILY #30 tabs 11/16/24 12/24/24 Rx (Jardiance) folic acid 1 mg tablet 1 mg PO DAILY #30 tabs 11/16/24 12/24/24 Rx thiamine HCl (vitamin B1) 100 mg 100 mg PO QAM #30 tabs 11/16/24 12/24/24 Rx tablet (Vitamin B-1) Allergies Allergy/AdvReac Type Severity Reaction Status Date / Time No Known Allergies Allergy Verified 12/24/24 08:20 Vital Signs Vital Signs - 24 hr 12/24/24 11:45 12/24/24 12:01 12/24/24 12:02 Temperature Pulse Rate 84 86 86 Respiratory Rate 22 H 25 H 23 H Blood Pressure 137/109 H 134/106 H 134/100 H Pulse Oximetry 97 98 98 Oxygen Delivery Fraction of Inspired Oxygen 12/24/24 13:22 12/24/24 13:32 12/24/24 15:02 Temperature 36.3 C L Pulse Rate 92 90 89 Respiratory Rate 20 20 18 Blood Pressure 140/102 H 140/110 H 126/97 H Pulse Oximetry 96 97 99 Oxygen Delivery Fraction of Inspired Oxygen 12/24/24 16:00 12/24/24 16:08 12/24/24 18:00 Temperature 36.5 C Pulse Rate 84 86 96 Respiratory Rate 16 Blood Pressure 121/94 H Pulse Oximetry 99 Oxygen Delivery Fraction of Inspired Oxygen 12/24/24 19:59 12/24/24 20:00 12/24/24 20:10 Temperature 36.4 C Pulse Rate 95 93 Respiratory Rate 16 Blood Pressure 129/103 H Pulse Oximetry 98 98 Oxygen Delivery Room Air Fraction of Inspired Oxygen 21 12/24/24 21:14 12/24/24 22:00 12/24/24 23:50 Temperature 36.8 C Pulse Rate 92 92 86 Respiratory Rate 18 Blood Pressure 132/80 Pulse Oximetry 100 Oxygen Delivery Fraction of Inspired Oxygen 12/25/24 00:00 12/25/24 02:00 12/25/24 04:00 Temperature Pulse Rate 85 79 76 Respiratory Rate Blood Pressure Pulse Oximetry Oxygen Delivery Fraction of Inspired Oxygen 12/25/24 04:33 12/25/24 06:00 12/25/24 07:33 Temperature 37.0 C 36.4 C L Pulse Rate 78 82 81 Respiratory Rate 18 14 Blood Pressure 124/90 122/98 H Pulse Oximetry 100 99 Oxygen Delivery Fraction of Inspired Oxygen Exam Const: General: comfortable and no acute distress Other: Well-developed well-nourished black male no apparent distress HENMT: Mouth: Yes moist mucous membranes Eyes: Sclera: sclerae normal Neck: Neck: supple Resp: Effort & Inspection: normal respiratory effort Other: Bibasilar crackles are noted Cardio: Rate: regular rate Rhythm: regular rhythm Other: First and second heart sound normal summation gallop is audible GI: GI Palp: Yes Soft to palpation Auscultation: normal bowel sounds Skin: General skin exam: normal color Neuro: Other: Alert and oriented x3 Extrem: Other: Mild peripheral edema Results Labs and Meds 12/25/24 09:51 12/25/24 09:51 Lab results: Cardiac Enzymes 12/24/24 12/25/24 Range/Units 16:05 09:51 AST 26 (17-59) U/L Troponin I 0.048 H* (0.000-0.034) ng/mL CBC 12/25/24 Range/Units 09:51 WBC 4.4 L (4.5-10.0) K/mm3 RBC 5.81 (4.6-6.20) M/mm3 Hgb 14.9 (14.0-18.0) g/dL Hct 44.8 (42.0-52.0) % Plt Count 165 (150-375) k/mm3 Lymph # (Auto) 1.34 (0.9-3.2) K/mm3 [place] # (Auto) 0.4 (0.1-0.6) K/mm3 Eos # (Auto) 0.1 (0-0.3) K/mm3 Baso # (Auto) 0.0 (0.0-0.1) K/mm3 Comprehensive Metabolic Panel 12/25/24 Range/Units 09:51 Sodium 131 L (137-145) mmol/L Potassium 4.2 (3.4-5.0) mmol/L Chloride 97 L (98-107) mmol/L Carbon Dioxide 26 (22-30) mmol/L BUN 18 (9-20) mg/dL Creatinine 0.93 (0.7-1.3) mg/dL Glucose 546 H* (65-110) mg/dL Calcium 7.9 L (8.4-10.2) mg/dL AST 26 (17-59) U/L ALT 42 (6-50) U/L Alkaline Phosphatase 57 (38-126) U/L Total Protein 6.0 L (6.3-8.2) g/dL Albumin 2.9 L (3.5-5.1) g/dL Intake and Output 12/24/24 12/25/24 12/25/24 23:59 07:59 15:59 Intake Total 100 390 240 Output Total 1000 800 650 Balance -900 -410 -410 Intake: Oral 100 390 240 Output: Urine 1000 800 650 Patient Weight 12/25/24 23:59 Weight 93.5 kg
[2024-12-25 11:37] LABS: Glucose Point of Care > 500 mg/dl (65-105)
[2024-12-25 13:03] LABS: Glucose Point of Care > 500 mg/dl (65-105)
--- NOTE | 2024-12-25 14:20 | P.PNIM_ITS ---
Progress Note: A&P Assessment and Plan (1) Noncompliance: Code(s): Z91.199 - Patient's noncompliance with other medical treatment and regimen due to unspecified reason Status: Acute (2) EtOH dependence: Code(s): F10.20 - Alcohol dependence, uncomplicated Status: Chronic (3) Hypertension: Code(s): I10 - Essential (primary) hypertension Status: Acute (4) CHF (congestive heart failure), NYHA class II: Code(s): I50.9 - Heart failure, unspecified Status: Acute (5) Acute on chronic systolic heart failure: Code(s): I50.23 - Acute on chronic systolic (congestive) heart failure Status: Acute (6) Cardiomyopathy: Code(s): I42.9 - Cardiomyopathy, unspecified Status: Acute (7) LV (left ventricular) mural thrombus: Code(s): I51.3 - Intracardiac thrombosis, not elsewhere classified Status: Acute (8) Diabetes mellitus: Code(s): E11.9 - Type 2 diabetes mellitus without complications Status: Acute Plan This is a 39-year-old male presents emergency department for evaluation of lower extremity swelling. Patient was recently admitted and discharged on 11/16 with diagnosis CHF, type 2 diabetes, alcohol dependence hypertension, cardiomegaly and cardiomyopathy. It appears patient was discharged with a Life Vest, upon arrival to the emergency department patient does not have a life vest. Patient has not followed up with PCP or psych nurse on outpatient basis due to insurance issues. Patient has not been drinking. However present with worsening lower extremity edema. His EF was 15-20% as of September 2024. In the ED is vitals were stable except for hypertension. Laboratory evaluation showed WBC of 5.3 hemoglobin of 16.2 platelet of 216 sodium 131 creatinine 1.02 blood sugar 471. Troponin was mildly elevated at 0.054 BNP was 9430. Alcohol level was less than 10. EKG showed sinus rhythm with right axis deviation nonspecific ST-T changes. Chest x-ray showed mild pulmonary vascular congestion with large right-sided pleural effusion He is admitted in this setting for further treatment. Acute on chronic severe systolic heart failure continue diuresis fluid restriction. Cardiology consultation Possibly alcoholic cardiomyopathy EF 15-20% on echocardiogram September 2024 He had declined cardiac catheterization in the past. He had stress test done at [facility] which showed fixed defect. Hypertension on Entresto carvedilol Left ventricular thrombus on Xarelto Type 2 diabetes uncontrolled glargine 15 with aspart 5 units t.i.d. hold metformin. Add SSI however patient has been refusing and lowering the dose himself History of alcohol dependence DVT prophylaxis Xarelto Code status full code Medical noncompliance Subjective Date/time seen: 12/25/24 14:20 Interval history: Patient refuses medication/insulin. Reports no shortness of breath no chest pain leg swelling persist Review of Systems Review of Systems: All systems reviewed & are unremarkable except as noted in HPI and below Exam Narrative: APPEARANCE: Well appearing, no pain, no distress, well-nourished. HEAD: normocephalic, atraumatic. EYES: PERRLA/EOMI, conjunctivae clear. NOSE: Normal no drainage THROAT: Pharynx clear, no exudate. NECK: Supple. No adenopathy, no masses. RESPIRATORY: Airway patent, respirations nonlabored. Clear to auscultation bilaterally, no rales, rhonchi, wheezing. CARDIOVASCULAR: Regular rate and rhythm without murmurs rubs or gallops. ABDOMINAL: Soft, nontender, nondistended, normal bowel sounds MUSCULOSKELETAL: Moves all extremities. Strength/ROM intact, bilateral lower extremity pitting edema, No calf tenderness. NEURO: Alert. Cranial nerves II through XII intact. Grossly intact SKIN: Warm, dry. Normal Color Objective Data Vital Signs Vital Signs: Vital Signs - 24 hr 12/24/24 15:02 12/24/24 16:00 12/24/24 16:08 Temperature 97.4 F L 97.7 F Pulse Rate 89 84 86 Respiratory Rate 18 16 Blood Pressure 126/97 H 121/94 H Pulse Oximetry 99 99 Oxygen Delivery Fraction of Inspired Oxygen 12/24/24 18:00 12/24/24 19:59 12/24/24 20:00 Temperature Pulse Rate 96 95 Respiratory Rate Blood Pressure Pulse Oximetry 98 Oxygen Delivery Room Air Fraction of Inspired Oxygen 21 12/24/24 20:10 12/24/24 21:14 12/24/24 22:00 Temperature 97.6 F Pulse Rate 93 92 92 Respiratory Rate 16 Blood Pressure 129/103 H Pulse Oximetry 98 Oxygen Delivery Fraction of Inspired Oxygen 12/24/24 23:50 12/25/24 00:00 12/25/24 02:00 Temperature 98.3 F Pulse Rate 86 85 79 Respiratory Rate 18 Blood Pressure 132/80 Pulse Oximetry 100 Oxygen Delivery Fraction of Inspired Oxygen 12/25/24 04:00 12/25/24 04:33 12/25/24 06:00 Temperature 98.6 F Pulse Rate 76 78 82 Respiratory Rate 18 Blood Pressure 124/90 Pulse Oximetry 100 Oxygen Delivery Fraction of Inspired Oxygen 12/25/24 07:33 12/25/24 12:00 Temperature 97.5 F L 97.7 F Pulse Rate 81 86 Respiratory Rate 14 18 Blood Pressure 122/98 H 115/84 Pulse Oximetry 99 100 Oxygen Delivery Fraction of Inspired Oxygen Intake/Output Intake/Output: Intake & Output 12/22/24 12/23/24 12/24/24 12/25/24 23:59 23:59 23:59 23:59 Intake Total 100 870 Output Total 3600 2250 Balance -3500 -1380 Meds/Results Medications: Active Medications Generic Name Dose Route Start Last Admin Trade Name Freq PRN Reason Stop Dose Admin Aspirin 81 mg 12/25/24 08:00 12/25/24 09:29 Aspirin 81 Mg Chewable Tablet PO Not Given DAILY@0800 KELIN Aspirin 81 mg 12/25/24 09:00 12/25/24 09:40 Aspirin 81 Mg Enteric Tablet PO Not Given QAM [facility] Carvedilol 25 mg 12/24/24 21:00 12/25/24 09:28 Carvedilol 25 Mg Tablet PO 25 mg Q12HR KELIN Administration Dextrose 12.5 gm 12/24/24 15:49 Dextrose 50% 25 Gm/50 Ml Syringe IV PUSH PRN PRN Hypoglycemia Protocol Empagliflozin 10 mg 12/25/24 09:00 12/25/24 09:30 Empagliflozin 10 Mg Tablet PO Not Given DAILY KELIN Folic Acid 1 mg 12/25/24 09:00 12/25/24 09:28 Folic Acid 1 Mg Tablet PO 1 mg DAILY KELIN Administration Furosemide 40 mg 12/24/24 21:00 12/25/24 09:30 Furosemide Inj 40 Mg/4 Ml Vial IV PUSH 20 mg Q12HR KELIN Administration Glucagon 1 mg 12/24/24 15:49 Glucagon For Inj 1 Mg Vial IM PRN PRN Hypoglycemia Protocol Glucose 15 gm 12/24/24 15:49 Glucose Oral Gel 15 Gm Of Glucse In 37.5 Gm Tube PO PRN PRN Hypoglycemia Protocol Dextrose 1,000 mls @ 100 mls/hr 12/24/24 15:49 Dextrose 5% 1,000 Ml IVPB PRN PRN Hypoglycemia Protocol Insulin Aspart 5 units 12/24/24 17:00 12/25/24 12:29 Insulin Aspart (*Bkc) 100 Units/Ml SUB-Q Not Given TIDWM KELIN Insulin Aspart 2 - 5 units 12/24/24 17:00 12/25/24 12:29 Insulin Aspart (*Bkc) 100 Units/Ml SUB-Q Not Given TIDWM KELIN Protocol Insulin Aspart 1 - 2 units 12/24/24 21:00 12/24/24 21:06 Insulin Aspart (*Bkc) 100 Units/Ml SUB-Q Not Given HS KELIN Protocol Insulin Glargine 15 units 12/24/24 21:00 12/24/24 21:03 Insulin Glargine (*Bkc) 100 Units/Ml SUB-Q 5 units HS KELIN Administration Rivaroxaban 20 mg 12/24/24 17:00 12/24/24 16:15 Rivaroxaban 20 Mg Tablet PO 20 mg DAILY@1700 KELIN Administration Sacubitril/Valsartan 1 tab 12/24/24 21:00 12/25/24 09:29 Sacubitril/Valsartan 24-26 Mg Tablet PO 1 tab Q12HR KELIN Administration Spironolactone 25 mg 12/25/24 09:00 12/25/24 09:28 Spironolactone 25 Mg Tablet PO 25 mg QAM KELIN Administration Thiamine HCl 100 mg 12/25/24 09:00 12/25/24 09:28 Thiamine Hcl 100 Mg Tablet PO 100 mg QAM KELIN Administration Radiology Results: ITS Impressions Chest X-Ray 12/24/24 09:04 IMPRESSION: Mild pulmonary vascular congestion with a large right-sided pleural effusion. Labs Labs: Laboratory Results - last 24 hr 12/24/24 12/24/24 12/24/24 15:30 16:05 20:14 WBC RBC Hgb Hct MCV MCH MCHC RDW Plt Count MPV Immature Gran % (Auto) Neut % (Auto) Lymph % (Auto) [place] % (Auto) Eos % (Auto) Baso % (Auto) Lymph # (Auto) [place] # (Auto) Eos # (Auto) Baso # (Auto) Abs Immat Gran (auto) Absolute Neuts (auto) Absolute Nucleated RBC Nucleated RBC % Sodium Potassium Chloride Carbon Dioxide Anion Gap BUN Creatinine Estim Creat Clear Calc Estimated GFR Glucose POC Capillary Glucose 458 H 485 H Calcium Magnesium Total Bilirubin AST ALT Alkaline Phosphatase Troponin I 0.048 H* Total Protein Albumin 12/25/24 12/25/24 12/25/24 07:35 09:51 11:23 WBC 4.4 L RBC 5.81 Hgb 14.9 Hct 44.8 MCV 77.1 L MCH 25.6 L MCHC 33.3 RDW 18.8 H Plt Count 165 MPV 10.5 H Immature Gran % (Auto) 0.2 Neut % (Auto) 58.5 Lymph % (Auto) 30.8 [place] % (Auto) 8.5 Eos % (Auto) 1.1 Baso % (Auto) 0.9 Lymph # (Auto) 1.34 [place] # (Auto) 0.4 Eos # (Auto) 0.1 Baso # (Auto) 0.0 Abs Immat Gran (auto) 0.01 Absolute Neuts (auto) 2.5 Absolute Nucleated RBC 0.000 Nucleated RBC % 0.0 Sodium 131 L Potassium 4.2 Chloride 97 L Carbon Dioxide 26 Anion Gap 8 BUN 18 Creatinine 0.93 Estim Creat Clear Calc 105 Estimated GFR > 60 Glucose 546 H* POC Capillary Glucose 446 H > 500 H* Calcium 7.9 L Magnesium 1.7 Total Bilirubin 0.9 AST 26 ALT 42 Alkaline Phosphatase 57 Troponin I Total Protein 6.0 L Albumin 2.9 L 12/25/24 13:00 WBC RBC Hgb Hct MCV MCH MCHC RDW Plt Count MPV Immature Gran % (Auto) Neut % (Auto) Lymph % (Auto) [place] % (Auto) Eos % (Auto) Baso % (Auto) Lymph # (Auto) [place] # (Auto) Eos # (Auto) Baso # (Auto) Abs Immat Gran (auto) Absolute Neuts (auto) Absolute Nucleated RBC Nucleated RBC % Sodium Potassium Chloride Carbon Dioxide Anion Gap BUN Creatinine Estim Creat Clear Calc Estimated GFR Glucose POC Capillary Glucose > 500 H* Calcium Magnesium Total Bilirubin AST ALT Alkaline Phosphatase Troponin I Total Protein Albumin
[2024-12-25 15:42] LABS: Glucose Point of Care 430 mg/dl (65-105)
[2024-12-25 20:38] LABS: Glucose Point of Care 480 mg/dl (65-105)
[2024-12-25] MEDS: INSULIN GLARGINE (*BKC) 100 UNITS/ML 15 UNITS SUB-Q (21:22)
[2024-12-26] VITALS (12 sets, daily range): BP systolic 111–126; BP diastolic 79–91; PULSE 70–194; RESP 14–18; TEMP 36.8–37.3; O2SAT 98–99
--- NOTE | 2024-12-26 01:57 | PC.NURSE ---
Daylight Savings Time For Daylight Savings Time Ending in the Fall - Clocks are moved back. For Daylight Savings Time Beginning in the Spring - Clocks are moved ahead. For [facility], the time of change occurs at 0200 hrs. Time is taken from the server systems administrator. This entry on the patient's chart recognizes the change in time reflected during documentation. Example: 2 entries for vital signs may be charted for 0200 hrs.
[2024-12-26 04:26] LABS: Basophils Percent Auto 0.6 % (0.2-1.2); Eosinophils Absolute Auto 0.1 K/mm3 (0-0.3); Hematocrit 43.7 % (42.0-52.0); Hemoglobin 14.4 g/dL (14.0-18.0); Immature Granulocyte Absolute 0.02 K/mm3 (0.00-0.031); Immature Granulocyte Percent A 0.4 % (0-0.5); Lymphocytes Absolute Auto 1.66 K/mm3 (0.9-3.2); Lymphocytes Percent Auto 34.7 % (18.3-44.2); Mean Corpuscular Hemoglobin 25.9 pg (26-34); Mean Corpuscular Volume 78.5 fl (80-100); Mean Platelet Volume 10.7 fl (7.4-10.4); Monocytes Absolute Auto 0.4 K/mm3 (0.1-0.6); Monocytes Percent Auto 8.4 % (2.6-8.5); Neutrophils Absolute Auto 2.6 K/mm3 (1.3-6.7); Neutrophils Percent Auto 54.9 % (45.5-73.1); Platelet Count Result 161 k/mm3 (150-375); Red Blood Count 5.57 M/mm3 (4.6-6.20); Red Cell Distribution Width 18.8 % (11.5-14.5); White Blood Count 4.8 K/mm3 (4.5-10.0)
[2024-12-26 04:39] LABS: Alanine Aminotransferase 39 U/L (6-50); Albumin Level 2.8 g/dL (3.5-5.1); Alkaline Phosphatase 43 U/L (38-126); Anion Gap 5 mmol/L (4-12); Aspartate Amino Transferase 26 U/L (17-59); Bilirubin,Total 1.1 mg/dL (0.2-1.3); Blood Urea Nitrogen 17 mg/dL (9-20); Calcium 7.7 mg/dL (8.4-10.2); Carbon Dioxide 34 mmol/L (22-30); Chloride 95 mmol/L (98-107); Estimated CRCL calculation 96 ml/min; Estimated Glomerular Filt Rate > 60; Glucose 296 mg/dL (65-110); Magnesium 1.7 mg/dL (1.6-2.3); Potassium 3.4 mmol/L (3.4-5.0); Sodium 134 mmol/L (137-145)
[2024-12-26 07:49] LABS: Glucose Point of Care 350 mg/dl (65-105)
[2024-12-26] MEDS: carvediloL 25 MG TABLET PO ×2 (08:54→22:28)
[2024-12-26] MEDS: SPIRONOLACTONE 25 MG TABLET PO (08:54)
[2024-12-26] MEDS: FOLIC ACID 1 MG TABLET PO (08:54)
[2024-12-26] MEDS: SACUBITRIL/VALSARTAN 24-26 MG TABLET 1 TAB PO ×2 (08:54→22:29)
[2024-12-26] MEDS: EMPAGLIFLOZIN 10 MG TABLET PO (08:54)
[2024-12-26] MEDS: FUROSEMIDE INJ 40 MG/4 ML VIAL IV PUSH ×2 (08:54→22:30)
[2024-12-26] MEDS: THIAMINE HCL 100 MG TABLET PO (08:54)
[2024-12-26] MEDS: INSULIN ASPART (*BKC) 100 UNITS/ML SUB-Q ×2 (09:49→12:11)
--- NOTE | 2024-12-26 10:14 | P.PNCA_ITS ---
Progress Note: A&P Assessment and Plan (1) Cardiomyopathy: Code(s): I42.9 - Cardiomyopathy, unspecified Status: Acute (2) CHF (congestive heart failure): Code(s): I50.9 - Heart failure, unspecified Status: Acute Plan 39-year-old man unfortunately with severe cardiomyopathy felt to be nonischemic because of negative stress testing done at the time of his diagnosis. Unfortunately his pattern has been noncompliance with medication and resulting in frequent readmissions to the hospital for decompensation. He is back on guideline directed medical therapy and is improving quickly. IV furosemide probably reasonable to continue for another day or so. He does not have much in the way of pulmonary congestion at this time but he does have a moderate size right pleural effusion which is of course a manifestation of his heart failure but I would do not believe enough of a problem where it needs to be drained. Tremaine Malone MD [facility] Subjective Date/time seen: Date of service: 12/26/24 10:14 Interval history: Follow-up visit in this 39-year-old man with: Severe nonischemic cardiomyopathy and unfortunate recurrent hospital visits because of medication noncompliance. He feels better today his edema is slowly resolving once again and he has no significant complaints. Exam Const: General: comfortable and no acute distress HENMT: Mouth: Yes moist mucous membranes Eyes: Sclera: sclerae normal Neck: Neck: no JVD Resp: Effort & Inspection: normal respiratory effort Other: Dull at the right base Cardio: Rate: regular rate Rhythm: regular rhythm GI: GI Palp: Yes Soft to palpation Auscultation: normal bowel sounds Skin: General skin exam: normal color Neuro: Other: Alert and oriented x3 Extrem: Other: Small amount of pretibial edema remains improved significant Objective Data Vital Signs Vital Signs: Vital Signs - 24 hr 12/25/24 10:00 12/25/24 12:00 12/25/24 12:00 Temperature 36.5 C Pulse Rate 91 86 84 Respiratory Rate 18 Blood Pressure 115/84 Pulse Oximetry 100 12/25/24 14:00 12/25/24 15:49 12/25/24 16:00 Temperature 37.1 C Pulse Rate 86 86 86 Respiratory Rate 14 Blood Pressure 115/83 Pulse Oximetry 98 12/25/24 19:58 12/25/24 20:00 12/25/24 21:21 Temperature 36.7 C Pulse Rate 90 90 92 Respiratory Rate 16 Blood Pressure 139/94 H Pulse Oximetry 99 12/26/24 00:00 12/26/24 00:16 12/26/24 04:00 Temperature Pulse Rate 70 83 74 Respiratory Rate Blood Pressure Pulse Oximetry 12/26/24 08:00 Temperature 36.8 C Pulse Rate 84 Respiratory Rate 16 Blood Pressure 125/91 H Pulse Oximetry 99 Intake/Output Intake/Output: Intake & Output 12/23/24 12/24/24 12/25/24 12/27/24 23:59 23:59 23:59 00:59 Intake Total 100 1110 750 Output Total 3600 3000 1900 Balance -3500 -1890 -1150 Meds/Results Medications: Active Medications Generic Name Dose Route Start Last Admin Trade Name Freq PRN Reason Stop Dose Admin Aspirin 81 mg 12/25/24 08:00 12/26/24 08:55 Aspirin 81 Mg Chewable Tablet PO Not Given DAILY@0800 KELIN Aspirin 81 mg 12/25/24 09:00 12/26/24 08:55 Aspirin 81 Mg Enteric Tablet PO Not [facility] [place] Carvedilol 25 mg 12/24/24 21:00 12/26/24 08:54 Carvedilol 25 Mg Tablet PO 25 mg Q12HR KELIN Administration Dextrose 12.5 gm 12/24/24 15:49 Dextrose 50% 25 Gm/50 Ml Syringe IV PUSH PRN PRN Hypoglycemia Protocol Empagliflozin 10 mg 12/25/24 09:00 12/26/24 08:54 Empagliflozin 10 Mg Tablet PO 10 mg DAILY KELIN Administration Folic Acid 1 mg 12/25/24 09:00 12/26/24 08:54 Folic Acid 1 Mg Tablet PO 1 mg DAILY KELIN Administration Furosemide 40 mg 12/24/24 21:00 12/26/24 08:54 Furosemide Inj 40 Mg/4 Ml Vial IV PUSH 40 mg Q12HR KELIN Administration Glucagon 1 mg 12/24/24 15:49 Glucagon For Inj 1 Mg Vial IM PRN PRN Hypoglycemia Protocol Glucose 15 gm 12/24/24 15:49 Glucose Oral Gel 15 Gm Of Glucse In 37.5 Gm Tube PO PRN PRN Hypoglycemia Protocol Dextrose 1,000 mls @ 100 mls/hr 12/24/24 15:49 Dextrose 5% 1,000 Ml IVPB PRN PRN Hypoglycemia Protocol Insulin Aspart 5 units 12/24/24 17:00 12/26/24 09:49 Insulin Aspart (*Bkc) 100 Units/Ml SUB-Q 5 units TIDWM KELIN Administration Insulin Aspart 2 - 5 units 12/24/24 17:00 12/26/24 08:55 Insulin Aspart (*Bkc) 100 Units/Ml SUB-Q Not Given TIDWM KELIN Protocol Insulin Aspart 1 - 2 units 12/24/24 21:00 12/25/24 21:19 Insulin Aspart (*Bkc) 100 Units/Ml SUB-Q Not Given HS KELIN Protocol Insulin Glargine 15 units 12/24/24 21:00 12/25/24 21:22 Insulin Glargine (*Bkc) 100 Units/Ml SUB-Q 10 units HS KELIN Administration Rivaroxaban 20 mg 12/24/24 17:00 12/25/24 18:46 Rivaroxaban 20 Mg Tablet PO Not Given DAILY@1700 KELIN Sacubitril/Valsartan 1 tab 12/24/24 21:00 12/26/24 08:54 Sacubitril/Valsartan 24-26 Mg Tablet PO 1 tab Q12HR KELIN Administration Spironolactone 25 mg 12/25/24 09:00 12/26/24 08:54 Spironolactone 25 Mg Tablet PO 25 mg QAM KELIN Administration Thiamine HCl 100 mg 12/25/24 09:00 12/26/24 08:54 Thiamine Hcl 100 Mg Tablet PO 100 mg QAM KELIN Administration Radiology Results: ITS Impressions Chest X-Ray 12/26/24 06:36 Impression: Mild bibasilar pulmonary edema/atelectasis with moderate right pleural effusion and small left pleural effusion. Labs Labs: Laboratory Results - last 24 hr 12/25/24 12/25/24 12/25/24 09:51 11:23 13:00 WBC 4.4 L RBC 5.81 Hgb 14.9 Hct 44.8 MCV 77.1 L MCH 25.6 L MCHC 33.3 RDW 18.8 H Plt Count 165 MPV 10.5 H Immature Gran % (Auto) 0.2 Neut % (Auto) 58.5 Lymph % (Auto) 30.8 [place] % (Auto) 8.5 Eos % (Auto) 1.1 Baso % (Auto) 0.9 Lymph # (Auto) 1.34 [place] # (Auto) 0.4 Eos # (Auto) 0.1 Baso # (Auto) 0.0 Abs Immat Gran (auto) 0.01 Absolute Neuts (auto) 2.5 Absolute Nucleated RBC 0.000 Nucleated RBC % 0.0 Sodium 131 L Potassium 4.2 Chloride 97 L Carbon Dioxide 26 Anion Gap 8 BUN 18 Creatinine 0.93 Estim Creat Clear Calc 105 Estimated GFR > 60 Glucose 546 H* POC Capillary Glucose > 500 H* > 500 H* Calcium 7.9 L Magnesium 1.7 Total Bilirubin 0.9 AST 26 ALT 42 Alkaline Phosphatase 57 Total Protein 6.0 L Albumin 2.9 L 12/25/24 12/25/24 12/26/24 15:29 20:00 03:58 WBC 4.8 RBC 5.57 Hgb 14.4 Hct 43.7 MCV 78.5 L MCH 25.9 L MCHC 33.0 RDW 18.8 H Plt Count 161 MPV 10.7 H Immature Gran % (Auto) 0.4 Neut % (Auto) 54.9 Lymph % (Auto) 34.7 [place] % (Auto) 8.4 Eos % (Auto) 1.0 Baso % (Auto) 0.6 Lymph # (Auto) 1.66 [place] # (Auto) 0.4 Eos # (Auto) 0.1 Baso # (Auto) 0.0 Abs Immat Gran (auto) 0.02 Absolute Neuts (auto) 2.6 Absolute Nucleated RBC 0.000 Nucleated RBC % 0.0 Sodium 134 L Potassium 3.4 Chloride 95 L Carbon Dioxide 34 H Anion Gap 5 BUN 17 Creatinine 1.02 Estim Creat Clear Calc 96 Estimated GFR > 60 Glucose 296 H POC Capillary Glucose 430 H 480 H Calcium 7.7 L Magnesium 1.7 Total Bilirubin 1.1 AST 26 ALT 39 Alkaline Phosphatase 43 Total Protein 6.0 L Albumin 2.8 L 12/26/24 07:30 WBC RBC Hgb Hct MCV MCH MCHC RDW Plt Count MPV Immature Gran % (Auto) Neut % (Auto) Lymph % (Auto) [place] % (Auto) Eos % (Auto) Baso % (Auto) Lymph # (Auto) [place] # (Auto) Eos # (Auto) Baso # (Auto) Abs Immat Gran (auto) Absolute Neuts (auto) Absolute Nucleated RBC Nucleated RBC % Sodium Potassium Chloride Carbon Dioxide Anion Gap BUN Creatinine Estim Creat Clear Calc Estimated GFR Glucose POC Capillary Glucose 350 H Calcium Magnesium Total Bilirubin AST ALT Alkaline Phosphatase Total Protein Albumin
[2024-12-26 11:59] LABS: Glucose Point of Care 347 mg/dl (65-105)
--- NOTE | 2024-12-26 13:52 | P.PNIM_ITS ---
Progress Note: A&P Assessment and Plan (1) Noncompliance: Code(s): Z91.199 - Patient's noncompliance with other medical treatment and regimen due to unspecified reason Status: Acute (2) EtOH dependence: Code(s): F10.20 - Alcohol dependence, uncomplicated Status: Chronic (3) Hypertension: Code(s): I10 - Essential (primary) hypertension Status: Acute (4) CHF (congestive heart failure), NYHA class II: Code(s): I50.9 - Heart failure, unspecified Status: Acute (5) Acute on chronic systolic heart failure: Code(s): I50.23 - Acute on chronic systolic (congestive) heart failure Status: Acute (6) Cardiomyopathy: Code(s): I42.9 - Cardiomyopathy, unspecified Status: Acute (7) LV (left ventricular) mural thrombus: Code(s): I51.3 - Intracardiac thrombosis, not elsewhere classified Status: Acute (8) Diabetes mellitus: Code(s): E11.9 - Type 2 diabetes mellitus without complications Status: Acute Plan This is a 39-year-old male presents emergency department for evaluation of lower extremity swelling. Patient was recently admitted and discharged on 11/16 with diagnosis CHF, type 2 diabetes, alcohol dependence hypertension, cardiomegaly and cardiomyopathy. It appears patient was discharged with a Life Vest, upon arrival to the emergency department patient does not have a life vest. 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 Patient has not been drinking. However present with worsening lower extremity edema. His EF was 15-20% as of September 2024. In the ED is vitals were stable except for hypertension. Laboratory evaluation showed WBC of 5.3 hemoglobin of 16.2 platelet of 216 sodium 131 creatinine 1.02 blood sugar 471. Troponin was mildly elevated at 0.054 BNP was 9430. Alcohol level was less than 10. EKG showed sinus rhythm with right axis deviation nonspecific ST-T changes. Chest x-ray showed mild pulmonary vascular congestion with large right-sided pleural effusion He is admitted in this setting for further treatment. Acute on chronic severe systolic heart failure continue diuresis fluid restriction. Cardiology consultation Possibly alcoholic cardiomyopathy EF 15-20% on echocardiogram September 2024 He had declined cardiac catheterization in the past. He had stress test done at [facility] which showed fixed defect. Hypertension on Entresto carvedilol Left ventricular thrombus on Xarelto Type 2 diabetes uncontrolled glargine 15 with aspart 5 units t.i.d. hold metformin. Add SSI however patient has been refusing and lowering the dose himself History of alcohol dependence DVT prophylaxis Xarelto Code status full code Medical noncompliance Subjective Date/time seen: 12/26/24 13:52 Interval history: no overnight events, no new complaints. leg swelling present, no sob. reports sob with exertion Review of Systems Review of Systems: All systems reviewed & are unremarkable except as noted in HPI and below Exam Narrative: APPEARANCE: Well appearing, no pain, no distress, well-nourished. HEAD: normocephalic, atraumatic. EYES: PERRLA/EOMI, conjunctivae clear. NOSE: Normal no drainage THROAT: Pharynx clear, no exudate. NECK: Supple. No adenopathy, no masses. RESPIRATORY: Airway patent, respirations nonlabored. Clear to auscultation bilaterally, no rales, rhonchi, wheezing. CARDIOVASCULAR: Regular rate and rhythm without murmurs rubs or gallops. ABDOMINAL: Soft, nontender, nondistended, normal bowel sounds MUSCULOSKELETAL: Moves all extremities. Strength/ROM intact, bilateral lower extremity pitting edema, No calf tenderness. NEURO: Alert. Cranial nerves II through XII intact. Grossly intact SKIN: Warm, dry. Normal Color Objective Data Vital Signs Vital Signs: Vital Signs - 24 hr 12/25/24 14:00 12/25/24 15:49 12/25/24 16:00 Temperature 98.8 F Pulse Rate 86 86 86 Respiratory Rate 14 Blood Pressure 115/83 Pulse Oximetry 98 12/25/24 19:58 12/25/24 20:00 12/25/24 21:21 Temperature 98.1 F Pulse Rate 90 90 92 Respiratory Rate 16 Blood Pressure 139/94 H Pulse Oximetry 99 12/26/24 00:00 12/26/24 00:16 12/26/24 04:00 Temperature Pulse Rate 70 83 74 Respiratory Rate Blood Pressure Pulse Oximetry 12/26/24 08:00 Temperature 98.3 F Pulse Rate 84 Respiratory Rate 16 Blood Pressure 125/91 H Pulse Oximetry 99 Intake/Output Intake/Output: Intake & Output 12/23/24 12/24/24 12/25/2425 23:59 23:59 23:59 00:59 Intake Total 100 1110 990 Output Total 3600 3000 1900 Balance -3500 -1890 -910 Meds/Results Medications: Active Medications Generic Name Dose Route Start Last Admin Trade Name Freq PRN Reason Stop Dose Admin Aspirin 81 mg 12/25/24 08:00 12/26/24 08:55 Aspirin 81 Mg Chewable Tablet PO Not Given DAILY@0800 [facility] Aspirin 81 mg 12/25/24 09:00 12/26/24 08:55 Aspirin 81 Mg Enteric Tablet PO Not Given QAM [facility] Carvedilol 25 mg 12/24/24 21:00 12/26/24 08:54 Carvedilol 25 Mg Tablet PO 25 mg Q12HR KELIN Administration Dextrose 12.5 gm 12/24/24 15:49 Dextrose 50% 25 Gm/50 Ml Syringe IV PUSH PRN PRN Hypoglycemia Protocol Empagliflozin 10 mg 12/25/24 09:00 12/26/24 08:54 Empagliflozin 10 Mg Tablet PO 10 mg DAILY KELIN Administration Folic Acid 1 mg 12/25/24 09:00 12/26/24 08:54 Folic Acid 1 Mg Tablet PO 1 mg DAILY KELIN Administration Furosemide 40 mg 12/24/24 21:00 12/26/24 08:54 Furosemide Inj 40 Mg/4 Ml Vial IV PUSH 40 mg Q12HR KELIN Administration Glucagon 1 mg 12/24/24 15:49 Glucagon For Inj 1 Mg Vial IM PRN PRN Hypoglycemia Protocol Glucose 15 gm 12/24/24 15:49 Glucose Oral Gel 15 Gm Of Glucse In 37.5 Gm Tube PO PRN PRN Hypoglycemia Protocol Dextrose 1,000 mls @ 100 mls/hr 12/24/24 15:49 Dextrose 5% 1,000 Ml IVPB PRN PRN Hypoglycemia Protocol Insulin Aspart 5 units 12/24/24 17:00 12/26/24 12:11 Insulin Aspart (*Bkc) 100 Units/Ml SUB-Q 5 units TIDWM KELIN Administration Insulin Aspart 2 - 5 units 12/24/24 17:00 12/26/24 12:12 Insulin Aspart (*Bkc) 100 Units/Ml SUB-Q Not Given TIDWM KEL[facility] Protocol Insulin Aspart 1 - 2 units 12/24/24 21:00 12/25/24 21:19 Insulin Aspart (*Bkc) 100 Units/Ml SUB-Q Not Given HS [facility] Protocol Insulin Glargine 15 units 12/24/24 21:00 12/25/24 21:22 Insulin Glargine (*Bkc) 100 Units/Ml SUB-Q 10 units HS KELIN Administration Rivaroxaban 20 mg 12/24/24 17:00 12/25/24 18:46 Rivaroxaban 20 Mg Tablet PO Not Given DAILY@1700 KELIN Sacubitril/Valsartan 1 tab 12/24/24 21:00 12/26/24 08:54 Sacubitril/Valsartan 24-26 Mg Tablet PO 1 tab Q12HR KELIN Administration Spironolactone 25 mg 12/25/24 09:00 12/26/24 08:54 Spironolactone 25 Mg Tablet PO 25 mg QAM KELIN Administration Thiamine HCl 100 mg 12/25/24 09:00 12/26/24 08:54 Thiamine Hcl 100 Mg Tablet PO 100 mg QAM KELIN Administration Radiology Results: ITS Impressions Chest X-Ray 12/26/24 06:36 Impression: Mild bibasilar pulmonary edema/atelectasis with moderate right pleural effusion and small left pleural effusion. Labs Labs: Laboratory Results - last 24 hr 12/25/24 12/25/24 12/25/24 13:00 15:29 20:00 WBC RBC Hgb Hct MCV MCH MCHC RDW Plt Count MPV Immature Gran % (Auto) Neut % (Auto) Lymph % (Auto) [place] % (Auto) Eos % (Auto) Baso % (Auto) Lymph # (Auto) [place] # (Auto) Eos # (Auto) Baso # (Auto) Abs Immat Gran (auto) Absolute Neuts (auto) Absolute Nucleated RBC Nucleated RBC % Sodium Potassium Chloride Carbon Dioxide Anion Gap BUN Creatinine Estim Creat Clear Calc Estimated GFR Glucose POC Capillary Glucose > 500 H* 430 H 480 H Calcium Magnesium Total Bilirubin AST ALT Alkaline Phosphatase Total Protein Albumin 12/26/24 12/26/24 12/26/24 03:58 07:30 11:52 WBC 4.8 RBC 5.57 Hgb 14.4 Hct 43.7 MCV 78.5 L MCH 25.9 L MCHC 33.0 RDW 18.8 H Plt Count 161 MPV 10.7 H Immature Gran % (Auto) 0.4 Neut % (Auto) 54.9 Lymph % (Auto) 34.7 [place] % (Auto) 8.4 Eos % (Auto) 1.0 Baso % (Auto) 0.6 Lymph # (Auto) 1.66 [place] # (Auto) 0.4 Eos # (Auto) 0.1 Baso # (Auto) 0.0 Abs Immat Gran (auto) 0.02 Absolute Neuts (auto) 2.6 Absolute Nucleated RBC 0.000 Nucleated RBC % 0.0 Sodium 134 L Potassium 3.4 Chloride 95 L Carbon Dioxide 34 H Anion Gap 5 BUN 17 Creatinine 1.02 Estim Creat Clear Calc 96 Estimated GFR > 60 Glucose 296 H POC Capillary Glucose 350 H 347 H Calcium 7.7 L Magnesium 1.7 Total Bilirubin 1.1 AST 26 ALT 39 Alkaline Phosphatase 43 Total Protein 6.0 L Albumin 2.8 L
[2024-12-26 17:04] LABS: Glucose Point of Care 208 mg/dl (65-105)
[2024-12-26] MEDS: RIVAROXABAN 20 MG TABLET PO (17:24)
[2024-12-26 21:18] LABS: Glucose Point of Care 166 mg/dl (65-105)
[2024-12-27] VITALS (11 sets, daily range): BP systolic 111–118; BP diastolic 83–89; PULSE 85–98; RESP 18–20; TEMP 36.5–36.9; O2SAT 97
[2024-12-27 00:04] LABS: Anion Gap 7 mmol/L (4-12); Blood Urea Nitrogen 14 mg/dL (9-20); Calcium 8.5 mg/dL (8.4-10.2); Carbon Dioxide 38 mmol/L (22-30); Chloride 93 mmol/L (98-107); Estimated CRCL calculation 84 ml/min; Estimated Glomerular Filt Rate > 60; Glucose 220 mg/dL (65-110); Magnesium 1.7 mg/dL (1.6-2.3); Phosphorus 5.8 mg/dL (2.5-4.5); Potassium 3.8 mmol/L (3.4-5.0); Sodium 138 mmol/L (137-145)
[2024-12-27] MEDS: MAGNESIUM SULF 1 GM/D5W 100 ML 1 GM/100 ML BAG IVPB (02:03)
[2024-12-27 04:36] LABS: Basophils Percent Auto 0.3 % (0.2-1.2); Eosinophils Absolute Auto 0.1 K/mm3 (0-0.3); Eosinophils Percent Auto 0.8 % (0-4.4); Hematocrit 44.5 % (42.0-52.0); Immature Granulocyte Absolute 0.02 K/mm3 (0.00-0.031); Immature Granulocyte Percent A 0.3 % (0-0.5); Lymphocytes Absolute Auto 1.59 K/mm3 (0.9-3.2); Lymphocytes Percent Auto 25.2 % (18.3-44.2); Mean Corpuscular HGB Conc 33.7 g/dl (32-36); Mean Corpuscular Hemoglobin 26.1 pg (26-34); Mean Corpuscular Volume 77.4 fl (80-100); Mean Platelet Volume 10.8 fl (7.4-10.4); Monocytes Absolute Auto 0.6 K/mm3 (0.1-0.6); Monocytes Percent Auto 8.7 % (2.6-8.5); Neutrophils Absolute Auto 4.1 K/mm3 (1.3-6.7); Neutrophils Percent Auto 64.7 % (45.5-73.1); Platelet Count Result 147 k/mm3 (150-375); Red Blood Count 5.75 M/mm3 (4.6-6.20); Red Cell Distribution Width 18.9 % (11.5-14.5); White Blood Count 6.3 K/mm3 (4.5-10.0)
[2024-12-27 04:48] LABS: Alanine Aminotransferase 36 U/L (6-50); Albumin Level 2.9 g/dL (3.5-5.1); Alkaline Phosphatase 59 U/L (38-126); Anion Gap 7 mmol/L (4-12); Aspartate Amino Transferase 30 U/L (17-59); Bilirubin,Total 1.6 mg/dL (0.2-1.3); Blood Urea Nitrogen 17 mg/dL (9-20); Carbon Dioxide 32 mmol/L (22-30); Chloride 96 mmol/L (98-107); Estimated CRCL calculation 92 ml/min; Estimated Glomerular Filt Rate > 60; Glucose 279 mg/dL (65-110); Magnesium 1.9 mg/dL (1.6-2.3); Potassium 3.6 mmol/L (3.4-5.0); Sodium 135 mmol/L (137-145)
[2024-12-27 08:29] LABS: Glucose Point of Care 378 mg/dl (65-105)
--- NOTE | 2024-12-27 08:59 | PM.IMPN ---
Progress Note: A&P Assessment and Plan (1) Noncompliance: Code(s): Z91.199 - Patient's noncompliance with other medical treatment and regimen due to unspecified reason Status: Acute (2) EtOH dependence: Code(s): F10.20 - Alcohol dependence, uncomplicated Status: Chronic (3) Hypertension: Code(s): I10 - Essential (primary) hypertension Status: Acute (4) CHF (congestive heart failure), NYHA class II: Code(s): I50.9 - Heart failure, unspecified Status: Acute (5) Acute on chronic systolic heart failure: Code(s): I50.23 - Acute on chronic systolic (congestive) heart failure Status: Acute (6) Cardiomyopathy: Code(s): I42.9 - Cardiomyopathy, unspecified Status: Acute (7) LV (left ventricular) mural thrombus: Code(s): I51.3 - Intracardiac thrombosis, not elsewhere classified Status: Acute (8) Diabetes mellitus: Code(s): E11.9 - Type 2 diabetes mellitus without complications Status: Acute Plan This is a 39-year-old male presents emergency department for evaluation of lower extremity swelling. Patient was recently admitted and discharged on 11/16 with diagnosis CHF, type 2 diabetes, alcohol dependence hypertension, cardiomegaly and cardiomyopathy. It appears patient was discharged with a Life Vest, upon arrival to the emergency department patient does not have a life vest. 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 Patient has not been drinking. However present with worsening lower extremity edema. His EF was 15-20% as of September 2024. In the ED is vitals were stable except for hypertension. Laboratory evaluation showed WBC of 5.3 hemoglobin of 16.2 platelet of 216 sodium 131 creatinine 1.02 blood sugar 471. Troponin was mildly elevated at 0.054 BNP was 9430. Alcohol level was less than 10. EKG showed sinus rhythm with right axis deviation nonspecific ST-T changes. Chest x-ray showed mild pulmonary vascular congestion with large right-sided pleural effusion He is admitted in this setting for further treatment. Acute on chronic severe systolic heart failure continue diuresis fluid restriction. Cardiology consultation Possibly alcoholic cardiomyopathy EF 15-20% on echocardiogram September 2024 He had declined cardiac catheterization in the past. He had stress test done at [facility] which showed fixed defect. Hypertension on Entresto carvedilol. Dietitian to see Left ventricular thrombus on Xarelto Type 2 diabetes uncontrolled glargine 15 with aspart 5 units t.i.d. hold metformin. Add SSI however patient has been refusing and lowering the dose himself History of alcohol dependence DVT prophylaxis Xarelto Code status full code Medical noncompliance Subjective Date/time seen: 12/27/24 08:59 Interval history: no overnight events, no new complaint. Leg swelling still about the same. Discussed diet and fluid restriction. Complains of fluid restriction Review of Systems Review of Systems: All systems reviewed & are unremarkable except as noted in HPI and below Exam Narrative: APPEARANCE: Well appearing, no pain, no distress, well-nourished. HEAD: normocephalic, atraumatic. EYES: PERRLA/EOMI, conjunctivae clear. NOSE: Normal no drainage NECK: Supple. No adenopathy, no masses. RESPIRATORY: Airway patent, respirations nonlabored. Clear to auscultation bilaterally, no rales, rhonchi, wheezing. CARDIOVASCULAR: Regular rate and rhythm without murmurs rubs or gallops. ABDOMINAL: Soft, nontender, nondistended, normal bowel sounds MUSCULOSKELETAL: Moves all extremities. Strength/ROM intact, bilateral lower extremity pitting edema, No calf tenderness. NEURO: Alert. Cranial nerves II through XII intact. Grossly intact SKIN: Warm, dry. Normal Color Objective Data Vital Signs Vital Signs: Vital Signs - 24 hr 12/26/24 12:00 12/26/24 15:43 12/26/24 16:00 Temperature 98.2 F Pulse Rate 89 88 86 Respiratory Rate 14 Blood Pressure 111/79 Pulse Oximetry 99 Oxygen Delivery 12/26/24 20:00 12/26/24 20:12 12/26/24 22:15 Temperature 99.2 F Pulse Rate 91 94 Respiratory Rate 18 Blood Pressure 126/85 Pulse Oximetry 98 Oxygen Delivery Room Air 12/26/24 22:28 12/26/24 23:14 12/26/24 23:55 Temperature Pulse Rate 94 194 H 93 Respiratory Rate Blood Pressure Pulse Oximetry Oxygen Delivery 12/27/24 00:00 12/27/24 04:00 12/27/24 08:29 Temperature 98.4 F Pulse Rate 94 92 89 Respiratory Rate 20 Blood Pressure 115/83 Pulse Oximetry 97 Oxygen Delivery Intake/Output Intake/Output: Intake & Output 12/24/24 12/25/24 12/27/24 12/27/24 23:59 23:59 00:59 23:59 Intake Total 100 1110 1380 630 Output Total 3600 3000 3800 1200 [facility]3500 -1890 -2420 -570 Meds/Results Medications: Active Medications Generic Name Dose Route Start Last Admin Trade Name Freq PRN Reason Stop Dose Admin Aspirin 81 mg 12/25/24 08:00 12/26/24 08:55 Aspirin 81 Mg Chewable Tablet PO Not Given DAILY@0800 [facility] Aspirin 81 mg 12/25/24 09:00 12/26/24 08:55 Aspirin 81 Mg Enteric Tablet PO Not Given QAM [facility] Carvedilol 25 mg 12/24/24 21:00 12/26/24 22:28 Carvedilol 25 Mg Tablet PO 25 mg Q12HR KELIN Administration Dextrose 12.5 gm 12/24/24 15:49 Dextrose 50% 25 Gm/50 Ml Syringe IV PUSH PRN PRN Hypoglycemia Protocol Empagliflozin 10 mg 12/25/24 09:00 12/26/24 08:54 Empagliflozin 10 Mg Tablet PO 10 mg DAILY KELIN Administration Folic Acid 1 mg 12/25/24 09:00 12/26/24 08:54 Folic Acid 1 Mg Tablet PO 1 mg DAILY KELIN Administration Furosemide 40 mg 12/24/24 21:00 12/26/24 22:30 Furosemide Inj 40 Mg/4 Ml Vial IV PUSH 40 mg Q12HR KELIN Administration Glucagon 1 mg 12/24/24 15:49 Glucagon For Inj 1 Mg Vial IM PRN PRN Hypoglycemia Protocol Glucose 15 gm 12/24/24 15:49 Glucose Oral Gel 15 Gm Of Glucse In 37.5 Gm Tube PO PRN PRN Hypoglycemia Protocol Dextrose 1,000 mls @ 100 mls/hr 12/24/24 15:49 Dextrose 5% 1,000 Ml IVPB PRN PRN Hypoglycemia Protocol Insulin Aspart 5 units 12/24/24 17:00 12/26/24 17:13 Insulin Aspart (*Bkc) 100 Units/Ml SUB-Q Not Given TIDWM KELIN Insulin Aspart 2 - 5 units 12/24/24 17:00 12/26/24 17:13 Insulin Aspart (*Bkc) 100 Units/Ml SUB-Q Not Given TIDWM KELIN Protocol Insulin Aspart 1 - 2 units 12/24/24 21:00 12/26/24 21:37 Insulin Aspart (*Bkc) 100 Units/Ml SUB-Q Not Given HS [facility] Protocol Insulin Glargine 15 units 12/24/24 21:00 12/26/24 22:26 Insulin Glargine (*Bkc) 100 Units/Ml SUB-Q Not Given HS [facility] Rivaroxaban 20 mg 12/24/24 17:00 12/26/24 17:24 Rivaroxaban 20 Mg Tablet PO 20 mg DAILY@1700 KELIN Administration Sacubitril/Valsartan 1 tab 12/24/24 21:00 12/26/24 22:29 Sacubitril/Valsartan 24-26 Mg Tablet PO 1 tab Q12HR KELIN Administration Spironolactone 25 mg 12/25/24 09:00 12/26/24 08:54 Spironolactone 25 Mg Tablet PO 25 mg QAM KELIN Administration Thiamine HCl 100 mg 12/25/24 09:00 12/26/24 08:54 Thiamine Hcl 100 Mg Tablet PO 100 mg QAM KELIN Administration Radiology Results: ITS Impressions Chest X-Ray 12/26/24 06:36 Impression: Mild bibasilar pulmonary edema/atelectasis with moderate right pleural effusion and small left pleural effusion. Labs Labs: Laboratory Results - last 24 hr 12/26/24 12/26/24 12/26/24 11:52 16:54 21:12 WBC RBC Hgb Hct MCV MCH MCHC RDW Plt Count MPV Immature Gran % (Auto) Neut % (Auto) Lymph % (Auto) [place] % (Auto) Eos % (Auto) Baso % (Auto) Lymph # (Auto) [place] # (Auto) Eos # (Auto) Baso # (Auto) Abs Immat Gran (auto) Absolute Neuts (auto) Absolute Nucleated RBC Nucleated RBC % Sodium Potassium Chloride Carbon Dioxide Anion Gap BUN Creatinine Estim Creat Clear Calc Estimated GFR Glucose POC Capillary Glucose 347 H 208 H 166 H Calcium Phosphorus Magnesium Total Bilirubin AST ALT Alkaline Phosphatase Total Protein Albumin 12/26/24 12/27/24 12/27/24 23:48 04:07 08:25 WBC 6.3 RBC 5.75 Hgb 15.0 Hct 44.5 MCV 77.4 L MCH 26.1 MCHC 33.7 RDW 18.9 H Plt Count 147 L MPV 10.8 H Immature Gran % (Auto) 0.3 Neut % (Auto) 64.7 Lymph % (Auto) 25.2 [place] % (Auto) 8.7 H Eos % (Auto) 0.8 Baso % (Auto) 0.3 Lymph # (Auto) 1.59 [place] # (Auto) 0.6 Eos # (Auto) 0.1 Baso # (Auto) 0.0 Abs Immat Gran (auto) 0.02 Absolute Neuts (auto) 4.1 Absolute Nucleated RBC 0.000 Nucleated RBC % 0.0 Sodium 138 135 L Potassium 3.8 3.6 Chloride 93 L 96 L Carbon Dioxide 38 H 32 H Anion Gap 7 7 BUN 14 17 Creatinine 1.18 1.07 Estim Creat Clear Calc 84 92 Estimated GFR > 60 > 60 Glucose 220 H 279 H POC Capillary Glucose 378 H Calcium 8.5 8.0 L Phosphorus 5.8 H Magnesium 1.7 1.9 Total Bilirubin 1.6 H AST 30 ALT 36 Alkaline Phosphatase 59 Total Protein 6.0 L Albumin 2.9 L
--- NOTE | 2024-12-27 09:23 | P.PNCA_ITS ---
Progress Note: A&P Assessment and Plan (1) Cardiomyopathy: Code(s): I42.9 - Cardiomyopathy, unspecified Status: Acute Assessment and Plan: Severe nonischemic cardiomyopathy * Continue GDMT with Entresto, coreg, spironolactone, jardiance * He received a LifeVest during his last admission but was not wearing it upon presentation to the hospital * Will repeat echo in a month or so as outpatient to assess for need of primary prevention ICD/EP referral (2) CHF (congestive heart failure): Code(s): I50.9 - Heart failure, unspecified Status: Acute Assessment and Plan: Acute on chronic systolic heart failure secondary to medication nonadherence. Improved significantly with IV diuresis. * Will shift to p.o. furosemide today, 40mg b.i.d * Can liberalize fluid restriction to 2L * CHF counseling * Continue to monitor strict I&O * Daily weights * Anticipate discharge tomorrow if he remains stable (3) LV (left ventricular) mural thrombus: Code(s): I51.3 - Intracardiac thrombosis, not elsewhere classified Status: Acute Assessment and Plan: Continue Xarelto. Will repeat echo as outpatient to reassess LV function and for resolution of thrombus. Subjective Date/time seen: 12/27/24 09:23 Interval history: Follow-up visit in this 39-year-old man with: Severe nonischemic cardiomyopathy and unfortunate recurrent hospital visits because of medication noncompliance. He feels better today his edema is slowly resolving once again and he has no significant complaints. 12/27/2024: He is feeling better today. He notes improvement in his leg swelling. Able to sleep with HOB flat. No chest pain, shortness of breath, or palpitations. Review of Systems Review of Systems: All systems reviewed & are unremarkable except as noted in HPI and below Exam Const: General: comfortable and no acute distress Other: Well-developed well-nourished black male no apparent distress HENMT: Mouth: Yes moist mucous membranes Eyes: Sclera: sclerae normal Neck: Neck: supple and no JVD Resp: Effort & Inspection: normal respiratory effort Other: Dull at the right base Cardio: Rate: regular rate Rhythm: regular rhythm Other: First and second heart sound normal summation gallop is audible GI: Auscultation: normal bowel sounds Skin: General skin exam: normal color Neuro: Other: Alert and oriented x3 Extrem: Other: Small amount of pretibial edema Objective Data Vital Signs Vital Signs: Vital Signs - 24 hr 12/26/24 12:00 12/26/24 15:43 12/26/24 16:00 Temperature 36.8 C Pulse Rate 89 88 86 Respiratory Rate 14 Blood Pressure 111/79 Pulse Oximetry 99 Oxygen Delivery 12/26/24 20:00 12/26/24 20:12 12/26/24 22:15 Temperature 37.3 C Pulse Rate 91 94 Respiratory Rate 18 Blood Pressure 126/85 Pulse Oximetry 98 Oxygen Delivery Room Air 12/26/24 22:28 12/26/24 23:14 12/26/24 23:55 Temperature Pulse Rate 94 194 H 93 Respiratory Rate Blood Pressure Pulse Oximetry Oxygen Delivery 12/27/24 00:00 12/27/24 04:00 12/27/24 08:29 Temperature 36.9 C Pulse Rate 94 92 89 Respiratory Rate 20 Blood Pressure 115/83 Pulse Oximetry 97 Oxygen Delivery Intake/Output Intake/Output: Intake & Output 12/24/24 12/25/24 12/27/24 12/27/24 23:59 23:59 00:59 23:59 Intake Total 100 1110 1380 630 Output Total 3600 3000 3800 1201 Balance -3500 -1890 -2420 -571 Meds/Results Medications: Active Medications Generic Name Dose Route Start Last Admin Trade Name Freq PRN Reason Stop Dose Admin Aspirin 81 mg 12/25/24 08:00 12/26/24 08:55 Aspirin 81 Mg Chewable Tablet PO Not Given DAILY@0800 [facility] Aspirin 81 mg 12/25/24 09:00 12/26/24 08:55 Aspirin 81 Mg Enteric Tablet PO Not Given QAM [facility] Carvedilol 25 mg 12/24/24 21:00 12/26/24 22:28 Carvedilol 25 Mg Tablet PO 25 mg Q12HR KELIN Administration Dextrose 12.5 gm 12/24/24 15:49 Dextrose 50% 25 Gm/50 Ml Syringe IV PUSH PRN PRN Hypoglycemia Protocol Empagliflozin 10 mg 12/25/24 09:00 12/26/24 08:54 Empagliflozin 10 Mg Tablet PO 10 mg DAILY KELIN Administration Folic Acid 1 mg 12/25/24 09:00 12/26/24 08:54 Folic Acid 1 Mg Tablet PO 1 mg DAILY KELIN Administration Furosemide 40 mg 12/24/24 21:00 12/26/24 22:30 Furosemide Inj 40 Mg/4 Ml Vial IV PUSH 40 mg Q12HR KELIN Administration Glucagon 1 mg 12/24/24 15:49 Glucagon For Inj 1 Mg Vial IM PRN PRN Hypoglycemia Protocol Glucose 15 gm 12/24/24 15:49 Glucose Oral Gel 15 Gm Of Glucse In 37.5 Gm Tube PO PRN PRN Hypoglycemia Protocol Dextrose 1,000 mls @ 100 mls/hr 12/24/24 15:49 Dextrose 5% 1,000 Ml IVPB PRN PRN Hypoglycemia Protocol Insulin Aspart 5 units 12/24/24 17:00 12/26/24 17:13 Insulin Aspart (*Bkc) 100 Units/Ml SUB-Q Not Given TIDWM [facility] Insulin Aspart 2 - 5 units 12/24/24 17:00 12/26/24 17:13 Insulin Aspart (*Bkc) 100 Units/Ml SUB-Q Not Given TIDWM [facility] Protocol Insulin Aspart 1 - 2 units 12/24/24 21:00 12/26/24 21:37 Insulin Aspart (*Bkc) 100 Units/Ml SUB-Q Not Given [facility] Protocol Insulin Glargine 10 units 12/27/24 21:00 Insulin Glargine (*Bkc) 100 Units/Ml SUB-Q HS [facility] Rivaroxaban 20 mg 12/24/24 17:00 12/26/24 17:24 Rivaroxaban 20 Mg Tablet PO 20 mg DAILY@1700 KELIN Administration Sacubitril/Valsartan 1 tab 12/24/24 21:00 12/26/24 22:29 Sacubitril/Valsartan 24-26 Mg Tablet PO 1 tab Q12HR KELIN Administration Spironolactone 25 mg 12/25/24 09:00 12/26/24 08:54 Spironolactone 25 Mg Tablet PO 25 mg QAM [facility] Administration Thiamine HCl 100 mg 12/25/24 09:00 12/26/24 08:54 Thiamine Hcl 100 Mg Tablet PO 100 mg QAM KELIN Administration Radiology Results: ITS Impressions Chest X-Ray 12/26/24 06:36 Impression: Mild bibasilar pulmonary edema/atelectasis with moderate right pleural effusion and small left pleural effusion. Labs Labs: Laboratory Results - last 24 hr 12/26/24 12/26/24 12/26/24 11:52 16:54 21:12 WBC RBC Hgb Hct MCV MCH MCHC RDW Plt Count MPV Immature Gran % (Auto) Neut % (Auto) Lymph % (Auto) [place] % (Auto) Eos % (Auto) Baso % (Auto) Lymph # (Auto) [place] # (Auto) Eos # (Auto) Baso # (Auto) Abs Immat Gran (auto) Absolute Neuts (auto) Absolute Nucleated RBC Nucleated RBC % Sodium Potassium Chloride Carbon Dioxide Anion Gap BUN Creatinine Estim Creat Clear Calc Estimated GFR Glucose POC Capillary Glucose 347 H 208 H 166 H Calcium Phosphorus Magnesium Total Bilirubin AST ALT Alkaline Phosphatase Total Protein Albumin 12/26/24 12/27/24 12/27/24 23:48 04:07 08:25 WBC 6.3 RBC 5.75 Hgb 15.0 Hct 44.5 MCV 77.4 L MCH 26.1 MCHC 33.7 RDW 18.9 H Plt Count 147 L MPV 10.8 H Immature Gran % (Auto) 0.3 Neut % (Auto) 64.7 Lymph % (Auto) 25.2 [place] % (Auto) 8.7 H Eos % (Auto) 0.8 Baso % (Auto) 0.3 Lymph # (Auto) 1.59 [place] # (Auto) 0.6 Eos # (Auto) 0.1 Baso # (Auto) 0.0 Abs Immat Gran (auto) 0.02 Absolute Neuts (auto) 4.1 Absolute Nucleated RBC 0.000 Nucleated RBC % 0.0 Sodium 138 135 L Potassium 3.8 3.6 Chloride 93 L 96 L Carbon Dioxide 38 H 32 H Anion Gap 7 7 BUN 14 17 Creatinine 1.18 1.07 Estim Creat Clear Calc 84 92 Estimated GFR > 60 > 60 Glucose 220 H 279 H POC Capillary Glucose 378 H Calcium 8.5 8.0 L Phosphorus 5.8 H Magnesium 1.7 1.9 Total Bilirubin 1.6 H AST 30 ALT 36 Alkaline Phosphatase 59 Total Protein 6.0 L Albumin 2.9 L
[2024-12-27] MEDS: carvediloL 25 MG TABLET PO ×2 (09:44→21:13)
[2024-12-27] MEDS: SACUBITRIL/VALSARTAN 24-26 MG TABLET 1 TAB PO ×2 (09:44→21:13)
[2024-12-27] MEDS: FOLIC ACID 1 MG TABLET PO (09:44)
[2024-12-27] MEDS: EMPAGLIFLOZIN 10 MG TABLET PO (09:44)
[2024-12-27] MEDS: THIAMINE HCL 100 MG TABLET PO (09:45)
[2024-12-27] MEDS: SPIRONOLACTONE 25 MG TABLET PO (09:45)
[2024-12-27] MEDS: FUROSEMIDE INJ 40 MG/4 ML VIAL IV PUSH (09:45)
[2024-12-27] MEDS: INSULIN ASPART (*BKC) 100 UNITS/ML SUB-Q ×3 (09:47→18:29)
[2024-12-27 11:25] LABS: Glucose Point of Care 413 mg/dl (65-105)
[2024-12-27 15:46] LABS: Glucose Point of Care 259 mg/dl (65-105)
[2024-12-27] MEDS: FUROSEMIDE 40 MG TABLET PO (18:29)
[2024-12-27] MEDS: ASPIRIN 81 MG ENTERIC TABLET PO (18:29)
[2024-12-27] MEDS: RIVAROXABAN 20 MG TABLET PO (18:29)
[2024-12-27 20:44] LABS: Glucose Point of Care 266 mg/dl (65-105)
--- NOTE | 2024-12-27 22:30 | PC.NURSE ---
Jennifer Jasso notified that patient refused his bedtime insulin. Asked patient if he was afraid the insulin would drop him too low, patient stated no. patient states this is not what he does and he is going home tomorrow so it doesn't matter anyway. Education for short and emt intermediate affects of high blood glucose provided.
[2024-12-28] VITALS: PULSE 88
[2024-12-28 04:00] VITALS: PULSE 89
[2024-12-28 04:17] LABS: Basophils Percent Auto 0.5 % (0.2-1.2); Eosinophils Absolute Auto 0.1 K/mm3 (0-0.3); Eosinophils Percent Auto 1.3 % (0-4.4); Hematocrit 45.5 % (42.0-52.0); Hemoglobin 15.2 g/dL (14.0-18.0); Immature Granulocyte Absolute 0.02 K/mm3 (0.00-0.031); Immature Granulocyte Percent A 0.4 % (0-0.5); Lymphocytes Absolute Auto 1.75 K/mm3 (0.9-3.2); Lymphocytes Percent Auto 31.5 % (18.3-44.2); Mean Corpuscular HGB Conc 33.4 g/dl (32-36); Mean Corpuscular Hemoglobin 25.8 pg (26-34); Mean Corpuscular Volume 77.2 fl (80-100); Mean Platelet Volume 10.1 fl (7.4-10.4); Monocytes Absolute Auto 0.5 K/mm3 (0.1-0.6); Monocytes Percent Auto 9.7 % (2.6-8.5); Neutrophils Absolute Auto 3.2 K/mm3 (1.3-6.7); Neutrophils Percent Auto 56.6 % (45.5-73.1); Platelet Count Result 134 k/mm3 (150-375); Red Blood Count 5.89 M/mm3 (4.6-6.20); Red Cell Distribution Width 19.2 % (11.5-14.5); White Blood Count 5.6 K/mm3 (4.5-10.0)
[2024-12-28 04:32] LABS: Alanine Aminotransferase 31 U/L (6-50); Albumin Level 2.8 g/dL (3.5-5.1); Alkaline Phosphatase 72 U/L (38-126); Anion Gap 9 mmol/L (4-12); Aspartate Amino Transferase 25 U/L (17-59); Bilirubin,Total 1.5 mg/dL (0.2-1.3); Blood Urea Nitrogen 21 mg/dL (9-20); Carbon Dioxide 30 mmol/L (22-30); Chloride 98 mmol/L (98-107); Estimated CRCL calculation 79 ml/min; Estimated Glomerular Filt Rate > 60; Glucose 297 mg/dL (65-110); Potassium 3.7 mmol/L (3.4-5.0); Sodium 137 mmol/L (137-145)
[2024-12-28 07:45] LABS: Glucose Point of Care 254 mg/dl (65-105)
[2024-12-28 08:00] VITALS: PULSE 91
[2024-12-28 08:03] VITALS: BP 117/85; PULSE 91; RESP 20; TEMP 36.6; O2SAT 100
[2024-12-28] MEDS: SACUBITRIL/VALSARTAN 24-26 MG TABLET 1 TAB PO (08:42)
[2024-12-28] MEDS: THIAMINE HCL 100 MG TABLET PO (08:42)
[2024-12-28] MEDS: EMPAGLIFLOZIN 10 MG TABLET PO (08:42)
[2024-12-28] MEDS: SPIRONOLACTONE 25 MG TABLET PO (08:42)
[2024-12-28] MEDS: FUROSEMIDE 40 MG TABLET PO (08:42)
[2024-12-28] MEDS: carvediloL 25 MG TABLET PO (08:42)
[2024-12-28] MEDS: FOLIC ACID 1 MG TABLET PO (08:42)
[2024-12-28] MEDS: INSULIN ASPART (*BKC) 100 UNITS/ML SUB-Q ×2 (08:44→13:00)
[2024-12-28 11:30] LABS: Glucose Point of Care 301 mg/dl (65-105)
[2024-12-28 12:00] VITALS: PULSE 89
--- NOTE | 2024-12-28 12:32 | PM.DS ---
DS: Admitting Diagnosis Discharge Date 12/28/2024 Admitting Diagnosis Lower extremity swelling DS: Discharge Diagnosis Discharge Diagnosis (1) Noncompliance: Code(s): Z91.199 - Patient's noncompliance with other medical treatment and regimen due to unspecified reason Status: Acute (2) EtOH dependence: Code(s): F10.20 - Alcohol dependence, uncomplicated Status: Chronic (3) Hypertension: Code(s): I10 - Essential (primary) hypertension Status: Acute (4) CHF (congestive heart failure), NYHA class II: Code(s): I50.9 - Heart failure, unspecified Status: Acute (5) Acute on chronic systolic heart failure: Code(s): I50.23 - Acute on chronic systolic (congestive) heart failure Status: Acute (6) Cardiomyopathy: Code(s): I42.9 - Cardiomyopathy, unspecified Status: Acute (7) LV (left ventricular) mural thrombus: Code(s): I51.3 - Intracardiac thrombosis, not elsewhere classified Status: Acute (8) Diabetes mellitus: Code(s): E11.9 - Type 2 diabetes mellitus without complications Status: Acute DS: Summary Hospital Course Hospital Course: This is a 39-year-old male presents emergency department for evaluation of lower extremity swelling. Patient was recently admitted and discharged on 11/16 with diagnosis CHF, type 2 diabetes, alcohol dependence hypertension, cardiomegaly and cardiomyopathy. It appears patient was discharged with a Life Vest, upon arrival to the emergency department patient does not have a life vest. Patient has not followed up with PCP or director of engineering on outpatient basis due to insurance issues. Patient has not been drinking. However present with worsening lower extremity edema. His EF was 15-20% as of September 2024. In the ED is vitals were stable except for hypertension. Laboratory evaluation showed WBC of 5.3 hemoglobin of 16.2 platelet of 216 sodium 131 creatinine 1.02 blood sugar 471. Troponin was mildly elevated at 0.054 BNP was 9430. Alcohol level was less than 10. EKG showed sinus rhythm with right axis deviation nonspecific ST-T changes. Chest x-ray showed mild pulmonary vascular congestion with large right-sided pleural effusion He is admitted in this setting for further treatment. Acute on chronic severe systolic heart failure continue diuresis fluid restriction. Cardiology consultation Possibly alcoholic cardiomyopathy EF 15-20% on echocardiogram September 2024. Follow-up echo in a month as an outpatient basis. Chest x-ray continues to improve along with improvement in lower extremity swelling with diuresis. He needs to be compliant with his medications as an outpatient basis. And have a regular follow-up. This was discussed thoroughly with the patient and several times. He had declined cardiac catheterization in the past. He had stress test done at [facility] which showed fixed defect. Hypertension on Entresto carvedilol. Dietitian to see Left ventricular thrombus on Xarelto Type 2 diabetes uncontrolled glargine 15 with aspart 5 units t.i.d. hold metformin. Add SSI however patient has been refusing and lowering the dose himself History of alcohol dependence DVT prophylaxis Xarelto Code status full code Medical noncompliance Time Spent with Patient Time attestation: Total time spent providing and/or coordinating discharge services: 35 minutes Exam Narrative: APPEARANCE: Well appearing, no pain, no distress, well-nourished. HEAD: normocephalic, atraumatic. EYES: PERRLA/EOMI, conjunctivae clear. NOSE: Normal no drainage NECK: Supple. No adenopathy, no masses. RESPIRATORY: Airway patent, respirations nonlabored. Clear to auscultation bilaterally, no rales, rhonchi, wheezing. CARDIOVASCULAR: Regular rate and rhythm without murmurs rubs or gallops. ABDOMINAL: Soft, nontender, nondistended, normal bowel sounds MUSCULOSKELETAL: Moves all extremities. Strength/ROM intact, bilateral lower extremity pitting edema, No calf tenderness. NEURO: Alert. Cranial nerves II through XII intact. Grossly intact SKIN: Warm, dry. Normal Color DS: Data Data Completed and Pending Labs on day of discharge: Labs from last 24 hours 12/28/24 12/28/24 12/28/24 11:18 07:41 04:11 WBC 5.6 RBC 5.89 Hgb 15.2 Hct 45.5 MCV 77.2 L MCH 25.8 L MCHC 33.4 RDW 19.2 H Plt Count 134 L MPV 10.1 Immature Gran % (Auto) 0.4 Neut % (Auto) 56.6 Lymph % (Auto) 31.5 [place] % (Auto) 9.7 H Eos % (Auto) 1.3 Baso % (Auto) 0.5 Lymph # (Auto) 1.75 [place] # (Auto) 0.5 Eos # (Auto) 0.1 Baso # (Auto) 0.0 Abs Immat Gran (auto) 0.02 Absolute Neuts (auto) 3.2 Absolute Nucleated RBC 0.000 Nucleated RBC % 0.0 Sodium 137 Potassium 3.7 Chloride 98 Carbon Dioxide 30 Anion Gap 9 BUN 21 H Creatinine 1.10 Estim Creat Clear Calc 79 Estimated GFR > 60 Glucose 297 H POC Capillary Glucose 301 H 254 H Calcium 8.0 L Magnesium 2.0 Total Bilirubin 1.5 H AST 25 ALT 31 Alkaline Phosphatase 72 Total Protein 6.0 L Albumin 2.8 L 12/27/24 12/27/24 20:41 15:36 WBC RBC Hgb Hct MCV MCH MCHC RDW Plt Count MPV Immature Gran % (Auto) Neut % (Auto) Lymph % (Auto) [place] % (Auto) Eos % (Auto) Baso % (Auto) Lymph # (Auto) [place] # (Auto) Eos # (Auto) Baso # (Auto) Abs Immat Gran (auto) Absolute Neuts (auto) Absolute Nucleated RBC Nucleated RBC % Sodium Potassium Chloride Carbon Dioxide Anion Gap BUN Creatinine Estim Creat Clear Calc Estimated GFR Glucose POC Capillary Glucose 266 H 259 H Calcium Magnesium Total Bilirubin AST ALT Alkaline Phosphatase Total Protein Albumin Imaging Radiologist's impression: ITS Impressions Chest X-Ray 12/24/24 09:04 IMPRESSION: Mild pulmonary vascular congestion with a large right-sided pleural effusion. Chest X-Ray 12/26/24 06:36 Impression: Mild bibasilar pulmonary edema/atelectasis with moderate right pleural effusion and small left pleural effusion. Chest X-Ray 12/28/24 06:34 Impression: Moderate right pleural effusion with bibasilar pulmonary edema/atelectasis. Discharge Plan Discharge Attending physician on discharge: Milan Catherine Consulting providers: Riana Tran Discharging Clinician: Milan Catherine Anticipated Discharge Date/Time: 12/28/24 12:34 Patient Disposition: Home, Self-Care Activity: as tolerated Diet: heart healthy and diabetic Patient Instructions: Antibiotic Form Patient Language: Lao Stand Alone Forms: General Discharge Information Follow-up/Referrals: Shobha Prasad APN-C [Advanced Practice Nurse] - (01/12/25 at 1:30. Arrive at 1:15) UNKNOWN,DOCTOR [Primary Care Provider] - 1 Week Discharge Medications: New furosemide 40 mg Tablet 40 mg PO BID Qty: 60 0RF Continued insulin glargine [Lantus U-100 Insulin] 100 unit/mL Solution 15 unit subcut HS Qty: 150 1RF Patient Comments: States that he only takes 5 Units of Lantus dextrose [Glutose-15] 40 % Gel 15 g PO PRN PRN (Reason: Hypoglycemia) 15 Days Qty: 15 0RF spironolactone 25 mg Tablet 25 mg PO QAM Qty: 90 0RF insulin aspart U-100 [Novolog U-100 Insulin aspart] 100 unit/mL Solution 5 unit subcut TIDWM Qty: 150 0RF Patient Comments: States that he only takes insulin once a day Xarelto 20 mg Tablet 20 mg PO DAILY@1700 Qty: 90 0RF sacubitril-valsartan [Entresto] 24-26 mg Tablet 1 tab PO Q12HR Qty: 90 0RF metformin 500 mg tablet extended release 24 hr 500 mg PO BID Qty: 90 0RF Rx Instructions: start taking 500 mg daily for 1 week, then increase to twice a day carvedilol [Coreg] 25 mg Tablet 25 mg PO Q12HR Qty: 60 0RF thiamine HCl (vitamin B1) [Vitamin B-1] 100 mg Tablet 100 mg PO QAM Qty: 30 0RF aspirin 81 mg Tablet,Delayed Release (Dr/Ec) 81 mg PO QAM Qty: 30 0RF folic acid 1 mg Tablet 1 mg PO DAILY Qty: 30 0RF Jardiance 10 mg Tablet 10 mg PO DAILY Qty: 30 0RF Discontinued furosemide 40 mg Tablet 40 mg PO DAILY Qty: 90 0RF Date of admission: 12/24/24 11:43 Primary Care Provider: UNKNOWN,DOCTOR Admitting Provider: Milan Catherine Attending physician on admission: Milan Catherine Condition: Improved Hospitalist MIPS Heart Failure (Exclusion) Patient has history of Heart Transplant or Left Ventricular Assistive Device?: No IF YES, STOP HERE Heart Failure (Qualifier) Patient has current or prior documentation of LVEF less than or equal to 40%, or mod/servere depressed LVSF?: Yes IF NO, STOP HERE If Yes, Heart Failure (Qualifier) Patient was prescribed or already taking an Angiotensin-Converting Enzyme (MARTHA) Inhibitor, or Antiotensin Receptor Leila (ARB): Yes Patient was prescribed or already taking bisoprolol, carvedilol, or sustained release metoprolol succinate: Yes
== END 2024-12-28 13:45 | disposition home or self-care (01) | DRG 194 ==
LOC: ANHED 08:48 → ANHIMU 13:48
PROVIDERS: Nurse Practitioner Gerontology; Admitting Provider Internal Medicine; Emergency Provider Emergency Medicine; Visit Provider Internal Medicine
DX: I11.0 Hypertensive heart disease with heart failure (principal); I50.23 Acute on chronic systolic (congestive) heart failure; I51.3 Intracardiac thrombosis, not elsewhere classified; I42.9 Cardiomyopathy, unspecified; E11.9 Type 2 diabetes mellitus without complications; F10.20 Alcohol dependence, uncomplicated; Z91.199 Patient's noncompliance with other medical treatment and regimen due to unspecified reason; Z79.4 Long term (current) use of insulin; Z79.82 Long term (current) use of aspirin; Z79.01 Long term (current) use of anticoagulants
CPT/HCPCS: 36415; 71045; 71046; 80048; 80053; 82077; 82948; 83735; 83880; 84100; 84484; 85025; 85610; 85730; 93005; 96374; 96375; 99285; A9270; J1815; J1940; J3475

== ENCOUNTER 2025-04-15 19:59 | Inpatient (IN) | payer OTHER, SELFPAY ==
[2025-04-15] VITALS (9 sets, daily range): BP systolic 121–125; BP diastolic 86–89; PULSE 83–85; RESP 14–25; O2SAT 97–100
--- NOTE | ~2025-04-15 | XR_ITS ---
CHEST RADIOGRAPH CLINICAL HISTORY: sob dizziness . COMPARISON: 12/28/2024 TECHNIQUE: Single portable view of the chest. FINDINGS The cardiomediastinal silhouette is enlarged. Increased interstitial markings are identified bilaterally, findings suggesting mild pulmonary vascul ar congestion. Large right-sided pleural effusion. The remainder of the lungs are clear. IMPRESSION: Mild pulmonary vascular congestion with a large right-sided pleural effusion Reviewed, dictated and finalized at location A.
--- NOTE | ~2025-04-15 | CT_ITS ---
EXAMINATION: CT diagnostic chest wo con DATE: 04/16/2025 01:20 INDICATION: SOB TECHNIQUE: Computed tomography (CT) of the chest was performed without intravenous contrast. Addition al 3D reconstructions utilizing coronal maximum intensity projection (MIP) were performed. Automated exposure control and iterative reconstruction technique were employed. The dose-length product was 22 3.92 mGy-cm. COMPARISON: Chest CT dated 10/15/2024 FINDINGS: Moderate to large right and very small left pleural effusions. There is partial collapse of the right lower lobe with additional atelectasis in the dependent left lower lobe, lingula and right middle lo be. No pneumonia, pulmonary edema or other pulmonary infiltrates in the aerated portions of the lungs . Cardiomegaly. Minimal thoracic spondylosis with chronic appearing minimal anterior wedging at peric ardial effusion. Thoracic aorta is normal in caliber. No pathologically enlarged thoracic lymphadenop athy. Bilateral gynecomastia. Craniocaudal gradient of progressively worsening diffuse body wall margareth a. Visualized upper abdomen is unremarkable. Mild thoracic spondylosis. IMPRESSION: 1. Moderate to large right and very small left pleural effusions with associated compensatory atelect asis including tarsal collapse of the right lower lobe. 2. Cardiomegaly with minimal pericardial effusion. 3. Prominent body wall edema. Reviewed, dictated and finalized at location A. IMPRESSION: 1. Moderate to large right and very small left pleural effusions with associate d compensatory atelectasis including tarsal collapse of the right lower lobe. 2. Cardiomegaly with minimal pericardial effusion. 3. Prominent body wall edema.
--- NOTE | 2025-04-15 22:42 | ECG_ITS ---
Test Date: 2025-04-15 22:47:16 Measurements Intervals [place] Rate: 83 P: 46 NV: 162 QRS: 176 QRSD: 80 T: 84 QT: 381 QTc: 449 Interpretive Statements SINUS RHYTHM LEFT ATRIAL ENLARGEMENT LOW QRS VOLTAGE- DIFFUSE LEADS ANTEROSEPTAL INFARCT, AGE INDETERMINATE BORDERLINE T WAVE ABNORMALITY- HIGH LATERAL LEADS ABNORMAL ECG Compared to ECG 12/24/2024 09:31:25 NO SIGNIFICANT CHANGE Electronically Signed On 04-16-2025 07:25:15 CDT by Deven Simeon D.O.
--- NOTE | 2025-04-15 23:07 | ED_ITS ---
HPI - General Adult General Chief complaint: Unspecified Stated complaint: pcp sent pt to get fluid removed Time Seen by Provider: 04/15/25 22:43 History of Present Illness HPI narrative: 39-year-old male presents to the emergency department for evaluation for worsening lower extremity swelling and shortness of breath. Patient does have a history of CHF, nonischemic/alcoholic cardiomyopathy. Patient does have a LifeVest in place. Patient does have a history of noncompliance. Patient was supposed to follow-up at [facility] with Cardiology on Friday but patient states he was not able to states he does have follow-up scheduled with cardiology on April 19. Patient did have follow-up with his primary care physician today and was instructed to present to the emergency department for evaluation. Upon arrival patient states he is having some shortness of breath and is having some chest pain. Patient is also complaining upper lower extremity swelling. Patient states he stop taking his water pill because it was not working. Patient states he has been taking his Xarelto. Related Data Allergies Allergy/AdvReac Type Severity Reaction Status Date / Time No Known Allergies Allergy Verified 12/24/24 08:20 Review of Systems 2 Review of Systems: All systems reviewed & are unremarkable except as noted in HPI and below PMFSH Past Medical History Medical History Diabetes mellitus Noncompliance Cardiomyopathy Hypertension associated with diabetes EtOH dependence Family History Family History Mother Hypertension Father Hypertension Social History Social History Smoking status: Never smoker Alcohol intake: former Drinks per week: 42 Substance use: never Substance use type: does not use Last use: States he hasn't drank alcohol since last admission in October. Do You Feel Safe in your Home?: Yes Lack of Transportation: No Lack of Food: Never True Current Housing: I Have Housing Concerned About Future Housing: No Difficulty Paying Gas/Electric Bills: No Difficulty Paying for Meds: YES Currently Unemployed: No Education: High School Diploma/GED Difficulty w/ Childcare or Family Care: No Spiritual care concerns: No Exam 2 Narrative: APPEARANCE: Well appearing HEAD: normocephalic, atraumatic. EYES: PERRLA/EOMI, conjunctivae clear. NOSE: Normal no drainage EARS:TMS clear with good light reflex. THROAT: Pharynx clear, no exudate. NECK: Supple. No adenopathy, no masses. RESPIRATORY: Airway patent, respirations nonlabored. Clear to auscultation bilaterally, no rales, rhonchi, wheezing. CARDIOVASCULAR: Regular rate and rhythm without murmurs rubs or gallops. ABDOMINAL: Anasarca MUSCULOSKELETAL: Edema of upper and lower extremities NEURO: Alert. Cranial nerves II through XII intact. Good gait. Good coordination SKIN: Warm, dry. Normal Color PSYCHIATRIC: Flat affect Course Vital Signs Vital signs: Vital Signs Pulse Rate 85 04/15/25 22:44 Respiratory Rate 14 04/15/25 22:44 Pulse Oximetry 98 04/15/25 22:44 Pulse Rate 84 04/16/25 04:45 Respiratory Rate 18 04/16/25 04:45 Blood Pressure 110/77 04/16/25 04:30 Pulse Oximetry 100 04/16/25 04:45 Medical Decision Making [facility] Narrative Medical decision making narrative: 39-year-old male presents emergency department for evaluation for pain and edema. Patient is currently afebrile with no leukocytosis and hemoglobin of 15.3. Patient does have an elevated blood glucose of 544 was treated with 8 units of IV insulin. 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 Patient's initial troponin was 0.1-0. Patient does have an elevated proBNP of 6430. Chest x-ray does show pleural effusion and pulmonary vascular congestion CT the chest was ordered and does show moderate to large right and small left pleural effusions with dependent atelectasis bilaterally, small amount of pericardial fluid. Patient was treated with 40 units of IV Lasix in the emergency department. Patient was discussed with the hospitalist and accepted for admission to the IMU for further diuresis. Differential Diagnosis Differential Diagnosis: ACS, pulmonary vascular congestion, pleural effusion pericardial effusion, noncompliance COVID, RSV influenza, pneumonia Vital Signs Vital Signs: Vital Signs Pulse Rate 85 04/15/25 22:44 Respiratory Rate 14 04/15/25 22:44 Pulse Oximetry 98 04/15/25 22:44 Pulse Rate 84 04/16/25 04:45 Respiratory Rate 18 04/16/25 04:45 Blood Pressure 110/77 06/28/25 04:30 Pulse Oximetry 100 04/16/25 04:45 Lab Data Lab results reviewed: Yes I reviewed the patient's lab results. 04/16/25 00:41 04/16/25 02:46 Labs: Lab Results 04/16/25 04/16/25 04/16/25 Range/Units 00:34 00:41 02:46 WBC 6.9 (4.5-10.0) K/mm3 RBC 5.59 (4.6-6.20) M/mm3 Hgb 15.3 (14.0-18.0) g/dL Hct 46.0 (42.0-52.0) % MCV 82.3 (80-100) fl MCH 27.4 (26-34) pg MCHC 33.3 (32-36) g/dl RDW 15.7 H (11.5-14.5) % Plt Count 219 D (150-375) k/mm3 MPV 10.4 (7.4-10.4) fl Immature Gran % (Auto) 0.3 (0-0.5) % Neut % (Auto) 68.0 (45.5-73.1) % Lymph % (Auto) 22.6 (18.3-44.2) % [place] % (Auto) 8.1 (2.6-8.5) % Eos % (Auto) 0.4 (0-4.4) % Baso % (Auto) 0.6 (0.2-1.2) % Lymph # (Auto) 1.57 (0.9-3.2) K/mm3 [place] # (Auto) 0.6 (0.1-0.6) K/mm3 Eos # (Auto) 0.0 (0-0.3) K/mm3 Baso # (Auto) 0.0 (0.0-0.1) K/mm3 Abs Immat Gran (auto) 0.02 (0.00-0.031) K/mm3 Absolute Neuts (auto) 4.7 (1.3-6.7) K/mm3 Absolute Nucleated RBC 0.000 (0.0-0.012) K/mm3 Nucleated RBC % 0.0 (0.0-0.2) % Sodium Cancelled 126 L Potassium Cancelled 4.3 Chloride Cancelled 92 L Carbon Dioxide Cancelled 26 Anion Gap Cancelled 8 BUN Cancelled 18 Creatinine Cancelled 1.20 Estim Creat Clear Calc Cancelled 83 Estimated GFR Cancelled > 60 Glucose Cancelled 544 H* Calcium Cancelled 8.1 L Total Bilirubin Cancelled 0.9 AST Cancelled 39 ALT Cancelled 39 Alkaline Phosphatase Cancelled 127 H Troponin I 0.120 H* (0.000-0.034) ng/mL NT-Pro-B Natriuret Pep 6430 H (19.9-100) pg/mL Total Protein Cancelled 6.1 L Albumin Cancelled 2.7 L Imaging Data Attestation: I personally reviewed and interpreted this imaging study as follows: Radiologist's impression: Overnight read CT chest without contrast impression: Moderate to large right and small left pleural effusions. Dependent atelectasis bilaterally. No other focal consolidation. Anasarca. Bilateral, mast yeah. Ascites particularly visualized in the upper abdomen. Incidental findings cardiomegaly. Small amount of pericardial fluid. ECG Data EKG #1: EKG Interpretation: normal rate, sinus rhythm, non-specific ST changes, normal QRS, NL axis and no acute changes Discharge Plan Discharge Clinical Impression: Acute pericardial effusion, Pleural effusion, Anasarca, Hyperglycemia, Noncompliance with medication regimen Patient Disposition: Still a Patient Condition: Serious
[2025-04-15] MEDS: FUROSEMIDE INJ 40 MG/4 ML VIAL IV PUSH (23:42)
[2025-04-16] VITALS (54 sets, daily range): BP systolic 103–132; BP diastolic 73–100; PULSE 82–97; RESP 11–25; TEMP 36.4–37; O2SAT 96–100
--- NOTE | 2025-04-16 | ECHO_ITS ---
Patient Info Name: Michael Frank Age: 39 years : 1985 Gender: Male Ht: 68 in Wt: 219 lbs BSA: 2.22 m2 HR: 87 bpm BP: 111 / 77 mmHg Technical Quality: Good Exam Date: 04/16/2025 1:44 PM Patient Status: I Admit Date: 04/16/2025 Exam Type: CA echo dop color flow w con Complete two-dimensional, color flow and Doppler transthoracic echocardiogram is performed with contrast to opacify the left ventricle and to improve the deliniation of the left ventricle endocardial borders. Staff Referring Physician: Jordan Andre Fence Maker: Jessica Berumen Attending Provider: Jany Soria Contrast/Agitated Saline Contrast/Ag. Saline: Definity Amount: 2.00 ml Administered By: Jessica Berumen Summary 1. The left ventricle is normal in size with severely reduced systolic function. There is mild concentric left ventricular hypertrophy. The left ventricular ejection fraction is visually estimated to be 10-15%. There is a mobile left ventricular thrombus in the apex measuring 2.2 x 1.6 cm which is slightly increased in size compared to previous study. 2. The right ventricle is normal in size with reduced systolic function. 3. The mitral valve leaflets are normal but tethered resulting in moderate mitral regurgitation. 4. The tricuspid valve is normal. There is moderate tricuspid regurgitation. 5. The pulmonic valve is not well visualized. There is moderate pulmonic valve regurgitation. 6. Dilated inferior vena cava with <50% collapse upon inspiration consistent with significantly elevated right atrial pressure, 15 mmHg. Left Ventricle The left ventricle is normal in size with severely reduced systolic function. There is mild concentric left ventricular hypertrophy. The left ventricular ejection fraction is visually estimated to be 10-15%. There is a mobile left ventricular thrombus in the apex measuring 2.2 x 1.6 cm which is slightly increased in size compared to previous study. Right Ventricle The right ventricle is normal in size with reduced systolic function. Left Atria The left atrium is severely dilated. Right Atria Right atrium is dilated. Atrial Septum The atrial septum is normal. Aortic Valve The aortic valve is trileaflet and opens well. There is trace aortic regurgitation. Pulmonic Valve The pulmonic valve is not well visualized. There is moderate pulmonic valve regurgitation. Mitral Valve The mitral valve leaflets are normal but tethered resulting in moderate mitral regurgitation. Tricuspid Valve The tricuspid valve is normal. There is moderate tricuspid regurgitation. Pericardium/Pleural Pericardium is normal in appearance with no evidence for significant pericardial effusion. Inferior Vena Cava Dilated inferior vena cava with <50% collapse upon inspiration consistent with significantly elevated right atrial pressure, 15 mmHg. Aorta The aortic root at the level of the sinus of Valsalva measures 3.0 cm in diameter. Left Ventricular Outflow Tract Name Value Normal LVOT 2D LVOT Diameter 2.0 cm LVOT Doppler LVOT Peak Velocity 65 cm/s LVOT Peak Gradient 2 mmHg LVOT Mean Gradient 1 mmHg LVOT VTI 9 cm LVOT Stroke Volume 26 ml LVOT CO 2.3 l/min LVOT CI 1.0 l/min/m2 Pulmonic Valve Name Value Normal RVOT Doppler RVOT Peak Velocity 33 cm/s RVOT Peak Gradient 0 mmHg PV Doppler PV Peak Velocity 52 cm/s PV Peak Gradient 1 mmHg PV Regurgitation Doppler ND Peak End Diastolic Velocity 137 cm/s Mitral Valve Name Value Normal MV Regurgitation Doppler MR Peak Gradient 94 mmHg MV Diastolic Function MV E Peak Velocity 62 cm/s MV A Peak Velocity 29 cm/s MV E/A 2.2 MV Decel Time (PW) 160 ms MV Annular TDI MV E/e' (Septal) 14.0 MV E/e' (Lateral) 9.3 MV E/e' (Average) 11.7 Tricuspid Valve Name Value Normal TV Regurgitation Doppler TR Peak Velocity 291 cm/s TR Peak Gradient 30 mmHg Estimated PAP/RSVP RA Pressure 15 mmHg <=5 PA Systolic Pressure 49 mmHg <36 RV Systolic Pressure 49 mmHg <36 Aortic Valve Name Value Normal AV Doppler AV Peak Velocity 89 cm/s AV Peak Gradient 3 mmHg AV Area (Cont Eq Derick) 2.2 cm2 AV DI (Derick) 0.73 AV Regurgitation 2D LVOT Area 3.0 cm2 Ventricles Name Value Normal LV Dimensions 2D/MM IVS Diastolic Thickness (2D) 1.1 cm 0.6-1.0 LVID Diastole (2D) 5.5 cm 4.2-5.8 LVIW Diastolic Thickness (2D) 1.2 cm 0.6-1.0 LVID Systole (2D) 5.2 cm 2.5-4.0 LVOT Diameter 2.0 cm LV Mass (2D Cubed) 250.63 g 88.00-224.00 LV Mass Index (2D Cubed) 113 g/m2 49-115 Relative Wall Thickness (2D) 0.42 <=0.42 LV Fractional Shortening/Ejection Fraction 2D/MM LV Fractional Shortening (2D) 6 % 25-43 LV EF (2D Teichholz) 12 % LV Diastolic Volume (4C MOD) 240 ml LV EF (4C MOD) 28 % LV Diastolic Volume (2C MOD) 169 ml LV EF (2C MOD) 26 % LV Diastolic Volume (BP MOD) 207 ml 62-150 LV Diastolic Volume Index (BP MOD) 93 ml/m2 34-74 LV Systolic Volume (BP MOD) 155 ml 21-61 LV Systolic Volume Index (BP MOD) 70 ml/m2 11-31 LV EF (BP MOD) 25 % 52-72 LV Diastolic Length (4C) 9.0 cm LV Systolic Length (4C) 8.1 cm LV Stroke Volume (4C MOD) 67 ml Atria Name Value Normal LA Dimensions LA Volume (4C A-L) 90 ml LA Volume (BP A-L) 109 ml RA Dimensions RA Systolic Major [place] Length (4C) 5.7 cm 2.1-2.7 RA Area (4C) 21.3 cm2 <=18.0 Report Signatures
--- NOTE | 2025-04-16 00:28 | PC.NURSE ---
phlebotomy has been contacted to draw labs as 3 people have attempted with no luck
[2025-04-16 00:50] LABS: Hematocrit 46.0 % (42.0-52.0); Hemoglobin 15.3 g/dL (14.0-18.0); Immature Granulocyte Percent A 0.3 % (0-0.5); Lymphocytes Absolute Auto 1.57 K/mm3 (0.9-3.2); Mean Corpuscular HGB Conc 33.3 g/dl (32-36); Mean Corpuscular Hemoglobin 27.4 pg (26-34); Mean Corpuscular Volume 82.3 fl (80-100); Nucleated Red Blood Cells Absolute Auto 0.000 K/mm3 (0.0-0.012); Nucleated Red Blood Cells Perc 0.0 % (0.0-0.2); Platelet Count Result 219 k/mm3 (150-375); Red Blood Count 5.59 M/mm3 (4.6-6.20); White Blood Count 6.9 K/mm3 (4.5-10.0)
--- NOTE | 2025-04-16 02:48 | PC.NURSE ---
us used to place 20g sliv and draw labs via rac.
[2025-04-16 03:04] LABS: Alanine Aminotransferase 39 U/L (6-50); Albumin Level 2.7 g/dL (3.5-5.1); Alkaline Phosphatase 127 U/L (38-126); Anion Gap 8 mmol/L (4-12); Aspartate Amino Transferase 39 U/L (17-59); Bilirubin,Total 0.9 mg/dL (0.2-1.3); Blood Urea Nitrogen 18 mg/dL (9-20); Calcium 8.1 mg/dL (8.4-10.2); Carbon Dioxide 26 mmol/L (22-30); Chloride 92 mmol/L (98-107); Estimated CRCL calculation 83 ml/min; Estimated Glomerular Filt Rate > 60; Glucose 544 mg/dL (65-110); Potassium 4.3 mmol/L (3.4-5.0); Sodium 126 mmol/L (137-145); Total Protein 6.1 g/dL (6.3-8.2)
[2025-04-16 03:14] LABS: NT Pro B Type Natriuretic Pept 6430 pg/mL (19.9-100); Troponin I 0.120 ng/mL (0.000-0.034)
[2025-04-16] MEDS: INSULIN HUMAN REGULAR (*BKC) 100 UNITS/ML 8 UNITS IV PUSH (03:26)
--- NOTE | 2025-04-16 06:04 | ADMGEN ---
This patient, Michael Frank, was admitted to IMU Room 205-01. Patient/family oriented to hospital policies and general routines including ID bracelet, bed and alarms, visiting hours, pain management, procedures, bathroom and other care routines, personal items, smoking policy, room service/diet, and visiting hours. Information on how to activate the Rapid Response Team has been discussed. Patient/Family are encouraged to report perceived risks to care and to ask questions if they do not understand what they are told or what they should do.
--- NOTE | 2025-04-16 06:07 | P.HP_ITS ---
H&P: HPI History of Present Illness Date/Time: 04/16/25 06:10 Chief Complaint: Swelling and shortness of breath. 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 He missed an appointment with his home care consultant in [place] last Friday but did see his primary care provider in follow-up yesterday. He was directed to the emergency department after he was found to have significant pitting edema up to the abdomen. He admits that he is not always compliant with some of his medications and says he quit taking his diuretic ?because it was not working.? He has orthopnea and has to stop when going up a flight of steps to catch his breath. He denies syncope, near syncope, fever, cold and flu symptoms, chest pain, pleuritic pain, palpitations, nausea, vomiting, sweats, and calf pain. He is taking his rivaroxaban. He has cut back on his alcohol use, now drinking 2 tall boys a day, and is doing quite well with that. He he denies ever having signs or symptoms of alcohol withdrawal while in the hospital. In the ED: Vital signs on arrival include a blood pressure 120 Carolyn 6, pulse 83, respiratory 25, SpO2 98% on room air. Labs were significant for a sodium of 126, chloride 92, glucose 544, troponin 0.120, proBNP 6430, albumin 2.7. Chest x-ray showed pulmonary vascular congestion with a large right-sided pleural effusion. EKG did not show any acute ST segment changes. He received furosemide 40 mg IV and is being admitted in this setting for further treatment of volume overload. Review of Systems Review of Systems: 12 systems were reviewed and are negativ e except for as per HPI. [facility] Past Medical History Medical History (Updated 04/16/25 @ 06:16 by Angie Carroll PA-C) Chronic anticoagulation Left ventricular thrombus Hypertension Nonischemic cardiomyopathy presumed nonischemic alcohol induced cardiomyopathy Alcohol abuse Type 2 diabetes mellitus Noncompliance Family History Family History Mother Hypertension Father Hypertension Social History Social History (Updated 04/16/25 @ 06:47 by Angie Carroll PA-C) Social History: Surrogate medical decision maker: Code status: Full code. Smoking status: Never smoker Alcohol intake: current Drinks per week: 14 Alcohol use details: Two tall boys a day Substance use: never Substance use type: does not use Last use: States he hasn't drank alcohol since last admission in October. Do You Feel Safe in your Home?: Yes Lack of Transportation: No Lack of Food: Never True Current Housing: I Have Housing Concerned About Future Housing: No Difficulty Paying Gas/Electric Bills: No Difficulty Paying for Meds: YES Currently Unemployed: No Education: High School Diploma/GED Difficulty w/ Childcare or Family Care: No Spiritual care concerns: No Meds Home Medications and Allergies Home Medications ?Medication ?Instructions ?Recorded ?Confirmed ?Type dextrose 40 % oral gel (Glutose-15) 15 g PO PRN PRN Hypoglycemia 15 10/21/24 12/24/24 Rx days #15 grams insulin aspart U-100 100 unit/mL 5 unit (0.05 mL) subcut TIDWM #150 10/21/24 12/24/24 Rx subcutaneous solution (Novolog mL U-100 Insulin aspart) insulin glargine 100 unit/mL 15 unit (0.15 mL) subcut HS #150 mL 10/21/24 12/24/24 Rx subcutaneous solution (Lantus U-100 Insulin) rivaroxaban 20 mg tablet (Xarelto) 20 mg PO DAILY@1700 #90 tabs 10/21/24 12/24/24 Rx sacubitril 24 mg-valsartan 26 mg 1 tab PO Q12HR #90 tabs 10/21/24 12/24/24 Rx tablet (Entresto) spironolactone 25 mg tablet 25 mg PO QAM #90 tabs 10/21/24 12/24/24 Rx aspirin 81 mg tablet,delayed 81 mg PO QAM #30 tabs 11/16/24 12/24/24 Rx release carvedilol 25 mg tablet (Coreg) 25 mg PO Q12HR #60 tabs 11/16/24 12/24/24 Rx folic acid 1 mg tablet 1 mg PO DAILY #30 tabs 11/16/24 12/24/24 Rx thiamine HCl (vitamin B1) 100 mg 100 mg PO QAM #30 tabs 11/16/24 12/24/24 Rx tablet (Vitamin B-1) furosemide 40 mg tablet 40 mg PO BID #60 tabs 12/28/24 Rx Allergies Allergy/AdvReac Type Severity Reaction Status Date / Time No Known Allergies Allergy Verified 12/24/24 08:20 Vital Signs Vital Signs - 24 hr 04/15/25 22:44 04/15/25 22:45 04/15/25 22:46 Temperature Pulse Rate 85 83 85 Respiratory Rate 14 25 H 18 Blood Pressure 121/86 Pulse Oximetry 98 98 97 04/15/25 23:00 04/15/25 23:15 04/15/25 23:16 Temperature Pulse Rate 85 83 83 Respiratory Rate 15 16 19 Blood Pressure 122/89 Pulse Oximetry 98 98 04/15/25 23:30 04/15/25 23:44 04/15/25 23:45 Temperature Pulse Rate 84 84 Respiratory Rate 18 14 Blood Pressure 125/89 Pulse Oximetry 100 100 99 04/16/25 00:00 04/16/25 00:01 04/16/25 00:15 Temperature Pulse Rate 88 90 86 Respiratory Rate 25 H 23 H 20 Blood Pressure 124/95 H 132/100 H Pulse Oximetry 98 98 04/16/25 00:16 04/16/25 00:30 04/16/25 00:31 Temperature Pulse Rate 86 84 85 Respiratory Rate 25 H 18 19 Blood Pressure 122/95 H Pulse Oximetry 100 99 99 04/16/25 00:45 04/16/25 00:46 04/16/25 01:00 Temperature Pulse Rate 85 92 Respiratory Rate 25 H 21 H 17 Blood Pressure 119/93 H 123/99 H Pulse Oximetry 99 99 04/16/25 01:01 04/16/25 01:16 04/16/25 01:17 Temperature Pulse Rate 84 86 86 Respiratory Rate 11 L 22 H Blood Pressure 121/96 H Pulse Oximetry 99 100 04/16/25 01:30 04/16/25 01:39 04/16/25 01:45 Temperature Pulse Rate Respiratory Rate Blood Pressure 122/88 124/94 H Pulse Oximetry 99 100 04/16/25 01:46 04/16/25 02:00 04/16/25 02:01 Temperature Pulse Rate Respiratory Rate Blood Pressure 125/96 H Pulse Oximetry 99 100 99 04/16/25 02:15 04/16/25 02:30 04/16/25 02:45 Temperature Pulse Rate Respiratory Rate Blood Pressure 116/82 125/79 120/87 Pulse Oximetry 04/16/25 02:46 04/16/25 02:47 04/16/25 02:48 Temperature Pulse Rate 85 85 84 Respiratory Rate 22 H 20 19 Blood Pressure 117/89 Pulse Oximetry 99 100 04/16/25 03:00 04/16/25 03:01 04/16/25 03:15 Temperature Pulse Rate 84 84 85 Respiratory Rate 19 20 18 Blood Pressure 118/90 Pulse Oximetry 100 100 99 04/16/25 03:30 04/16/25 03:31 04/16/25 03:45 Temperature Pulse Rate 82 83 86 Respiratory Rate 21 H 22 H 20 Blood Pressure 129/94 H Pulse Oximetry 99 100 99 04/16/25 04:00 04/16/25 04:01 04/16/25 04:15 Temperature Pulse Rate 84 84 83 Respiratory Rate 17 18 19 Blood Pressure 114/81 Pulse Oximetry 100 100 100 04/16/25 04:30 04/16/25 04:31 04/16/25 04:45 Temperature Pulse Rate 84 82 84 Respiratory Rate 20 18 18 Blood Pressure 110/77 Pulse Oximetry 100 99 100 04/16/25 05:00 04/16/25 05:01 04/16/25 05:15 Temperature Pulse Rate 82 83 88 Respiratory Rate 18 17 14 Blood Pressure 103/77 Pulse Oximetry 100 100 100 04/16/25 05:51 Temperature 97.8 F Pulse Rate 82 Respiratory Rate 18 Blood Pressure 103/77 Pulse Oximetry 100 Exam Narrative: General: Nontoxic-appearing male in the semi-Valente position in bed in no distress. Weight: 99.4 kg. BMI: 33.3. HEENT: Normocephalic, atraumatic. PERRL, EOMI. Sclera anicteric. Oral mucosa moist. Neck: Supple. Full au. Respiratory: Respirations are nonlabored and he is speaking in full sentences. Fine crackles at the left base and decreased lung sounds on the right. Cardiovascular: Regular rate and rhythm with S1-S2. Gastrointestinal: Abdomen is nontender with positive bowel sounds. Pitting edema at the flanks. Skin: Warm and dry. No rash or lesions on limited exam. Extremities: No cyanosis or clubbing. Significant pitting edema of the lower extremities up to the flanks. Neurological: Alert. Cranial nerves grossly intact. No gross focal deficits to casual conversation. Psychiatric: Pleasant and cooperative with normal mood and flat affect. H&P: Results Labs Labs: Short CBC 04/16/25 Range/Units 00:41 WBC 6.9 (4.5-10.0) K/mm3 Hgb 15.3 (14.0-18.0) g/dL Hct 46.0 (42.0-52.0) % Plt Count 219 D (150-375) k/mm3 BMP 04/16/25 04/16/25 00:34 02:46 Sodium Cancelled 126 L Potassium Cancelled 4.3 Chloride Cancelled 92 L Carbon Dioxide Cancelled 26 BUN Cancelled 18 Creatinine Cancelled 1.20 Glucose Cancelled 544 H* Calcium Cancelled 8.1 L Cardiac Enzymes 04/16/25 Range/Units 02:46 Troponin I 0.120 H* (0.000-0.034) ng/mL Liver Function 04/16/25 04/16/25 Range/Units 00:34 02:46 Total Bilirubin Cancelled 0.9 AST Cancelled 39 ALT Cancelled 39 Alkaline Phosphatase Cancelled 127 H Albumin Cancelled 2.7 L Imaging Chest X-Ray 04/15/25 23:06 IMPRESSION: Mild pulmonary vascular congestion with a large right-sided pleural effusion. Assessment and Plan Assessment and plan (1) Acute on chronic systolic heart failure: Code(s): I50.23 - Acute on chronic systolic (congestive) heart failure Status: Acute (2) Elevated troponin: Code(s): R79.89 - Other specified abnormal findings of blood chemistry Status: Acute (3) Type 2 diabetes mellitus with hyperglycemia: Code(s): E11.65 - Type 2 diabetes mellitus with hyperglycemia Status: Acute (4) Chronic anticoagulation: Code(s): Z79.01 - jail (current) use of anticoagulants Status: Acute (5) Hypertension: Code(s): I10 - Essential (primary) hypertension Status: Acute (6) Alcohol abuse: Code(s): F10.10 - Alcohol abuse, uncomplicated Status: Acute Plan The patient presented to the emergency department from his doctor's office with complaints of increasing edema and shortness of breath as per HPI. Labs, imaging, EKG, and all reports were personally reviewed. He has acute on chronic CHF exacerbation supported by increasing proBNP from baseline, significant pitting edema up to the abdomen, and pulmonary vascular congestion with pleural effusion on imaging. Decompensation is due to noncompliance with his diuretics. He did not think that they were working and stops taking them. We discussed the importance of continuing all medication as prescribed and if he has concerns he needs to reach out to his primary doctor or his home care consultant. He has been started on furosemide 40 mg IV q.12 hours. Monitor volume status, renal function, and electrolytes will be monitored closely while diuresing. Continue spironolactone, carvedilol, sacubitril-valsartan, and empagliflozin per guideline directed medical therapy. His troponin is a bit elevated although that is a pretty chronic finding for this patient. EKG is without concerning ST segment changes and he has no complaints of chest pain. This is not likely due to acute coronary syndrome and is more likely elevated in the setting of his severe cardiomyopathy with decompensated heart failure. His diabetes has historically been poorly controlled with an A1c of greater than 12% last September. Random glucose today was 544 and he has pseudo hyponatremia related to hyperglycemia with a sodium of 126. He received 8 units of IV insulin in the ED and a repeat BMP is currently pending. Initiate sliding scale insulin, Accu- Cheks, and hypoglycemic protocol. Continue basal insulin, empagliflozin, and metformin. Hemoglobin A1c is pending. Blood pressures were reviewed and they have been stable and we will continue to monitor those closely. He has cut down significantly on his alcohol intake and is now drinking 2 tall boys a day. He denies ever having signs or symptoms of alcohol withdrawal. We discussed the importance of stopping alcohol use immediately and he voices understanding. His home medications will be reviewed and resumed as appropriate. Findings and treatment plan were discussed with the patient. Questions were solicited and answered to satisfaction. The patient's medical management will be taken over by the hospitalist team in a.m. Quality VTE Prophylaxis VTE prophylaxis: pharmacologic ordered (On Xarelto) The patient has been admitted under observation status. Hospitalist MIPS Advance Care Plan I have confirmed that the patient's Advanced Care Plan is present, code status is documented, or surrogate decision maker is listed in patient medical record.: Yes Medication Reconciliation I have utilized all available resources to obtain, update and review the patients current medications (includes all prescriptions, OTC, herbals, cannabis, and nutritional supplements).: Yes
[2025-04-16 07:28] LABS: Anion Gap 5 mmol/L (4-12); Blood Urea Nitrogen 18 mg/dL (9-20); Calcium 8.0 mg/dL (8.4-10.2); Carbon Dioxide 24 mmol/L (22-30); Chloride 99 mmol/L (98-107); Estimated CRCL calculation 94 ml/min; Estimated Glomerular Filt Rate > 60; Glucose 254 mg/dL (65-110); Magnesium 2.0 mg/dL (1.6-2.3); Potassium 4.0 mmol/L (3.4-5.0); Sodium 128 mmol/L (137-145)
[2025-04-16 07:52] LABS: Troponin I 0.120 ng/mL (0.000-0.034)
[2025-04-16 08:11] LABS: Thyroid Stimulating Hormone Reflex 3.900 uIU/mL (0.465-4.68)
[2025-04-16] MEDS: INSULIN ASPART (*BKC) 100 UNITS/ML SUB-Q ×5 (09:25→23:41)
[2025-04-16] MEDS: FUROSEMIDE INJ 40 MG/4 ML VIAL IV PUSH ×2 (09:26→20:31)
--- NOTE | 2025-04-16 12:03 | PC.NURSE ---
Patient's blood glucose 416. Phoned Dr. Soria and informed of reading. Patient has no s/s of hyperglycemia at this time. Order given to give Lantus 10 Units now and 8 Units Novolog and repeat Blood glucose in 1 hour. Insulin given per order. Patient continues to rest in bed with no complaints or concerns at this time. Call light in reach. Will continue to monitor. Bev Campbell RN
[2025-04-16] MEDS: INSULIN GLARGINE (*BKC) 100 UNITS/ML 10 UNITS SUB-Q (12:10)
--- NOTE | 2025-04-16 12:58 | P.PNIM_ITS ---
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 Status: Acute (5) Hypertension: Code(s): I10 - Essential (primary) hypertension Status: Acute (6) Alcohol abuse: Code(s): F10.10 - Alcohol abuse, uncomplicated Status: Acute Plan CHF exacerbation, systolic Prior EF 15-20% CT chest showed bilateral pleural effusion Continue Lasix, fluid restriction 1500cc daily and monitor I's and O's Contineu home meds cardiology consulted Elevated troponin ECHO ordered, cardiology consulted trend, no chest at bedside DM2 SSi with accucheks, monitor and adjust with clinical course HTN Titrate home meds with Clinical course Left ventricular thrombus COntinue Xarelto DVT prophylaxis on Xarelto Subjective Date/time seen: 04/16/25 12:58 Interval history: Comfortable at bedside Review of Systems Review of Systems: 12 systems were reviewed and are negativ e except for as per HPI. Exam Narrative: General: Nontoxic-appearing male in the semi-Valente position in bed in no distress. Weight: 99.4 kg. BMI: 33.3. HEENT: Normocephalic, atraumatic. PERRL, EOMI. Sclera anicteric. Oral mucosa moist. Neck: Supple. Full au. Respiratory: Respirations are nonlabored and he is speaking in full sentences. Fine crackles at the left base and decreased lung sounds on the right. Cardiovascular: Regular rate and rhythm with S1-S2. Gastrointestinal: Abdomen is nontender with positive bowel sounds. Pitting edema at the flanks. Skin: Warm and dry. No rash or lesions on limited exam. Extremities: No cyanosis or clubbing. Significant pitting edema of the lower extremities up to the flanks. Neurological: Alert. Cranial nerves grossly intact. No gross focal deficits to casual conversation. Psychiatric: Pleasant and cooperative with normal mood and flat affect. Objective Data Vital Signs Vital Signs: Vital Signs - 24 hr 04/15/25 22:44 04/15/25 22:45 04/15/25 22:46 Temperature Pulse Rate 85 83 85 Respiratory Rate 14 25 H 18 Blood Pressure 121/86 Pulse Oximetry 98 98 97 Oxygen Delivery 04/15/25 23:00 04/15/25 23:15 04/15/25 23:16 Temperature Pulse Rate 85 83 83 Respiratory Rate 15 16 19 Blood Pressure 122/89 Pulse Oximetry 98 98 Oxygen Delivery 04/15/25 23:30 04/15/25 23:44 04/15/25 23:45 Temperature Pulse Rate 84 84 Respiratory Rate 18 14 Blood Pressure 125/89 Pulse Oximetry 100 100 99 Oxygen Delivery 04/16/25 00:00 04/16/25 00:01 04/16/25 00:15 Temperature Pulse Rate 88 90 86 Respiratory Rate 25 H 23 H 20 Blood Pressure 124/95 H 132/100 H Pulse Oximetry 98 98 Oxygen Delivery 04/16/25 00:16 04/16/25 00:30 04/16/25 00:31 Temperature Pulse Rate 86 84 85 Respiratory Rate 25 H 18 19 Blood Pressure 122/95 H Pulse Oximetry 100 99 99 Oxygen Delivery 04/16/25 00:45 04/16/25 00:46 04/16/25 01:00 Temperature Pulse Rate 85 92 Respiratory Rate 25 H 21 H 17 Blood Pressure 119/93 H 123/99 H Pulse Oximetry 99 99 Oxygen Delivery 04/16/25 01:01 04/16/25 01:16 04/16/25 01:17 Temperature Pulse Rate 84 86 86 Respiratory Rate 11 L 22 H Blood Pressure 121/96 H Pulse Oximetry 99 100 Oxygen Delivery 04/16/25 01:30 04/16/25 01:39 04/16/25 01:45 Temperature Pulse Rate Respiratory Rate Blood Pressure 122/88 124/94 H Pulse Oximetry 99 100 Oxygen Delivery 04/16/25 01:46 04/16/25 02:00 04/16/25 02:01 Temperature Pulse Rate Respiratory Rate Blood Pressure 125/96 H Pulse Oximetry 99 100 99 Oxygen Delivery 04/16/25 02:15 04/16/25 02:30 04/16/25 02:45 Temperature Pulse Rate Respiratory Rate Blood Pressure 116/82 125/79 120/87 Pulse Oximetry Oxygen Delivery 04/16/25 02:46 04/16/25 02:47 04/16/25 02:48 Temperature Pulse Rate 85 85 84 Respiratory Rate 22 H 20 19 Blood Pressure 117/89 Pulse Oximetry 99 100 Oxygen Delivery 04/16/25 03:00 04/16/25 03:01 04/16/25 03:15 Temperature Pulse Rate 84 84 85 Respiratory Rate 19 20 18 Blood Pressure 118/90 Pulse Oximetry 100 100 99 Oxygen Delivery 04/16/25 03:30 04/16/25 03:31 04/16/25 03:45 Temperature Pulse Rate 82 83 86 Respiratory Rate 21 H 22 H 20 Blood Pressure 129/94 H Pulse Oximetry 99 100 99 Oxygen Delivery 04/16/25 04:00 04/16/25 04:01 04/16/25 04:15 Temperature Pulse Rate 84 84 83 Respiratory Rate 17 18 19 Blood Pressure 114/81 Pulse Oximetry 100 100 100 Oxygen Delivery 04/16/25 04:30 04/16/25 04:31 04/16/25 04:45 Temperature Pulse Rate 84 82 84 Respiratory Rate 20 18 18 Blood Pressure 110/77 Pulse Oximetry 100 99 100 Oxygen Delivery 04/16/25 05:00 04/16/25 05:01 04/16/25 05:15 Temperature Pulse Rate 82 83 88 Respiratory Rate 18 17 14 Blood Pressure 103/77 Pulse Oximetry 100 100 100 Oxygen Delivery 04/16/25 05:51 04/16/25 06:00 04/16/25 06:29 Temperature 97.8 F 97.9 F Pulse Rate 82 90 85 Respiratory Rate 18 18 Blood Pressure 103/77 106/73 Pulse Oximetry 100 98 Oxygen Delivery 04/16/25 07:51 04/16/25 07:58 04/16/25 08:00 Temperature 97.8 F Pulse Rate 84 Respiratory Rate 18 Blood Pressure 108/77 Pulse Oximetry 100 100 Oxygen Delivery Room Air Room Air 04/16/25 08:00 04/16/25 10:00 04/16/25 12:00 Temperature 97.8 F Pulse Rate 85 82 84 Respiratory Rate 18 Blood Pressure 111/77 Pulse Oximetry 96 Oxygen Delivery 04/16/25 12:00 04/16/25 12:00 Temperature Pulse Rate 87 Respiratory Rate Blood Pressure Pulse Oximetry 96 Oxygen Delivery Room Air Intake/Output Intake/Output: Intake & Output 04/13/25 04/14/25 04/15/25 04/16/25 23:59 23:59 23:59 23:59 Intake Total 75 Output Total 1500 Balance -1425 Meds/Results Medications: Active Medications Generic Name Dose Route Start Last Admin Trade Name Makenzie PRN Reason Stop Dose Admin Acetaminophen 650 mg 04/16/25 06:16 Acetaminophen 325 Mg Tablet PO Q6H PRN Mild Pain (1-3) or Fever Dextrose 12.5 gm 04/16/25 03:08 Dextrose 50% 25 Gm/50 Ml Syringe IV PUSH PRN PRN Hypoglycemia Protocol Furosemide 40 mg 04/16/25 09:00 04/16/25 09:26 Furosemide Inj 40 Mg/4 Ml Vial IV PUSH 40 mg Q12HR KELIN Administration Glucagon 1 mg 04/16/25 03:08 Glucagon For Inj 1 Mg Vial IM PRN PRN Hypoglycemia Protocol Glucose 15 gm 04/16/25 03:08 Glucose Oral Gel 15 Gm Of Glucse In 37.5 Gm Tube PO PRN PRN Hypoglycemia Protocol Dextrose 1,000 mls @ 100 mls/hr 04/16/25 03:08 Dextrose 5% 1,000 Ml IVPB PRN PRN Hypoglycemia Protocol Insulin Aspart 2 - 4 units 04/16/25 21:00 Insulin Aspart (*Bkc) 100 Units/Ml SUB-Q HS KELIN Protocol Insulin Aspart 4 - 8 units 04/16/25 08:00 04/16/25 12:10 Insulin Aspart (*Bkc) 100 Units/Ml SUB-Q 8 units TIDWM KELIN Administration Protocol Radiology Results: ITS Impressions Chest X-Ray 04/15/25 23:06 IMPRESSION: Mild pulmonary vascular congestion with a large right-sided pleural effusion Chest CT 04/16/25 08:32 IMPRESSION: 1. Moderate to large right and very small left pleural effusions with associated compensatory atelectasis including tarsal collapse of the right lower lobe. 2. Cardiomegaly with minimal pericardial effusion. 3. Prominent body wall edema. Labs Labs: Laboratory Results - last 24 hr 04/16/25 04/16/25 04/16/25 00:34 00:41 02:46 WBC 6.9 RBC 5.59 Hgb 15.3 Hct 46.0 MCV 82.3 MCH 27.4 MCHC 33.3 RDW 15.7 H Plt Count 219 D MPV 10.4 Immature Gran % (Auto) 0.3 Neut % (Auto) 68.0 Lymph % (Auto) 22.6 [place] % (Auto) 8.1 Eos % (Auto) 0.4 Baso % (Auto) 0.6 Lymph # (Auto) 1.57 [place] # (Auto) 0.6 Eos # (Auto) 0.0 Baso # (Auto) 0.0 Abs Immat Gran (auto) 0.02 Absolute Neuts (auto) 4.7 Absolute Nucleated RBC 0.000 Nucleated RBC % 0.0 Sodium Cancelled 126 L Potassium Cancelled 4.3 Chloride Cancelled 92 L Carbon Dioxide Cancelled 26 Anion Gap Cancelled 8 BUN Cancelled 18 Creatinine Cancelled 1.20 Estim Creat Clear Calc Cancelled 83 Estimated GFR Cancelled > 60 Glucose Cancelled 544 H* POC Capillary Glucose Calcium Cancelled 8.1 L Magnesium Total Bilirubin Cancelled 0.9 AST Cancelled 39 ALT Cancelled 39 Alkaline Phosphatase Cancelled 127 H Troponin I 0.120 H* NT-Pro-B Natriuret Pep 6430 H Total Protein Cancelled 6.1 L Albumin Cancelled 2.7 L TSH (Reflex) 04/16/25 04/16/25 04/16/25 04:27 07:13 11:44 WBC RBC Hgb Hct MCV MCH MCHC RDW Plt Count MPV Immature Gran % (Auto) Neut % (Auto) Lymph % (Auto) [place] % (Auto) Eos % (Auto) Baso % (Auto) Lymph # (Auto) [place] # (Auto) Eos # (Auto) Baso # (Auto) Abs Immat Gran (auto) Absolute Neuts (auto) Absolute Nucleated RBC Nucleated RBC % Sodium 128 L Potassium 4.0 Chloride 99 Carbon Dioxide 24 Anion Gap 5 BUN 18 Creatinine 1.06 Estim Creat Clear Calc 94 Estimated GFR > 60 Glucose 254 H POC Capillary Glucose 415 H 416 H Calcium 8.0 L Magnesium 2.0 Total Bilirubin AST ALT Alkaline Phosphatase Troponin I 0.120 H* NT-Pro-B Natriuret Pep Total Protein Albumin TSH (Reflex) 3.900 Quality VTE Prophylaxis VTE prophylaxis: pharmacologic ordered (On Xarelto)
[2025-04-16] MEDS: PERFLUTREN LIPID MICROSPHERES 1.5 ML VIAL DILUTED TO 10 ML TOTAL VOLUME IV PUSH (14:10)
--- NOTE | 2025-04-16 14:29 | IVDEFINITY ---
Prior to administration of IV Definity the patient was educated on the risks and benefits of the imaging enhancing agent including potential adverse side effects. The patient verbalized understanding. Allergies were verified. No exclusion criteria were identified and at least one of the following inclusion criteria were met: 1) physician request, 2) patient technically difficult to image (per the [place] [employer] guidelines of two or more segments not discernable within the apical view), or 3) questionable left ventricular function. ?
[2025-04-16 15:23] LABS: Hemoglobin A1C > 14.0 % (<5.7)
[2025-04-16] MEDS: RIVAROXABAN 20 MG TABLET PO (16:33)
--- NOTE | 2025-04-16 18:04 | P.CONCA_ITS ---
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 for now however may consider increasing to 80 mg IV b.i.d. is urine output less than 2 L per day -continue Entresto, spironolactone, carvedilol -discussed the durability of continuing these medications even if he feels that they are now working as they are meant to reduce his hospital admission and mortality in the retirement -will discuss adding Jardiance with which will be at 25 mg p.o. daily given his diabetic history as well Left ventricular apical thrombus -continue Xarelto Hypertension -well controlled on Entresto 24-26 mg p.o. b.i.d. and spironolactone 25 mg p.o. 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 He states that he intermittently takes his medications as he feels that the medications are not working at times. Currently the swelling has gotten so bad that is genital areas is very swollen and has become difficult to urinate properly. He also has continued to drink too tall boys a day which is significantly decreased as compared to his previous intake. He does have episodes of lightheadedness and near syncope. However he has not had any syncopal events. He only has chest discomfort when he is sitting up and leaning forward. He also has associated orthopnea. 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 Smoking status: Never smoker Alcohol intake: current Drinks per week: 14 Alcohol use details: Two tall boys a day Substance use: never Substance use type: does not use Last use: States he hasn't drank alcohol since last admission in October. Do You Feel Safe in your Home?: Yes Lack of Transportation: No Lack of Food: Never True Current Housing: I Have Housing Concerned About Future Housing: No Difficulty Paying Gas/Electric Bills: No Difficulty Paying for Meds: YES Currently Unemployed: No Education: High School Diploma/GED Difficulty w/ Childcare or Family Care: No Spiritual care concerns: No Meds Home Medications and Allergies Home Medications ?Medication ?Instructions ?Recorded ?Confirmed ?Type dextrose 40 % oral gel (Glutose-15) 15 g PO PRN PRN Hypoglycemia 15 10/21/24 04/16/25 Rx days #15 grams insulin aspart U-100 100 unit/mL 5 unit (0.05 mL) subcut TIDWM #150 10/21/24 04/16/25 Rx subcutaneous solution (Novolog mL U-100 Insulin aspart) insulin glargine 100 unit/mL 15 unit (0.15 mL) subcut HS #150 mL 10/21/24 04/16/25 Rx subcutaneous solution (Lantus U-100 Insulin) rivaroxaban 20 mg tablet (Xarelto) 20 mg PO DAILY@1700 #90 tabs 10/21/24 04/16/25 Rx sacubitril 24 mg-valsartan 26 mg 1 tab PO Q12HR #90 tabs 10/21/24 04/16/25 Rx tablet (Entresto) spironolactone 25 mg tablet 25 mg PO QAM #90 tabs 10/21/24 04/16/25 Rx aspirin 81 mg tablet,delayed 81 mg PO QAM #30 tabs 11/16/24 04/16/25 Rx release carvedilol 25 mg tablet (Coreg) 25 mg PO Q12HR #60 tabs 11/16/24 04/16/25 Rx folic acid 1 mg tablet 1 mg PO DAILY #30 tabs 11/16/24 04/16/25 Rx thiamine HCl (vitamin B1) 100 mg 100 mg PO QAM #30 tabs 11/16/24 04/16/25 Rx tablet (Vitamin B-1) furosemide 40 mg tablet 40 mg PO BID #60 tabs 12/28/24 04/16/25 Rx Allergies Allergy/AdvReac Type Severity Reaction Status Date / Time No Known Allergies Allergy Verified 12/24/24 08:20 Vital Signs Vital Signs - 24 hr 04/15/25 22:44 04/15/25 22:45 04/15/25 22:46 Temperature Pulse Rate 85 83 85 Respiratory Rate 14 25 H 18 Blood Pressure 121/86 Pulse Oximetry 98 98 97 Oxygen Delivery 04/15/25 23:00 04/15/25 23:15 04/15/25 23:16 Temperature Pulse Rate 85 83 83 Respiratory Rate 15 16 19 Blood Pressure 122/89 Pulse Oximetry 98 98 Oxygen Delivery 04/15/25 23:30 04/15/25 23:44 04/15/25 23:45 Temperature Pulse Rate 84 84 Respiratory Rate 18 14 Blood Pressure 125/89 Pulse Oximetry 100 100 99 Oxygen Delivery 04/16/25 00:00 04/16/25 00:01 04/16/25 00:15 Temperature Pulse Rate 88 90 86 Respiratory Rate 25 H 23 H 20 Blood Pressure 124/95 H 132/100 H Pulse Oximetry 98 98 Oxygen Delivery 04/16/25 00:16 04/16/25 00:30 04/16/25 00:31 Temperature Pulse Rate 86 84 85 Respiratory Rate 25 H 18 19 Blood Pressure 122/95 H Pulse Oximetry 100 99 99 Oxygen Delivery 04/16/25 00:45 04/16/25 00:46 04/16/25 01:00 Temperature Pulse Rate 85 92 Respiratory Rate 25 H 21 H 17 Blood Pressure 119/93 H 123/99 H Pulse Oximetry 99 99 Oxygen Delivery 04/16/25 01:01 04/16/25 01:16 04/16/25 01:17 Temperature Pulse Rate 84 86 86 Respiratory Rate 11 L 22 H Blood Pressure 121/96 H Pulse Oximetry 99 100 Oxygen Delivery 04/16/25 01:30 04/16/25 01:39 04/16/25 01:45 Temperature Pulse Rate Respiratory Rate Blood Pressure 122/88 124/94 H Pulse Oximetry 99 100 Oxygen Delivery 04/16/25 01:46 04/16/25 02:00 04/16/25 02:01 Temperature Pulse Rate Respiratory Rate Blood Pressure 125/96 H Pulse Oximetry 99 100 99 Oxygen Delivery 04/16/25 02:15 04/16/25 02:30 04/16/25 02:45 Temperature Pulse Rate Respiratory Rate Blood Pressure 116/82 125/79 120/87 Pulse Oximetry Oxygen Delivery 04/16/25 02:46 04/16/25 02:47 04/16/25 02:48 Temperature Pulse Rate 85 85 84 Respiratory Rate 22 H 20 19 Blood Pressure 117/89 Pulse Oximetry 99 100 Oxygen Delivery 04/16/25 03:00 04/16/25 03:01 04/16/25 03:15 Temperature Pulse Rate 84 84 85 Respiratory Rate 19 20 18 Blood Pressure 118/90 Pulse Oximetry 100 100 99 Oxygen Delivery 04/16/25 03:30 04/16/25 03:31 04/16/25 03:45 Temperature Pulse Rate 82 83 86 Respiratory Rate 21 H 22 H 20 Blood Pressure 129/94 H Pulse Oximetry 99 100 99 Oxygen Delivery 04/16/25 04:00 04/16/25 04:01 04/16/25 04:15 Temperature Pulse Rate 84 84 83 Respiratory Rate 17 18 19 Blood Pressure 114/81 Pulse Oximetry 100 100 100 Oxygen Delivery 04/16/25 04:30 04/16/25 04:31 04/16/25 04:45 Temperature Pulse Rate 84 82 84 Respiratory Rate 20 18 18 Blood Pressure 110/77 Pulse Oximetry 100 99 100 Oxygen Delivery 04/16/25 05:00 04/16/25 05:01 04/16/25 05:15 Temperature Pulse Rate 82 83 88 Respiratory Rate 18 17 14 Blood Pressure 103/77 Pulse Oximetry 100 100 100 Oxygen Delivery 04/16/25 05:51 04/16/25 06:00 04/16/25 06:29 Temperature 36.6 C 36.6 C Pulse Rate 82 90 85 Respiratory Rate 18 18 Blood Pressure 103/77 106/73 Pulse Oximetry 100 98 Oxygen Delivery 04/16/25 07:51 04/16/25 07:58 04/16/25 08:00 Temperature 36.6 C Pulse Rate 84 Respiratory Rate 18 Blood Pressure 108/77 Pulse Oximetry 100 100 Oxygen Delivery Room Air Room Air 04/16/25 08:00 04/16/25 10:00 04/16/25 12:00 Temperature 36.6 C Pulse Rate 85 82 84 Respiratory Rate 18 Blood Pressure 111/77 Pulse Oximetry 96 Oxygen Delivery 04/16/25 12:00 04/16/25 12:00 04/16/25 14:00 Temperature Pulse Rate 87 91 Respiratory Rate Blood Pressure Pulse Oximetry 96 Oxygen Delivery Room Air 04/16/25 16:00 04/16/25 16:00 04/16/25 16:00 Temperature 36.4 C L Pulse Rate 92 93 Respiratory Rate 20 Blood Pressure 106/85 Pulse Oximetry 96 100 Oxygen Delivery Room Air Exam 2 Const: General: comfortable HENMT: Mouth: Yes moist mucous membranes Eyes: EOM: EOMs intact bilaterally Neck: Other: JVD positive Resp: Effort & Inspection: normal respiratory effort Auscultation: rales Cardio: Rate: regular rate Rhythm: regular rhythm GI: Inspection: distended Neuro: Speech: normal speech Extrem: General: edema and pedal edema Results Labs and Meds 04/16/25 00:41 04/16/25 07:13 Lab results: Cardiac Enzymes 04/16/25 04/16/25 04/16/25 Range/Units 00:34 02:46 07:13 AST Cancelled 39 Troponin I 0.120 H* 0.120 H* (0.000-0.034) ng/mL CBC 04/16/25 Range/Units 00:41 WBC 6.9 (4.5-10.0) K/mm3 RBC 5.59 (4.6-6.20) M/mm3 Hgb 15.3 (14.0-18.0) g/dL Hct 46.0 (42.0-52.0) % Plt Count 219 D (150-375) k/mm3 Lymph # (Auto) 1.57 (0.9-3.2) K/mm3 [place] # (Auto) 0.6 (0.1-0.6) K/mm3 Eos # (Auto) 0.0 (0-0.3) K/mm3 Baso # (Auto) 0.0 (0.0-0.1) K/mm3 Comprehensive Metabolic Panel 04/16/25 04/16/25 04/16/25 Range/Units 00:34 02:46 07:13 Sodium Cancelled 126 L 128 L Potassium Cancelled 4.3 4.0 Chloride Cancelled 92 L 99 Carbon Dioxide Cancelled 26 24 BUN Cancelled 18 18 Creatinine Cancelled 1.20 1.06 Glucose Cancelled 544 H* 254 H Calcium Cancelled 8.1 L 8.0 L AST Cancelled 39 ALT Cancelled 39 Alkaline Phosphatase Cancelled 127 H Total Protein Cancelled 6.1 L Albumin Cancelled 2.7 L Intake and Output 04/16/25 04/16/25 04/16/25 07:59 15:59 23:59 Intake Total 75 Output Total 800 700 Balance -800 -625 Intake: Oral 75 Output: Urine 800 700
[2025-04-16] MEDS: SACUBITRIL/VALSARTAN 24-26 MG TABLET 1 TAB PO (20:30)
[2025-04-17] VITALS (18 sets, daily range): BP systolic 108–119; BP diastolic 67–85; PULSE 75–93; RESP 16–24; TEMP 35.8–36.9; O2SAT 100
--- NOTE | 2025-04-17 00:27 | PC.NURSE ---
2330 04/16/23 Patient refusing 12 units additional insulin ordered by QUINN Butts. Angie Khan notified and to bedside to educate patient. Patient agreed to 5 units of insulin only.
[2025-04-17 05:00] LABS: Hematocrit 40.9 % (42.0-52.0); Hemoglobin 13.6 g/dL (14.0-18.0); Immature Granulocyte Percent A 0.4 % (0-0.5); Lymphocytes Absolute Auto 1.77 K/mm3 (0.9-3.2); Mean Corpuscular HGB Conc 33.3 g/dl (32-36); Mean Corpuscular Hemoglobin 27.3 pg (26-34); Mean Corpuscular Volume 82.1 fl (80-100); Nucleated Red Blood Cells Absolute Auto 0.000 K/mm3 (0.0-0.012); Nucleated Red Blood Cells Perc 0.0 % (0.0-0.2); Platelet Count Result 180 k/mm3 (150-375); Red Blood Count 4.98 M/mm3 (4.6-6.20); White Blood Count 5.2 K/mm3 (4.5-10.0)
[2025-04-17 05:24] LABS: Alanine Aminotransferase 33 U/L (6-50); Albumin Level 2.0 g/dL (3.5-5.1); Alkaline Phosphatase 85 U/L (38-126); Anion Gap 4 mmol/L (4-12); Aspartate Amino Transferase 36 U/L (17-59); Bilirubin,Total 0.3 mg/dL (0.2-1.3); Blood Urea Nitrogen 24 mg/dL (9-20); Calcium 7.5 mg/dL (8.4-10.2); Carbon Dioxide 26 mmol/L (22-30); Chloride 99 mmol/L (98-107); Estimated CRCL calculation 93 ml/min; Estimated Glomerular Filt Rate > 60; Glucose 219 mg/dL (65-110); Magnesium 1.8 mg/dL (1.6-2.3); Potassium 3.2 mmol/L (3.4-5.0); Sodium 129 mmol/L (137-145); Total Protein 5.0 g/dL (6.3-8.2)
[2025-04-17] MEDS: SACUBITRIL/VALSARTAN 24-26 MG TABLET 1 TAB PO ×2 (09:09→20:23)
[2025-04-17] MEDS: ASPIRIN 81 MG ENTERIC TABLET PO (09:09)
[2025-04-17] MEDS: THIAMINE HCL 100 MG TABLET PO (09:09)
[2025-04-17] MEDS: SPIRONOLACTONE 25 MG TABLET PO (09:09)
[2025-04-17] MEDS: FUROSEMIDE INJ 40 MG/4 ML VIAL IV PUSH ×2 (09:10→20:24)
[2025-04-17] MEDS: ALBUMIN HUMAN 25% 25 GM/100 ML 100 ML IVPB (09:20)
--- NOTE | 2025-04-17 09:31 | PM.PNCARD ---
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 for now however may consider increasing to 80 mg IV b.i.d. 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 b.i.d. and spironolactone 25 mg p.o. daily Wounds -consult care -outpatient follow-up and if not healing in the next few weeks recommend pursuing ultrasound ALISSA in clinic Poor prognosis given his multiple admission, continue excessive alcohol intake, and noncompliance Subjective Date/time seen: 04/17/25 09:31 Interval history: Shortness of breath, chest pain, lower extremity swelling is improving. His chronic lower extremity wounds with intact dressing. Review of Systems Cardiovascular: Cardiovascular: Reports as per HPI Respiratory: Respiratory: Reports as per HPI Exam Const: General: comfortable HENMT: Mouth: Yes moist mucous membranes Eyes: EOM: EOMs intact bilaterally Neck: Neck: no JVD Resp: Effort & Inspection: normal respiratory effort Auscultation: clear to auscultation bilaterally Cardio: Rate: regular rate Rhythm: regular rhythm GI: Inspection: distended Neuro: Speech: normal speech Extrem: General: edema and pedal edema Objective Data Vital Signs Vital Signs: Vital Signs - 24 hr 04/16/25 10:00 04/16/25 12:00 04/16/25 12:00 Temperature 36.6 C Pulse Rate 82 84 Respiratory Rate 18 Blood Pressure 111/77 Pulse Oximetry 96 96 Oxygen Delivery Room Air 04/16/25 12:00 04/16/25 14:00 04/16/25 16:00 Temperature Pulse Rate 87 91 Respiratory Rate Blood Pressure Pulse Oximetry 96 Oxygen Delivery Room Air 04/16/25 16:00 04/16/25 16:00 04/16/25 18:00 Temperature 36.4 C L Pulse Rate 92 93 94 Respiratory Rate 20 Blood Pressure 106/85 Pulse Oximetry 100 Oxygen Delivery 04/16/25 19:30 04/16/25 20:00 04/16/25 20:00 Temperature 36.5 C Pulse Rate 90 97 Respiratory Rate 20 Blood Pressure 121/91 H Pulse Oximetry 100 100 Oxygen Delivery Room Air 04/16/25 20:30 04/16/25 22:00 04/16/25 23:39 Temperature 37.0 C Pulse Rate 95 94 90 Respiratory Rate 18 Blood Pressure 109/75 Pulse Oximetry 100 Oxygen Delivery 04/17/25 00:00 04/17/25 00:00 04/17/25 02:00 Temperature Pulse Rate 86 83 Respiratory Rate Blood Pressure Pulse Oximetry 100 Oxygen Delivery Room Air 04/17/25 04:00 04/17/25 04:00 04/17/25 04:13 Temperature 36.6 C Pulse Rate 75 77 Respiratory Rate 18 Blood Pressure 108/71 Pulse Oximetry 100 100 Oxygen Delivery Room Air 04/17/25 05:57 04/17/25 08:00 04/17/25 09:09 Temperature 36.4 C L Pulse Rate 79 84 86 Respiratory Rate 24 H Blood Pressure 116/76 Pulse Oximetry 100 Oxygen Delivery Intake/Output Intake/Output: Intake & Output 04/14/25 04/15/25 04/16/25 04/17/25 23:59 23:59 23:59 23:59 Intake Total 75 550 Output Total 2700 1550 Balance -9135 -1000 Meds/Results Medications: Active Medications Generic Name Dose Route Start Last Admin Trade Name Freq PRN Reason Stop Dose Admin Acetaminophen 650 mg 04/16/25 06:16 Acetaminophen 325 Mg Tablet PO Q6H PRN Mild Pain (1-3) or Fever Aspirin 81 mg 06/29/25 09:00 04/17/25 09:09 Aspirin 81 Mg Enteric Tablet PO 81 mg QAM KELIN Administration Carvedilol 25 mg 04/16/25 21:00 04/17/25 09:09 Carvedilol 25 Mg Tablet PO 25 mg Q12HR KELIN Administration Dextrose 12.5 gm 04/16/25 03:08 Dextrose 50% 25 Gm/50 Ml Syringe IV PUSH PRN PRN Hypoglycemia Protocol Furosemide 40 mg 04/16/25 09:00 04/17/25 09:10 Furosemide Inj 40 Mg/4 Ml Vial IV PUSH 40 mg Q12HR KELIN Administration Glucagon 1 mg 04/16/25 03:08 Glucagon For Inj 1 Mg Vial IM PRN PRN Hypoglycemia Protocol Glucose 15 gm 04/16/25 03:08 Glucose Oral Gel 15 Gm Of Glucse In 37.5 Gm Tube PO PRN PRN Hypoglycemia Protocol Dextrose 1,000 mls @ 100 mls/hr 04/16/25 03:08 Dextrose 5% 1,000 Ml IVPB PRN PRN Hypoglycemia Protocol Albumin Human 100 mls @ 60 mls/hr 04/17/25 07:57 04/17/25 09:20 Albutein IVPB 04/17/25 09:36 60 mls/hr ONCE ONE Administration Insulin Aspart 2 - 4 units 04/16/25 21:00 04/16/25 20:32 Insulin Aspart (*Bkc) 100 Units/Ml SUB-Q 4 units HS KELIN Administration Protocol Insulin Aspart 4 - 8 units 04/16/25 08:00 04/17/25 08:54 Insulin Aspart (*Bkc) 100 Units/Ml SUB-Q Not Given TIDWM [facility] Protocol Rivaroxaban 20 mg 04/16/25 17:00 04/16/25 16:33 Rivaroxaban 20 Mg Tablet PO 20 mg DAILY@1700 KELIN Administration Sacubitril/Valsartan 1 tab 04/16/25 21:00 04/17/25 09:09 Sacubitril/Valsartan 24-26 Mg Tablet PO 1 tab Q12HR KELIN Administration Spironolactone 25 mg 04/17/25 09:00 04/17/25 09:09 Spironolactone 25 Mg Tablet PO 25 mg QAM KELIN Administration Thiamine HCl 100 mg 04/17/25 09:00 04/17/25 09:09 Thiamine Hcl 100 Mg Tablet PO 100 mg QAM KELIN Administration Radiology Results: ITS Impressions Chest X-Ray 04/15/25 23:06 IMPRESSION: Mild pulmonary vascular congestion with a large right-sided pleural effusion Chest CT 04/16/25 08:32 IMPRESSION: 1. Moderate to large right and very small left pleural effusions with associated compensatory atelectasis including tarsal collapse of the right lower lobe. 2. Cardiomegaly with minimal pericardial effusion. 3. Prominent body wall edema. Labs Labs: Laboratory Results - last 24 hr 04/16/25 04/16/25 04/16/25 07:13 11:44 13:16 WBC RBC Hgb Hct MCV MCH MCHC RDW Plt Count MPV Immature Gran % (Auto) Neut % (Auto) Lymph % (Auto) [place] % (Auto) Eos % (Auto) Baso % (Auto) Lymph # (Auto) [place] # (Auto) Eos # (Auto) Baso # (Auto) Abs Immat Gran (auto) Absolute Neuts (auto) Absolute Nucleated RBC Nucleated RBC % Sodium Potassium Chloride Carbon Dioxide Anion Gap BUN Creatinine Estim Creat Clear Calc Estimated GFR Glucose POC Capillary Glucose 416 H 456 H Hemoglobin A1c > 14.0 H Calcium Magnesium Total Bilirubin AST ALT Alkaline Phosphatase Total Protein Albumin 04/16/25 04/16/25 04/16/25 16:09 19:31 22:00 WBC RBC Hgb Hct MCV MCH MCHC RDW Plt Count MPV Immature Gran % (Auto) Neut % (Auto) Lymph % (Auto) [place] % (Auto) Eos % (Auto) Baso % (Auto) Lymph # (Auto) [place] # (Auto) Eos # (Auto) Baso # (Auto) Abs Immat Gran (auto) Absolute Neuts (auto) Absolute Nucleated RBC Nucleated RBC % Sodium Potassium Chloride Carbon Dioxide Anion Gap BUN Creatinine Estim Creat Clear Calc Estimated GFR Glucose POC Capillary Glucose 371 H 391 H 455 H Hemoglobin A1c Calcium Magnesium Total Bilirubin AST ALT Alkaline Phosphatase Total Protein Albumin 04/17/25 04/17/25 04/17/25 02:09 02:40 04:20 WBC 5.2 RBC 4.98 Hgb 13.6 L Hct 40.9 L MCV 82.1 MCH 27.3 MCHC 33.3 RDW 15.5 H Plt Count 180 MPV 10.3 Immature Gran % (Auto) 0.4 Neut % (Auto) 53.6 Lymph % (Auto) 33.9 [place] % (Auto) 9.6 H Eos % (Auto) 1.7 Baso % (Auto) 0.8 Lymph # (Auto) 1.77 [place] # (Auto) 0.5 Eos # (Auto) 0.1 Baso # (Auto) 0.0 Abs Immat Gran (auto) 0.02 Absolute Neuts (auto) 2.8 Absolute Nucleated RBC 0.000 Nucleated RBC % 0.0 Sodium 129 L Potassium 3.2 L Chloride 99 Carbon Dioxide 26 Anion Gap 4 BUN 24 H Creatinine 1.04 Estim Creat Clear Calc 93 Estimated GFR > 60 Glucose 219 H POC Capillary Glucose 242 H 237 H Hemoglobin A1c Calcium 7.5 L Magnesium 1.8 Total Bilirubin 0.3 AST 36 ALT 33 Alkaline Phosphatase 85 Total Protein 5.0 L Albumin 2.0 L 04/17/25 08:19 WBC RBC Hgb Hct MCV MCH MCHC RDW Plt Count MPV Immature Gran % (Auto) Neut % (Auto) Lymph % (Auto) [place] % (Auto) Eos % (Auto) Baso % (Auto) Lymph # (Auto) [place] # (Auto) Eos # (Auto) Baso # (Auto) Abs Immat Gran (auto) Absolute Neuts (auto) Absolute Nucleated RBC Nucleated RBC % Sodium Potassium Chloride Carbon Dioxide Anion Gap BUN Creatinine Estim Creat Clear Calc Estimated GFR Glucose POC Capillary Glucose 136 H Hemoglobin A1c Calcium Magnesium Total Bilirubin AST ALT Alkaline Phosphatase Total Protein Albumin
--- NOTE | 2025-04-17 11:53 | PM.IMPN ---
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 Status: Acute (5) Hypertension: Code(s): I10 - Essential (primary) hypertension Status: Acute (6) Alcohol abuse: Code(s): F10.10 - Alcohol abuse, uncomplicated Status: Acute Plan CHF exacerbation, systolic Prior EF 15-20%, down to 10-15% from ECHO this admission CT chest showed bilateral pleural effusion Continue Lasix, fluid restriction 1500cc daily and monitor I's and O's Contineu home meds cardiology following Elevated troponin ECHO no regional wall motion abnormalities, likely demand DM2 SSi with accucheks, monitor and adjust with clinical course HTN Titrate home meds with Clinical course Left ventricular thrombus Continue Xarelto DVT prophylaxis on Xarelto Subjective Date/time seen: 04/17/25 11:53 Interval history: Comfortable at bedside Review of Systems Review of Systems: 12 systems were reviewed and are negative except for as per HPI. Exam Narrative: General: Nontoxic-appearing male in the semi-Valente position in bed in no distress. Weight: 99.4 kg. BMI: 33.3. HEENT: Normocephalic, atraumatic. PERRL, EOMI. Sclera anicteric. Oral mucosa moist. Neck: Supple. Full au. Respiratory: Respirations are nonlabored and he is speaking in full sentences. Fine crackles at the left base and decreased lung sounds on the right. Cardiovascular: Regular rate and rhythm with S1-S2. Gastrointestinal: Abdomen is nontender with positive bowel sounds. Pitting edema at the flanks. Skin: Warm and dry. No rash or lesions on limited exam. Extremities: No cyanosis or clubbing. Significant pitting edema of the lower extremities up to the flanks. Neurological: Alert. Cranial nerves grossly intact. No gross focal deficits to casual conversation. Psychiatric: Pleasant and cooperative with normal mood and flat affect. Objective Data Vital Signs Vital Signs: Vital Signs - 24 hr 04/16/25 12:00 04/16/25 12:00 04/16/25 12:00 Temperature 97.8 F Pulse Rate 84 87 Respiratory Rate 18 Blood Pressure 111/77 Pulse Oximetry 96 96 Oxygen Delivery Room Air 04/16/25 14:00 04/16/25 16:00 04/16/25 16:00 Temperature 97.5 F L Pulse Rate 91 92 Respiratory Rate 20 Blood Pressure 106/85 Pulse Oximetry 96 100 Oxygen Delivery Room Air 04/16/25 16:00 04/16/25 18:00 04/16/25 19:30 Temperature 97.7 F Pulse Rate 93 94 90 Respiratory Rate 20 Blood Pressure 121/91 H Pulse Oximetry 100 Oxygen Delivery 04/16/25 20:00 04/16/25 20:00 04/16/25 20:30 Temperature Pulse Rate 97 95 Respiratory Rate Blood Pressure Pulse Oximetry 100 Oxygen Delivery Room Air 04/16/25 22:00 04/16/25 23:39 04/17/25 00:00 Temperature 98.6 F Pulse Rate 94 90 Respiratory Rate 18 Blood Pressure 109/75 Pulse Oximetry 100 100 Oxygen Delivery Room Air 04/17/25 00:00 04/17/25 02:00 04/17/25 04:00 Temperature Pulse Rate 86 83 75 Respiratory Rate Blood Pressure Pulse Oximetry Oxygen Delivery 04/17/25 04:00 04/17/25 04:13 04/17/25 05:57 Temperature 97.8 F Pulse Rate 77 79 Respiratory Rate 18 Blood Pressure 108/71 Pulse Oximetry 100 100 Oxygen Delivery Room Air 04/17/25 08:00 04/17/25 08:00 04/17/25 08:00 Temperature 97.5 F L Pulse Rate 84 85 Respiratory Rate 24 H Blood Pressure 116/76 Pulse Oximetry 100 100 Oxygen Delivery Room Air 04/17/25 09:09 04/17/25 10:00 Temperature Pulse Rate 86 85 Respiratory Rate Blood Pressure Pulse Oximetry Oxygen Delivery Intake/Output Intake/Output: Intake & Output 04/14/25 04/15/25 04/16/25 04/17/25 23:59 23:59 23:59 23:59 Intake Total 75 550 Output Total 2700 1550 Balance -3685 -1000 Meds/Results Medications: Active Medications Generic Name Dose Route Start Last Admin Trade Name Freq PRN Reason Stop Dose Admin Acetaminophen 650 mg 04/16/25 06:16 Acetaminophen 325 Mg Tablet PO Q6H PRN Mild Pain (1-3) or Fever Aspirin 81 mg 04/17/25 09:00 04/17/25 09:09 Aspirin 81 Mg Enteric Tablet PO 81 mg QAM KELIN Administration Carvedilol 25 mg 04/16/25 21:00 04/17/25 09:09 Carvedilol 25 Mg Tablet PO 25 mg Q12HR KELIN Administration Dextrose 12.5 gm 04/16/25 03:08 Dextrose 50% 25 Gm/50 Ml Syringe IV PUSH PRN PRN Hypoglycemia Protocol Furosemide 40 mg 04/16/25 09:00 04/17/25 09:10 Furosemide Inj 40 Mg/4 Ml Vial IV PUSH 40 mg Q12HR KELIN Administration Glucagon 1 mg 04/16/25 03:08 Glucagon For Inj 1 Mg Vial IM PRN PRN Hypoglycemia Protocol Glucose 15 gm 04/16/25 03:08 Glucose Oral Gel 15 Gm Of Glucse In 37.5 Gm Tube PO PRN PRN Hypoglycemia Protocol Dextrose 1,000 mls @ 100 mls/hr 04/16/25 03:08 Dextrose 5% 1,000 Ml IVPB PRN PRN Hypoglycemia Protocol Insulin Aspart 2 - 4 units 04/16/25 21:00 04/16/25 20:32 Insulin Aspart (*Bkc) 100 Units/Ml SUB-Q 4 units HS KELIN Administration Protocol Insulin Aspart 4 - 8 units 04/16/25 08:00 04/17/25 11:51 Insulin Aspart (*Bkc) 100 Units/Ml SUB-Q Not Given TIDWM KELIN Protocol Rivaroxaban 20 mg 04/16/25 17:00 04/16/25 16:33 Rivaroxaban 20 Mg Tablet PO 20 mg DAILY@1700 KELIN Administration Sacubitril/Valsartan 1 tab 04/16/25 21:00 04/17/25 09:09 Sacubitril/Valsartan 24-26 Mg Tablet PO 1 tab Q12HR KELIN Administration Spironolactone 25 mg 04/17/25 09:00 04/17/25 09:09 Spironolactone 25 Mg Tablet PO 25 mg QAM KELIN Administration Thiamine HCl 100 mg 04/17/25 09:00 04/17/25 09:09 Thiamine Hcl 100 Mg Tablet PO 100 mg QAM KELNI Administration Radiology Results: ITS Impressions Chest X-Ray 04/15/25 23:06 IMPRESSION: Mild pulmonary vascular congestion with a large right-sided pleural effusion Chest CT 04/16/25 08:32 IMPRESSION: 1. Moderate to large right and very small left pleural effusions with associated compensatory atelectasis including tarsal collapse of the right lower lobe. 2. Cardiomegaly with minimal pericardial effusion. 3. Prominent body wall edema. Labs Labs: Laboratory Results - last 24 hr 04/16/25 04/16/25 04/16/25 07:13 11:44 13:16 WBC RBC Hgb Hct MCV MCH MCHC RDW Plt Count MPV Immature Gran % (Auto) Neut % (Auto) Lymph % (Auto) [place] % (Auto) Eos % (Auto) Baso % (Auto) Lymph # (Auto) [place] # (Auto) Eos # (Auto) Baso # (Auto) Abs Immat Gran (auto) Absolute Neuts (auto) Absolute Nucleated RBC Nucleated RBC % Sodium Potassium Chloride Carbon Dioxide Anion Gap BUN Creatinine Estim Creat Clear Calc Estimated GFR Glucose POC Capillary Glucose 416 H 456 H Hemoglobin A1c > 14.0 H Calcium Magnesium Total Bilirubin AST ALT Alkaline Phosphatase Total Protein Albumin 04/16/25 04/16/25 04/16/25 16:09 19:31 22:00 WBC RBC Hgb Hct MCV MCH MCHC RDW Plt Count MPV Immature Gran % (Auto) Neut % (Auto) Lymph % (Auto) [place] % (Auto) Eos % (Auto) Baso % (Auto) Lymph # (Auto) [place] # (Auto) Eos # (Auto) Baso # (Auto) Abs Immat Gran (auto) Absolute Neuts (auto) Absolute Nucleated RBC Nucleated RBC % Sodium Potassium Chloride Carbon Dioxide Anion Gap BUN Creatinine Estim Creat Clear Calc Estimated GFR Glucose POC Capillary Glucose 371 H 391 H 455 H Hemoglobin A1c Calcium Magnesium Total Bilirubin AST ALT Alkaline Phosphatase Total Protein Albumin 04/17/25 04/17/25 04/17/25 02:09 02:40 04:20 WBC 5.2 RBC 4.98 Hgb 13.6 L Hct 40.9 L MCV 82.1 MCH 27.3 MCHC 33.3 RDW 15.5 H Plt Count 180 MPV 10.3 Immature Gran % (Auto) 0.4 Neut % (Auto) 53.6 Lymph % (Auto) 33.9 [place] % (Auto) 9.6 H Eos % (Auto) 1.7 Baso % (Auto) 0.8 Lymph # (Auto) 1.77 [place] # (Auto) 0.5 Eos # (Auto) 0.1 Baso # (Auto) 0.0 Abs Immat Gran (auto) 0.02 Absolute Neuts (auto) 2.8 Absolute Nucleated RBC 0.000 Nucleated RBC % 0.0 Sodium 129 L Potassium 3.2 L Chloride 99 Carbon Dioxide 26 Anion Gap 4 BUN 24 H Creatinine 1.04 Estim Creat Clear Calc 93 Estimated GFR > 60 Glucose 219 H POC Capillary Glucose 242 H 237 H Hemoglobin A1c Calcium 7.5 L Magnesium 1.8 Total Bilirubin 0.3 AST 36 ALT 33 Alkaline Phosphatase 85 Total Protein 5.0 L Albumin 2.0 L 04/17/25 08:19 WBC RBC Hgb Hct MCV MCH MCHC RDW Plt Count MPV Immature Gran % (Auto) Neut % (Auto) Lymph % (Auto) [place] % (Auto) Eos % (Auto) Baso % (Auto) Lymph # (Auto) [place] # (Auto) Eos # (Auto) Baso # (Auto) Abs Immat Gran (auto) Absolute Neuts (auto) Absolute Nucleated RBC Nucleated RBC % Sodium Potassium Chloride Carbon Dioxide Anion Gap BUN Creatinine Estim Creat Clear Calc Estimated GFR Glucose POC Capillary Glucose 136 H Hemoglobin A1c Calcium Magnesium Total Bilirubin AST ALT Alkaline Phosphatase Total Protein Albumin Quality VTE Prophylaxis VTE prophylaxis: pharmacologic ordered (On Xarelto)
[2025-04-17] MEDS: RIVAROXABAN 20 MG TABLET PO (17:29)
[2025-04-17] MEDS: INSULIN ASPART (*BKC) 100 UNITS/ML SUB-Q ×2 (17:30→20:22)
[2025-04-18] VITALS (14 sets, daily range): BP systolic 99–119; BP diastolic 63–93; PULSE 69–98; RESP 16–20; TEMP 36.3–36.9; O2SAT 93–100
[2025-04-18 04:15] LABS: Hematocrit 44.5 % (42.0-52.0); Hemoglobin 14.7 g/dL (14.0-18.0); Immature Granulocyte Percent A 0.4 % (0-0.5); Lymphocytes Absolute Auto 1.95 K/mm3 (0.9-3.2); Mean Corpuscular HGB Conc 33.0 g/dl (32-36); Mean Corpuscular Hemoglobin 27.4 pg (26-34); Mean Corpuscular Volume 83.0 fl (80-100); Nucleated Red Blood Cells Absolute Auto 0.000 K/mm3 (0.0-0.012); Nucleated Red Blood Cells Perc 0.0 % (0.0-0.2); Platelet Count Result 188 k/mm3 (150-375); Red Blood Count 5.36 M/mm3 (4.6-6.20); White Blood Count 5.2 K/mm3 (4.5-10.0)
[2025-04-18 04:32] LABS: Alanine Aminotransferase 39 U/L (6-50); Albumin Level 2.6 g/dL (3.5-5.1); Alkaline Phosphatase 98 U/L (38-126); Anion Gap 6 mmol/L (4-12); Aspartate Amino Transferase 46 U/L (17-59); Bilirubin,Total 0.5 mg/dL (0.2-1.3); Blood Urea Nitrogen 28 mg/dL (9-20); Calcium 7.6 mg/dL (8.4-10.2); Carbon Dioxide 25 mmol/L (22-30); Chloride 98 mmol/L (98-107); Estimated CRCL calculation 87 ml/min; Estimated Glomerular Filt Rate > 60; Glucose 308 mg/dL (65-110); Magnesium 1.8 mg/dL (1.6-2.3); Potassium 3.4 mmol/L (3.4-5.0); Sodium 129 mmol/L (137-145); Total Protein 5.8 g/dL (6.3-8.2)
[2025-04-18] MEDS: INSULIN ASPART (*BKC) 100 UNITS/ML SUB-Q ×3 (08:15→16:24)
[2025-04-18] MEDS: ASPIRIN 81 MG ENTERIC TABLET PO (08:16)
[2025-04-18] MEDS: SACUBITRIL/VALSARTAN 24-26 MG TABLET 1 TAB PO ×2 (08:16→20:56)
[2025-04-18] MEDS: FUROSEMIDE INJ 40 MG/4 ML VIAL IV PUSH ×2 (08:16→20:57)
[2025-04-18] MEDS: SPIRONOLACTONE 25 MG TABLET PO (08:16)
[2025-04-18] MEDS: THIAMINE HCL 100 MG TABLET PO (08:17)
--- NOTE | 2025-04-18 10:21 | PC.NURSE ---
Patient has been in the bathroom for an hour and 20 min. this RN checked on the patient at 30 min and 45 mins. and now. He is alert and responsive, sitting on the toilet. Denies complaints at this time. States he is still going to the bathroom.
--- NOTE | 2025-04-18 11:26 | P.PNCA_ITS ---
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 for today. Will likely shift to p.o. tomorrow. -continue Entresto, spironolactone, carvedilol -CHF counseling -1500cc fluid restriction Left ventricular apical thrombus -continue Xarelto Hypertension -well controlled on Entresto 24-26 mg p.o. b.i.d. and spironolactone 25 mg p.o. daily Wounds -consult care -outpatient follow-up and if not healing in the next few weeks recommend pursuing ultrasound ALISSA in clinic Poor prognosis given his multiple admission, continue excessive alcohol intake, and noncompliance Anticipate discharge in the next 24 - 48 hours. Subjective Date/time seen: 04/18/25 11:26 Interval history: Cardiology follow up visit Shortness of breath, chest pain, lower extremity swelling is improving. His chronic lower extremity wounds with intact dressing. Date of service 04/18/2025: Feeling better today. Swelling has improved as well as shortness of breath. Still has orthopnea. No chest pain. Review of Systems Cardiovascular: Cardiovascular: Reports as per HPI Respiratory: Respiratory: Reports as per HPI Exam Const: General: comfortable HENMT: Mouth: Yes moist mucous membranes Eyes: EOM: EOMs intact bilaterally Neck: Neck: no JVD Resp: Effort & Inspection: normal respiratory effort Auscultation: clear to auscultation bilaterally and rales Cardio: Rate: regular rate Rhythm: regular rhythm GI: Inspection: normal to inspection Neuro: Speech: normal speech Extrem: Other: Mild bilateral pretibial and pedal edema Objective Data Vital Signs Vital Signs: Vital Signs - 24 hr 04/17/25 12:00 04/17/25 12:00 04/17/25 12:00 Temperature 35.8 C L Pulse Rate 87 86 Respiratory Rate 20 Blood Pressure 112/83 Pulse Oximetry 100 100 Oxygen Delivery Room Air Fraction of Inspired Oxygen 04/17/25 14:00 04/17/25 16:00 04/17/25 16:00 Temperature 36.4 C L Pulse Rate 84 88 Respiratory Rate 20 Blood Pressure 111/81 Pulse Oximetry 100 100 Oxygen Delivery Room Air Fraction of Inspired Oxygen 04/17/25 16:00 04/17/25 18:00 04/17/25 19:59 Temperature 36.9 C Pulse Rate 87 92 91 Respiratory Rate 16 Blood Pressure 119/85 Pulse Oximetry 100 Oxygen Delivery Fraction of Inspired Oxygen 04/17/25 20:00 04/17/25 20:00 04/17/25 20:23 Temperature Pulse Rate 91 91 Respiratory Rate Blood Pressure Pulse Oximetry 100 Oxygen Delivery Room Air Fraction of Inspired Oxygen 04/17/25 21:00 04/17/25 21:59 04/17/25 23:54 Temperature 36.9 C Pulse Rate 91 93 Respiratory Rate 16 Blood Pressure 112/67 Pulse Oximetry 100 100 Oxygen Delivery Room Air Fraction of Inspired Oxygen 04/18/25 00:00 04/18/25 00:00 04/18/25 02:00 Temperature Pulse Rate 93 94 Respiratory Rate Blood Pressure Pulse Oximetry 100 Oxygen Delivery Room Air Fraction of Inspired Oxygen 04/18/25 03:04 04/18/25 04:00 04/18/25 04:00 Temperature 36.9 C Pulse Rate 93 93 Respiratory Rate 16 Blood Pressure 110/83 Pulse Oximetry 100 100 Oxygen Delivery Room Air Fraction of Inspired Oxygen 04/18/25 06:00 04/18/25 08:00 04/18/25 08:00 Temperature Pulse Rate 90 98 98 Respiratory Rate 20 Blood Pressure Pulse Oximetry 99 Oxygen Delivery Room Air Fraction of Inspired Oxygen 04/18/25 08:01 04/18/25 08:16 04/18/25 10:00 Temperature 36.3 C L Pulse Rate 91 95 97 Respiratory Rate 20 Blood Pressure 119/93 H Pulse Oximetry 99 Oxygen Delivery Fraction of Inspired Oxygen Intake/Output Intake/Output: Intake & Output 04/15/25 04/16/25 04/17/25 06/30/25 23:59 23:59 23:59 23:59 Intake Total 55 5020 1480 Output Total 0733 [id number] [id number] [phone] Meds/Results Medications: Active Medications Generic Name Dose Route Start Last Admin Trade Name Freq PRN Reason Stop Dose Admin Acetaminophen 650 mg 04/16/25 06:16 Acetaminophen 325 Mg Tablet PO Q6H PRN Mild Pain (1-3) or Fever Aspirin 81 mg 04/17/25 09:00 04/18/25 08:16 Aspirin 81 Mg Enteric Tablet PO 81 mg QAM KELIN Administration Carvedilol 25 mg 04/16/25 21:00 04/18/25 08:16 Carvedilol 25 Mg Tablet PO 25 mg Q12HR KELIN Administration Dextrose 12.5 gm 04/16/25 03:08 Dextrose 50% 25 Gm/50 Ml Syringe IV PUSH PRN PRN Hypoglycemia Protocol Furosemide 40 mg 04/16/25 09:00 04/18/25 08:16 Furosemide Inj 40 Mg/4 Ml Vial IV PUSH 40 mg Q12HR KELIN Administration Glucagon 1 mg 04/16/25 03:08 Glucagon For Inj 1 Mg Vial IM PRN PRN Hypoglycemia Protocol Glucose 15 gm 04/16/25 03:08 Glucose Oral Gel 15 Gm Of Glucse In 37.5 Gm Tube PO PRN PRN Hypoglycemia Protocol Dextrose 1,000 mls @ 100 mls/hr 04/16/25 03:08 Dextrose 5% 1,000 Ml IVPB PRN PRN Hypoglycemia Protocol Insulin Aspart 2 - 4 units 04/16/25 21:00 04/17/25 20:22 Insulin Aspart (*Bkc) 100 Units/Ml SUB-Q 4 units HS KELIN Administration Protocol Insulin Aspart 4 - 8 units 04/16/25 08:00 04/18/25 08:15 Insulin Aspart (*Bkc) 100 Units/Ml SUB-Q 8 units TIDWM KELIN Administration Protocol Rivaroxaban 20 mg 04/16/25 17:00 04/17/25 17:29 Rivaroxaban 20 Mg Tablet PO 20 mg DAILY@1700 KELIN Administration Sacubitril/Valsartan 1 tab 04/16/25 21:00 04/18/25 08:16 Sacubitril/Valsartan 24-26 Mg Tablet PO 1 tab Q12HR KELIN Administration Spironolactone 25 mg 04/17/25 09:00 04/18/25 08:16 Spironolactone 25 Mg Tablet PO 25 mg QAM KELIN Administration Thiamine HCl 100 mg 04/17/25 09:00 04/18/25 08:17 Thiamine Hcl 100 Mg Tablet PO 100 mg QAM KELIN Administration Radiology Results: ITS Impressions Chest X-Ray 04/15/25 23:06 IMPRESSION: Mild pulmonary vascular congestion with a large right-sided pleural effusion Chest CT 04/16/25 08:32 IMPRESSION: 1. Moderate to large right and very small left pleural effusions with associated compensatory atelectasis including tarsal collapse of the right lower lobe. 2. Cardiomegaly with minimal pericardial effusion. 3. Prominent body wall edema. Labs Labs: Laboratory Results - last 24 hr 04/17/25 04/17/25 04/17/25 11:31 16:12 20:06 WBC RBC Hgb Hct MCV MCH MCHC RDW Plt Count MPV Immature Gran % (Auto) Neut % (Auto) Lymph % (Auto) [place] % (Auto) Eos % (Auto) Baso % (Auto) Lymph # (Auto) [place] # (Auto) Eos # (Auto) Baso # (Auto) Abs Immat Gran (auto) Absolute Neuts (auto) Absolute Nucleated RBC Nucleated RBC % Sodium Potassium Chloride Carbon Dioxide Anion Gap BUN Creatinine Estim Creat Clear Calc Estimated GFR Glucose POC Capillary Glucose 215 H 345 H 362 H Calcium Magnesium Total Bilirubin AST ALT Alkaline Phosphatase Total Protein Albumin 04/18/25 04/18/25 03:43 07:37 WBC 5.2 RBC 5.36 Hgb 14.7 Hct 44.5 MCV 83.0 MCH 27.4 MCHC 33.0 RDW 15.8 H Plt Count 188 MPV 10.8 H Immature Gran % (Auto) 0.4 Neut % (Auto) 49.4 Lymph % (Auto) 37.9 [place] % (Auto) 9.9 H Eos % (Auto) 1.4 Baso % (Auto) 1.0 Lymph # (Auto) 1.95 [place] # (Auto) 0.5 Eos # (Auto) 0.1 Baso # (Auto) 0.1 Abs Immat Gran (auto) 0.02 Absolute Neuts (auto) 2.6 Absolute Nucleated RBC 0.000 Nucleated RBC % 0.0 Sodium 129 L Potassium 3.4 Chloride 98 Carbon Dioxide 25 Anion Gap 6 BUN 28 H Creatinine 1.11 Estim Creat Clear Calc 87 Estimated GFR > 60 Glucose 308 H POC Capillary Glucose 400 H Calcium 7.6 L Magnesium 1.8 Total Bilirubin 0.5 AST 46 ALT 39 Alkaline Phosphatase 98 Total Protein 5.8 L Albumin 2.6 L Quality VTE Prophylaxis VTE prophylaxis: pharmacologic ordered (On Xarelto)
--- NOTE | 2025-04-18 11:58 | PC.NURSE ---
blood glucose level 447, 8 units of insulin given and doctor called to inform of blood sugar greater than 400. The doctor did not answer, this RN left a message stating what the blood glucose level was, and the amount of insulin given at this time. This RN also requested Lantus if the MD saw it fit to give. This RN did also inform the MD that the patient said it is not necessary to increase the insulin.
--- NOTE | 2025-04-18 14:45 | P.PNIM_ITS ---
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 Status: Acute (5) Hypertension: Code(s): I10 - Essential (primary) hypertension Status: Acute (6) Alcohol abuse: Code(s): F10.10 - Alcohol abuse, uncomplicated Status: Acute Plan CHF exacerbation, systolic Prior EF 15-20%, down to 10-15% from ECHO this admission CT chest showed bilateral pleural effusion Continue Lasix, fluid restriction 1500cc daily and monitor I's and O's Contineu Entresto, Spironolactone and carvedilol cardiology following Elevated troponin ECHO no regional wall motion abnormalities, likely demand DM2 SSi with accucheks, monitor and adjust with clinical course HTN Titrate home meds with Clinical course Left ventricular thrombus Continue Xarelto Lower ulcer continue wound care wound care following DM2 Continue Lantus and SSi with accucheks and adjust with clinical course DVT prophylaxis on Xarelto Discharge pending euvolemia with diuresis (per cardiology) Subjective Date/time seen: 04/18/25 14:45 Interval history: Comfortable at bedside Patient is known to be non compliant with medications at home Review of Systems Review of Systems: 12 systems were reviewed and are negativ e except for as per HPI. Exam Narrative: General: Nontoxic-appearing male in the semi-Valente position in bed in no distress. Weight: 99.4 kg. BMI: 33.3. HEENT: Normocephalic, atraumatic. PERRL, EOMI. Sclera anicteric. Oral mucosa moist. Neck: Supple. Full au. Respiratory: Respirations are nonlabored and he is speaking in full sentences. Fine crackles at the left base and decreased lung sounds on the right. Cardiovascular: Regular rate and rhythm with S1-S2. Gastrointestinal: Abdomen is nontender with positive bowel sounds. Pitting edema at the flanks. Skin: Warm and dry. No rash or lesions on limited exam. Extremities: No cyanosis or clubbing. Significant pitting edema of the lower extremities up to the flanks. Neurological: Alert. Cranial nerves grossly intact. No gross focal deficits to casual conversation. Psychiatric: Pleasant and cooperative with normal mood and flat affect. Objective Data Vital Signs Vital Signs: Vital Signs - 24 hr 04/17/25 16:00 04/17/25 16:00 04/17/25 16:00 Temperature 97.5 F L Pulse Rate 88 87 Respiratory Rate 20 Blood Pressure 111/81 Pulse Oximetry 100 100 Oxygen Delivery Room Air Fraction of Inspired Oxygen 04/17/25 18:00 04/17/25 19:59 04/17/25 20:00 Temperature 98.4 F Pulse Rate 92 91 Respiratory Rate 16 Blood Pressure 119/85 Pulse Oximetry 100 100 Oxygen Delivery Room Air Fraction of Inspired Oxygen 04/17/25 20:00 04/17/25 20:23 04/17/25 21:00 Temperature Pulse Rate 91 91 Respiratory Rate Blood Pressure Pulse Oximetry 100 Oxygen Delivery Room Air Fraction of Inspired Oxygen 04/17/25 21:59 04/17/25 23:54 04/18/25 00:00 Temperature 98.4 F Pulse Rate 91 93 93 Respiratory Rate 16 Blood Pressure 112/67 Pulse Oximetry 100 Oxygen Delivery Fraction of Inspired Oxygen 04/18/25 00:00 04/18/25 02:00 04/18/25 03:04 Temperature 98.4 F Pulse Rate 94 93 Respiratory Rate 16 Blood Pressure 110/83 Pulse Oximetry 100 100 Oxygen Delivery Room Air Fraction of Inspired Oxygen 04/18/25 04:00 04/18/25 04:00 04/18/25 06:00 Temperature Pulse Rate 93 90 Respiratory Rate Blood Pressure Pulse Oximetry 100 Oxygen Delivery Room Air Fraction of Inspired Oxygen 04/18/25 08:00 04/18/25 08:00 04/18/25 08:01 Temperature 97.3 F L Pulse Rate 98 98 91 Respiratory Rate 20 20 Blood Pressure 119/93 H Pulse Oximetry 99 99 Oxygen Delivery Room Air Fraction of Inspired Oxygen 04/18/25 08:16 04/18/25 10:00 Temperature Pulse Rate 95 97 Respiratory Rate Blood Pressure Pulse Oximetry Oxygen Delivery Fraction of Inspired Oxygen Intake/Output Intake/Output: Intake & Output 04/15/25 04/16/25 04/17/25 06/30/25 23:59 23:59 23:59 23:59 Intake Total 72 4977 8860 Output Total 0900 6476 1780 [facility] -2625 -910 -980 Meds/Results Medications: Active Medications Generic Name Dose Route Start Last Admin Trade Name Freq PRN Reason Stop Dose Admin Acetaminophen 650 mg 04/16/25 06:16 Acetaminophen 325 Mg Tablet PO Q6H PRN Mild Pain (1-3) or Fever Aspirin 81 mg 04/17/25 09:00 04/18/25 08:16 Aspirin 81 Mg Enteric Tablet PO 81 mg QAM KELIN Administration Carvedilol 25 mg 04/16/25 21:00 04/18/25 08:16 Carvedilol 25 Mg Tablet PO 25 mg Q12HR KELIN Administration Dextrose 12.5 gm 04/16/25 03:08 Dextrose 50% 25 Gm/50 Ml Syringe IV PUSH PRN PRN Hypoglycemia Protocol Furosemide 40 mg 04/16/25 09:00 04/18/25 08:16 Furosemide Inj 40 Mg/4 Ml Vial IV PUSH 40 mg Q12HR KELIN Administration Glucagon 1 mg 04/16/25 03:08 Glucagon For Inj 1 Mg Vial IM PRN PRN Hypoglycemia Protocol Glucose 15 gm 04/16/25 03:08 Glucose Oral Gel 15 Gm Of Glucse In 37.5 Gm Tube PO PRN PRN Hypoglycemia Protocol Dextrose 1,000 mls @ 100 mls/hr 04/16/25 03:08 Dextrose 5% 1,000 Ml IVPB PRN PRN Hypoglycemia Protocol Insulin Aspart 2 - 4 units 04/16/25 21:00 04/17/25 20:22 Insulin Aspart (*Bkc) 100 Units/Ml SUB-Q 4 units HS KELIN Administration Protocol Insulin Aspart 4 - 8 units 04/16/25 08:00 04/18/25 11:52 Insulin Aspart (*Bkc) 100 Units/Ml SUB-Q 8 units TIDWM KELIN Administration Protocol Rivaroxaban 20 mg 04/16/25 17:00 04/17/25 17:29 Rivaroxaban 20 Mg Tablet PO 20 mg DAILY@1700 KELIN Administration Sacubitril/Valsartan 1 tab 04/16/25 21:00 04/18/25 08:16 Sacubitril/Valsartan 24-26 Mg Tablet PO 1 tab Q12HR KELIN Administration Spironolactone 25 mg 06/29/25 09:00 04/18/25 08:16 Spironolactone 25 Mg Tablet PO 25 mg QAM KELIN Administration Thiamine HCl 100 mg 04/17/25 09:00 04/18/25 08:17 Thiamine Hcl 100 Mg Tablet PO 100 mg QAM KELIN Administration Radiology Results: ITS Impressions Chest X-Ray 04/15/25 23:06 IMPRESSION: Mild pulmonary vascular congestion with a large right-sided pleural effusion Chest CT 04/16/25 08:32 IMPRESSION: 1. Moderate to large right and very small left pleural effusions with associated compensatory atelectasis including tarsal collapse of the right lower lobe. 2. Cardiomegaly with minimal pericardial effusion. 3. Prominent body wall edema. Labs Labs: Laboratory Results - last 24 hr 04/17/25 04/17/25 04/18/25 16:12 20:06 03:43 WBC 5.2 RBC 5.36 Hgb 14.7 Hct 44.5 MCV 83.0 MCH 27.4 MCHC 33.0 RDW 15.8 H Plt Count 188 MPV 10.8 H Immature Gran % (Auto) 0.4 Neut % (Auto) 49.4 Lymph % (Auto) 37.9 [place] % (Auto) 9.9 H Eos % (Auto) 1.4 Baso % (Auto) 1.0 Lymph # (Auto) 1.95 [place] # (Auto) 0.5 Eos # (Auto) 0.1 Baso # (Auto) 0.1 Abs Immat Gran (auto) 0.02 Absolute Neuts (auto) 2.6 Absolute Nucleated RBC 0.000 Nucleated RBC % 0.0 Sodium 129 L Potassium 3.4 Chloride 98 Carbon Dioxide 25 Anion Gap 6 BUN 28 H Creatinine 1.11 Estim Creat Clear Calc 87 Estimated GFR > 60 Glucose 308 H POC Capillary Glucose 345 H 362 H Calcium 7.6 L Magnesium 1.8 Total Bilirubin 0.5 AST 46 ALT 39 Alkaline Phosphatase 98 Total Protein 5.8 L Albumin 2.6 L 04/18/25 04/18/25 07:37 11:48 WBC RBC Hgb Hct MCV MCH MCHC RDW Plt Count MPV Immature Gran % (Auto) Neut % (Auto) Lymph % (Auto) [place] % (Auto) Eos % (Auto) Baso % (Auto) Lymph # (Auto) [place] # (Auto) Eos # (Auto) Baso # (Auto) Abs Immat Gran (auto) Absolute Neuts (auto) Absolute Nucleated RBC Nucleated RBC % Sodium Potassium Chloride Carbon Dioxide Anion Gap BUN Creatinine Estim Creat Clear Calc Estimated GFR Glucose POC Capillary Glucose 400 H 447 H Calcium Magnesium Total Bilirubin AST ALT Alkaline Phosphatase Total Protein Albumin Quality VTE Prophylaxis VTE prophylaxis: pharmacologic ordered (On Xarelto)
[2025-04-18] MEDS: RIVAROXABAN 20 MG TABLET PO (16:24)
--- NOTE | 2025-04-18 17:35 | PC.NURSE ---
bilateral lower extremity dressings changed as ordered.
[2025-04-18] MEDS: INSULIN HUMAN REGULAR (*BKC) 100 UNITS/ML 12 UNITS SUB-Q (21:56)
[2025-04-19 04:55] LABS: Hematocrit 45.0 % (42.0-52.0); Hemoglobin 14.7 g/dL (14.0-18.0); Immature Granulocyte Percent A 0.4 % (0-0.5); Lymphocytes Absolute Auto 2.03 K/mm3 (0.9-3.2); Mean Corpuscular HGB Conc 32.7 g/dl (32-36); Mean Corpuscular Hemoglobin 27.3 pg (26-34); Mean Corpuscular Volume 83.5 fl (80-100); Nucleated Red Blood Cells Absolute Auto 0.000 K/mm3 (0.0-0.012); Nucleated Red Blood Cells Perc 0.0 % (0.0-0.2); Platelet Count Result 169 k/mm3 (150-375); Red Blood Count 5.39 M/mm3 (4.6-6.20); White Blood Count 4.8 K/mm3 (4.5-10.0)
[2025-04-19 05:09] LABS: Alanine Aminotransferase 36 U/L (6-50); Albumin Level 2.6 g/dL (3.5-5.1); Alkaline Phosphatase 87 U/L (38-126); Anion Gap 6 mmol/L (4-12); Aspartate Amino Transferase 43 U/L (17-59); Bilirubin,Total 0.6 mg/dL (0.2-1.3); Blood Urea Nitrogen 28 mg/dL (9-20); Calcium 7.7 mg/dL (8.4-10.2); Carbon Dioxide 28 mmol/L (22-30); Chloride 98 mmol/L (98-107); Estimated CRCL calculation 95 ml/min; Estimated Glomerular Filt Rate > 60; Glucose 132 mg/dL (65-110); Magnesium 1.8 mg/dL (1.6-2.3); Potassium 3.3 mmol/L (3.4-5.0); Sodium 132 mmol/L (137-145); Total Protein 5.8 g/dL (6.3-8.2)
[2025-04-19 08:22] VITALS: BP 124/93; PULSE 95; RESP 18; TEMP 36.8; O2SAT 100
--- NOTE | 2025-04-19 09:03 | P.PNCA_ITS ---
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 furosemide today, 80mg b.i.d. Will give metolazone 2.5mg x 1 as well. -LAMAR ayers -continue Entresto, spironolactone, carvedilol -CHF counseling -1500cc fluid restriction Left ventricular apical thrombus -continue Xarelto Hypertension -well controlled on Entresto 24-26 mg p.o. b.i.d. and spironolactone 25 mg p.o. daily Wounds -consult care -outpatient follow-up and if not healing in the next few weeks recommend pursuing ultrasound ALISSA in clinic Poor prognosis given his multiple admission, continue excessive alcohol intake, and noncompliance Anticipate discharge in the next 24 - 48 hours. Subjective Date/time seen: 04/19/25 09:03 Interval history: Cardiology follow up visit Shortness of breath, chest pain, lower extremity swelling is improving. His chronic lower extremity wounds with intact dressing. Date of service 04/18/2025: Feeling better today. Swelling has improved as well as shortness of breath. Still has orthopnea. No chest pain. Date of service 04/19/2025: Continues to feel better. Denies shortness of breath unless he bends over. Complaining of scrotal edema and states his genitals are deformed. Review of Systems Cardiovascular: Cardiovascular: Reports as per HPI Respiratory: Respiratory: Reports as per HPI Exam Const: General: comfortable HENMT: Mouth: Yes moist mucous membranes Eyes: EOM: EOMs intact bilaterally Neck: Neck: no JVD Resp: Effort & Inspection: normal respiratory effort Auscultation: clear to auscultation bilaterally and rales on the left in the lower lung valles Cardio: Rate: regular rate Rhythm: regular rhythm GI: Inspection: normal to inspection and distended Neuro: Speech: normal speech Extrem: General: edema and pedal edema Other: Mild bilateral pretibial and pedal edema Objective Data Vital Signs Vital Signs: Vital Signs - 24 hr 04/18/25 10:00 04/18/25 16:23 04/18/25 20:00 Temperature 36.7 C Pulse Rate 97 84 Respiratory Rate 18 20 Blood Pressure 99/63 L Pulse Oximetry 98 Oxygen Delivery Room Air 04/18/25 20:51 04/18/25 20:55 04/18/25 23:59 Temperature 36.4 C Pulse Rate 82 69 91 Respiratory Rate 16 Blood Pressure 112/86 Pulse Oximetry 93 Oxygen Delivery 04/19/25 08:22 Temperature 36.8 C Pulse Rate 95 Respiratory Rate 18 Blood Pressure 124/93 H Pulse Oximetry 100 Oxygen Delivery Intake/Output Intake/Output: Intake & Output 04/16/25 04/17/25 04/18/25 04/19/25 23:59 23:59 23:59 23:59 Intake Total 75 2040 2160 390 Output Total 2700 2950 3300 [facility]2625 -910 -1140 390 Meds/Results Medications: Active Medications Generic Name Dose Route Start Last Admin Trade Name Freq PRN Reason Stop Dose Admin Acetaminophen 650 mg 04/16/25 06:16 Acetaminophen 325 Mg Tablet PO Q6H PRN Mild Pain (1-3) or Fever Aspirin 81 mg 04/17/25 09:00 04/18/25 08:16 Aspirin 81 Mg Enteric Tablet PO 81 mg QAM KELIN Administration Carvedilol 25 mg 04/16/25 21:00 04/18/25 20:55 Carvedilol 25 Mg Tablet PO 25 mg Q12HR KELIN Administration Dextrose 12.5 gm 04/16/25 03:08 Dextrose 50% 25 Gm/50 Ml Syringe IV PUSH PRN PRN Hypoglycemia Protocol Furosemide 60 mg 04/19/25 09:00 Furosemide 20 Mg Tablet PO BID KELIN Glucagon 1 mg 04/16/25 03:08 Glucagon For Inj 1 Mg Vial IM PRN PRN Hypoglycemia Protocol Glucose 15 gm 04/16/25 03:08 Glucose Oral Gel 15 Gm Of Glucse In 37.5 Gm Tube PO PRN PRN Hypoglycemia Protocol Dextrose 1,000 mls @ 100 mls/hr 04/16/25 03:08 Dextrose 5% 1,000 Ml IVPB PRN PRN Hypoglycemia Protocol Insulin Aspart 2 - 4 units 04/16/25 21:00 04/18/25 21:54 Insulin Aspart (*Bkc) 100 Units/Ml SUB-Q Not Given HS KELIN Protocol Insulin Aspart 4 - 8 units 04/16/25 08:00 04/18/25 16:24 Insulin Aspart (*Bkc) 100 Units/Ml SUB-Q 8 units TIDWM KELIN Administration Protocol Insulin Glargine 15 units 04/19/25 21:00 Insulin Glargine (*Bkc) 100 Units/Ml SUB-Q HS KELIN Rivaroxaban 20 mg 04/16/25 17:00 04/18/25 16:24 Rivaroxaban 20 Mg Tablet PO 20 mg DAILY@1700 KELIN Administration Sacubitril/Valsartan 1 tab 04/16/25 21:00 04/18/25 20:56 Sacubitril/Valsartan 24-26 Mg Tablet PO 1 tab Q12HR KELIN Administration Spironolactone 25 mg 04/17/25 09:00 04/18/25 08:16 Spironolactone 25 Mg Tablet PO 25 mg QAM KELIN Administration Thiamine HCl 100 mg 04/17/25 09:00 04/18/25 08:17 Thiamine Hcl 100 Mg Tablet PO 100 mg QAM KELIN Administration Radiology Results: ITS Impressions Chest X-Ray 04/15/25 23:06 IMPRESSION: Mild pulmonary vascular congestion with a large right-sided pleural effusion Chest CT 04/16/25 08:32 IMPRESSION: 1. Moderate to large right and very small left pleural effusions with associated compensatory atelectasis including tarsal collapse of the right lower lobe. 2. Cardiomegaly with minimal pericardial effusion. 3. Prominent body wall edema. Labs Labs: Laboratory Results - last 24 hr 04/18/25 04/18/25 04/18/25 11:48 16:11 20:39 WBC RBC Hgb Hct MCV MCH MCHC RDW Plt Count MPV Immature Gran % (Auto) Neut % (Auto) Lymph % (Auto) [place] % (Auto) Eos % (Auto) Baso % (Auto) Lymph # (Auto) [place] # (Auto) Eos # (Auto) Baso # (Auto) Abs Immat Gran (auto) Absolute Neuts (auto) Absolute Nucleated RBC Nucleated RBC % Sodium Potassium Chloride Carbon Dioxide Anion Gap BUN Creatinine Estim Creat Clear Calc Estimated GFR Glucose POC Capillary Glucose 447 H 371 H 405 H Calcium Magnesium Total Bilirubin AST ALT Alkaline Phosphatase Total Protein Albumin 04/19/25 04/19/25 04:04 07:33 WBC 4.8 RBC 5.39 Hgb 14.7 Hct 45.0 MCV 83.5 MCH 27.3 MCHC 32.7 RDW 15.7 H Plt Count 169 MPV 10.5 H Immature Gran % (Auto) 0.4 Neut % (Auto) 42.4 L Lymph % (Auto) 42.7 [place] % (Auto) 12.2 H Eos % (Auto) 1.5 Baso % (Auto) 0.8 Lymph # (Auto) 2.03 [place] # (Auto) 0.6 Eos # (Auto) 0.1 Baso # (Auto) 0.0 Abs Immat Gran (auto) 0.02 Absolute Neuts (auto) 2.0 Absolute Nucleated RBC 0.000 Nucleated RBC % 0.0 Sodium 132 L Potassium 3.3 L Chloride 98 Carbon Dioxide 28 Anion Gap 6 BUN 28 H Creatinine 1.02 Estim Creat Clear Calc 95 Estimated GFR > 60 Glucose 132 H POC Capillary Glucose 232 H Calcium 7.7 L Magnesium 1.8 Total Bilirubin 0.6 AST 43 ALT 36 Alkaline Phosphatase 87 Total Protein 5.8 L Albumin 2.6 L Quality VTE Prophylaxis VTE prophylaxis: pharmacologic ordered (On Xarelto)
[2025-04-19] MEDS: ASPIRIN 81 MG ENTERIC TABLET PO (09:40)
[2025-04-19] MEDS: SPIRONOLACTONE 25 MG TABLET PO (09:40)
[2025-04-19] MEDS: SACUBITRIL/VALSARTAN 24-26 MG TABLET 1 TAB PO ×2 (09:40→20:35)
[2025-04-19] MEDS: THIAMINE HCL 100 MG TABLET PO (09:40)
[2025-04-19] MEDS: POTASSIUM CHLORIDE 20 MEQ ER TABLET 40 MEQ PO (09:41)
[2025-04-19] MEDS: FUROSEMIDE 20 MG TABLET 60 MG PO ×2 (09:43→17:52)
[2025-04-19] MEDS: INSULIN ASPART (*BKC) 100 UNITS/ML SUB-Q ×3 (12:12→17:53)
--- NOTE | 2025-04-19 12:57 | P.PNIM_ITS ---
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 Metolazone Added as well Elevated troponin ECHO no regional wall motion abnormalities, likely demand DM2 SSi with accucheks, monitor and adjust with clinical course HTN Titrate home meds with Clinical course Left ventricular thrombus Continue Xarelto Lower ulcer continue wound care wound care following DM2 Continue Lantus and SSi with accucheks and adjust with clinical course DVT prophylaxis on Xarelto Subjective Date/time seen: 04/19/25 12:57 Interval history: No overnight events. Feeling better. Does not want me to see his leg wounds. Review of Systems Review of Systems: 12 systems were reviewed and are negativ e except for as per HPI. Exam Narrative: General: Nontoxic-appearing male in the semi-Valente position in bed in no distress. HEENT: Normocephalic, atraumatic. PERRL, EOMI. Sclera anicteric. Oral mucosa moist. Neck: Supple. Full au. Respiratory: Respirations are nonlabored and he is speaking in full sentences. Cardiovascular: Regular rate and rhythm with S1-S2. Gastrointestinal: Abdomen is nontender with positive bowel sounds. 1+ edema Skin: Warm and dry. No rash or lesions on limited exam. Extremities: No cyanosis or clubbing +edema in lower extremities Neurological: Alert. Cranial nerves grossly intact. No gross focal deficits to casual conversation. Psychiatric: Pleasant and cooperative with normal mood and flat affect. Objective Data Vital Signs Vital Signs: Vital Signs - 24 hr 04/18/25 16:23 04/18/25 20:00 04/18/25 20:51 Temperature 98.0 F 97.6 F Pulse Rate 84 82 Respiratory Rate 18 20 16 Blood Pressure 99/63 L 112/86 Pulse Oximetry 98 93 Oxygen Delivery Room Air 04/18/25 20:55 04/18/25 23:59 04/19/25 08:00 Temperature Pulse Rate 69 91 Respiratory Rate Blood Pressure Pulse Oximetry Oxygen Delivery Room Air 04/19/25 08:22 Temperature 98.3 F Pulse Rate 95 Respiratory Rate 18 Blood Pressure 124/93 H Pulse Oximetry 100 Oxygen Delivery Intake/Output Intake/Output: Intake & Output 04/16/25 04/17/25 04/18/25 04/19/25 23:59 23:59 23:59 23:59 Intake Total 75 2040 2160 630 Output Total 2700 2950 3300 Balance -2625 -910 -1140 630 Meds/Results Medications: Active Medications Generic Name Dose Route Start Last Admin Trade Name Freq PRN Reason Stop Dose Admin Acetaminophen 650 mg 04/16/25 06:16 Acetaminophen 325 Mg Tablet PO Q6H PRN Mild Pain (1-3) or Fever Aspirin 81 mg 04/17/25 09:00 04/19/25 09:40 Aspirin 81 Mg Enteric Tablet PO 81 mg QAM KELIN Administration Carvedilol 25 mg 04/16/25 21:00 04/19/25 09:39 Carvedilol 25 Mg Tablet PO 25 mg Q12HR KELIN Administration Dextrose 12.5 gm 04/16/25 03:08 Dextrose 50% 25 Gm/50 Ml Syringe IV PUSH PRN PRN Hypoglycemia Protocol Furosemide 60 mg 04/19/25 09:00 04/19/25 09:43 Furosemide 20 Mg Tablet PO 60 mg BID KELIN Administration Glucagon 1 mg 04/16/25 03:08 Glucagon For Inj 1 Mg Vial IM PRN PRN Hypoglycemia Protocol Glucose 15 gm 04/16/25 03:08 Glucose Oral Gel 15 Gm Of Glucse In 37.5 Gm Tube PO PRN PRN Hypoglycemia Protocol Dextrose 1,000 mls @ 100 mls/hr 04/16/25 03:08 Dextrose 5% 1,000 Ml IVPB PRN PRN Hypoglycemia Protocol Insulin Aspart 2 - 4 units 04/16/25 21:00 04/18/25 21:54 Insulin Aspart (*Bkc) 100 Units/Ml SUB-Q Not Given HS KELIN Protocol Insulin Aspart 4 - 8 units 04/16/25 08:00 04/19/25 12:12 Insulin Aspart (*Bkc) 100 Units/Ml SUB-Q 5 units TIDWM KELIN Administration Protocol Insulin Glargine 15 units 04/19/25 21:00 Insulin Glargine (*Bkc) 100 Units/Ml SUB-Q HS KELIN Rivaroxaban 20 mg 04/16/25 17:00 04/18/25 16:24 Rivaroxaban 20 Mg Tablet PO 20 mg DAILY@1700 KELIN Administration Sacubitril/Valsartan 1 tab 04/16/25 21:00 04/19/25 09:40 Sacubitril/Valsartan 24-26 Mg Tablet PO 1 tab Q12HR KELIN Administration Spironolactone 25 mg 04/17/25 09:00 04/19/25 09:40 Spironolactone 25 Mg Tablet PO 25 mg QAM KELIN Administration Thiamine HCl 100 mg 04/17/25 09:00 04/19/25 09:40 Thiamine Hcl 100 Mg Tablet PO 100 mg QAM [facility] Administration Radiology Results: ITS Impressions Chest X-Ray 04/15/25 23:06 IMPRESSION: Mild pulmonary vascular congestion with a large right-sided pleural effusion Chest CT 04/16/25 08:32 IMPRESSION: 1. Moderate to large right and very small left pleural effusions with associated compensatory atelectasis including tarsal collapse of the right lower lobe. 2. Cardiomegaly with minimal pericardial effusion. 3. Prominent body wall edema. Labs Labs: Laboratory Results - last 24 hr 04/18/25 04/18/25 04/19/25 16:11 20:39 04:04 WBC 4.8 RBC 5.39 Hgb 14.7 Hct 45.0 MCV 83.5 MCH 27.3 MCHC 32.7 RDW 15.7 H Plt Count 169 MPV 10.5 H Immature Gran % (Auto) 0.4 Neut % (Auto) 42.4 L Lymph % (Auto) 42.7 [place] % (Auto) 12.2 H Eos % (Auto) 1.5 Baso % (Auto) 0.8 Lymph # (Auto) 2.03 [place] # (Auto) 0.6 Eos # (Auto) 0.1 Baso # (Auto) 0.0 Abs Immat Gran (auto) 0.02 Absolute Neuts (auto) 2.0 Absolute Nucleated RBC 0.000 Nucleated RBC % 0.0 Sodium 132 L Potassium 3.3 L Chloride 98 Carbon Dioxide 28 Anion Gap 6 BUN 28 H Creatinine 1.02 Estim Creat Clear Calc 95 Estimated GFR > 60 Glucose 132 H POC Capillary Glucose 371 H 405 H Calcium 7.7 L Magnesium 1.8 Total Bilirubin 0.6 AST 43 ALT 36 Alkaline Phosphatase 87 Total Protein 5.8 L Albumin 2.6 L 04/19/25 04/19/25 07:33 12:04 WBC RBC Hgb Hct MCV MCH MCHC RDW Plt Count MPV Immature Gran % (Auto) Neut % (Auto) Lymph % (Auto) [place] % (Auto) Eos % (Auto) Baso % (Auto) Lymph # (Auto) [place] # (Auto) Eos # (Auto) Baso # (Auto) Abs Immat Gran (auto) Absolute Neuts (auto) Absolute Nucleated RBC Nucleated RBC % Sodium Potassium Chloride Carbon Dioxide Anion Gap BUN Creatinine Estim Creat Clear Calc Estimated GFR Glucose POC Capillary Glucose 232 H 386 H Calcium Magnesium Total Bilirubin AST ALT Alkaline Phosphatase Total Protein Albumin
[2025-04-19 16:09] VITALS: BP 105/77; PULSE 86; RESP 18; TEMP 36.3; O2SAT 100
[2025-04-19] MEDS: RIVAROXABAN 20 MG TABLET PO (17:52)
[2025-04-19 20:10] VITALS: BP 102/75; PULSE 106; RESP 20; TEMP 37.2; O2SAT 100
[2025-04-19 20:32] VITALS: PULSE 88
[2025-04-19] MEDS: INSULIN GLARGINE (*BKC) 100 UNITS/ML 10 UNITS SUB-Q (22:11)
[2025-04-19 22:23] VITALS: O2SAT 100
--- NOTE | 2025-04-19 22:36 | PC.NURSE ---
Pt refused 15 units of Lantus with a blood glucose of 459, stated he would only take 10. Kacie Robb APRN notified of blood glucose and ordered 10 units of Lantus as well as 12 units of regular insulin. The pt was educated on the importance of taking these medications to control his sugars, he then stated again that he will only do 10 and 10 not 12. Pt educated that the doctor ordered 12, pt then stated he had the right to choose. Pt given 10 units of Lantus and refused 12 units of regular insulin.
--- NOTE | 2025-04-19 22:57 | PC.NURSE ---
This patient, Michael Frank, was transferred to [facility] on 04/19/25 at 2258 with two nurses via bed no issues noted. Personal belongings sent with patient. Report given to Shine MONTALVO. Appropriate documentation sent with patient.
[2025-04-19 23:05] VITALS: BP 113/83; PULSE 87; RESP 20; TEMP 36.6; O2SAT 97
[2025-04-19] MEDS: INSULIN HUMAN REGULAR (*BKC) 100 UNITS/ML 12 UNITS SUB-Q (23:34)
--- NOTE | 2025-04-20 02:50 | PC.NURSE ---
Pt is noncompliant with fluid restriction and diet despite repeated education and warnings of possible consequences.
[2025-04-20 05:53] LABS: Hematocrit 44.0 % (42.0-52.0); Hemoglobin 14.5 g/dL (14.0-18.0); Immature Granulocyte Percent A 0.2 % (0-0.5); Lymphocytes Absolute Auto 1.73 K/mm3 (0.9-3.2); Mean Corpuscular HGB Conc 33.0 g/dl (32-36); Mean Corpuscular Hemoglobin 27.7 pg (26-34); Mean Corpuscular Volume 84.1 fl (80-100); Nucleated Red Blood Cells Absolute Auto 0.040 K/mm3 (0.0-0.012); Nucleated Red Blood Cells Perc 0.8 % (0.0-0.2); Platelet Count Result 181 k/mm3 (150-375); Red Blood Count 5.23 M/mm3 (4.6-6.20); White Blood Count 4.9 K/mm3 (4.5-10.0)
[2025-04-20 07:00] LABS: Alanine Aminotransferase 33 U/L (6-50); Albumin Level 2.3 g/dL (3.5-5.1); Alkaline Phosphatase 83 U/L (38-126); Anion Gap 4 mmol/L (4-12); Aspartate Amino Transferase 39 U/L (17-59); Bilirubin,Total 0.6 mg/dL (0.2-1.3); Blood Urea Nitrogen 25 mg/dL (9-20); Calcium 8.0 mg/dL (8.4-10.2); Carbon Dioxide 26 mmol/L (22-30); Chloride 101 mmol/L (98-107); Estimated CRCL calculation 101 ml/min; Estimated Glomerular Filt Rate > 60; Glucose 241 mg/dL (65-110); Magnesium 1.8 mg/dL (1.6-2.3); Potassium 3.8 mmol/L (3.4-5.0); Sodium 131 mmol/L (137-145); Total Protein 5.3 g/dL (6.3-8.2)
--- NOTE | 2025-04-20 08:51 | P.PNCA_ITS ---
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 -LAMAR ayers -continue Entresto, spironolactone, carvedilol -CHF counseling -1500cc fluid restriction Left ventricular apical thrombus -continue Xarelto Hypertension -well controlled on Entresto 24-26 mg p.o. b.i.d. and spironolactone 25 mg p.o. daily Poor prognosis given his multiple admission, continue excessive alcohol intake, and noncompliance Can be discharged on current medications with follow-up in cardiology clinic Subjective Date/time seen: 04/20/25 08:51 Interval history: Cardiology follow up visit Shortness of breath, chest pain, lower extremity swelling is improving. His chronic lower extremity wounds with intact dressing. Date of service 04/18/2025: Feeling better today. Swelling has improved as well as shortness of breath. Still has orthopnea. No chest pain. Date of service 04/19/2025: Continues to feel better. Denies shortness of breath unless he bends over. Complaining of scrotal edema and states his genitals are deformed. 04/20/2025: No acute events overnight, intake was around ~ 1.8 L. + 1 L Renal function stable Review of Systems Cardiovascular: Cardiovascular: Reports as per HPI Respiratory: Respiratory: Reports as per HPI Exam Const: General: comfortable HENMT: Mouth: Yes moist mucous membranes Eyes: EOM: EOMs intact bilaterally Neck: Neck: no JVD Other: JVD positive Resp: Effort & Inspection: normal respiratory effort Auscultation: clear to auscultation bilaterally and rales on the left in the lower lung valles Cardio: Rate: regular rate Rhythm: regular rhythm GI: Inspection: normal to inspection and distended Neuro: Speech: normal speech Extrem: General: edema and pedal edema Other: Mild bilateral pretibial and pedal edema Objective Data Vital Signs Vital Signs: Vital Signs - 24 hr 04/19/25 16:09 04/19/25 20:10 04/19/25 20:32 Temperature 36.3 C L 37.2 C Pulse Rate 86 106 H 88 Respiratory Rate 18 20 Blood Pressure 105/77 102/75 Pulse Oximetry 100 100 Oxygen Delivery 04/19/25 22:23 04/19/25 23:05 Temperature 36.6 C Pulse Rate 87 Respiratory Rate 20 Blood Pressure 113/83 Pulse Oximetry 100 97 Oxygen Delivery Room Air Intake/Output Intake/Output: Intake & Output 04/17/25 04/18/25 04/19/25 04/20/25 23:59 23:59 23:59 23:59 Intake Total 2040 2160 2100 100 Output Total 2950 3300 725 Balance -910 -1140 1375 100 Meds/Results Medications: Active Medications Generic Name Dose Route Start Last Admin Trade Name Freq PRN Reason Stop Dose Admin Acetaminophen 650 mg 04/16/25 06:16 Acetaminophen 325 Mg Tablet PO Q6H PRN Mild Pain (1-3) or Fever Aspirin 81 mg 04/17/25 09:00 04/19/25 09:40 Aspirin 81 Mg Enteric Tablet PO 81 mg QAM KELIN Administration Carvedilol 25 mg 04/16/25 21:00 04/19/25 20:32 Carvedilol 25 Mg Tablet PO 25 mg Q12HR KELIN Administration Dextrose 12.5 gm 04/16/25 03:08 Dextrose 50% 25 Gm/50 Ml Syringe IV PUSH PRN PRN Hypoglycemia Protocol Furosemide 60 mg 04/19/25 09:00 04/19/25 17:52 Furosemide 20 Mg Tablet PO 60 mg BID KELIN Administration Glucagon 1 mg 04/16/25 03:08 Glucagon For Inj 1 Mg Vial IM PRN PRN Hypoglycemia Protocol Glucose 15 gm 04/16/25 03:08 Glucose Oral Gel 15 Gm Of Glucse In 37.5 Gm Tube PO PRN PRN Hypoglycemia Protocol Dextrose 1,000 mls @ 100 mls/hr 04/16/25 03:08 Dextrose 5% 1,000 Ml IVPB PRN PRN Hypoglycemia Protocol Insulin Aspart 2 - 4 units 04/16/25 21:00 04/19/25 22:01 Insulin Aspart (*Bkc) 100 Units/Ml SUB-Q Not Given HS KELIN Protocol Insulin Aspart 4 - 8 units 04/16/25 08:00 04/20/25 08:24 Insulin Aspart (*Bkc) 100 Units/Ml SUB-Q Not Given TIDWM KELIN Protocol Insulin Aspart 5 units 04/19/25 17:00 04/19/25 17:52 Insulin Aspart (*Bkc) 100 Units/Ml SUB-Q 5 units TIDWM KELIN Administration Insulin Glargine 15 units 04/19/25 21:00 04/19/25 22:01 Insulin Glargine (*Bkc) 100 Units/Ml SUB-Q Not Given HS [facility] Rivaroxaban 20 mg 04/16/25 17:00 04/19/25 17:52 Rivaroxaban 20 Mg Tablet PO 20 mg DAILY@1700 KELIN Administration Sacubitril/Valsartan 1 tab 04/16/25 21:00 04/19/25 20:35 Sacubitril/Valsartan 24-26 Mg Tablet PO 1 tab Q12HR KELIN Administration Spironolactone 25 mg 04/17/25 09:00 04/19/25 09:40 Spironolactone 25 Mg Tablet PO 25 mg QAM KELIN Administration Thiamine HCl 100 mg 04/17/25 09:00 04/19/25 09:40 Thiamine Hcl 100 Mg Tablet PO 100 mg QAM KELIN Administration Radiology Results: ITS Impressions Chest X-Ray 04/15/25 23:06 IMPRESSION: Mild pulmonary vascular congestion with a large right-sided pleural effusion Chest CT 04/16/25 08:32 IMPRESSION: 1. Moderate to large right and very small left pleural effusions with associated compensatory atelectasis including tarsal collapse of the right lower lobe. 2. Cardiomegaly with minimal pericardial effusion. 3. Prominent body wall edema. Labs Labs: Laboratory Results - last 24 hr 04/19/25 04/19/25 04/19/25 12:04 16:05 20:08 WBC RBC Hgb Hct MCV MCH MCHC RDW Plt Count MPV Immature Gran % (Auto) Neut % (Auto) Lymph % (Auto) Simpson % (Auto) Eos % (Auto) Baso % (Auto) Lymph # (Auto) Simpson # (Auto) Eos # (Auto) Baso # (Auto) Abs Immat Gran (auto) Absolute Neuts (auto) Absolute Nucleated RBC Nucleated RBC % Sodium Potassium Chloride Carbon Dioxide Anion Gap BUN Creatinine Estim Creat Clear Calc Estimated GFR Glucose POC Capillary Glucose 386 H 492 H 459 H Calcium Magnesium Total Bilirubin AST ALT Alkaline Phosphatase Total Protein Albumin 04/19/25 04/20/25 04/20/25 23:17 05:06 05:07 WBC 4.9 RBC 5.23 Hgb 14.5 Hct 44.0 MCV 84.1 MCH 27.7 MCHC 33.0 RDW 15.9 H Plt Count 181 MPV 11.8 H Immature Gran % (Auto) 0.2 Neut % (Auto) 51.2 Lymph % (Auto) 35.2 Simpson % (Auto) 11.2 H Eos % (Auto) 1.4 Baso % (Auto) 0.8 Lymph # (Auto) 1.73 Simpson # (Auto) 0.6 Eos # (Auto) 0.1 Baso # (Auto) 0.0 Abs Immat Gran (auto) 0.01 Absolute Neuts (auto) 2.5 Absolute Nucleated RBC 0.040 H Nucleated RBC % 0.8 H Sodium 131 L Potassium 3.8 Chloride 101 Carbon Dioxide 26 Anion Gap 4 BUN 25 H Creatinine 0.95 Estim Creat Clear Calc 101 Estimated GFR > 60 Glucose 241 H POC Capillary Glucose 468 H Calcium 8.0 L Magnesium 1.8 Total Bilirubin 0.6 AST 39 ALT 33 Alkaline Phosphatase 83 Total Protein 5.3 L Albumin 2.3 L 04/20/25 07:48 WBC RBC Hgb Hct MCV MCH MCHC RDW Plt Count MPV Immature Gran % (Auto) Neut % (Auto) Lymph % (Auto) Simpson % (Auto) Eos % (Auto) Baso % (Auto) Lymph # (Auto) Simpson # (Auto) Eos # (Auto) Baso # (Auto) Abs Immat Gran (auto) Absolute Neuts (auto) Absolute Nucleated RBC Nucleated RBC % Sodium Potassium Chloride Carbon Dioxide Anion Gap BUN Creatinine Estim Creat Clear Calc Estimated GFR Glucose POC Capillary Glucose 145 H Calcium Magnesium Total Bilirubin AST ALT Alkaline Phosphatase Total Protein Albumin
[2025-04-20] MEDS: THIAMINE HCL 100 MG TABLET PO (09:31)
[2025-04-20 09:32] VITALS: PULSE 86
[2025-04-20] MEDS: ASPIRIN 81 MG ENTERIC TABLET PO (09:32)
[2025-04-20] MEDS: SPIRONOLACTONE 25 MG TABLET PO (09:33)
[2025-04-20] MEDS: SACUBITRIL/VALSARTAN 24-26 MG TABLET 1 TAB PO ×2 (09:33→20:59)
[2025-04-20] MEDS: BUMETANIDE PO 1 MG, BUMETANIDE PO 0.5 MG 1.5 MG PO (09:33)
[2025-04-20] MEDS: CHLOROTHIAZIDE 500 MG VIAL 250 MG IV PUSH (11:24)
[2025-04-20] MEDS: INSULIN ASPART (*BKC) 100 UNITS/ML SUB-Q (12:43)
[2025-04-20 13:50] VITALS: BP 122/87; PULSE 89; RESP 18; TEMP 36.4; O2SAT 99
--- NOTE | 2025-04-20 14:38 | PM.DS ---
DS: Admitting Diagnosis Discharge Date 04/20/25 Admitting Diagnosis Swelling and shortness of breath. DS: Discharge Diagnosis Discharge Diagnosis (1) Acute on chronic systolic heart failure: Code(s): I50.23 - Acute on chronic systolic (congestive) heart failure Status: Acute (2) Elevated troponin: Code(s): R79.89 - Other specified abnormal findings of blood chemistry Status: Acute (3) Type 2 diabetes mellitus with hyperglycemia: Code(s): E11.65 - Type 2 diabetes mellitus with hyperglycemia Status: Acute (4) Chronic anticoagulation: Code(s): Z79.01 - skilled nursing (current) use of anticoagulants Status: Acute (5) Hypertension: Code(s): I10 - Essential (primary) hypertension Status: Acute (6) Alcohol abuse: Code(s): F10.10 - Alcohol abuse, uncomplicated Status: Acute DS: Summary Hospital Course Reason for hospitalization: 39yo male with severe, presumed nonischemic alcoholic cardiomyopathy with an ejection fraction in the range of 10 to 15% and evidence of left ventricular apical thrombus on prior echocardiogram, hypertension, type 2 diabetes mellitus, and history of noncompliance who presented to the emergency department with complaints of swelling and shortness of breath. Please see H&P for details Hospital Course: EKG showing normal sinus rhythm with borderline T wave changes in the high lateral leads and low voltage. No change from prior. Echo showing EF now at 10-15% with a mobile LV thrombus in the apex that is slightly increased, moderate MR, moderate TR, moderate pulmonic valve regurg and elevated RAP. CXR showing mild pulmonary vascular congestion with large right sided pleural effusion. CT chest showed moderate to large right and very small left pleural effusions with associated compensatory atelectasis including tarsal collapse of the right lower lobe, cardiomegaly with minimal pericardial effusion and prominent body wall edema. He was treated with IV Lasix. Cardiology consulted. He had a negative fluid balance and decrease in weight of 5Kg. We continued Entresto, Spironolactone and carvedilol. We continued his Xarelto. Compliance with treatment was stressed. He denies having issues obtaining medications. Elevated troponins noted and felt related to demand ishemia. A1c >14. We resumed his Lantus and meal time insulin and glucose better this morning (145) so it is unclear if he is taking his diabetic medications at home. Compliance and close monitoring was stressed. He does feel that the medications may be too much for his heart; long discussion on how the meds work and the need to keep taking them. Wound care to his chronic leg wounds. Outpatient follow-up planned per box packer and if not healing in the next few weeks, thenrecommend pursuing ultrasound ALISSA in clinic. Consider adding Empagliflozin in the outpatient clinic. Patient overall did well was able to be discharged on 04/20/25. Status at Discharge Cognitive/behavioral status at discharge: Stable Time Spent with Patient Time attestation: Total time spent providing and/or coordinating discharge services: 35 minutes Time spent: Greater than 30 minutes Exam Narrative: AF 97.6 122/87 89 18 99% ra Gen - NARD Chest -decreased breath sounds in the right base otherwise clear. CV - RRR S1/S2 Abd - Soft, NT/ND, Positive BS Ext -indurated pedal edema Psych - Nml mood. Odd affect Skin - Warm and dry. Bilateral treviño dressings were clean, dry and intact (2 on right and 1 left) DS: Data Data Completed and Pending Labs on day of discharge: Labs from last 24 hours 04/20/25 04/20/25 04/20/25 12:07 07:48 05:07 WBC 4.9 RBC 5.23 Hgb 14.5 Hct 44.0 MCV 84.1 MCH 27.7 MCHC 33.0 RDW 15.9 H Plt Count 181 MPV 11.8 H Immature Gran % (Auto) 0.2 Neut % (Auto) 51.2 Lymph % (Auto) 35.2 [place] % (Auto) 11.2 H Eos % (Auto) 1.4 Baso % (Auto) 0.8 Lymph # (Auto) 1.73 [place] # (Auto) 0.6 Eos # (Auto) 0.1 Baso # (Auto) 0.0 Abs Immat Gran (auto) 0.01 Absolute Neuts (auto) 2.5 Absolute Nucleated RBC 0.040 H Nucleated RBC % 0.8 H Sodium Potassium Chloride Carbon Dioxide Anion Gap BUN Creatinine Estim Creat Clear Calc Estimated GFR Glucose POC Capillary Glucose 256 H 145 H Calcium Magnesium Total Bilirubin AST ALT Alkaline Phosphatase Total Protein Albumin 04/20/25 04/19/25 04/19/25 05:06 23:17 20:08 WBC RBC Hgb Hct MCV MCH MCHC RDW Plt Count MPV Immature Gran % (Auto) Neut % (Auto) Lymph % (Auto) [place] % (Auto) Eos % (Auto) Baso % (Auto) Lymph # (Auto) [place] # (Auto) Eos # (Auto) Baso # (Auto) Abs Immat Gran (auto) Absolute Neuts (auto) Absolute Nucleated RBC Nucleated RBC % Sodium 131 L Potassium 3.8 Chloride 101 Carbon Dioxide 26 Anion Gap 4 BUN 25 H Creatinine 0.95 Estim Creat Clear Calc 101 Estimated GFR > 60 Glucose 241 H POC Capillary Glucose 468 H 459 H Calcium 8.0 L Magnesium 1.8 Total Bilirubin 0.6 AST 39 ALT 33 Alkaline Phosphatase 83 Total Protein 5.3 L Albumin 2.3 L 04/19/25 16:05 WBC RBC Hgb Hct MCV MCH MCHC RDW Plt Count MPV Immature Gran % (Auto) Neut % (Auto) Lymph % (Auto) [place] % (Auto) Eos % (Auto) Baso % (Auto) Lymph # (Auto) [place] # (Auto) Eos # (Auto) Baso # (Auto) Abs Immat Gran (auto) Absolute Neuts (auto) Absolute Nucleated RBC Nucleated RBC % Sodium Potassium Chloride Carbon Dioxide Anion Gap BUN Creatinine Estim Creat Clear Calc Estimated GFR Glucose POC Capillary Glucose 492 H Calcium Magnesium Total Bilirubin AST ALT Alkaline Phosphatase Total Protein Albumin Discharge Plan Discharge Attending physician on discharge: Fawad Krishnamurthy Consulting providers: Arthur Tatum Discharging Clinician: Fawad Krishnamurthy Anticipated Discharge Date/Time: 04/20/25 14:52 Patient Disposition: Home Activity: as tolerated Diet: heart healthy and diabetic Discharge Instructions: Please check glucose before meals and before bed. Record and bring into your doctor for review. Check blood pressure 1 to 2 times a day. Record and bring into your doctor for review. Call your doctor if your blood pressure is greater than 180/110. Limit fluid intake to 1.5Liters total per day. Take precautions to avoid falls. Rise slowly from a lying or sitting position. Pause before standing or walking. Check daily morning weights after voiding. Call your doctor if you gain more than 3 lb in 2 days or 5 lb in 1 week. Contact your doctor or call 911 and come to the Emergency Room if you have lightheadedness with standing or other worrisome symptoms. Avoid NSAIDs (ibuprofen, naproxen, Aleve). Tylenol is safe to take. Stop all alcohol use. Follow-up with your primary care provider in 1-2 weeks. Please call for appointment. Follow-up with Community Service Director in 2-3 weeks. Please call for an appointment. Thank you for using [facility] for your health care needs. Patient Instructions: Antibiotic Form, Heart Failure (DC), Pleural Effusion (DC), Pericardial Effusion (DC), Safe Use of Anticoagulants (DC) Patient Language: Lao Stand Alone Forms: General Discharge Information Follow-up/Referrals: Arthur Tatum MD [Physician] - Call for Appointment Baron,MD Tremaine [Primary Care Provider] - Call for Appointment Discharge Medications: New bumetanide 1 mg tablet 1.5 mg PO BID Qty: 90 1RF Continued insulin glargine [Lantus U-100 Insulin] 100 unit/mL Solution 15 unit subcut HS Qty: 150 1RF Patient Comments: States that he only takes 5 Units of Lantus dextrose [Glutose-15] 40 % Gel 15 g PO PRN PRN (Reason: Hypoglycemia) 15 Days Qty: 15 0RF spironolactone 25 mg Tablet 25 mg PO QAM Qty: 90 0RF insulin aspart U-100 [Novolog U-100 Insulin aspart] 100 unit/mL Solution 5 unit subcut TIDWM Qty: 150 0RF Patient Comments: States that he only takes insulin once a day Xarelto 20 mg Tablet 20 mg PO DAILY@1700 Qty: 90 0RF Entresto 24-26 mg Tablet 1 tab PO Q12HR Qty: 90 0RF carvedilol [Coreg] 25 mg Tablet 25 mg PO Q12HR Qty: 60 0RF thiamine HCl (vitamin B1) [Vitamin B-1] 100 mg Tablet 100 mg PO QAM Qty: 30 0RF aspirin 81 mg Tablet,Delayed Release (Dr/Ec) 81 mg PO QAM Qty: 30 0RF folic acid 1 mg Tablet 1 mg PO DAILY Qty: 30 0RF Discontinued furosemide 40 mg Tablet 40 mg PO BID Qty: 60 0RF Date of admission: 04/16/25 09:18 Primary Care Provider: RachanaTremaine Admitting Provider: Jany Soria Attending physician on admission: Jany Soria Condition: Serious Hospitalist MIPS Heart Failure (Exclusion) Patient has history of Heart Transplant or Left Ventricular Assistive Device?: No IF YES, STOP HERE Heart Failure (Qualifier) Patient has current or prior documentation of LVEF less than or equal to 40%, or mod/servere depressed LVSF?: Yes IF NO, STOP HERE If Yes, Heart Failure (Qualifier) Patient was prescribed or already taking an Angiotensin-Converting Enzyme (MARTHA) Inhibitor, or Antiotensin Receptor Leila (ARB): Yes Patient was prescribed or already taking bisoprolol, carvedilol, or sustained release metoprolol succinate: Yes
[2025-04-20 20:59] VITALS: PULSE 78
== END 2025-04-20 21:17 | disposition home or self-care (01) | DRG 194 ==
LOC: ANHED 23:10 → ANHIMU 04-16 05:07 → ANH2MED 04-19 23:00
PROVIDERS: Internal Medicine; Physician Assistant; Admitting Provider Internal Medicine; Emergency Provider Emergency Medicine; PCP Internal Medicine; Visit Provider Internal Medicine
DX: I11.0 Hypertensive heart disease with heart failure (principal); I50.23 Acute on chronic systolic (congestive) heart failure; I42.6 Alcoholic cardiomyopathy; E11.65 Type 2 diabetes mellitus with hyperglycemia; F10.20 Alcohol dependence, uncomplicated; Z79.01 Long term (current) use of anticoagulants; Z91.148 Patient's other noncompliance with medication regimen for other reason; Z86.718 Personal history of other venous thrombosis and embolism; Z79.4 Long term (current) use of insulin; Z79.82 Long term (current) use of aspirin
CPT/HCPCS: 36415; 71045; 71250; 80048; 80053; 82948; 83036; 83735; 83880; 84443; 84484; 85025; 93005; 96374; 99285; A9270; C8929; G0378; G0379; J1205; J1815; J1938; P9047; Q9957